=== PATIENT | male | born 1975 | race Caucasian/White ===

== ENCOUNTER 2022-06-19 19:03 | Inpatient (IN) | payer OTHER, SELFPAY ==
[2022-06-19 19:36] VITALS: BP 142/91; PULSE 96; RESP 18; TEMP 36.6; O2SAT 96; BMI 24.3
[2022-06-19 19:40] VITALS: BP 142/91; PULSE 96; RESP 18; TEMP 36.6; O2SAT 96
--- NOTE | 2022-06-19 20:27 | PC.NURSE ---
[facility] referral submitted at this time.
--- NOTE | 2022-06-19 20:48 | ED_ITS ---
HPI - Anxiety General Chief Complaint: Anxiety Stated Complaint: Crisis/Manic Time Seen by Provider: 06/19/22 20:21 Source: patient Mode of arrival: ambulatory Limitations: no limitations History of Present Illness HPI narrative: Family presents with 46-year-old male for evaluation for manic behavior. Patient has been manic for several months, has been biting his fingernails, pinching his skin, is noncompliant with medications, and has been experiencing explosive outbursts which scares his mother and his sisters. Patient states that he has been seen by primary care physician and nurse practitioner, has been given multiple medications, but feels very paranoid about taking them. He does not report any physical complaints at this time. MD complaint: anxiety Onset (ago): month(s) Severity: severe Quality: constant Place: home History of similar episodes: Yes Provoking factors: emotional stress Relieving factors: nothing Associated symptoms: denies other symptoms Related Data Allergies Allergy/AdvReac Type Severity Reaction Status Date / Time No Known Allergies Allergy Verified 06/19/22 20:56 Review of Systems Review of Systems: Constitutional: No Fever, No Chills ENT/Mouth: No Ear Pain, No Nasal Congestion, No sore throat Eyes: No Eye Pain, No Swelling, No Redness Cardiovascular: No Chest Pain, No SOB Respiratory: No Cough, No Sputum, No Dyspnea Gastrointestinal: No Nausea, No Vomiting, No Diarrhea, No Hematochezia, No Melena Genitourinary: No Dysuria, No Urinary Frequency, No Hematuria Musculoskeletal: No Myalgias Skin: No Skin Lesions, No rash Neuro: No Weakness, No Numbness, No Paresthesias, No Dizziness, No Headache Psych: positive Anxiety, positive Depression, no SI/HI Heme/Lymph: No Lymphadenopathy Endocrine: No Polyuria, No Polydipsia Yes all other systems are reviewed and are negative PMFSH Past Medical History Attestation statement: The following information was validated with the patient. Source: old records reviewed Social History Social History Alcohol intake: current Alcohol intake frequency: holidays/special occasions on ly Smoked in Last 30 Days: No Use of substances other than those prescribed or required for medical reasons: No Advance Directives: No Advance Directives Information Provided: No Physical Exam Vital Signs: Vital Signs: Last Vital Signs Temp 97.9 F 06/19/22 19:40 Pulse 96 06/19/22 19:40 Resp 18 06/19/22 19:40 BP 142/91 H 06/19/22 19:40 Pulse Ox 96 06/19/22 19:40 O2 Del Method 06/19/22 19:40 BMI result Body Mass Index 24.3 Appearance: Alert. Oriented X3. Moderate emotional distress. Eyes: Pupils equal, round and reactive to light. ENT: Pharynx normal. Neck: Normal inspection. Neck supple. CVS: Normal heart rate and rhythm. Pulses normal. Respiratory: No respiratory distress. Breath sounds normal. Abdomen: Soft and nontender. Skin: Cellulitis to all fingertips secondary to severe nail biting. Multiple bruises to forearms from pinching. Extremities: Gait well-balanced well coordinated. Neuro: No motor deficit. No sensory deficit. Cranial nerves 2-12 intact. Course Course Course Narrative: 46-year-old male presents with his family for evaluation for manic behavior and extreme anxiety. Patient states that he has been given several medications by his primary care physician and nurse practitioner. States that he has some anxiety about taking medications, is paranoid, and has been Google searching all the medications that were prescribed to him. He states that his job is stressful, and that he has been declining over the past few months. His sister states that he has explosive behaviors, is manic, and that his mother, whom he lives with, is afraid of him and concerned about his behaviors. Patient states that he is concerned about his behavior, is looking for help but is not sure what is available. Not suicidal or homicidal, he has cellulitis to his finger tips because of nail biting. All of his fingertips are swollen, he has multiple bruises on his forearms from pinching. He does not report illicit drug use, and has a prescription for Xanax. He did try fluoxetine, which made him feel like he was suicidal, and exacerbated his depression. Stated he was on Zoloft which was better, but stopped taking it because of paranoia. He has been given multiple other medications which she is currently not taking. He was diagnosed with herpes, and is on acyclovir. Patient is alert oriented x4, is speaking calmly and softly, answering questions appropriately. His sister's state that this behavior is unusual for him because he is calm and cooperative, which is not than his baseline over the past few months. Will order labs, crisis consult and psychiatric evaluation. Patient is voluntary at this time. I did give 1 dose of Xanax to help alleviate anxiety. I expect his tox screen to be positive for benzo diazepam. 23:50 tox screen positive for benzos, lab values are unremarkable. COVID influenza pending. Patient is medically cleared. Physician observation at this time. Medications Administered Discontinued Medications Generic Name Dose Route Start Last Admin Trade Name Dolly PRN Reason Stop Dose Admin Alprazolam 0.5 mg 06/19/22 20:56 06/19/22 21:15 Alprazolam 0.5 Mg Tablet PO 06/19/22 20:57 0.5 mg ONCE ONE Administration MDM - Anxiety MDM Narrative Medical decision making narrative: Martha Differential Diagnosis Differential diagnosis: Likely panic disorder and acute anxiety Medical Records Attestation: I reviewed the patient's medical records. Lab Data Attestation: I reviewed the patient's lab results. Result diagrams: 06/19/22 21:46 06/19/22 21:46 Labs: Lab Results 06/19/22 06/19/22 06/19/22 Range/Units 21:46 21:46 21:46 WBC 9.9 (4.8-10.8) X10*3/uL RBC 4.85 (4.60-5.80) X10*6/uL Hgb 15.7 (14.0-18.0) g/dl Hct 43.6 (42.0-52.0) % MCV 89.9 (80.0-98.0) fL MCH 32.4 (27.0-33.0) pg MCHC 36.0 (31.0-36.0) g/dl RDW 11.9 (11.0-16.0) % Plt Count 327 (160-400) X10*3/uL MPV 9.3 L (9.4-12.4) fL Immature Gran % (Auto) 0.4 (0.0-0.4) % Neut % (Auto) 72.7 (45-73) % Lymph % (Auto) 15.9 L (20-40) % [place] % (Auto) 9.7 (2-11) % Eos % (Auto) 1.1 (0-4) % Baso % (Auto) 0.2 (0-2) % Lymph # (Auto) 1.6 (1.2-4.9) X10*3/uL [place] # (Auto) 1.0 (0.1-1.2) X10*3/uL Eos # (Auto) 0.1 (0.0-0.4) X10*3/uL Baso # (Auto) 0.0 (0.0-0.2) X10*3/uL Abs Immat Gran (auto) 0.04 H (0.00-0.03) X10*3/uL Absolute Neuts (auto) 7.2 (2.0-8.3) x10*3/uL Absolute Nucleated RBC 0.000 (0.0-0.012) X10*3/uL Nucleated RBC % (auto) 0.0 (0.0-0.2) /100WBC Sodium 140 (135-145) mmol/L Potassium 3.8 (3.3-5.1) mmol/L Chloride 106 (96-108) mmol/L Carbon Dioxide 23 (22-29) mmol/L Anion Gap 15 (12-20) BUN 13 (9-16) mg/dL Creatinine 0.75 (0.5-1.4) mg/dL Estim Creat Clear Calc 116.5 Estimated GFR > 60 Random Glucose 95 (60-115) mg/dL Calcium 9.6 (8.4-10.2) mg/dL Total Bilirubin 1.0 (0.0-1.0) mg/dL AST 28 (5-37) U/L ALT 19 (0-40) U/L Alkaline Phosphatase 57 (39-117) U/L Total Protein 6.6 (6.5-8.0) g/dL Albumin 4.6 (3.5-5.0) g/dL Urine Opiates Screen (Not Detect) Urine Fentanyl Screen (Not Detect) Ur Barbiturates Screen (Not Detect) Ur Phencyclidine Scrn (Not Detect) Ur Amphetamines Screen (Not Detect) U Benzodiazepines Scrn (Not Detect) Urine Cocaine Screen (Not Detect) U Marijuana (THC) Screen (Not Detect) Ethyl Alcohol < 10 mg/dL 06/19/22 Range/Units 21:54 WBC (4.8-10.8) X10*3/uL RBC (4.60-5.80) X10*6/uL Hgb (14.0-18.0) g/dl Hct (42.0-52.0) % MCV (80.0-98.0) fL MCH (27.0-33.0) pg MCHC (31.0-36.0) g/dl RDW (11.0-16.0) % Plt Count (160-400) X10*3/uL MPV (9.4-12.4) fL Immature Gran % (Auto) (0.0-0.4) % Neut % (Auto) (45-73) % Lymph % (Auto) (20-40) % [place] % (Auto) (2-11) % Eos % (Auto) (0-4) % Baso % (Auto) (0-2) % Lymph # (Auto) (1.2-4.9) X10*3/uL [place] # (Auto) (0.1-1.2) X10*3/uL Eos # (Auto) (0.0-0.4) X10*3/uL Baso # (Auto) (0.0-0.2) X10*3/uL Abs Immat Gran (auto) (0.00-0.03) X10*3/uL Absolute Neuts (auto) (2.0-8.3) x10*3/uL Absolute Nucleated RBC (0.0-0.012) X10*3/uL Nucleated RBC % (auto) (0.0-0.2) /100WBC Sodium (135-145) mmol/L Potassium (3.3-5.1) mmol/L Chloride (96-108) mmol/L Carbon Dioxide (22-29) mmol/L Anion Gap (12-20) BUN (9-16) mg/dL Creatinine (0.5-1.4) mg/dL Estim Creat Clear Calc Estimated GFR Random Glucose (60-115) mg/dL Calcium (8.4-10.2) mg/dL Total Bilirubin (0.0-1.0) mg/dL AST (5-37) U/L ALT (0-40) U/L Alkaline Phosphatase (39-117) U/L Total Protein (6.5-8.0) g/dL Albumin (3.5-5.0) g/dL Urine Opiates Screen Not Detected (Not Detect) Urine Fentanyl Screen Not Detected (Not Detect) Ur Barbiturates Screen Not Detected (Not Detect) Ur Phencyclidine Scrn Not Detected (Not Detect) Ur Amphetamines Screen Not Detected (Not Detect) U Benzodiazepines Scrn POSITIVE H (Not Detect) Urine Cocaine Screen Not Detected (Not Detect) U Marijuana (THC) Screen Not Detected (Not Detect) Ethyl Alcohol mg/dL Discharge Plan Discharge Clinical Impression: Acute anxiety, Bipolar 1 disorder with moderate martha Patient Disposition: Still a Patient
[2022-06-19] MEDS: ALPRAZolam 0.5 MG TABLET PO (21:15)
[2022-06-19 21:55] LABS: Basophils Percent Auto 0.2 % (0-2); Eosinophils Absolute Auto 0.1 X10*3/uL (0.0-0.4); Eosinophils Percent Auto 1.1 % (0-4); Hematocrit 43.6 % (42.0-52.0); Hemoglobin 15.7 g/dl (14.0-18.0); Imm Gran Abs Auto 0.04 X10*3/uL (0.00-0.03); Imm Gran Pct Auto 0.4 % (0.0-0.4); Lymphocytes Absolute Auto 1.6 X10*3/uL (1.2-4.9); Lymphocytes Percent Auto 15.9 % (20-40); MANUAL DIFF FLAG NO; Mean Corpuscular Hemoglobin 32.4 pg (27.0-33.0); Mean Corpuscular Volume 89.9 fL (80.0-98.0); Mean Platelet Volume 9.3 fL (9.4-12.4); Monocytes Percent Auto 9.7 % (2-11); Neutrophils Absolute Auto 7.2 x10*3/uL (2.0-8.3); Neutrophils Percent Auto 72.7 % (45-73); Platelet Count 327 X10*3/uL (160-400); Red Blood Count 4.85 X10*6/uL (4.60-5.80); Red Cell Distribution Width 11.9 % (11.0-16.0); White Blood Count 9.9 X10*3/uL (4.8-10.8)
[2022-06-19 22:07] LABS: Ethanol < 10 mg/dL
[2022-06-19 22:10] LABS: Alanine Aminotransferase 19 U/L (0-40); Albumin Level 4.6 g/dL (3.5-5.0); Alkaline Phosphatase 57 U/L (39-117); Anion Gap 15 (12-20); Aspartate Amino Transferase 28 U/L (5-37); Blood Urea Nitrogen 13 mg/dL (9-16); Calcium 9.6 mg/dL (8.4-10.2); Carbon Dioxide 23 mmol/L (22-29); Chloride 106 mmol/L (96-108); Creatinine Clr Calc Pharmacy 116.5; Estimated Glomerular Filt Rate > 60; Glucose Random 95 mg/dL (60-115); Potassium 3.8 mmol/L (3.3-5.1); Sodium 140 mmol/L (135-145); Total Protein 6.6 g/dL (6.5-8.0)
[2022-06-19 22:13] LABS: Amphetamine Screen Urine Not Detected (Not Detect); Barbiturates, Urine Not Detected (Not Detect); Benzodiazepines Screen Urine POSITIVE (Not Detect); Cannabinoid Screen Urine Not Detected (Not Detect); Cocaine Screen Urine Not Detected (Not Detect); Fentanyl, urine Not Detected (Not Detect); Opiate Screen Urine Not Detected (Not Detect); Phencyclidine Screen Urine Not Detected (Not Detect)
[2022-06-20] MEDS: Diphth,Pertus(ACell),Tet Adult 0.5 ML SYRINGE IM (00:12)
[2022-06-20] MEDS: Amoxicillin/Potassium Clav 875 MG TABLET PO ×3 (00:14→22:08)
[2022-06-20 00:51] VITALS: BP 150/96; PULSE 98; RESP 17; TEMP 36.6; O2SAT 97
[2022-06-20 00:57] LABS: Influenza A PCR NEGATIVE (Negative); Influenza B PCR NEGATIVE (Negative); Resp Syncy Virus RNA Qual PCR NEGATIVE (Negative); SARS COV2 PCR INHOUSE NEGATIVE (Negative)
--- NOTE | 2022-06-20 06:52 | PC.NURSE ---
Patient did not sleep well, behavior non concerning, no distress observed/reported, patient engaged well with [facility], disposition not yet established, patient will be re-evaluated in the morning, patient is on Augmentin for finger infection, med rec completed/pending provider's approval, VSS, will continue to monitor.
[2022-06-20 07:24] VITALS: BP 138/94; PULSE 96; RESP 16; TEMP 36.3; O2SAT 96
[2022-06-20] MEDS: OLANZapine 10 MG TABLET PO ×2 (08:37→22:17)
[2022-06-20 20:26] VITALS: BP 152/102; PULSE 90; RESP 20; TEMP 36.6; O2SAT 98
[2022-06-20] MEDS: Acyclovir 200 MG CAPSULE 400 MG PO (22:08)
[2022-06-20 23:29] VITALS: BP 141/91; PULSE 90; RESP 17; TEMP 36.6; O2SAT 98
--- NOTE | 2022-06-21 | ECG_ITS ---
Test Reason : Anxiety Blood Pressure : / mmHG Vent. Rate : 079 BPM Atrial Rate : 079 BPM P-R Int : 126 ms QRS Dur : 086 ms QT Int : 390 ms P-R-T Axes : 010 038 059 degrees QTc Int : 447 ms Normal sinus rhythm Normal ECG No previous ECGs available Referred By: Valentino Bueno Electronically Signed By:Deric Goss
--- NOTE | 2022-06-21 05:53 | PC.NURSE ---
Patient slept through the night, positive effect from Olanzapine 10 mg administered at 2217, no distress observed/reported, mood depressed however behavior non concerning, reluctantly compliant with medication, disposition per [facility] is section 12 inpatient Bed Search, VSS, will continue to monitor.
--- NOTE | 2022-06-21 08:35 | PC.NURSE ---
contact made to pharmacy for acylovir
[2022-06-21] MEDS: Acyclovir 200 MG CAPSULE 400 MG PO ×2 (09:26→21:18)
[2022-06-21] MEDS: OLANZapine 10 MG TABLET PO (09:26)
[2022-06-21] MEDS: Amoxicillin/Potassium Clav 875 MG TABLET PO (09:26)
[2022-06-21 09:53] VITALS: BP 149/100; PULSE 93; RESP 17; TEMP 36.6; O2SAT 98
[2022-06-21 11:17] VITALS: BP 128/78; PULSE 79; RESP 20; TEMP 36.4; O2SAT 96
--- NOTE | 2022-06-21 18:36 | P.HPPS_ITS ---
HPI Date of Service: 06/21/22 Chief Complaint: ruminations unable to make decisions Sources of Information: patient interviewed, chart reviewed and crisis/core team assessment reviewed HPI Subjective Notes: Spears Warning, Conditional Voluntary and 3 Day Healthcare Proxy: No Guardianship: No Medical Problems Affecting Mental Status: No Narrative: Tomy is a 46 y.o. male who carries a dx of Bipolar II DO. He presented to [facility] on 06/19/22 due to explosive outbursts, hyposomnia, and med non-adherence. Per ED note, pt?s sister states that he lives with his mother and she is afraid of him and concerned about his behaviors, he has only been sleeping 2 hours at night. Pt found to have cellulitis to his finger tips because of nail biting and multiple bruises on his forearms from pinching himself. Precipitating factors include that pt has been stressed at work due to bullying and financial stress. I spoke to pt this evening. Pt says he had his PCP prescribing his psych meds, however recently saw a Psych [employer] outpatient and between the two of them, he has had frequent medication changes, attributes this to his non-adherence, as he says he didn?t know which one to listen to. Says he took seroquel 200 mg and liked this one because it ?knocked me out.? However, says he feels ?very leery about medication? and prefers to not be on medication because he had a SE of tinnitus from Wellbutrin and it has not gone away. Pt describes hx of hypomania, however he has been high functioning and managed to stay out of the hospital. Hx of high activity level, i.e. traveling to [facility], kayaking in [place], ?im very active? and he needs to ?burn the energy,? ?always on the move.? Says he is ?fidgety,? ?irritable,? picks at his skin, anxious, ?constantly thinking.? Has episodes of yelling out, calls it ?vocalizations.? Only sleeps 2-3 hours at night, denies feeling tired. 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 and 3 mo ago at work he discovered an outbreak and says ?that was the last straw for me mentally.? He is unsure of his diagnoses but says it has been ?strongly suggested? that he has bipolar disorder. He has a hx of depressive episodes, however says his sx started 2-3 years ago, pushing people away. Again he has been able to function without hospitalization up until this time, ?I could work, I could manage.? Says he thinks he has OCD, as he perseverates and ruminates on ?bad thoughts? about his past. Past Psychiatric History: -Has OP psych provider, Rika Crandall APRN at [facility] -Hx of suicidal gesture, in the last 3 mo took belt and wrapped it around his neck but stopped -Recently purchased a Soneter stimulator, helped with sleep, but thinks it was placebo. -Past meds: Xanax, Lexapro (?horrible?), fluoxetine (felt suicidal and exa cerbated his depression), Zoloft (wt gain), Depakote (non-adherent, did not want to do lab work, looked up SE and does not want to take), lamictal (non-adherent after he titrated up to 50 mg, had red macular/popular rash on his abdomen), Seroquel 200 mg (benefit for sleep), rexulti (helpful initially but said he ?freaked out? at work and felt ?uncomfortable,? denies restlessness but attributes this feeling to the medication), trintellix (took with lamictal), Wellbutrin (had SE of tinnitus), luvox (brief trial), gabapentin (constipation). Medical Evaluation Reviewed: Yes [facility] Narrative: -HSV2 Family History: -Bipolar DO, alcohol use disorder Social History: -Lives alone, not , no children -Graduated from [employer]. 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 Diagnostics Vital Signs (24Hr): Vital Signs - 24 hr 06/20/22 20:26 06/20/22 23:29 06/21/22 09:53 Temperature 98 F 97.9 F 97.8 F Pulse Rate 90 90 93 Respiratory Rate 20 17 17 Blood Pressure 152/102 H 141/91 H 149/100 H Pulse Oximetry 98 98 98 Oxygen Delivery Method Room Air Room Air Room Air 06/21/22 11:17 Temperature 97.6 F Pulse Rate 79 Respiratory Rate 20 Blood Pressure 128/78 Pulse Oximetry 96 Oxygen Delivery Method Room Air BMI result Body Mass Index 24.3 Labs Results: 06/19/22 21:46 06/19/22 21:46 Labs: Laboratory Results - last 48 hr 06/19/22 06/19/22 06/19/22 21:46 21:46 21:46 WBC 9.9 RBC 4.85 Hgb 15.7 Hct 43.6 MCV 89.9 MCH 32.4 MCHC 36.0 RDW 11.9 Plt Count 327 MPV 9.3 L Immature Gran % (Auto) 0.4 Neut % (Auto) 72.7 Lymph % (Auto) 15.9 L [place] % (Auto) 9.7 Eos % (Auto) 1.1 Baso % (Auto) 0.2 Lymph # (Auto) 1.6 [place] # (Auto) 1.0 Eos # (Auto) 0.1 Baso # (Auto) 0.0 Abs Immat Gran (auto) 0.04 H Absolute Neuts (auto) 7.2 Absolute Nucleated RBC 0.000 Nucleated RBC % (auto) 0.0 Sodium 140 Potassium 3.8 Chloride 106 Carbon Dioxide 23 Anion Gap 15 BUN 13 Creatinine 0.75 Estim Creat Clear Calc 116.5 Estimated GFR > 60 Random Glucose 95 Calcium 9.6 Total Bilirubin 1.0 AST 28 ALT 19 Alkaline Phosphatase 57 Total Protein 6.6 Albumin 4.6 Urine Opiates Screen Urine Fentanyl Screen Ur Barbiturates Screen Ur Phencyclidine Scrn Ur Amphetamines Screen U Benzodiazepines Scrn Urine Cocaine Screen U Marijuana (THC) Screen Ethyl Alcohol < 10 Influenza Type A (PCR) Influenza Type B (PCR) RSV RNA Qual (PCR) SARS-CoV-2 RNA (RT-PCR) 06/19/22 06/20/22 21:54 00:16 WBC RBC Hgb Hct MCV MCH MCHC RDW Plt Count MPV Immature Gran % (Auto) Neut % (Auto) Lymph % (Auto) [place] % (Auto) Eos % (Auto) Baso % (Auto) Lymph # (Auto) [place] # (Auto) Eos # (Auto) Baso # (Auto) Abs Immat Gran (auto) Absolute Neuts (auto) Absolute Nucleated RBC Nucleated RBC % (auto) Sodium Potassium Chloride Carbon Dioxide Anion Gap BUN Creatinine Estim Creat Clear Calc Estimated GFR Random Glucose Calcium Total Bilirubin AST ALT Alkaline Phosphatase Total Protein Albumin Urine Opiates Screen Not Detected Urine Fentanyl Screen Not Detected Ur Barbiturates Screen Not Detected Ur Phencyclidine Scrn Not Detected Ur Amphetamines Screen Not Detected U Benzodiazepines Scrn POSITIVE H Urine Cocaine Screen Not Detected U Marijuana (THC) Screen Not Detected Ethyl Alcohol Influenza Type A (PCR) NEGATIVE Influenza Type B (PCR) NEGATIVE RSV RNA Qual (PCR) NEGATIVE SARS-CoV-2 RNA (RT-PCR) NEGATIVE Meds/Allergies Meds Home Medications Medication Instructions Recorded Confirmed Type acyclovir 400 mg tablet 1 tab PO BID 06/20/22 06/20/22 History alprazolam 0.25 mg tablet 1 tab PO BID PRN anxiety 06/20/22 06/20/22 History fluvoxamine 50 mg tablet 1 tab PO BEDTIME 06/20/22 06/20/22 History lamotrigine 25 mg tablet 100 mg PO BEDTIME 06/20/22 06/20/22 History quetiapine 50 mg tablet 1 tab PO BEDTIME 06/20/22 06/20/22 History Allergies Allergies Allergy/AdvReac Type Severity Reaction Status Date / Time No Known Allergies Allergy Verified 06/19/22 20:56 Assessment & Plan Assessment & Plan (1) Bipolar II disorder: Status: Acute Code(s): F31.81 - Bipolar II disorder Plan Tomy is a 46 y.o. male who carries a dx of Bipolar II DO. He presented to [facility] on 06/19/22 due to explosive outbursts, hyposomnia, and med non-adherence. Per ED note, pt?s sister states that he lives with his mother and she is afraid of him and concerned about his behaviors, he has only been sleeping 2 hours at night. Pt found to have cellulitis to his finger tips because of nail biting and multiple bruises on his forearms from pinching himself. Precipitating factors include that pt has been stressed at work due to bullying and financial stress. No hx of IPLOC. Has OP psych provider. No substance use or illicit substances. Pt endorses hx of hypomanic and depressive episodes. Plan: Re-start seroquel 200 mg HS and start seroquel 50 mg BID PRN for mood stability, pt reports it helps with sleep. Discussed trialing low dose abilify, as he had some benefit on rexulti. Q15 min safety checks, CV, 3 day notice Monitor response to medications. Monitor for safety in the milieu. Discharge on stabilization. Patient seen. Chart reviewed. Discussed with team. Obtain collateral contact info?as needed Patient educated on: diagnosis, medication risk/benefits and therapeutic strategies Reason for continued inpatient stay Substantial Risk for: inability to function, rapid decompensation and med/psych decompensation Statement Statement: I have reviewed the history and physical and performed a pertinent examination on my patient. No changes have occurred unless specified.
[2022-06-21 18:41] VITALS: BMI 24.4
[2022-06-21 18:45] VITALS: BP 158/91; PULSE 96; RESP 18; TEMP 36.4; O2SAT 96
--- NOTE | 2022-06-21 18:46 | PC.NURSE ---
Nursing admission note: 46 year old male referred for treatment by CARE team. DX: Unspecified BiPolar and Related disorder. Signed conditional voluntary for admission, submitted 3 day notice. Patient engaged easily. Full range of affect, good eye contact. Dressed in hospital attire. Thoughts are clear, relevant and organized however frequently repeats self. Hyperverbal, pressured at times. Tangential. Endorses racing thoughts, states he is all over the place , ruminations, perseveration. Reports depression with manic episodes. Reports he will experience intonation, tics, groaning and becomes more vocal. Feels like life sucks at times. States he was prescribed Lamictal by PCP however did not comply with medication. I can't believe I am in a place like this I fucked up really bad by not taking medication as prescribed. Reports history of panic attacks, was getting crazy at work. Denies perceptual disturbances, no overt psychosis or expressed delusions. Denies A/V hallucinations. Reports feeling stressed about finances, familial and ability to return to work. Fears loosing his job, home, insurance and vehicle. Denies appetite disturbances. Reports sleep disturbance, difficulty falling and maintaining sleep. States he will get about 2 hours a night. States Seroquel 200mg has helped with sleep. Medical history includes HSV2, denies outbreak at this time. NKA. NKDA. Placed on unit safety checks, signed LEAH. See nursing assessment/crisis eval for complete details.
[2022-06-21 21:05] VITALS: BP 142/89; BP 151/105; PULSE 94; RESP 16; TEMP 36.5; O2SAT 99
[2022-06-21] MEDS: QUEtiapine Fumarate 200 MG TABLET PO (21:18)
[2022-06-21] MEDS: hydrOXYzine HCL 25 MG TABLET PO (21:18)
[2022-06-22] MEDS: Acyclovir 200 MG CAPSULE 400 MG PO ×2 (08:39→20:49)
[2022-06-22] MEDS: Amoxicillin/Potassium Clav 875 MG TABLET PO ×2 (08:39→20:48)
[2022-06-22 08:53] VITALS: BP 140/100; PULSE 98; RESP 17; TEMP 36.3; O2SAT 96
[2022-06-22 09:01] LABS: Estimated Average Glucose 88 mg/dL; Hemoglobin A1c % 4.7 %
[2022-06-22 09:16] LABS: Alanine Aminotransferase 15 U/L (0-40); Albumin Level 4.5 g/dL (3.5-5.0); Alkaline Phosphatase 53 U/L (39-117); Anion Gap 11 (12-20); Aspartate Amino Transferase 13 U/L (5-37); Bilirubin Total 0.8 mg/dL (0.0-1.0); Blood Urea Nitrogen 18 mg/dL (9-16); Calcium 9.6 mg/dL (8.4-10.2); Carbon Dioxide 26 mmol/L (22-29); Chloride 105 mmol/L (96-108); Cholesterol 215 mg/dL; Estimated Glomerular Filt Rate > 60; Glucose Fasting 108 mg/dL (60-99); HDL Cholesterol 50 mg/dL; LDL Cholesterol Calculated 140 mg/dl; Potassium 4.3 mmol/L (3.3-5.1); Sodium 138 mmol/L (135-145); Thyroid Stimulating Hormone 1.46 uIU/mL (0.32-4.0); Total Protein 6.6 g/dL (6.5-8.0); Triglycerides 127 mg/dL
[2022-06-22 09:24] LABS: Vitamin B12 550 pg/mL (200-900)
[2022-06-22] MEDS: QUEtiapine Fumarate 50 MG TABLET PO (12:10)
--- NOTE | 2022-06-22 17:13 | P.PNPSI_ITS ---
Subjective Subjective Date of Service: 06/22/22 Reason For Visit: ruminations unable to make decisions Interim History: I spoke with pt, he says he woke up very anxious, denies benefit on seroquel 50 mg, just made him sedated. Pt is ruminative, says he feels like he screwed up so bad. He didnt sleep on seroquel 200 mg HS, attributes this to his roommate keeping him awake but also admits that at home he only slept 3 hours on that dose. Continues to feel anxious. Says I wish I stayed on lamictal, however has hx of rash. Says he wakes up after two hours of sleep and im not tired. Mental Status Exam Mental Status Exam Narrative: A&O. Casual attire, okay grooming. Good eye contact, inattentive. No Tics or Tremors. No abnormal involuntary movements. Calm, cooperative, engaged. Pressured speech, spontaneous with regular rate and rhythm, normal volume and prosody. Talkative. No prolonged speech latency or dysarthria. Mood is ?anxious,? affect is congruent. Denies SI/SIB/HI upon inquiry. Denies A/VH or delusional thought content. Thoughts are ruminative, tangential. No known cognitive or memory impairment. Insight/ Judgment limited but adequate. Diagnostics Vital Signs (24Hr): Vital Signs - 24 hr 06/21/22 18:45 06/21/22 21:05 06/21/22 21:05 Temperature 97.6 F 97.7 F Pulse Rate 96 94 Respiratory Rate 18 16 Blood Pressure 158/91 H 151/105 H 142/89 H Pulse Oximetry 96 99 Oxygen Delivery Method Room Air Room Air 06/22/22 08:53 Temperature 97.4 F Pulse Rate 98 Respiratory Rate 17 Blood Pressure 140/100 H Pulse Oximetry 96 Oxygen Delivery Method Room Air BMI result Body Mass Index 24.4 Labs Results: 06/19/22 21:46 06/22/22 08:24 Labs: Laboratory Results - last 48 hr 06/22/22 06/22/22 06/22/22 08:24 08:24 08:24 Sodium 138 Potassium 4.3 Chloride 105 Carbon Dioxide 26 Anion Gap 11 L BUN 18 H Creatinine 0.91 Estim Creat Clear Calc 96.0 Estimated GFR > 60 Fasting Glucose 108 H Estimat Average Glucose 88 Hemoglobin A1c % 4.7 Calcium 9.6 Total Bilirubin 0.8 AST 13 ALT 15 Alkaline Phosphatase 53 Total Protein 6.6 Albumin 4.5 Triglycerides 127 Cholesterol 215 LDL Cholesterol, Calc 140 HDL Cholesterol 50 Vitamin B12 550 TSH 1.46 Medications Medications Current Medications Acetaminophen (Acetaminophen 325 Mg Tablet) 650 mg PO Q6H PRN PRN Reason: Headache/Pain Mild Scale (1-3) Acyclovir (Acyclovir 200 Mg Capsule) 400 mg PO BID [facility] Last Admin: 06/22/22 08:39 Dose: 400 mg Al Hydroxide/Mg Hydroxide (Magnesium Hydrox/Alum Hydrox 30 Ml Oral.Susp) 30 ml PO Q6H PRN PRN Reason: Heartburn/Nausea Amoxicillin/Clavulanate Potassium (Amoxicillin/Potassium Clav 875 Mg Tablet) 875 mg PO Q12H [facility] Last Admin: 06/22/22 08:39 Dose: 875 mg Hydroxyzine HCl (Hydroxyzine Hcl 25 Mg Tablet) 25 mg PO Q6H PRN PRN Reason: Anxiety Last Admin: 06/21/22 21:18 Dose: 25 mg Magnesium Hydroxide (Milk Of Magnesia 30 Ml Oral.Susp) 30 ml PO DAILY PRN PRN Reason: Constipation Olanzapine (Olanzapine 10 Mg Tablet) 10 mg PO BID PRN PRN Reason: Anxiety Last Admin: 06/21/22 09:26 Dose: 10 mg Quetiapine Fumarate (Quetiapine Fumarate 200 Mg Tablet) 200 mg PO BEDTIME [facility] Last Admin: 06/21/22 21:18 Dose: 200 mg Quetiapine Fumarate (Quetiapine Fumarate 50 Mg Tablet) 50 mg PO BID PRN PRN Reason: anxiety, agitation Last Admin: 06/22/22 12:10 Dose: 50 mg Trazodone HCl (Trazodone Hcl 50 Mg Tablet) 50 mg PO BEDTIME PRN PRN Reason: Insomnia Allergies Allergies Allergy/AdvReac Type Severity Reaction Status Date / Time No Known Allergies Allergy Verified 06/19/22 20:56 Assessment & Plan Assessment & Plan (1) Bipolar II disorder: Status: Acute Code(s): F31.81 - Bipolar II disorder Plan Tomy is a 46 y.o. male who carries a dx of Bipolar II DO. He presented to [facility] ED on 06/19/22 due to explosive outbursts, hyposomnia, and med non-adherence. Per ED note, pt?s sister states that he lives with his mother and she is afraid of him and concerned about his behaviors, he has only been sleeping 2 hours at night. Pt found to have cellulitis to his finger tips because of nail biting and multiple bruises on his forearms from pinching himself. Precipitating factors include that pt has been stressed at work due to bullying and financial stress. No hx of IPLOC. Has OP psych provider. No substance use or illicit substances. Pt endorses hx of hypomanic and depressive episodes. Plan: Re-start seroquel 200 mg HS and start seroquel 50 mg BID PRN for mood stability, pt reports it helps with sleep. Discussed trialing low dose abilify, as he had some benefit on rexulti. 06/22 Increase seroquel to 300 mg HS for sleep, decrease daytime seroquel to 25 mg due to c/o sedation. Q15 min safety checks, CV, 3 day notice Monitor response to medications. Monitor for safety in the milieu. Discharge on stabilization. Patient seen. Chart reviewed. Discussed with team. Obtain collateral contact info?as needed I spent minutes with the patient and/or on the patient floor today, gr eater than?50% of which was spent counseling/coordinating care. Patient educated on: medication risk/benefits and therapeutic strategies Reason for contiued inpatient stay Substantial Risk for: med/psych decompensation
[2022-06-22] MEDS: QUEtiapine Fumarate 300 MG TABLET PO (20:49)
[2022-06-22 20:59] VITALS: BP 135/88; PULSE 110; TEMP 36.6; O2SAT 97
--- NOTE | 2022-06-23 01:58 | HO.PSYCHPN ---
Subjective Subjective Date of Service: 06/23/22 Reason For Visit: ruminations unable to make decisions Interim History: Spoke with pt, met with team. Pt complains of a lot of ruminating thoughts. He only slept for a couple hours, 2-3 hours. Did not notice difference on increased seroquel. Now says that seroquel 200 mg worked initially but that after taking it every day for a month it stopped working and he has only been sleeping 2-3 hours for several weeks. No longer thinks seroquel works as a sleep aid for him. Wants to trial a new medication. He is interested in lamictal, however shows T/W rash on abdomen, macular/ papular, non-pruritic, emerged after lamictal start. Discussed abilify trial, as pt thinks rachana was briefly helpful. Continues to present as hyperverbal, perseverative/ ruminative, inattentive, anxious, racing thoughts, and with hyposomnia. Mental Status Exam Mental Status Exam Narrative: A&O. Casual attire, okay grooming. Good eye contact, inattentive. No Tics or Tremors. No abnormal involuntary movements. Calm, cooperative, engaged. Pressured speech, spontaneous with regular rate and rhythm, normal volume and prosody. Talkative. No prolonged speech latency or dysarthria. Mood is ?anxious,? affect is congruent. Denies SI/SIB/HI upon inquiry. Denies A/VH or delusional thought content. Thoughts are ruminative, tangential. No known cognitive or memory impairment. Insight/ Judgment limited but adequate. Diagnostics Vital Signs (24Hr): Vital Signs - 24 hr 06/22/22 08:53 06/22/22 20:59 Temperature 97.4 F 97.9 F Pulse Rate 98 110 H Respiratory Rate 17 Blood Pressure 140/100 H 135/88 Pulse Oximetry 96 97 Oxygen Delivery Method Room Air Room Air BMI result Body Mass Index 24.4 Labs Results: 06/19/22 21:46 06/22/22 08:24 Labs: Laboratory Results - last 48 hr 06/22/22 06/22/22 06/22/22 08:24 08:24 08:24 Sodium 138 Potassium 4.3 Chloride 105 Carbon Dioxide 26 Anion Gap 11 L BUN 18 H Creatinine 0.91 Estim Creat Clear Calc 96.0 Estimated GFR > 60 Fasting Glucose 108 H Estimat Average Glucose 88 Hemoglobin A1c % 4.7 Calcium 9.6 Total Bilirubin 0.8 AST 13 ALT 15 Alkaline Phosphatase 53 Total Protein 6.6 Albumin 4.5 Triglycerides 127 Cholesterol 215 LDL Cholesterol, Calc 140 HDL Cholesterol 50 Vitamin B12 550 TSH 1.46 Medications Medications Current Medications Acetaminophen (Acetaminophen 325 Mg Tablet) 650 mg PO Q6H PRN PRN Reason: Headache/Pain Mild Scale (1-3) Acyclovir (Acyclovir 200 Mg Capsule) 400 mg PO BID [facility] Last Admin: 06/22/22 20:49 Dose: 400 mg Al Hydroxide/Mg Hydroxide (Magnesium Hydrox/Alum Hydrox 30 Ml Oral.Susp) 30 ml PO Q6H PRN PRN Reason: Heartburn/Nausea Amoxicillin/Clavulanate Potassium (Amoxicillin/Potassium Clav 875 Mg Tablet) 875 mg PO Q12H [facility] Last Admin: 06/22/22 20:48 Dose: 875 mg Hydroxyzine HCl (Hydroxyzine Hcl 25 Mg Tablet) 25 mg PO Q6H PRN PRN Reason: Anxiety Last Admin: 06/21/22 21:18 Dose: 25 mg Magnesium Hydroxide (Milk Of Magnesia 30 Ml Oral.Susp) 30 ml PO DAILY PRN PRN Reason: Constipation Olanzapine (Olanzapine 10 Mg Tablet) 10 mg PO BID PRN PRN Reason: Anxiety Last Admin: 06/21/22 09:26 Dose: 10 mg Quetiapine Fumarate (Quetiapine Fumarate 25 Mg Tablet) 25 mg PO BID PRN PRN Reason: anxiety, agitation Quetiapine Fumarate (Quetiapine Fumarate 300 Mg Tablet) 300 mg PO BEDTIME [facility] Last Admin: 06/22/22 20:49 Dose: 300 mg Trazodone HCl (Trazodone Hcl 50 Mg Tablet) 50 mg PO BEDTIME PRN PRN Reason: Insomnia Allergies Allergies Allergy/AdvReac Type Severity Reaction Status Date / Time No Known Allergies Allergy Verified 06/19/22 20:56 Assessment & Plan Assessment & Plan (1) Bipolar II disorder: Status: Acute Code(s): F31.81 - Bipolar II disorder Plan Tomy is a 46 y.o. male who carries a dx of Bipolar II DO. He [place] [facility] [place] due to explosive outbursts, hyposomnia, and med non-adherence. Per ED note, pt?s sister states that he lives with his mother and she is afraid of him and concerned about his behaviors, he has only been sleeping 2 hours at night. Pt found to have cellulitis to his finger tips because of nail biting and multiple bruises on his forearms from pinching himself. Precipitating factors include that pt has been stressed at work due to bullying and financial stress. No hx of IPLOC. Has OP psych provider. No substance use or illicit substances. Pt endorses hx of hypomanic and depressive episodes. Plan: Re-start seroquel 200 mg HS and start seroquel 50 mg BID PRN for mood stability, pt reports it helps with sleep. Discussed trialing low dose abilify, as he had some benefit on rexulti. 06/22 Increase seroquel to 300 mg HS for sleep, decrease daytime seroquel to 25 mg due to c/o sedation. 06/23 Discontinue seroquel 300 mg HS due to lack of efficacy, re-increase seroquel to 50 mg BID PRN, as he would still like to trial a lower dose for sleep in combination with hydroxyzine PRN. Will start abilify 5 mg AM for mood stability. Q15 min safety checks, CV, 3 day notice Monitor response to medications. Monitor for safety in the milieu. Discharge on stabilization. Patient seen. Chart reviewed. Discussed with team. Obtain collateral contact info?as needed I spent minutes with the patient and/or on the patient floor today, greater than?50% of which was spent counseling/coordinating care. Patient educated on: medication risk/benefits and therapeutic strategies Reason for contiued inpatient stay Substantial Risk for: inability to function, rapid decompensation and med/psych decompensation
[2022-06-23] MEDS: Acyclovir 200 MG CAPSULE 400 MG PO ×2 (08:45→21:19)
[2022-06-23] MEDS: QUEtiapine Fumarate 25 MG TABLET PO (08:45)
[2022-06-23] MEDS: Amoxicillin/Potassium Clav 875 MG TABLET PO ×2 (08:46→21:19)
[2022-06-23 08:49] VITALS: BP 133/92; PULSE 101; TEMP 36.2; O2SAT 96
[2022-06-23] MEDS: ARIPiprazole 5 MG TABLET PO (10:16)
[2022-06-23 18:43] VITALS: BP 137/90; PULSE 99; RESP 16; TEMP 36.6; O2SAT 98
[2022-06-24] MEDS: QUEtiapine Fumarate 50 MG TABLET PO (02:08)
[2022-06-24] MEDS: hydrOXYzine HCL 50 MG TABLET PO (02:08)
[2022-06-24] MEDS: Acyclovir 200 MG CAPSULE 400 MG PO ×2 (09:18→20:10)
[2022-06-24] MEDS: ARIPiprazole 5 MG TABLET PO (09:18)
[2022-06-24] MEDS: Amoxicillin/Potassium Clav 875 MG TABLET PO ×2 (09:19→20:11)
[2022-06-24 09:20] VITALS: BP 144/93; PULSE 95; TEMP 36.3; O2SAT 97
--- NOTE | 2022-06-24 12:56 | HO.PSYCHPN ---
Subjective Subjective Date of Service: 06/24/22 Reason For Visit: ruminations unable to make decisions Interim History: Spoke with pt and met with team. Pt says he took seroquel 50 mg HS and hydroxyzine 50 mg HS last night, I just dont sleep a long time on seroquel. Sleep is somewhat to achieve in part due to roommate snoring so loudly. Pt complains of ruminating thoughts. He is inattentive. Feels anxious all the time. He is perseverative and hyperfocused on medication, feels like he blew it by not following through with lamictal trial, says his PCP had recommended he continue it despite rash and instead he sough second opinion by psychiatrist and trialed depakote, which he ultimately didnt take due to fear of side effects. He is circular, ruminative on thoughts that if he had taken lamictal he would have avoided hypomanic episode and thus hospitalization, unable to be re-directed at times. Mental Status Exam Mental Status Exam Narrative: A&O. Casual attire, okay grooming. Good eye contact, inattentive. No Tics or Tremors. No abnormal involuntary movements. Calm, cooperative, engaged. Pressured speech, spontaneous with regular rate and rhythm, normal volume and prosody. Talkative. No prolonged speech latency or dysarthria. Mood is ?anxious,? affect is congruent. Denies SI/SIB/HI upon inquiry. Denies A/VH or delusional thought content. Thoughts are ruminative, tangential. No known cognitive or memory impairment. Insight/ Judgment limited but adequate. Diagnostics Vital Signs (24Hr): Vital Signs - 24 hr 06/23/22 18:43 06/24/22 09:20 Temperature 97.8 F 97.4 F Pulse Rate 99 95 Respiratory Rate 16 Blood Pressure 137/90 H 144/93 H Pulse Oximetry 98 97 Oxygen Delivery Method Room Air Room Air BMI result Body Mass Index 24.4 Labs Results: 06/19/22 21:46 06/22/22 08:24 Medications Medications Current Medications Acetaminophen (Acetaminophen 325 Mg Tablet) 650 mg PO Q6H PRN PRN Reason: Headache/Pain Mild Scale (1-3) Acyclovir (Acyclovir 200 Mg Capsule) 400 mg PO BID [facility] Last Admin: 06/24/22 09:18 Dose: 400 mg Al Hydroxide/Mg Hydroxide (Magnesium Hydrox/Alum Hydrox 30 Ml Oral.Susp) 30 ml PO Q6H PRN PRN Reason: Heartburn/Nausea Amoxicillin/Clavulanate Potassium (Amoxicillin/Potassium Clav 875 Mg Tablet) 875 mg PO Q12H [facility] Last Admin: 06/24/22 09:19 Dose: 875 mg Aripiprazole (Aripiprazole 5 Mg Tablet) 5 mg PO DAILY [facility] Last Admin: 06/24/22 09:18 Dose: 5 mg Hydroxyzine HCl (Hydroxyzine Hcl 50 Mg Tablet) 50 mg PO Q6H PRN PRN Reason: Anxiety Last Admin: 06/24/22 02:08 Dose: 50 mg Magnesium Hydroxide (Milk Of Magnesia 30 Ml Oral.Susp) 30 ml PO DAILY PRN PRN Reason: Constipation Quetiapine Fumarate (Quetiapine Fumarate 50 Mg Tablet) 50 mg PO BID PRN PRN Reason: anxiety, agitation Last Admin: 06/24/22 02:08 Dose: 50 mg Trazodone HCl (Trazodone Hcl 50 Mg Tablet) 50 mg PO BEDTIME PRN PRN Reason: Insomnia Allergies Allergies Allergy/AdvReac Type Severity Reaction Status Date / Time No Known Allergies Allergy Verified 06/19/22 20:56 Assessment & Plan Assessment & Plan (1) Bipolar II disorder: Status: Acute Code(s): F31.81 - Bipolar II disorder Plan Tomy is a 46 y.o. male who carries a dx of Bipolar II DO. He presented to [facility] [place] [facility] on 06/19/22 due to explosive outbursts, hyposomnia, and med non-adherence. Per ED note, pt?s sister states that he lives with his mother and she is afraid of him and concerned about his behaviors, he has only been sleeping 2 hours at night. Pt found to have cellulitis to his finger tips because of nail biting and multiple bruises on his forearms from pinching himself. Precipitating factors include that pt has been stressed at work due to bullying and financial stress. No hx of IPLOC. Has OP psych provider. No substance use or illicit substances. Pt endorses hx of hypomanic and depressive episodes. Plan: Re-start seroquel 200 mg HS and start seroquel 50 mg BID PRN for mood stability, pt reports it helps with sleep. Discussed trialing low dose abilify, as he had some benefit on rexulti. 06/22 Increase seroquel to 300 mg HS for sleep, decrease daytime seroquel to 25 mg due to c/o sedation. 06/23 Discontinue seroquel 300 mg HS due to lack of efficacy, re-increase seroquel to 50 mg BID PRN, as he would still like to trial a lower dose for sleep in combination with hydroxyzine PRN. Will start abilify 5 mg AM for mood stability. 06/24 Increase abilify to 10 mg daily on 06/25 for mood stability. start clonidine 0.1 mg HS for anxiety, poor sleep, hyperarousal. Q15 min safety checks, CV, 3 day notice Monitor response to medications. Monitor for safety in the milieu. Discharge on stabilization. Patient seen. Chart reviewed. Discussed with team. Obtain collateral contact info?as needed I spent minutes with the patient and/or on the patient floor today, greater than?50% of which was spent counseling/coordinating care. Patient educated on: medication risk/benefits and therapeutic strategies Reason for contiued inpatient stay Substantial Risk for: rapid decompensation and med/psych decompensation
[2022-06-24] MEDS: cloNIDine HCL 0.1 MG TABLET PO (20:11)
[2022-06-24 20:18] VITALS: BP 146/89; PULSE 101; RESP 16; TEMP 37; O2SAT 97
[2022-06-25 08:30] VITALS: BP 139/93; PULSE 100; RESP 18; TEMP 36.6; O2SAT 97
[2022-06-25] MEDS: Amoxicillin/Potassium Clav 875 MG TABLET PO ×2 (09:32→21:35)
[2022-06-25] MEDS: Acyclovir 200 MG CAPSULE 400 MG PO ×2 (09:32→21:34)
[2022-06-25] MEDS: ARIPiprazole 5 MG TABLET 7.5 MG PO (09:32)
--- NOTE | 2022-06-25 12:24 | HO.PSYCHPN ---
Subjective Subjective Date of Service: 06/25/22 Reason For Visit: ruminations unable to make decisions Subjective Notes: Conditional Voluntary and 3 Day Interim History: Pt ruminating about not taking medications 2 months ago when he started having symptoms including inability to make decisions, feeling anxious, he reports some depression but this has worsened as his ability to function has significantly decline. Pt denies SI/HI. He appears slightly less paralized when asked to make decision. he does report some need to pace but not sure if has worsened with abilify. He worries about copayment for this hospital stay as he has deductible. Medication Compliance: Yes Side effects from medications: No Attending Groups: Yes Review of Systems Review of Systems Constitutional: No Fever, No Chills ENT/Mouth: No Ear Pain, No Nasal Congestion, No sore throat Eyes: No Eye Pain, No Swelling, No Redness Cardiovascular: No Chest Pain, No SOB Respiratory: No Cough, No Sputum, No Dyspnea Gastrointestinal: No Nausea, No Vomiting, No Diarrhea, No Hematochezia, No Melena Genitourinary: No Dysuria, No Urinary Frequency, No Hematuria Musculoskeletal: No Myalgias Skin: No Skin Lesions, No rash Neuro: No Weakness, No Numbness, No Paresthesias, No Dizziness, No Headache Psych: positive Anxiety, positive Depression, no SI/HI Heme/Lymph: No Lymphadenopathy Endocrine: No Polyuria, No Polydipsia Yes all other systems are reviewed and are negative Mental Status Exam Mental Status Exam Narrative: A&O. Casual attire, okay grooming. Good eye contact, inattentive. No Tics or Tremors. No abnormal involuntary movements. Calm, cooperative, engaged. Pressured speech, spontaneous with regular rate and rhythm, normal volume and prosody. Talkative. No prolonged speech latency or dysarthria. Mood is ?anxious,? affect is congruent. Denies SI/SIB/HI upon inquiry. Denies A/VH or delusional thought content. Thoughts are ruminative, tangential. No known cognitive or memory impairment. Insight/ Judgment limited but adequate. Diagnostics Vital Signs (24Hr): Vital Signs - 24 hr 06/25/22 12:50 06/25/22 21:22 Temperature 98.3 F Pulse Rate 99 88 Respiratory Rate 20 18 Blood Pressure 132/92 H 129/74 Pulse Oximetry 97 96 Oxygen Delivery Method Room Air Room Air BMI result Body Mass Index 24.4 Labs Results: 06/19/22 21:46 06/22/22 08:24 Medications Medications Current Medications Acetaminophen (Acetaminophen 325 Mg Tablet) 650 mg PO Q6H PRN PRN Reason: Headache/Pain Mild Scale (1-3) Acyclovir (Acyclovir 200 Mg Capsule) 400 mg PO BID [facility] Last Admin: 06/26/22 09:12 Dose: 400 mg Al Hydroxide/Mg Hydroxide (Magnesium Hydrox/Alum Hydrox 30 Ml Oral.Susp) 30 ml PO Q6H PRN PRN Reason: Heartburn/Nausea Amoxicillin/Clavulanate Potassium (Amoxicillin/Potassium Clav 875 Mg Tablet) 875 mg PO Q12H [facility] Last Admin: 06/26/22 09:12 Dose: 875 mg Aripiprazole (Aripiprazole 10 Mg Tablet) 10 mg PO DAILY [facility] Last Admin: 06/26/22 09:12 Dose: 10 mg Clonidine HCl (Clonidine Hcl 0.1 Mg Tablet) 0.1 mg PO BEDTIME [facility]; Protocol Last Admin: 06/25/22 21:34 Dose: 0.1 mg Hydroxyzine HCl (Hydroxyzine Hcl 50 Mg Tablet) 50 mg PO Q6H PRN PRN Reason: Anxiety Last Admin: 06/24/22 02:08 Dose: 50 mg Lorazepam (Lorazepam 1 Mg Tablet) 1 mg PO BEDTIME [facility] Last Admin: 06/25/22 21:34 Dose: 1 mg Magnesium Hydroxide (Milk Of Magnesia 30 Ml Oral.Susp) 30 ml PO DAILY PRN PRN Reason: Constipation Propranolol HCl (Propranolol Hcl 10 Mg Tablet) 10 mg PO BID [facility]; Protocol Last Admin: 06/26/22 09:12 Dose: 10 mg Quetiapine Fumarate (Quetiapine Fumarate 50 Mg Tablet) 50 mg PO BID PRN PRN Reason: anxiety, agitation Last Admin: 06/24/22 02:08 Dose: 50 mg Trazodone HCl (Trazodone Hcl 50 Mg Tablet) 50 mg PO BEDTIME PRN PRN Reason: Insomnia Allergies Allergies Allergy/AdvReac Type Severity Reaction Status Date / Time No Known Allergies Allergy Verified 06/19/22 20:56 Assessment & Plan Assessment & Plan (1) Bipolar II disorder: Status: Acute Code(s): F31.81 - Bipolar II disorder Plan Tomy is a 46 y.o. male who carries a dx of Bipolar II DO. He presented to [facility] [place] [facility] on 06/19/22 due to explosive outbursts, hyposomnia, and med non-adherence. Per ED note, pt?s sister states that he lives with his mother and she is afraid of him and concerned about his behaviors, he has only been sleeping 2 hours at night. Pt found to have cellulitis to his finger tips because of nail biting and multiple bruises on his forearms from pinching himself. Precipitating factors include that pt has been stressed at work due to bullying and financial stress. No hx of IPLOC. Has OP psych provider. No substance use or illicit substances. Pt endorses hx of hypomanic and depressive episodes. Plan: Re-start seroquel 200 mg HS and start seroquel 50 mg BID PRN for mood stability, pt reports it helps with sleep. Discussed trialing low dose abilify, as he had some benefit on rexulti. 06/22 Increase seroquel to 300 mg HS for sleep, decrease daytime seroquel to 25 mg due to c/o sedation. 06/23 Discontinue seroquel 300 mg HS due to lack of efficacy, re-increase seroquel to 50 mg BID PRN, as he would still like to trial a lower dose for sleep in combination with hydroxyzine PRN. Will start abilify 5 mg AM for mood stability. 06/24 Increase abilify to 10 mg daily on 06/25 for mood stability. start clonidine 0.1 mg HS for anxiety, poor sleep, hyperarousal. Q15 min safety checks, CV, 3 day notice Monitor response to medications. Monitor for safety in the milieu. Discharge on stabilization. Patient seen. Chart reviewed. Discussed with team. Obtain collateral contact info?as needed 06/25 continue tx- increase abilify to 10mg po daily. add propanolol restlessness but if significant akathisia may need switch to risperidone. add ativan 1mg po qhs for sleep as pt has not been able to sleep more than few hours at night for months. I spent minutes with the patient and/or on the patient floor today, greater than?50% of which was spent counseling/coordinating care. Reason for contiued inpatient stay Substantial Risk for: inability to function
[2022-06-25 12:50] VITALS: BP 132/92; PULSE 99; RESP 20; O2SAT 97
[2022-06-25] MEDS: Propranolol HCL 10 MG TABLET PO ×2 (13:00→21:34)
[2022-06-25 21:22] VITALS: BP 129/74; PULSE 88; RESP 18; TEMP 36.8; O2SAT 96
[2022-06-25] MEDS: cloNIDine HCL 0.1 MG TABLET PO (21:34)
[2022-06-25] MEDS: LORazepam 1 MG TABLET PO (21:34)
[2022-06-26 09:00] VITALS: BP 114/77; PULSE 83; RESP 16; TEMP 36.6; O2SAT 98
[2022-06-26] MEDS: Acyclovir 200 MG CAPSULE 400 MG PO ×2 (09:12→20:12)
[2022-06-26] MEDS: Amoxicillin/Potassium Clav 875 MG TABLET PO ×2 (09:12→20:12)
[2022-06-26] MEDS: ARIPiprazole 10 MG TABLET PO (09:12)
[2022-06-26] MEDS: Propranolol HCL 10 MG TABLET PO ×2 (09:12→20:12)
--- NOTE | 2022-06-26 13:27 | P.PNPSI_ITS ---
Subjective Subjective Date of Service: 06/26/22 Reason For Visit: ruminations unable to make decisions Subjective Notes: Conditional Voluntary Interim History: Pt reports finally able to sleep through the night. He reports reports feeling calmer, less rumination but still goes on and on about why he did not take medication recommended by PCP a month ago. Family came to visit and met with this automobile and property underwriter. They report he appears much calmer, but still not back to baseline. Pt denies SI/HI. Pt retract 3 day, agrees to be referred to PHP at [facility]. monitoring possible akathisia with abilify. Review of Systems Review of Systems Constitutional: No Fever, No Chills ENT/Mouth: No Ear Pain, No Nasal Congestion, No sore throat Eyes: No Eye Pain, No Swelling, No Redness Cardiovascular: No Chest Pain, No SOB Respiratory: No Cough, No Sputum, No Dyspnea Gastrointestinal: No Nausea, No Vomiting, No Diarrhea, No Hematochezia, No Melena Genitourinary: No Dysuria, No Urinary Frequency, No Hematuria Musculoskeletal: No Myalgias Skin: No Skin Lesions, No rash Neuro: No Weakness, No Numbness, No Paresthesias, No Dizziness, No Headache Psych: positive Anxiety, positive Depression, no SI/HI Heme/Lymph: No Lymphadenopathy Endocrine: No Polyuria, No Polydipsia Yes all other systems are reviewed and are negative Mental Status Exam Mental Status Exam Narrative: A&O. Casual attire, okay grooming. Good eye contact, inattentive. No Tics or Tremors. No abnormal involuntary movements. Calm, cooperative, engaged. Pressured speech, spontaneous with regular rate and rhythm, normal volume and prosody. Talkative. No prolonged speech latency or dysarthria. Mood is ?anxious,? affect is congruent. Denies SI/SIB/HI upon inquiry. Denies A/VH or delusional thought content. Thoughts are ruminative, tangential. No known cognitive or memory impairment. Insight/ Judgment limited but adequate. Diagnostics Vital Signs (24Hr): Vital Signs - 24 hr 06/26/22 20:10 06/27/22 08:53 Temperature 97.8 F 97.8 F Pulse Rate 88 92 Respiratory Rate 16 18 Blood Pressure 125/82 124/79 Pulse Oximetry 96 97 Oxygen Delivery Method Room Air Room Air BMI result Body Mass Index 24.4 Labs Results: 06/19/22 21:46 06/22/22 08:24 Medications Medications Current Medications Acetaminophen (Acetaminophen 325 Mg Tablet) 650 mg PO Q6H PRN PRN Reason: Headache/Pain Mild Scale (1-3) Acyclovir (Acyclovir 200 Mg Capsule) 400 mg PO BID [facility] Last Admin: 06/27/22 08:51 Dose: 400 mg Al Hydroxide/Mg Hydroxide (Magnesium Hydrox/Alum Hydrox 30 Ml Oral.Susp) 30 ml PO Q6H PRN PRN Reason: Heartburn/Nausea Amoxicillin/Clavulanate Potassium (Amoxicillin/Potassium Clav 875 Mg Tablet) 875 mg PO Q12H JESSIKA Last Admin: 06/27/22 08:51 Dose: 875 mg Aripiprazole (Aripiprazole 10 Mg Tablet) 10 mg PO DAILY JESSIKA Last Admin: 06/27/22 08:51 Dose: 10 mg Clonidine HCl (Clonidine Hcl 0.1 Mg Tablet) 0.1 mg PO BEDTIME JESSIKA; Protocol Last Admin: 06/26/22 20:12 Dose: 0.1 mg Hydroxyzine HCl (Hydroxyzine Hcl 50 Mg Tablet) 50 mg PO Q6H PRN PRN Reason: Anxiety Last Admin: 06/24/22 02:08 Dose: 50 mg Lorazepam (Lorazepam 1 Mg Tablet) 1 mg PO BEDTIME JESSIKA Last Admin: 06/26/22 20:12 Dose: 1 mg Magnesium Hydroxide (Milk Of Magnesia 30 Ml Oral.Susp) 30 ml PO DAILY PRN PRN Reason: Constipation Propranolol HCl (Propranolol Hcl 10 Mg Tablet) 10 mg PO BID JESSIKA; Protocol Last Admin: 06/27/22 08:51 Dose: 10 mg Quetiapine Fumarate (Quetiapine Fumarate 50 Mg Tablet) 50 mg PO BID PRN PRN Reason: anxiety, agitation Last Admin: 06/24/22 02:08 Dose: 50 mg Trazodone HCl (Trazodone Hcl 50 Mg Tablet) 50 mg PO BEDTIME PRN PRN Reason: Insomnia Allergies Allergies Allergy/AdvReac Type Severity Reaction Status Date / Time No Known Allergies Allergy Verified 06/19/22 20:56 Assessment & Plan Assessment & Plan (1) Bipolar II disorder: Status: Acute Code(s): F31.81 - Bipolar II disorder Plan Tomy is a 46 y.o. male who carries a dx of Bipolar II DO. He presented to [facility] ED on 06/19/22 due to explosive outbursts, hyposomnia, and med non-adherence. Per ED note, pt?s sister states that he lives with his mother and she is afraid of him and concerned about his behaviors, he has only been sleeping 2 hours at night. Pt found to have cellulitis to his finger tips because of nail biting and multiple bruises on his forearms from pinching himself. Precipitating factors include that pt has been stressed at work due to bullying and financial stress. No hx of IPLOC. Has OP psych provider. No substance use or illicit substances. Pt endorses hx of hypomanic and depressive episodes. Plan: Re-start seroquel 200 mg HS and start seroquel 50 mg BID PRN for mood stab ility, pt reports it helps with sleep. Discussed trialing low dose abilify, as he had some benefit on rexulti. 06/22 Increase seroquel to 300 mg HS for sleep, decrease daytime seroquel to 25 mg due to c/o sedation. 06/23 Discontinue seroquel 300 mg HS due to lack of efficacy, re-increase seroquel to 50 mg BID PRN, as he would still like to trial a lower dose for sleep in combination with hydroxyzine PRN. Will start abilify 5 mg AM for mood stability. 06/24 Increase abilify to 10 mg daily on 06/25 for mood stability. start clonidine 0.1 mg HS for anxiety, poor sleep, hyperarousal. Q15 min safety checks, CV, 3 day notice Monitor response to medications. Monitor for safety in the milieu. Discharge on stabilization. Patient seen. Chart reviewed. Discussed with team. Obtain collateral contact info?as needed 06/25 continue tx- increase abilify to 10mg po daily. add propanolol restlessness but if significant akathisia may need switch to risperidone. add ativan 1mg po qhs for sleep as pt has not been able to sleep more than few hours at night for months. 06/26 continue current medications. monitor akathisia with abilify. retract 3 day noticed and agreed to be referred to PHP at [facility]. I spent minutes with the patient and/or on the patient floor today, greater than?50% of which was spent counseling/coordinating care. Reason for contiued inpatient stay Substantial Risk for: inability to function
[2022-06-26 20:10] VITALS: BP 125/82; PULSE 88; RESP 16; TEMP 36.6; O2SAT 96
[2022-06-26] MEDS: LORazepam 1 MG TABLET PO (20:12)
[2022-06-26] MEDS: cloNIDine HCL 0.1 MG TABLET PO (20:12)
[2022-06-27] MEDS: Propranolol HCL 10 MG TABLET PO (08:51)
[2022-06-27] MEDS: Amoxicillin/Potassium Clav 875 MG TABLET PO (08:51)
[2022-06-27] MEDS: ARIPiprazole 10 MG TABLET PO (08:51)
[2022-06-27] MEDS: Acyclovir 200 MG CAPSULE 400 MG PO (08:51)
[2022-06-27 08:53] VITALS: BP 124/79; PULSE 92; RESP 18; TEMP 36.6; O2SAT 97
[2022-06-27] MEDS: LORazepam 1 MG TABLET PO (12:15)
--- NOTE | 2022-06-27 14:13 | PM.PSYDC ---
DS: Providers Provider Date of Service: 06/27/22 Date of admission: 06/21/22 13:44 Primary care physician: Nonstaff Physician DS: Diagnosis Discharge Diagnosis (1) Bipolar II disorder: Status: Acute DS: Medications Discharge Medications Home Medications: Previous Rx's Medication Instructions Recorded aripiprazole 10 mg tablet 10 mg PO DAILY #30 tabs 06/27/22 lorazepam 1 mg tablet 1 mg PO BID #60 tabs 06/27/22 mirtazapine 15 mg tablet (Remeron) 15 mg PO BEDTIME #30 tabs 06/27/22 Mental Status Exam Mental Status Exam Narrative: A&O. Casual attire, okay grooming. Good eye contact, inattentive. No Tics or Tremors. No abnormal involuntary movements. Calm, cooperative, engaged. Pressured speech, spontaneous with regular rate and rhythm, normal volume and prosody. Talkative. No prolonged speech latency or dysarthria. Mood is ?anxious,? affect is congruent. Denies SI/SIB/HI upon inquiry. Denies A/VH or delusional thought content. Thoughts are ruminative, tangential. No known cognitive or memory impairment. Insight/ Judgment limited but adequate. Data Data Completed and Pending Completed studies during hospitalization [Text1]: 06/22/22 06/22/22 06/22/22 08:24 08:24 08:24 Sodium 138 Potassium 4.3 Chloride 105 Carbon Dioxide 26 Anion Gap 11 L BUN 18 H Creatinine 0.91 Estim Creat Clear Calc 96.0 Estimated GFR > 60 Fasting Glucose 108 H Estimat Average Glucose 88 Hemoglobin A1c % 4.7 Calcium 9.6 Total Bilirubin 0.8 AST 13 ALT 15 Alkaline Phosphatase 53 Total Protein 6.6 Albumin 4.5 Triglycerides 127 Cholesterol 215 LDL Cholesterol, Calc 140 HDL Cholesterol 50 Vitamin B12 550 TSH 1.46 DS: Summary Hospital Course Hospital Course: Tomy is a 46 y.o. male who carries a dx of Bipolar II DO. He presented to [facility] ED on 06/19/22 due to explosive outbursts, hyposomnia, and med non-adherence. Per ED note, pt?s sister states that he lives with his mother and she is afraid of him and concerned about his behaviors, he has only been sleeping 2 hours at night. Pt found to have cellulitis to his finger tips because of nail biting and multiple bruises on his forearms from pinching himself. Precipitating factors include that pt has been stressed at work due to bullying and financial stress. I spoke to pt this evening. Pt says he had his PCP prescribing his psych meds, however recently saw a Psych MASTER MECHANIC outpatient and between the two of them, he has had frequent medication changes, attributes this to his non-adherence, as he says he didn?t know which one to listen to. Says he took seroquel 200 mg and liked this one because it ?knocked me out.? However, says he feels ?very leery about medication? and prefers to not be on medication because he had a SE of tinnitus from Wellbutrin and it has not gone away. Pt describes hx of hypomania, however he has been high functioning and managed to stay out of the hospital. Hx of high activity level, i.e. traveling to [facility], kayaking in [place], ?im very active? and he needs to ?burn the energy,? ?always on the move.? Says he is ?fidgety,? ?irritable,? picks at his skin, anxious, ?constantly thinking.? Has episodes of yelling out, calls it ?vocalizations.? Only sleeps 2-3 hours at night, denies feeling tired. 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 and 3 mo ago at work he discovered an outbreak and says ?that was the last straw for me mentally.? He is unsure of his diagnoses but says it has been ?strongly suggested? that he has bipolar disorder. He has a hx of depressive episodes, however says his sx started 2-3 years ago, pushing people away. Again he has been able to function without hospitalization up until this time, ?I could work, I could manage.? Says he thinks he has OCD, as he perseverates and ruminates on ?bad thoughts? about his past. Past Psychiatric History: -Has OP psych provider, Rika Crandall APRN at [facility] -Hx of suicidal gesture, in the last 3 mo took belt and wrapped it around his neck but stopped -Recently purchased a [employer] stimulator, helped with sleep, but thinks it was placebo.? -Past meds: Xanax, Lexapro (?horrible?), fluoxetine (felt suicidal and exacerbated his depression), Zoloft (wt gain), Depakote (non-adherent, did not want to do lab work, looked up SE and does not want to take), lamictal (non-adherent after he titrated up to 50 mg, had red macular/popular rash on his abdomen), Seroquel 200 mg (benefit for sleep), rexulti (helpful initially but said he ?freaked out? at work and felt ?uncomfortable,? denies restlessness but attributes? this feeling to the medication), trintellix (took with lamictal), Wellbutrin (had SE of tinnitus), luvox (brief trial), gabapentin (constipation). Medical Evaluation Reviewed: Yes HOSPITAL COURSE On the unit, pt presented as very ambivalent, anxious, unable to make any decisions. He presented with ongoing and intrusive ruminations about not having taken medications as prescribed 3 months ago. This director underwriter sales met with sister and mother, per family, pt no prior psych hx. He had some episodes of depression, not suicidal nor hx of psychosis or delusions. Pt has been presenting for the past 3 months initially as depressed, subsequently as extremely ambivalent, unable to make any decisions, to the point that he had to stop working and ask for FMLA at the job he has been doing for the past 17 years at [employer]. Pt has not been sleeping, picking skin to the point of of bleeding and after having cellulitis of finger. Pt's PCP was initially prescribing psych meds. PCP recommended lamictal and trintellix. As pt continued to deteriorate, pt was referred to psychology technician who recommended depakote. Pt unable and extremely hesitant about taking any medication due to unrealistic worry about side effects, which family reports not like himself. There were no episodes of aggression, unlike initial reports from crisis evaluation, family confirmed this and denied any physical aggression. On the unit, pt was very hesitant and unable to make any decisions regarding his treatment. Despite agreeing with this director underwriter sales that current symptoms affecting his ability to work, he kept going back to regretting not haven taking trintellix when PCP ordered. He finally agreed to accept treatment. He agreed to start abilify, which did decrease ruminations and to some extend the hesitancy to make decisions. He denied suicidal or homicidal ideation. No visual or auditory hallucinations but amount of worry and ambivalence in almost psychotic realm. He agreed to continue IOP at [facility] for further treatment, stabilization and safety. Family denied safety concerns at time of discharged and agreed that patient appeared in much improved condition. He was also started on ativan 1mg po BID with good effect, which finally allow pt to have a full night sleep. Status at Discharge Cognitive/behavioral status at discharge: Pt less anxious, no SI/HI. Some hesitation about making decisions, which continues to affect his ability to function at level he was functioning 3 months prior. His sleep is better. No signs of aggression towards self or others. No VH/AH. Level of worry reaching some delusional realm. Functional status at discharge: independent ambulation Overall status at discharge: patient is progressing back to baseline Time Spent with Patient Time attestation: Total time spent providing and/or coordinating discharge services: Discharge Plan Discharge Anticipated Discharge Date/Time: 06/27/22 13:44 Patient Disposition: Home, Self-Care Discharge Diagnosis: Bipolar Disorder Referrals: Arslan Aguilar [Other] - 1 Week (July 05 @ 8:30am ) [facility]: Partial Hospitalization Program [Other] - 07/11/22 2:00 pm (IN PERSON INTAKE Intake will be 60-90 minutes long. Please call if you have any questions.) Naima at [facility] [Other] - 1 Week ([facility] is aware of your discharge. Please follow-up with your provider for your next appointment if you decide not to attend [facility]'s partial hospitalization program. ) Discharge Medications: New lorazepam 1 mg Tablet 1 mg PO BID Qty: 60 0RF aripiprazole 10 mg Tablet 10 mg PO DAILY Qty: 30 0RF mirtazapine [Remeron] 15 mg tablet 15 mg PO BEDTIME Qty: 30 0RF Discontinued acyclovir 400 mg tablet 1 tab PO BID alprazolam 0.25 mg tablet 1 tab PO BID PRN (Reason: anxiety) fluvoxamine 50 mg tablet 1 tab PO BEDTIME quetiapine 50 mg tablet 1 tab PO BEDTIME lamotrigine 25 mg tablet 100 mg PO BEDTIME Discharge Orders: Discharge Order (Routine); Ordered 06/27/22 Ordered By: Ebony Guardado Diet: Regular diet Activity on Discharge: As tolerated Stand Alone Forms: Patient Portal Discharge page, Community Support Care Plan Goals: 1. Less rumination, less anxiety 2. improved sleep 3. No SI/HI Health Concerns: Follow up with PCP Plan of Treatment: 1. Take medications as prescribed 2. Go to nearest ED or call 911 in event of emergency. Assessment: Pt continues with ruminations, some inability to make decisions (ambivalence) which is symptom of agitated depression. No psychosis or delusions. Level of anxiety borders on psychotic realm but no complex delusional system noted. No SI/HI. Discharge Date/Time: 06/27/22 15:00
--- NOTE | 2022-06-27 15:30 | PC.NURSE ---
Patient easily engaged. Reports mood continues anxious, with ruminations although less than upon admission. Denies SI/HI plan or intent at this time. No reported perceptual disturbances, no overt psychosis or expressed delusions. Discharge paperwork reviewed reported understanding. Appointments reviewed reported understanding. Medications reviewed, educated on Remeron given upon discharge. Crisis numbers provided to patient. All belongings taken with patient.
== END 2022-06-27 15:00 | disposition home or self-care (01) | DRG 885 ==
LOC: HO.ED 06-21 10:01 → HO.PADLT16 06-21 13:51
PROVIDERS: Nurse Practitioner Family; Admitting Provider Social Worker; Emergency Provider Internal Medicine; Visit Provider Social Worker
DX: F31.81 Bipolar II disorder (principal); Z87.891 Personal history of nicotine dependence; Z91.14 Patient's other noncompliance with medication regimen; Z79.899 Other long term (current) drug therapy
CPT/HCPCS: 0241U; 36415; 80053; 80061; 80307; 82077; 82607; 83036; 84443; 85025; 90715; 93005; 99285

== ENCOUNTER 2023-05-04 13:20 | Emergency (ER) | payer OTHER, SELFPAY ==
[2023-05-04 13:27] VITALS: BP 130/79; PULSE 81; RESP 20; TEMP 36.1; O2SAT 97; BMI 24.3
--- NOTE | 2023-05-04 13:28 | ED_ITS ---
HPI - Psych General Chief Complaint: Anxiety Stated Complaint: anxiety Time Seen by Provider: 05/04/23 14:28 Source: patient and family Mode of arrival: ambulatory Limitations: no limitations History of Present Illness HPI Narrative: 47 yo male with a history of anxiety here with complaints of increasing anxiety since last night. Has been intermittently shouting/quite anxious. Per patient he re-started lexapro about 2 months ago and they have been increasing his dose. He also has lorazepam but is afraid to take this. NO SI/HI. He has not been in communication with his psychiatrist in regard to his increasing anxiety. No depression. No hallucinations. No substance use. No physical complaints. Related Data Previous Rx's Medication Instructions Recorded aripiprazole 10 mg tablet 10 mg PO DAILY #30 tabs 06/27/22 lorazepam 1 mg tablet 1 mg PO BID #60 tabs 06/27/22 mirtazapine 15 mg tablet (Remeron) 15 mg PO BEDTIME #30 tabs 06/27/22 Allergies Allergy/AdvReac Type Severity Reaction Status Date / Time No Known Allergies Allergy Verified 06/19/22 20:56 Review of Systems Review of Systems: Yes all other systems are reviewed and are negative Constitutional: Constitutional: Reports no additional constitutional complaints, Denies body ache(s), Denies chills, Denies fever(s), Denies headache(s) and Denies weakness Eyes: Eyes: Reports no additional eye complaints and Denies change in vision ENT: Reports system reviewed and no additional complaints, except as documented, Denies dizziness, Denies headache(s), Denies nasal congestion, Denies nasal discharge and Denies neck pain Cardiovascular: Cardiovascular: Reports no additional cardiovascular complaints, Denies chest pain, Denies leg edema and Denies dyspnea Respiratory: Respiratory: Reports no additional respiratory complaints, Denies cough and Denies dyspnea Gastrointestinal: Gastrointestinal: Reports no additional gastrointestinal complaints, Denies abdominal pain, Denies diarrhea, Denies nausea and Denies vomiting Genitourinary: Genitourinary: Denies urinary incontinence Musculoskeletal: Musculoskeletal: Reports no additional musculoskeletal complaints, Denies back pain, Denies arthralgias, Denies joint swelling, Denies neck pain, Denies numbness and Denies tingling Integumentary/Breasts: Skin/Breast: Reports system reviewed and no additional complaints, except as docu and Denies rash Neurologic: Reports system reviewed and no additional complaints, except as documented, Denies Abnormal speech present, Denies dizziness, Denies headache(s), Denies numbness, Denies tingling and Denies weakness Psychiatric: Psychiatric: Reports anxiety, Denies depression, Denies homicidal ideation and Denies suicidal ideation [facility] Past Medical History Attestation statement: The following information was validated with the patient. Source: old records reviewed and nursing notes reviewed Social History Social History Household Members: None Housing: Condominium Do you presently have visiting nurse or other home services: No Alcohol intake: current Alcohol intake frequency: holidays/special occasions only Patient Tobacco Use Status: Former Tobacco user e-Cigarette/Vaping Use: Never Used Second Hand Smoke Exposure: No Substance Use Type: Caffiene Advance Directives: No Advance Directives Information Provided: No service: No Sexual orientation: Don't Know Physical Exam Vital Signs: Vital Signs: Last Vital Signs Temp 97.0 F 05/04/23 13:27 Pulse 81 05/04/23 13:27 Resp 20 05/04/23 13:27 BP 130/79 05/04/23 13:27 Pulse Ox 97 05/04/23 13:27 O2 Del Method Room Air 05/04/23 13:27 BMI result Body Mass Index 24.3 Const: General: cooperative, healthy appearing, comfortable and no acute distress Orientation/consciousness: patient oriented x3 Limitations: no limitations HEENT: Head: Yes normal to inspection Ears: hearing grossly normal bilaterally General nose exam: Normal external nose present Face and sinus: Yes normal facial exam Mouth: Normal oral and palatal mucosa present Throat: Yes posterior oropharynx normal Eyes: General: appearance normal, both eyes and all related structures Pupils: Equal, round and reactive pupils present Neck: Neck: Yes normal visual inspection Chest: Chest palpation & inspection: normal inspection of the chest Resp: Effort & Inspection: normal respiratory effort Auscultation: clear to auscultation bilaterally Cardio: Rate: regular rate Rhythm: regular rhythm Peripheral pulses: Peripheral pulses 2+ throughout GI: Inspection: Yes normal to inspection Palpation (GI): Soft to palpation and nontender Auscultation: normal bowel sounds Back/Spine/Pelvis: Thoracic/Lumbar Spine: thoracic and lumbar spine normal to inspection Skin: General skin exam: no rashes or lesions noted Neuro: General: patient oriented x3, moves all extremities and no focal motor deficits Cranial nerves: Yes Equal, round and reactive pupils present Cognition (Neuro): normal cognition Speech: No Abnormal speech present Gait exam (Neuro): Normal gait present Motor exam (neuro): 5/5 motor strength present throughout Sensory Exam: Normal double simultaneous stimulation for sensation Extrem: General: Yes normal to inspection Course Course Course Narrative: This is a rapid medical exam. Deferred additional HPI, ROS, PE to primary provider. 47 yo male with history of bipolar disorder here with complaints of anxiety since last night. Has been intermittently shouting/quite anxious. Per patient he re-started lexapro about 2 months ago and they have been increasing his dose. He also has lorazepam but is afraid to take this. NO SI/HI. VSS Medical Decision Making Medical Decision Making MDM Narrative: 47 yo male with a history of anxiety here with complaints of increasing anxiety since last night. Has been intermittently shouting/quite anxious. Per patient he re-started lexapro about 2 months ago and they have been increasing his dose. He also has lorazepam but is afraid to take this. NO SI/HI. He has not been in communication with his psychiatrist in regard to his increasing anxiety. No depression. No hallucinations. No substance use. No physical complaints. Exam is benign No safety concerns from family I had a long talk with the patient. He has outpatient resources. He has been inpatient before for psych and does not feel this was helpful. There are no safety concerns and I do not feel the patient needs to see crisis. He can follow-up with his outpatient psychiatrist on Saturday. He can take lorazepam p.r.n. this weekend. He will return for any safety concerns. Differential Diagnosis Differential Diagnoses: The differential diagnosis associated with the presentation includes anxiety Admission/Observation Consideration of admission/observation: Escalation of care including admission/observation considered see discussion above External Record Review External record reviewed: Inpatient record Discharge Plan Discharge Clinical Impression: Acute anxiety Patient Disposition: Home, Self-Care Instructions: Anxiety (ED) Additional Instructions: Follow-up with your outpatient providers Consider trying the lorazepam this weekend Return for any safety concerns as discussed Prescriptions: No Action lorazepam 1 mg Tablet 1 mg PO BID Qty: 60 0RF aripiprazole 10 mg Tablet 10 mg PO DAILY Qty: 30 0RF mirtazapine [Remeron] 15 mg tablet 15 mg PO BEDTIME Qty: 30 0RF Referrals: Physician,None [Primary Care Provider] - 1 week
== END 2023-05-04 14:49 | disposition home or self-care (01) ==
PROVIDERS: Emergency Provider Emergency Medicine
DX: F41.9 Anxiety disorder, unspecified (principal)
CPT/HCPCS: 99282

== ENCOUNTER 2024-05-26 19:59 | Inpatient (IN) | payer OTHER, SELFPAY ==
[2024-05-26 20:01] VITALS: BP 128/88; PULSE 100; RESP 20; TEMP 36.7; O2SAT 95; BMI 27.6
--- NOTE | 2024-05-26 20:03 | ED.PSYCH ---
HPI - Psych General Chief Complaint: Psychiatric Symptoms Stated Complaint: Crisis Time Seen by Provider: 05/26/24 21:26 Source: patient Mode of arrival: ambulatory Limitations: no limitations History of Present Illness ED Provider: Dr. Analilia Scott HPI Narrative: Patient comes to the emergency room accompanied by his mother and his sister. Patient states that he is having trouble with alcohol, reports worsening anxiety. Patient states that he had been sober for 17 days, then relapsed. Patient reports being medication compliant. According to the patient's nurse, he informed me that the family reported to him that the patient has not been taking care of himself. Patient denies SI or HI. Patient states that he has been taking alcohol to help control his anxiety Related Data Home Medications ?Medication ?Instructions ?Recorded ?Confirmed acyclovir 400 mg tablet 400 mg PO BID 05/26/24 05/26/24 escitalopram oxalate 20 mg tablet 20 mg PO DAILY 05/26/24 05/26/24 fluvoxamine 150 mg 150 mg PO DAILY 05/26/24 05/26/24 capsule,extended release 24 hr lorazepam 0.5 mg tablet 0.5 mg PO BID 05/26/24 05/26/24 quetiapine 300 mg tablet 300 mg PO BEDTIME 05/26/24 05/26/24 Allergies Allergy/AdvReac Type Severity Reaction Status Date / Time Sulfa (Sulfonamide Allergy Rash Verified 05/26/24 20:02 Antibiotics) Review of Systems Review of Systems: Constitutional : No Weight loss, No Fever, No Chills, No Night Sweats, No Fatigue, No Malaise ENT/Mouth : No Hearing loss, No Ear Pain, No Nasal Congestion, No Sinus Pain, No Hoarseness, No sore throat, No Rhinorrhea, No Swallowing Difficulty Eyes: No Eye Pain, No Swelling, No Redness, No Foreign Body, No Discharge, No Vision Changes Cardiovascular : No Chest Pain, No SOB, No Dyspnea on Exertion, No Orthopnea, No Edema, No Palpitations Respiratory : No Cough, No Sputum, No Wheezing, No Smoke Exposure, No Dyspnea Gastrointestinal : No Nausea, No Vomiting, No Diarrhea, No Constipation, No abdominal Pain, No Hematochezia, No Melena Genitourinary : no irregular bleeding, No Dysuria, No Urinary Frequency, No Hematuria, No Urinary Incontinence, No Urgency, No Flank Pain, No Urinary Flow Changes, No Hesitancy Musculoskeletal : No joint pain, No Myalgias, No Joint Swelling Skin : No Skin Lesions, No rash Neuro : No Weakness, No Numbness, No Paresthesias, No Loss of Consciousness, No Dizziness, No Headache Psych : Complaining of anxiety, depression, denies SI or HI, admits to relapsing hand is drinking alcohol again. Heme/Lymph: No Bruising, No Bleeding,No Lymphadenopathy Endocrine : No Polyuria, No Polydipsia, No Temperature Intolerance [facility] Social History Social History Household Members: None Housing: [facility] Do you presently have visiting nurse or other home services: No Alcohol intake: current Alcohol intake frequency: holidays/special occasions only Patient Tobacco Use Status: Former Tobacco user e-Cigarette/Vaping Use: Never Used Second Hand Smoke Exposure: No Substance Use Type: Caffiene Advance Directives: No Advance Directives Information Provided: No service: No Sexual orientation: Don't Know Physical Exam Vital Signs: Vital Signs: Last Vital Signs Temp 98.0 F 05/26/24 20:01 Pulse 100 05/26/24 20:01 Resp 20 05/26/24 20:01 BP 128/88 05/26/24 20:01 Pulse Ox 95 05/26/24 20:01 O2 Del Method Room Air 05/26/24 20:01 BMI result Body Mass Index 27.6 Const: Other: Appearance: Alert. Oriented X3. No acute distress. Eyes: Pupils equal, round and reactive to light. ENT: Pharynx normal. Neck: Normal inspection. Neck supple. No lymph nodes noted. No crepitus CVS: Normal heart rate and rhythm. Pulses normal. Normal S1 and S2 Respiratory: No respiratory distress. Breath sounds normal. No Wheezing. No rales Abdomen: Soft and nontender. No rigidity. No distention. Skin: Skin warm and dry. Normal skin color. Normal skin turgor. Extremities: No lower extremity edema. No Lacerations. No Rash Neuro: Oriented X 3. No motor deficit. No sensory deficit. Moving all extremities. No slurred speech. CN 2 through 12 grossly intact Psych: calm, cooperative, avoiding eye contact Course Course Course Narrative: This is a rapid medical exam performed by C. Moi, PACKAGE HANDLER: Additional HPI, ROS, PE not included below will be deferred to primary provider. Patient is a 48-year-old male with history of Bipolar II disorder presenting to the ED with complaint of depression, anxiety, alcohol use, family reports frequent screaming. Denies history of withdrawal seizures. States he is unable to answer whether he has SI or not. Reports that he has anxiety about physical symptoms but does not report what these symptoms are. Family is requesting that patient be admitted inpatient, they feel unsafe due to his behaviors. Patient denies AH/VH. Plan: med clearance, CARE team eval Medications Administered Discontinued Medications Generic Name Dose Route Start Last Admin Trade Name Dolly PRN Reason Stop Dose Admin Lorazepam 2 mg 05/26/24 21:07 05/26/24 21:12 Lorazepam 1 Mg Tablet PO 05/26/24 21:08 2 mg ONCE ONE Administration Medical Decision Making Medical Decision Making [facility] Narrative: My interpretation of labs: No significant abnormality and patient's hematology, chemistry or urinalysis. Urine toxicology negative for drugs or abuse. Alcohol level 151 -patient requesting his night medications to be able to sleep -patient calm and cooperative -at this time, patient is not SI, no HI, wants help, section 12 not indicated at this time. -physician observation started at 21:50 00:15: Care team evaluated the patient, patient is now endorsing SI, patient now on a Section 12, inpatient bed search Differential Diagnosis Differential Diagnoses: The differential diagnosis associated with the presentation includes (Anxiety, depression, alcohol dependence/abuse) Admission/Observation Consideration of admission/observation: Escalation of care including admission/observation considered (Patient waiting to be seen by the care team to determine patient's disposition) Lab Data [facility] Lab Attestation statement: I reviewed the patient's lab results. 05/26/24 20:21 05/26/24 20:21 Labs: Lab Results 05/26/24 05/26/24 Range/Units 20:21 20:57 WBC 7.4 (4.8-10.8) X10*3/uL RBC 5.26 (4.60-5.80) X10*6/uL Hgb 16.8 (14.0-18.0) g/dl Hct 47.1 (42.0-52.0) % MCV 89.5 (80.0-98.0) fL MCH 31.9 (27.0-33.0) pg MCHC 35.7 (31.0-36.0) g/dl RDW 12.4 (11.0-16.0) % Plt Count 335 (160-400) X10*3/uL MPV 9.2 L (9.4-12.4) fL Immature Gran % (Auto) 0.7 H (0.0-0.4) % Neut % (Auto) 61.7 (45-73) % Lymph % (Auto) 26.6 (20-40) % [place] % (Auto) 8.0 (2-11) % Eos % (Auto) 2.3 (0-4) % Baso % (Auto) 0.7 (0-2) % Lymph # (Auto) 2.0 (1.2-4.9) X10*3/uL [place] # (Auto) 0.6 (0.1-1.2) X10*3/uL Eos # (Auto) 0.2 (0.0-0.4) X10*3/uL Baso # (Auto) 0.1 (0.0-0.2) X10*3/uL Abs Immat Gran (auto) 0.05 H (0.00-0.03) X10*3/uL Absolute Neuts (auto) 4.6 (2.0-8.3) x10*3/uL Absolute Nucleated RBC 0.000 (0.0-0.012) X10*3/uL Nucleated RBC % (auto) 0.0 (0.0-0.2) /100WBC Sodium 143 (135-145) mmol/L Potassium 3.7 (3.3-5.1) mmol/L Chloride 108 (96-108) mmol/L Carbon Dioxide 24 (22-29) mmol/L Anion Gap 15 (12-20) BUN 7 L (9-16) mg/dL Creatinine 0.83 (0.5-1.4) mg/dL Estim Creat Clear Calc 111.4 Estimated GFR > 60 Random Glucose 119 H (60-115) mg/dL Calcium 9.3 (8.4-10.2) mg/dL Total Bilirubin 0.3 (0.0-1.0) mg/dL AST 27 (5-37) U/L ALT 37 (0-40) U/L Alkaline Phosphatase 66 (39-117) U/L Total Protein 7.1 (6.5-8.0) g/dL Albumin 4.5 (3.5-5.0) g/dL Urine Color Yellow Urine Appearance Clear Urine pH 6.0 (5.0-9.0) Ur Specific [place] 1.015 (1.005-1.025) Urine Protein Negative (Neg-Trace) mg/dL Urine Glucose (UA) Negative (Negative) mg/dL Urine Ketones Negative (Negative) mg/dL Urine Blood Negative (Negative) Urine Nitrite Negative (Negative) Ur Leukocyte Esterase Negative (Negative) Urine Opiates Screen Not Detected (Not Detect) Ur Buprenorphine Scrn Not Detected (Not Detect) ng/mL Ur Oxycodone Screen Not Detected (Not Detect) ng/mL Urine Methadone Screen Not Detected (Not Detect) ng/mL Urine Fentanyl Screen Not Detected (Not Detect) Ur Barbiturates Screen Not Detected (Not Detect) Ur Phencyclidine Scrn Not Detected (Not Detect) Ur Amphetamines Screen Not Detected (Not Detect) U Benzodiazepines Scrn Not Detected (Not Detect) Urine Cocaine Screen Not Detected (Not Detect) U Marijuana (THC) Screen Not Detected (Not Detect) Ethyl Alcohol 151 mg/dL Critical Care Time Critical Care Time Critical Care Time: Yes Total Critical Care Time: 35 Attestation: I have personally provided critical care time. Time includes review of lab data, radiology results, discussion with consultants, and monitoring for potential decompensation. Intervention performed as documented. Discharge Plan Discharge Clinical Impression: Alcohol dependence, Acute anxiety Patient Disposition: Still a Patient Prescriptions: No Action lorazepam 0.5 mg tablet 0.5 mg PO BID escitalopram oxalate 20 mg tablet 20 mg PO DAILY quetiapine 300 mg tablet 300 mg PO BEDTIME acyclovir 400 mg tablet 400 mg PO BID fluvoxamine 150 mg capsule,extended release 24hr 150 mg PO DAILY Print Language: Thai
[2024-05-26 20:25] LABS: Basophils Absolute Auto 0.1 X10*3/uL (0.0-0.2); Basophils Percent Auto 0.7 % (0-2); Eosinophils Absolute Auto 0.2 X10*3/uL (0.0-0.4); Eosinophils Percent Auto 2.3 % (0-4); Hematocrit 47.1 % (42.0-52.0); Hemoglobin 16.8 g/dl (14.0-18.0); Imm Gran Abs Auto 0.05 X10*3/uL (0.00-0.03); Imm Gran Pct Auto 0.7 % (0.0-0.4); Lymphocytes Percent Auto 26.6 % (20-40); MANUAL DIFF FLAG NO; Mean Corpuscular HGB Conc 35.7 g/dl (31.0-36.0); Mean Corpuscular Hemoglobin 31.9 pg (27.0-33.0); Mean Corpuscular Volume 89.5 fL (80.0-98.0); Mean Platelet Volume 9.2 fL (9.4-12.4); Monocytes Absolute Auto 0.6 X10*3/uL (0.1-1.2); Neutrophils Absolute Auto 4.6 x10*3/uL (2.0-8.3); Neutrophils Percent Auto 61.7 % (45-73); Platelet Count 335 X10*3/uL (160-400); Red Blood Count 5.26 X10*6/uL (4.60-5.80); Red Cell Distribution Width 12.4 % (11.0-16.0); White Blood Count 7.4 X10*3/uL (4.8-10.8)
[2024-05-26 20:42] LABS: Alanine Aminotransferase 37 U/L (0-40); Albumin Level 4.5 g/dL (3.5-5.0); Alkaline Phosphatase 66 U/L (39-117); Anion Gap 15 (12-20); Aspartate Amino Transferase 27 U/L (5-37); Bilirubin Total 0.3 mg/dL (0.0-1.0); Blood Urea Nitrogen 7 mg/dL (9-16); Calcium 9.3 mg/dL (8.4-10.2); Carbon Dioxide 24 mmol/L (22-29); Chloride 108 mmol/L (96-108); Creatinine Clr Calc Pharmacy 111.4; Estimated Glomerular Filt Rate > 60; Ethanol 151 mg/dL; Glucose Random 119 mg/dL (60-115); Potassium 3.7 mmol/L (3.3-5.1); Sodium 143 mmol/L (135-145); Total Protein 7.1 g/dL (6.5-8.0)
[2024-05-26 21:10] LABS: Appearance Urine Clear; Color Urine Yellow; Glucose Urine UA Negative (Negative); Leukocyte Esterase Urine Negative (Negative); Nitrite Urine Negative (Negative); Specific Gravity - Urine 1.015 (1.005-1.025); Urine Blood Negative (Negative); Urine Ketones Negative (Negative); Urine Protein Negative (Neg-Trace)
[2024-05-26] MEDS: LORazepam 1 MG TABLET 2 MG PO (21:12)
[2024-05-26 21:21] LABS: Amphetamine Screen Urine Not Detected (Not Detect); Barbiturates, Urine Not Detected (Not Detect); Benzodiazepines Screen Urine Not Detected (Not Detect); Buprenorphine Scr Not Detected (Not Detect); Cannabinoid Screen Urine Not Detected (Not Detect); Cocaine Screen Urine Not Detected (Not Detect); Fentanyl, urine Not Detected (Not Detect); Methadone Screen, Urine Not Detected (Not Detect); Opiate Screen Urine Not Detected (Not Detect); Oxycodone Screen Urine Not Detected (Not Detect); Phencyclidine Screen Urine Not Detected (Not Detect)
[2024-05-27] MEDS: OLANZapine 10 MG TABLET PO (00:28)
[2024-05-27] MEDS: LORazepam 1 MG TABLET 2 MG PO ×2 (00:28→13:45)
[2024-05-27 00:53] VITALS: BP 119/82; PULSE 96; RESP 17; TEMP 36.6; O2SAT 94
[2024-05-27 01:21] LABS: COVID-19 Test Negative (Negative); IDNOW Serial# 08D9AD1C
--- NOTE | 2024-05-27 06:54 | PC.NURSE ---
Patient slept the through the night, no distress observed/reported, disposition is section 12 inpatient bed search, no behavior and safety concerns, will continue to monitor
--- NOTE | 2024-05-27 07:45 | ECG_ITS ---
Test Reason : CHECK QTC PROLONGATION Blood Pressure : / mmHG Vent. Rate : 095 BPM Atrial Rate : 095 BPM P-R Int : 126 ms QRS Dur : 082 ms QT Int : 342 ms P-R-T Axes : -22 -08 -08 degrees QTc Int : 429 ms Normal sinus rhythm Cannot rule out Anterior infarct , age undetermined Abnormal ECG When compared with ECG of 21-JUN-2022 11:08, Minimal criteria for Anterior infarct are now Present ST no longer elevated in Inferior leads T wave inversion now evident in Inferior leads Referred By: Manolo Cui Electronically Signed By:CARRIE LIAO MD
--- NOTE | 2024-05-27 08:20 | PC.NURSE ---
Pt refused EKG, I'll do it later
[2024-05-27 13:40] VITALS: BP 146/91; PULSE 100; RESP 16; TEMP 36.8; O2SAT 100
--- NOTE | 2024-05-27 14:32 | PHA.MEDREC ---
Pharmacy Consult ? Medication Reconciliation Pharmacy reviewed med rec. claims match list.
[2024-05-27 14:52] VITALS: BP 170/111; PULSE 95; RESP 15; TEMP 36.8; O2SAT 98
--- NOTE | 2024-05-27 14:59 | PC.NURSE ---
This global technical writer reported to Jodee Dai, admitting DIRECTOR OF VITAL STATISTICS, that pt's BP upon admission is 170/111. Pt reports PEACOCK earlier, for which he received Tylenol. PEACOCK has resolved and pt denies any other symptoms.
[2024-05-27 16:23] VITALS: BMI 27.4
--- NOTE | 2024-05-27 16:25 | PC.NURSE ---
Pt arrived on the unit at 1445 via wheelchair from [facility]. He is here on a CV. Pt states that his family forced him to come to the ED d/t a relapse in ETOH abuse and non-compliance with medications. Pt reports that about 6 months ago, he moved from his own housing in [facility], to live with his mother in this local area, d/t an inability to take care of himself. 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 I wouldn't though because that would be really traumatizing for anyone who saw me . Pt. stated that he was drinking in dangerous parts of [place] right before admission. I slept on the street and I was scared . BAL was 151 upon arrival to ED. Pt is calm, cooperative, and pleasant during admission process. He lays down frequently while speaking, d/t Ativan 2mg dose given recently in POD. Pt on CIWA Q4, and scored 7 at 1330 and 5 upon admission to this M3. Pt accepted substance abuse consult. Skin check reveled several closed and open scabs on scalp. No s&s of infection observed or reported. Several very small closed scabs noted on trunk, no s&s of infection noted or reported in this area as well. They are not itchy, I just pick at myself . During admission process, pt made grunting noises several times throughout. Pt placed on 15 minute safety checks. Pt refused flu vaccine d/t not remembering if he has already had one this season.
[2024-05-27] MEDS: hydrOXYzine HCL 25 MG TABLET PO (16:39)
[2024-05-27 19:14] VITALS: BP 144/91; PULSE 100; RESP 15; TEMP 36.3; O2SAT 95
[2024-05-27] MEDS: Acyclovir 200 MG CAPSULE 400 MG PO (21:10)
[2024-05-27] MEDS: QUEtiapine Fumarate 300 MG TABLET PO (21:10)
[2024-05-27] MEDS: LORazepam 0.5 MG TABLET PO (21:10)
[2024-05-28 07:00] VITALS: BMI 27.5
[2024-05-28 08:00] VITALS: BP 158/105; PULSE 109; RESP 18; TEMP 36.8; O2SAT 96
[2024-05-28] MEDS: Acyclovir 200 MG CAPSULE 400 MG PO ×2 (08:31→20:59)
[2024-05-28] MEDS: LORazepam 0.5 MG TABLET PO ×2 (08:31→21:00)
[2024-05-28] MEDS: Thiamine HCL 100 MG TABLET PO (08:31)
[2024-05-28 08:55] VITALS: BP 146/82; PULSE 118; RESP 16; TEMP 36.7; O2SAT 96
[2024-05-28 10:30] LABS: Alanine Aminotransferase 29 U/L (0-40); Albumin Level 4.1 g/dL (3.5-5.0); Alkaline Phosphatase 62 U/L (39-117); Anion Gap 13 (12-20); Aspartate Amino Transferase 21 U/L (5-37); Bilirubin Total 0.4 mg/dL (0.0-1.0); Blood Urea Nitrogen 12 mg/dL (9-16); Calcium 9.2 mg/dL (8.4-10.2); Carbon Dioxide 23 mmol/L (22-29); Chloride 108 mmol/L (96-108); Cholesterol 226 mg/dL (<200); Creatinine Clr Calc Pharmacy 90.9; Estimated Glomerular Filt Rate > 60; Glucose Fasting 190 mg/dL (60-99); HDL Cholesterol 62 mg/dL (>40); LDL Cholesterol Calculated 105 mg/dL (<100); Potassium 3.8 mmol/L (3.3-5.1); Sodium 140 mmol/L (135-145); Total Protein 6.6 g/dL (6.5-8.0); Triglycerides 298 mg/dL (<150)
--- NOTE | 2024-05-28 10:43 | P.HPPS_ITS ---
HPI Date of Service: 05/28/24 Chief Complaint: Crisis Sources of Information: patient interviewed, chart reviewed and crisis/core team assessment reviewed HPI Subjective Notes: Spears Warning and Conditional Voluntary Narrative: Patient is a 48 year old male with hx of Bipolar d/o, PTSD, OCD and alcohol use d/o who horace presented to [facility] d/t suicidal ideation secondary to increased anxiety and alcohol intoxication. Per crisis report, patient presented to [facility] ER with his mother and sister secondary to increased anxiety, alcohol intoxication in not taking care of himself. Patient relapsed on alcohol after 7 days of sobriety. He reports he has been having tics of yelling and screaming frequently throughout the day and night for several months d/t Tourette's. It has caused his neighbors to call the police on him. Patient reports he screams and yells because he has lost it all and he fears his end is near. Patient reports suicidal ideation with plan to jump off of garage building. Patient denies HI/VH/AH. He reports poor sleep. Patient stated I used to have a good life but now I can not stop thinking that this will all end I have this feeling of impending doom because of my disease. Patient sees a psychiatrist via telehealth. Patient was previously inpatient on from 06/22/22-06/27/22. During admission assessment, patient presents alert and oriented x3. Calm and cooperative. 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 Pt stated, I was not diagnosed bipolar until my late 40s. I got HSV-2 a few years ago from someone I knew I was going to get it from . Patient reports he did not start drinking heavily until 5 months ago. pt stated, I am constantly wailing because I have obsessive compulsive thinking . Reports suicidal ideation no plan. Patient stated, I have thought about killing myself. I can't have sex. I have no feeling down there. I hate my job. I had everything and I screwed it up and got HSV . Patient reports he is medication compliant. He reports picking at his skin often due to increased anxiety. denies SA/SIB. 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 Neftaly Laguerre hx of inpt hospitalization at [facility] in 2021. -Past meds: Xanax, Lexapro (?horrible?), fluoxetine (felt suicidal and exacerbated his depression), Zoloft (wt gain), Depakote (non-adherent, did not want to do lab work, looked up SE and does not want to take), lamictal (non- adherent after he titrated up to 50 mg, had red macular/popular rash on his abdomen), Seroquel 200 mg (benefit for sleep), rexulti (helpful initially but said he ?freaked out? at work and felt ?uncomfortable,? denies restlessness but attributes this feeling to the medication), trintellix (took with lamictal), Wellbutrin (had SE of tinnitus), luvox (brief trial), gabapentin (constipation). 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 denies any other substance use. Trauma History: yes Diagnostics Vital Signs (24Hr): Vital Signs - 24 hr 05/27/24 13:40 05/27/24 14:52 05/27/24 19:14 Temperature 98.3 F 98.2 F 97.4 F Pulse Rate 100 95 100 Respiratory Rate 16 15 15 Blood Pressure 146/91 H 170/111 H 144/91 H Pulse Oximetry 100 98 95 Oxygen Delivery Method Room Air Room Air Room Air 05/28/24 08:00 05/28/24 08:55 Temperature 98.2 F 98.1 F Pulse Rate 109 H 118 H Respiratory Rate 18 16 Blood Pressure 158/105 H 146/82 H Pulse Oximetry 96 96 Oxygen Delivery Method Room Air Room Air BMI result Body Mass Index 27.4 Labs 05/26/24 20:21 05/28/24 09:46 Labs: Laboratory Results - last 48 hr 05/26/24 05/26/24 05/27/24 20:21 20:57 00:46 WBC 7.4 RBC 5.26 Hgb 16.8 Hct 47.1 MCV 89.5 MCH 31.9 MCHC 35.7 RDW 12.4 Plt Count 335 MPV 9.2 L Immature Gran % (Auto) 0.7 H Neut % (Auto) 61.7 Lymph % (Auto) 26.6 [place] % (Auto) 8.0 Eos % (Auto) 2.3 Baso % (Auto) 0.7 Lymph # (Auto) 2.0 [place] # (Auto) 0.6 Eos # (Auto) 0.2 Baso # (Auto) 0.1 Abs Immat Gran (auto) 0.05 H Absolute Neuts (auto) 4.6 Absolute Nucleated RBC 0.000 Nucleated RBC % (auto) 0.0 Sodium 143 Potassium 3.7 Chloride 108 Carbon Dioxide 24 Anion Gap 15 BUN 7 L Creatinine 0.83 Estim Creat Clear Calc 111.4 Estimated GFR > 60 Random Glucose 119 H Fasting Glucose Calcium 9.3 Total Bilirubin 0.3 AST 27 ALT 37 Alkaline Phosphatase 66 Total Protein 7.1 Albumin 4.5 Triglycerides Cholesterol LDL Cholesterol, Calc HDL Cholesterol Urine Color Yellow Urine Appearance Clear Urine pH 6.0 Ur Specific [place] 1.015 Urine Protein Negative Urine Glucose (UA) Negative Urine Ketones Negative Urine Blood Negative Urine Nitrite Negative Ur Leukocyte Esterase Negative Urine Opiates Screen Not Detected Ur Buprenorphine Scrn Not Detected Ur Oxycodone Screen Not Detected Urine Methadone Screen Not Detected Urine Fentanyl Screen Not Detected Ur Barbiturates Screen Not Detected Ur Phencyclidine Scrn Not Detected Ur Amphetamines Screen Not Detected U Benzodiazepines Scrn Not Detected Urine Cocaine Screen Not Detected U Marijuana (THC) Screen Not Detected Ethyl Alcohol 151 COVID-19 (SUMMER) Negative COVID-19 Clin Com See Note 05/28/24 09:46 WBC RBC Hgb Hct MCV MCH MCHC RDW Plt Count MPV Immature Gran % (Auto) Neut % (Auto) Lymph % (Auto) [place] % (Auto) Eos % (Auto) Baso % (Auto) Lymph # (Auto) [place] # (Auto) Eos # (Auto) Baso # (Auto) Abs Immat Gran (auto) Absolute Neuts (auto) Absolute Nucleated RBC Nucleated RBC % (auto) Sodium 140 Potassium 3.8 Chloride 108 Carbon Dioxide 23 Anion Gap 13 BUN 12 Creatinine 0.94 Estim Creat Clear Calc 90.9 Estimated GFR > 60 Random Glucose Fasting Glucose 190 H Calcium 9.2 Total Bilirubin 0.4 AST 21 ALT 29 Alkaline Phosphatase 62 Total Protein 6.6 Albumin 4.1 Triglycerides 298 H Cholesterol 226 H LDL Cholesterol, Calc 105 H HDL Cholesterol 62 Urine Color Urine Appearance Urine pH Ur Specific [place] Urine Protein Urine Glucose (UA) Urine Ketones Urine Blood Urine Nitrite Ur Leukocyte Esterase Urine Opiates Screen Ur Buprenorphine Scrn Ur Oxycodone Screen Urine Methadone Screen Urine Fentanyl Screen Ur Barbiturates Screen Ur Phencyclidine Scrn Ur Amphetamines Screen U Benzodiazepines Scrn Urine Cocaine Screen U Marijuana (THC) Screen Ethyl Alcohol COVID-19 (SUMMER) COVID-19 Clin Com Meds/Allergies Meds Home Medications ?Medication ?Instructions ?Recorded ?Confirmed ?Type acyclovir 400 mg tablet 400 mg PO BID 05/26/24 05/26/24 History escitalopram oxalate 20 mg tablet 20 mg PO DAILY 05/26/24 05/26/24 History fluvoxamine 150 mg 150 mg PO DAILY 05/26/24 05/26/24 History capsule,extended release 24 hr lorazepam 0.5 mg tablet 0.5 mg PO BID 05/26/24 05/26/24 History quetiapine 300 mg tablet 300 mg PO BEDTIME 05/26/24 05/26/24 History Allergies Allergies Allergy/AdvReac Type Severity Reaction Status Date / Time Sulfa (Sulfonamide Allergy Rash Verified 05/26/24 20:02 Antibiotics) Mental Status Exam Mental Status Exam Narrative: Pt is alert and oriented; behavior is cooperative, anxious; dressed in hospital attire; mood is described as depressed and anxious ; eye contact appropriate; Speech is normal rate, volume and not pressured; thought process is organized and goal directed; Thought content is on tx; denies HI/VH/AH. Pt reports suicidal ideation with no plan. Assessment & Plan Assessment & Plan (1) Bipolar II disorder: Status: Acute Code(s): F31.81 - Bipolar II disorder (2) PTSD (post-traumatic stress disorder): Status: Acute Code(s): F43.10 - Post-traumatic stress disorder, unspecified (3) OCD (obsessive compulsive disorder): Status: Acute Code(s): F42.9 - Obsessive-compulsive disorder, unspecified (4) Alcohol use disorder: Status: Acute Code(s): F10.90 - Alcohol use, unspecified, uncomplicated Plan Patient is a 48 year old male with hx of Bipolar d/o, PTSD, OCD and alcohol use d/o who horace presented to [facility] d/t suicidal ideation secondary to increased anxiety and alcohol intoxication. Plan: CV 15 minute safety checks Continue home medications Obtain collateral Encourage groups Referral to outpatient therapy Discharge planning Patient educated on: diagnosis, medication risk/benefits and therapeutic strategies Informed Consent: understands Reason for continued inpatient stay Substantial Risk for: harm to self and med/psych decompensation Statement Statement: I have reviewed the history and physical and performed a pertinent examination on my patient. No changes have occurred unless specified. If the History and Physical was not performed prior to admission, the Hospitalist's service will be consulted for completing the admission physical. Time Spent With Patient Time: Total time managing care of this patient today _60___ minutes.
[2024-05-28] MEDS: LORazepam 1 MG TABLET PO (17:19)
[2024-05-28 20:00] VITALS: BP 145/94; PULSE 104; RESP 18; TEMP 36.9; O2SAT 94
[2024-05-28] MEDS: QUEtiapine Fumarate 300 MG TABLET PO (20:59)
[2024-05-28] MEDS: fluvoxaMINE Maleate 50 MG TABLET 200 MG PO (20:59)
[2024-05-29 08:24] VITALS: BP 123/77; PULSE 108; RESP 16; TEMP 36.9; O2SAT 94
[2024-05-29] MEDS: Acyclovir 200 MG CAPSULE 400 MG PO ×2 (08:31→22:27)
[2024-05-29] MEDS: LORazepam 0.5 MG TABLET PO ×2 (08:31→17:17)
[2024-05-29] MEDS: Thiamine HCL 100 MG TABLET PO (08:32)
--- NOTE | 2024-05-29 11:17 | MHC.RECOVRN ---
AUDIT-C Brief Intervention Pt had positive screen for unhealthy alcohol use on admission, subsequently met with t/w to discuss alcohol use and recovery supports/options. This signwriter met with patient to discuss current alcohol use and concerns related to increased risk of alcohol related problems.? Pt reports 5-7 drinks per day since Saturday, 05/22, until admission. Prior to that, pt reports recovery x 17 days. Pt reports alcohol use has been problematic x 4-5 months after pt began drinking in the mornings. Reports family hx AUD (father, had been in recovery x 14 years prior to passing away). Discussed how alcohol use has impacted health, including negative impact on mental health. Withdrawal History: denies hx seizures Treatment History: denies hx treatment Supports:?mother and 2 younger sisters, [facility] Discussed risk reduction strategies including drinking below the recommended limit. Provided pt with written resources including information on inpatient and outpatient treatment, JULIET, harm reduction, and recovery coaching. Pt plans to review resources, reach out to t/w if needed, as well as continuing attending [facility] via Zoom. Pt provided with t/w contact information if questions or concerns arise. Denies other questions or concerns at this time.?
[2024-05-29] MEDS: Bacitracin Oint 14 GM TUBE 1 APPL TOPICAL ×2 (15:06→22:29)
--- NOTE | 2024-05-29 15:25 | HO.PSYCHPN ---
Subjective Subjective Date of Service: 05/29/24 Reason For Visit: agitation si Subjective Notes: Conditional Voluntary Healthcare Proxy: No Interim History: pt somewhat less labile can be expansive noyted to have grunting obsessional somatic preoccupation denies clear manic sx but has been dx in past and noted hx adverse effects from some ssri in past pos fh father anxiety and alcohol uncle had covid few wks ago used to be very active climbing kayaking leading trips felt rejected friend and breakup with female Mental Status Exam Mental Status Exam Narrative: Pt is alert and oriented; behavior is cooperative, somewhat expansive in manner mildly pressured dressed in hospital attire Thought content is on tx somatic preoccupations ; denies HI/VH/AH. Pt reports suicidal ideation with no plan. Diagnostics Vital Signs (24Hr): Vital Signs - 24 hr 05/28/24 20:00 05/29/24 08:24 Temperature 98.4 F 98.5 F Pulse Rate 104 H 108 H Respiratory Rate 18 16 Blood Pressure 145/94 H 123/77 Pulse Oximetry 94 94 Oxygen Delivery Method Room Air Room Air BMI result Body Mass Index 27.5 Labs 05/26/24 20:21 05/28/24 09:46 Labs: Laboratory Results - last 48 hr 05/28/24 09:46 Sodium 140 Potassium 3.8 Chloride 108 Carbon Dioxide 23 Anion Gap 13 BUN 12 Creatinine 0.94 Estim Creat Clear Calc 90.9 Estimated GFR > 60 Fasting Glucose 190 H Calcium 9.2 Total Bilirubin 0.4 AST 21 ALT 29 Alkaline Phosphatase 62 Total Protein 6.6 Albumin 4.1 Triglycerides 298 H Cholesterol 226 H LDL Cholesterol, Calc 105 H HDL Cholesterol 62 Medications Medications Current Medications Acetaminophen (Acetaminophen 325 Mg Tablet) 650 mg PO Q6H PRN PRN Reason: Headache/Pain Mild Scale (1-3) Acyclovir (Acyclovir 200 Mg Capsule) 400 mg PO BID [facility] Last Admin: 05/29/24 08:31 Dose: 400 mg Al Hydroxide/Mg Hydroxide (Magnesium Hydrox/Alum Hydrox 30 Ml Oral.Susp) 30 ml PO Q6H PRN PRN Reason: Heartburn/Nausea Bacitracin (Bacitracin Oint 14 Gm Tube) 1 appl TOPICAL BID [facility]; Protocol Last Admin: 05/29/24 15:06 Dose: 1 appl Fluvoxamine Maleate (Fluvoxamine Maleate 50 Mg Tablet) 200 mg PO BEDTIME [facility] Last Admin: 05/28/24 20:59 Dose: 200 mg Hydroxyzine HCl (Hydroxyzine Hcl 25 Mg Tablet) 25 mg PO Q6H PRN PRN Reason: Anxiety Last Admin: 05/27/24 16:39 Dose: 25 mg Lorazepam (Lorazepam 0.5 Mg Tablet) 0.5 mg PO BID [facility] Last Admin: 05/29/24 08:31 Dose: 0.5 mg Lorazepam (Lorazepam 1 Mg Tablet) 1 mg PO Q2H PRN PRN Reason: CIWA 8-11 Last Admin: 05/28/24 17:19 Dose: 1 mg Lorazepam (Lorazepam 1 Mg Tablet) 2 mg PO Q2H PRN PRN Reason: CIWA 12-15 Lorazepam (Lorazepam 1 Mg Tablet) 3 mg PO Q2H PRN PRN Reason: CIWA > 15, and call Magnesium Hydroxide (Milk Of Magnesia 30 Ml Oral.Susp) 30 ml PO DAILY PRN PRN Reason: Constipation Nicotine Polacrilex (Nicotine Polacrilex 2 Mg Gum) 4 mg BUCCAL Q2H PRN PRN Reason: Nicotine Cravings Quetiapine Fumarate (Quetiapine Fumarate 300 Mg Tablet) 300 mg PO BEDTIME [facility] Last Admin: 05/28/24 20:59 Dose: 300 mg Thiamine HCl (Thiamine Hcl 100 Mg Tablet) 100 mg PO DAILY [facility] Last Admin: 05/29/24 08:32 Dose: 100 mg Trazodone HCl (Trazodone Hcl 50 Mg Tablet) 50 mg PO BEDTIME MRX1 PRN PRN Reason: Insomnia Allergies Allergies Allergy/AdvReac Type Severity Reaction Status Date / Time Sulfa (Sulfonamide Allergy Rash Verified 05/26/24 20:02 Antibiotics) Assessment & Plan Assessment & Plan (1) Bipolar II disorder: Status: Acute Code(s): F31.81 - Bipolar II disorder (2) PTSD (post-traumatic stress disorder): Status: Acute Code(s): F43.10 - Post-traumatic stress disorder, unspecified (3) OCD (obsessive compulsive disorder): Status: Acute Code(s): F42.9 - Obsessive-compulsive disorder, unspecified (4) Alcohol use disorder: Status: Acute Code(s): F10.90 - Alcohol use, unspecified, uncomplicated Plan Patient is a 48 year old male with hx of Bipolar d/o, PTSD, OCD and alcohol use d/o who horace presented to [facility] [place] d/t suicidal ideation secondary to increased anxiety and alcohol intoxication. Plan: CV 15 minute safety checks Continue home medications Obtain collateral Encourage groups Referral to outpatient therapy Discharge planning 05/29/24 Lower luvox 150 mg hs would taper may be inc anxiety agitation trileptal 150 bid cont seroquel consider php Reason for continued inpatient stay Substantial Risk for: harm to self, inability to function and rapid decompensation Time Spent With Patient Time: Total time managing care of this patient today ____ minutes.
[2024-05-29] MEDS: hydrOXYzine HCL 25 MG TABLET PO (16:57)
[2024-05-29 19:55] VITALS: BP 141/84; PULSE 105; TEMP 36.8; O2SAT 95
[2024-05-29] MEDS: fluvoxaMINE Maleate 50 MG TABLET 150 MG PO (22:27)
[2024-05-29] MEDS: QUEtiapine Fumarate 300 MG TABLET PO (22:27)
[2024-05-30 07:35] VITALS: BP 135/85; PULSE 108; RESP 14; TEMP 36.8; O2SAT 94
[2024-05-30] MEDS: Bacitracin Oint 14 GM TUBE 1 APPL TOPICAL (08:49)
[2024-05-30] MEDS: Thiamine HCL 100 MG TABLET PO (08:50)
[2024-05-30] MEDS: OXcarbazepine 150 MG TABLET PO ×2 (08:50→23:07)
[2024-05-30] MEDS: Acyclovir 200 MG CAPSULE 400 MG PO ×2 (08:50→23:06)
[2024-05-30] MEDS: LORazepam 0.5 MG TABLET PO ×2 (08:52→17:39)
--- NOTE | 2024-05-30 11:33 | P.PNPSI_ITS ---
Subjective Subjective Date of Service: 05/30/24 Reason For Visit: agitation si Interim History: Patient anxious. No withdrawal. He is tolerating the start of Trileptal 150 mg BID. Still anxious. Rubs face with hands. What have I done? Look where I am at! Denies active SI. Will consider titrating Trileptal. Review of Systems Review of Systems Constitutional : No Weight loss, No Fever, No Chills, No Night Sweats, No Fatigue, No Malaise ENT/Mouth : No Hearing loss, No Ear Pain, No Nasal Congestion, No Sinus Pain, No Hoarseness, No sore throat, No Rhinorrhea, No Swallowing Difficulty Eyes: No Eye Pain, No Swelling, No Redness, No Foreign Body, No Discharge, No Vision Changes Cardiovascular : No Chest Pain, No SOB, No Dyspnea on Exertion, No Orthopnea, No Edema, No Palpitations Respiratory : No Cough, No Sputum, No Wheezing, No Smoke Exposure, No Dyspnea Gastrointestinal : No Nausea, No Vomiting, No Diarrhea, No Constipation, No abdominal Pain, No Hematochezia, No Melena Genitourinary : no irregular bleeding, No Dysuria, No Urinary Frequency, No Hematuria, No Urinary Incontinence, No Urgency, No Flank Pain, No Urinary Flow Changes, No Hesitancy Musculoskeletal : No joint pain, No Myalgias, No Joint Swelling Skin : No Skin Lesions, No rash Neuro : No Weakness, No Numbness, No Paresthesias, No Loss of Consciousness, No Dizziness, No Headache Psych : Complaining of anxiety, depression, denies SI or HI, admits to relapsing hand is drinking alcohol again. Heme/Lymph: No Bruising, No Bleeding,No Lymphadenopathy Endocrine : No Polyuria, No Polydipsia, No Temperature Intolerance Constitutional: Reports as per HPI Eyes: Reports as per HPI Reports as per HPI Cardiovascular: Reports as per HPI Respiratory: Reports as per HPI Gastrointestinal: Reports as per HPI Genitourinary: Reports as per HPI Musculoskeletal: Reports as per HPI Skin/Breast: Reports as per HPI Reports as per HPI Psychiatric: Reports as per HPI Endocrine: Reports as per HPI Hematologic/Lymphatic: Reports as per HPI Allergic/Immunologic: Reports as per HPI Mental Status Exam Mental Status Exam Narrative: Pt is alert and oriented; behavior is cooperative, somewhat expansive in manner mildly pressured dressed in hospital attire Thought content is on tx somatic preoccupations ; denies HI/VH/AH. Pt reports suicidal ideation with no plan. Diagnostics Vital Signs (24Hr): Vital Signs - 24 hr 05/29/24 19:55 05/30/24 07:35 Temperature 98.2 F 98.2 F Pulse Rate 105 H 108 H Respiratory Rate 14 Blood Pressure 141/84 H 135/85 Pulse Oximetry 95 94 Oxygen Delivery Method Room Air Room Air BMI result Body Mass Index 27.5 Labs 05/26/24 20:21 05/28/24 09:46 Medications Medications Current Medications Acetaminophen (Acetaminophen 325 Mg Tablet) 650 mg PO Q6H PRN PRN Reason: Headache/Pain Mild Scale (1-3) Acyclovir (Acyclovir 200 Mg Capsule) 400 mg PO BID [facility] Last Admin: 05/30/24 08:50 Dose: 400 mg Al Hydroxide/Mg Hydroxide (Magnesium Hydrox/Alum Hydrox 30 Ml Oral.Susp) 30 ml PO Q6H PRN PRN Reason: Heartburn/Nausea Bacitracin (Bacitracin Oint 14 Gm Tube) 1 appl TOPICAL BID [facility]; Protocol Last Admin: 05/30/24 08:49 Dose: 1 appl Fluvoxamine Maleate (Fluvoxamine Maleate 50 Mg Tablet) 150 mg PO BEDTIME [facility] Last Admin: 05/29/24 22:27 Dose: 150 mg Hydroxyzine HCl (Hydroxyzine Hcl 25 Mg Tablet) 25 mg PO Q6H PRN PRN Reason: Anxiety Last Admin: 05/29/24 16:57 Dose: 25 mg Lorazepam (Lorazepam 1 Mg Tablet) 1 mg PO Q2H PRN PRN Reason: CIWA 8-11 Last Admin: 05/28/24 17:19 Dose: 1 mg Lorazepam (Lorazepam 1 Mg Tablet) 2 mg PO Q2H PRN PRN Reason: CIWA 12-15 Lorazepam (Lorazepam 1 Mg Tablet) 3 mg PO Q2H PRN PRN Reason: CIWA > 15, and call Lorazepam (Lorazepam 0.5 Mg Tablet) 0.5 mg PO BID@0900,1700 [facility] Last Admin: 05/30/24 08:52 Dose: 0.5 mg Magnesium Hydroxide (Milk Of Magnesia 30 Ml Oral.Susp) 30 ml PO DAILY PRN PRN Reason: Constipation Nicotine Polacrilex (Nicotine Polacrilex 2 Mg Gum) 4 mg BUCCAL Q2H PRN PRN Reason: Nicotine Cravings Oxcarbazepine (Oxcarbazepine 150 Mg Tablet) 150 mg PO BID [facility] Last Admin: 05/30/24 08:50 Dose: 150 mg Quetiapine Fumarate (Quetiapine Fumarate 300 Mg Tablet) 300 mg PO BEDTIME [facility] Last Admin: 05/29/24 22:27 Dose: 300 mg Thiamine HCl (Thiamine Hcl 100 Mg Tablet) 100 mg PO DAILY [facility] Last Admin: 05/30/24 08:50 Dose: 100 mg Trazodone HCl (Trazodone Hcl 50 Mg Tablet) 50 mg PO BEDTIME MRX1 PRN PRN Reason: Insomnia Allergies Allergies Allergy/AdvReac Type Severity Reaction Status Date / Time Sulfa (Sulfonamide Allergy Rash Verified 05/26/24 20:02 Antibiotics) Assessment & Plan Assessment & Plan (1) Bipolar II disorder: Status: Acute Code(s): F31.81 - Bipolar II disorder (2) PTSD (post-traumatic stress disorder): Status: Acute Code(s): F43.10 - Post-traumatic stress disorder, unspecified (3) OCD (obsessive compulsive disorder): Status: Acute Code(s): F42.9 - Obsessive-compulsive disorder, unspecified (4) Alcohol use disorder: Status: Acute Code(s): F10.90 - Alcohol use, unspecified, uncomplicated Plan Patient is a 48 year old male with hx of Bipolar d/o, PTSD, OCD and alcohol use d/o who horace presented to [facility] [place] d/t suicidal ideation secondary to increased anxiety and alcohol intoxication. Plan: CV 15 minute safety checks Continue home medications Obtain collateral Encourage groups Referral to outpatient therapy Discharge planning 05/29/24 Lower luvox 150 mg hs would taper may be inc anxiety agitation trileptal 150 bid cont seroquel consider php 05/30: Consider increase in Trileptal. Reason for continued inpatient stay Substantial Risk for: harm to self, inability to function and rapid decompensation Time Spent With Patient Time: Total time managing care of this patient today ____ minutes.
[2024-05-30] MEDS: hydrOXYzine HCL 25 MG TABLET PO (11:58)
[2024-05-30 19:35] VITALS: BP 132/77; PULSE 100; RESP 18; TEMP 36.8; O2SAT 95
[2024-05-30] MEDS: QUEtiapine Fumarate 300 MG TABLET PO (23:07)
[2024-05-30] MEDS: fluvoxaMINE Maleate 50 MG TABLET 150 MG PO (23:08)
[2024-05-31 08:27] VITALS: BP 149/85; PULSE 108; RESP 16; TEMP 37.1; O2SAT 94
[2024-05-31] MEDS: Thiamine HCL 100 MG TABLET PO (08:29)
[2024-05-31] MEDS: LORazepam 0.5 MG TABLET PO ×2 (08:29→16:59)
[2024-05-31] MEDS: OXcarbazepine 150 MG TABLET PO ×2 (08:29→22:15)
[2024-05-31] MEDS: Bacitracin Oint 14 GM TUBE 1 APPL TOPICAL (08:30)
[2024-05-31] MEDS: Acyclovir 200 MG CAPSULE 400 MG PO ×2 (08:30→22:14)
[2024-05-31] MEDS: hydrOXYzine HCL 25 MG TABLET PO (10:09)
--- NOTE | 2024-05-31 11:24 | HO.PSYCHPN ---
Subjective Subjective Date of Service: 05/31/24 Reason For Visit: agitation si Interim History: pt less labile. No side effects with curernt dose Trileptal. Cooperative with care.Social with some peers. Playing chess with select peer. He was tearful discussing with RN he has herpes and the effect this has on his relationships and that he will not have a girlfriend Review of Systems Review of Systems Constitutional : No Weight loss, No Fever, No Chills, No Night Sweats, No Fatigue, No Malaise ENT/Mouth : No Hearing loss, No Ear Pain, No Nasal Congestion, No Sinus Pain, No Hoarseness, No sore throat, No Rhinorrhea, No Swallowing Difficulty Eyes: No Eye Pain, No Swelling, No Redness, No Foreign Body, No Discharge, No Vision Changes Cardiovascular : No Chest Pain, No SOB, No Dyspnea on Exertion, No Orthopnea, No Edema, No Palpitations Respiratory : No Cough, No Sputum, No Wheezing, No Smoke Exposure, No Dyspnea Gastrointestinal : No Nausea, No Vomiting, No Diarrhea, No Constipation, No abdominal Pain, No Hematochezia, No Melena Genitourinary : no irregular bleeding, No Dysuria, No Urinary Frequency, No Hematuria, No Urinary Incontinence, No Urgency, No Flank Pain, No Urinary Flow Changes, No Hesitancy Musculoskeletal : No joint pain, No Myalgias, No Joint Swelling Skin : No Skin Lesions, No rash Neuro : No Weakness, No Numbness, No Paresthesias, No Loss of Consciousness, No Dizziness, No Headache Psych : Complaining of anxiety, depression, denies SI or HI, admits to relapsing hand is drinking alcohol again. Heme/Lymph: No Bruising, No Bleeding,No Lymphadenopathy Endocrine : No Polyuria, No Polydipsia, No Temperature Intolerance Constitutional: Reports as per HPI Eyes: Reports as per HPI Reports as per HPI Cardiovascular: Reports as per HPI Respiratory: Reports as per HPI Gastrointestinal: Reports as per HPI Genitourinary: Reports as per HPI Musculoskeletal: Reports as per HPI Skin/Breast: Reports as per HPI Reports as per HPI Psychiatric: Reports as per HPI Endocrine: Reports as per HPI Hematologic/Lymphatic: Reports as per HPI Allergic/Immunologic: Reports as per HPI Mental Status Exam Mental Status Exam Narrative: Pt is alert and oriented; behavior is cooperative, somewhat expansive in manner mildly pressured dressed in hospital attire Thought content is on tx somatic preoccupations ; denies HI/VH/AH. Pt reports suicidal ideation with no plan. Diagnostics Vital Signs (24Hr): Vital Signs - 24 hr 05/30/24 19:35 05/31/24 08:27 Temperature 98.3 F 98.7 F Pulse Rate 100 108 H Respiratory Rate 18 16 Blood Pressure 132/77 149/85 H Pulse Oximetry 95 94 Oxygen Delivery Method Room Air Room Air BMI result Body Mass Index 27.5 Labs 05/26/24 20:21 05/28/24 09:46 Medications Medications Current Medications Acetaminophen (Acetaminophen 325 Mg Tablet) 650 mg PO Q6H PRN PRN Reason: Headache/Pain Mild Scale (1-3) Acyclovir (Acyclovir 200 Mg Capsule) 400 mg PO BID [facility] Last Admin: 05/31/24 08:30 Dose: 400 mg Al Hydroxide/Mg Hydroxide (Magnesium Hydrox/Alum Hydrox 30 Ml Oral.Susp) 30 ml PO Q6H PRN PRN Reason: Heartburn/Nausea Bacitracin (Bacitracin Oint 14 Gm Tube) 1 appl TOPICAL BID [facility]; Protocol Last Admin: 05/31/24 08:30 Dose: 1 appl Fluvoxamine Maleate (Fluvoxamine Maleate 50 Mg Tablet) 150 mg PO BEDTIME [facility] Last Admin: 05/30/24 23:08 Dose: 150 mg Hydroxyzine HCl (Hydroxyzine Hcl 25 Mg Tablet) 25 mg PO Q6H PRN PRN Reason: Anxiety Last Admin: 05/31/24 10:09 Dose: 25 mg Lorazepam (Lorazepam 0.5 Mg Tablet) 0.5 mg PO BID@0900,1700 [facility] Last Admin: 05/31/24 08:29 Dose: 0.5 mg Magnesium Hydroxide (Milk Of Magnesia 30 Ml Oral.Susp) 30 ml PO DAILY PRN PRN Reason: Constipation Nicotine Polacrilex (Nicotine Polacrilex 2 Mg Gum) 4 mg BUCCAL Q2H PRN PRN Reason: Nicotine Cravings Oxcarbazepine (Oxcarbazepine 150 Mg Tablet) 150 mg PO BID [facility] Last Admin: 05/31/24 08:29 Dose: 150 mg Quetiapine Fumarate (Quetiapine Fumarate 300 Mg Tablet) 300 mg PO BEDTIME [facility] Last Admin: 05/30/24 23:07 Dose: 300 mg Thiamine HCl (Thiamine Hcl 100 Mg Tablet) 100 mg PO DAILY [facility] Last Admin: 05/31/24 08:29 Dose: 100 mg Trazodone HCl (Trazodone Hcl 50 Mg Tablet) 50 mg PO BEDTIME MRX1 PRN PRN Reason: Insomnia Allergies Allergies Allergy/AdvReac Type Severity Reaction Status Date / Time Sulfa (Sulfonamide Allergy Rash Verified 05/26/24 20:02 Antibiotics) Assessment & Plan Assessment & Plan (1) Bipolar II disorder: Status: Acute Code(s): F31.81 - Bipolar II disorder (2) PTSD (post-traumatic stress disorder): Status: Acute Code(s): F43.10 - Post-traumatic stress disorder, unspecified (3) OCD (obsessive compulsive disorder): Status: Acute Code(s): F42.9 - Obsessive-compulsive disorder, unspecified (4) Alcohol use disorder: Status: Acute Code(s): F10.90 - Alcohol use, unspecified, uncomplicated Plan Patient is a 48 year old male with hx of Bipolar d/o, PTSD, OCD and alcohol use d/o who [place] [facility] [place]t suicidal ideation secondary to increased anxiety and alcohol intoxication. Plan: CV 15 minute safety checks Continue home medications Obtain collateral Encourage groups Referral to outpatient therapy Discharge planning 05/29/24 Lower luvox 150 mg hs would taper may be inc anxiety agitation trileptal 150 bid cont seroquel consider php 05/31: Continue current management and treatment plan. Reason for continued inpatient stay Substantial Risk for: harm to self, inability to function and rapid decompensation Time Spent With Patient Time: Total time managing care of this patient today ____ minutes.
[2024-05-31 20:00] VITALS: BP 150/90; PULSE 100; RESP 16; TEMP 36.5; O2SAT 97
[2024-05-31] MEDS: QUEtiapine Fumarate 300 MG TABLET PO (22:12)
[2024-05-31] MEDS: fluvoxaMINE Maleate 50 MG TABLET 150 MG PO (22:12)
[2024-06-01] MEDS: hydrOXYzine HCL 25 MG TABLET PO (06:33)
[2024-06-01 08:56] VITALS: BP 140/93; PULSE 109; RESP 16; TEMP 36.4; O2SAT 96
[2024-06-01] MEDS: LORazepam 0.5 MG TABLET PO ×2 (09:02→16:31)
[2024-06-01] MEDS: Acyclovir 200 MG CAPSULE 400 MG PO ×2 (09:02→21:05)
[2024-06-01] MEDS: OXcarbazepine 150 MG TABLET PO ×2 (09:03→21:05)
[2024-06-01] MEDS: Thiamine HCL 100 MG TABLET PO (09:03)
--- NOTE | 2024-06-01 10:14 | HO.PSYCHPN ---
Subjective Subjective Date of Service: 06/01/24 Reason For Visit: agitation si Subjective Notes: Conditional Voluntary Interim History: Active on unit, social with peers. observing laughing loudly in mileu. 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 Pt stated, the HSV2 is making me constantly anxious. I got anxious last night and starting making noises . He remains focused on this topic. denies SI/HI/VH/AH. Pt reports he is considering seeing a specialist regarding the herpes . Medication Compliance: Yes Side effects from medications: No Attending Groups: Yes Review of Systems Constitutional: Reports as per HPI Eyes: Reports as per HPI Reports as per HPI Cardiovascular: Reports as per HPI Respiratory: Reports as per HPI Gastrointestinal: Reports as per HPI Genitourinary: Reports as per HPI Musculoskeletal: Reports as per HPI Skin/Breast: Reports as per HPI Reports as per HPI Psychiatric: Reports as per HPI Endocrine: Reports as per HPI Hematologic/Lymphatic: Reports as per HPI Allergic/Immunologic: Reports as per HPI Mental Status Exam Mental Status Exam Narrative: Pt is alert and oriented; behavior is cooperative; dressed in casual attire; mood is described as depressed and anxious ; eye contact appropriate; Speech is normal rate, volume; focused on HSV diagnosis; denies SI/HI/VH/AH. Diagnostics Vital Signs (24Hr): Vital Signs - 24 hr 05/31/24 20:00 06/01/24 08:56 Temperature 97.7 F 97.6 F Pulse Rate 100 109 H Respiratory Rate 16 16 Blood Pressure 150/90 H 140/93 H Pulse Oximetry 97 96 Oxygen Delivery Method Room Air Room Air BMI result Body Mass Index 27.5 Labs 05/26/24 20:21 05/28/24 09:46 Medications Medications Current Medications Acetaminophen (Acetaminophen 325 Mg Tablet) 650 mg PO Q6H PRN PRN Reason: Headache/Pain Mild Scale (1-3) Acyclovir (Acyclovir 200 Mg Capsule) 400 mg PO BID [facility] Last Admin: 06/01/24 09:02 Dose: 400 mg Al Hydroxide/Mg Hydroxide (Magnesium Hydrox/Alum Hydrox 30 Ml Oral.Susp) 30 ml PO Q6H PRN PRN Reason: Heartburn/Nausea Bacitracin (Bacitracin Oint 14 Gm Tube) 1 appl TOPICAL BID [facility]; Protocol Last Admin: 06/01/24 09:19 Dose: Not Given Fluvoxamine Maleate (Fluvoxamine Maleate 50 Mg Tablet) 150 mg PO BEDTIME [facility] Last Admin: 05/31/24 22:12 Dose: 150 mg Hydroxyzine HCl (Hydroxyzine Hcl 25 Mg Tablet) 25 mg PO Q6H PRN PRN Reason: Anxiety Last Admin: 06/01/24 06:33 Dose: 25 mg Lorazepam (Lorazepam 0.5 Mg Tablet) 0.5 mg PO BID@0900,1700 [facility] Last Admin: 06/01/24 09:02 Dose: 0.5 mg Magnesium Hydroxide (Milk Of Magnesia 30 Ml Oral.Susp) 30 ml PO DAILY PRN PRN Reason: Constipation Nicotine Polacrilex (Nicotine Polacrilex 2 Mg Gum) 4 mg BUCCAL Q2H PRN PRN Reason: Nicotine Cravings Oxcarbazepine (Oxcarbazepine 150 Mg Tablet) 150 mg PO BID [facility] Last Admin: 06/01/24 09:03 Dose: 150 mg Quetiapine Fumarate (Quetiapine Fumarate 300 Mg Tablet) 300 mg PO BEDTIME [facility] Last Admin: 05/31/24 22:12 Dose: 300 mg Thiamine HCl (Thiamine Hcl 100 Mg Tablet) 100 mg PO DAILY [facility] Last Admin: 06/01/24 09:03 Dose: 100 mg Trazodone HCl (Trazodone Hcl 50 Mg Tablet) 50 mg PO BEDTIME MRX1 PRN PRN Reason: Insomnia Allergies Allergies Allergy/AdvReac Type Severity Reaction Status Date / Time Sulfa (Sulfonamide Allergy Rash Verified 05/26/24 20:02 Antibiotics) Assessment & Plan Assessment & Plan (1) Bipolar II disorder: Status: Acute Code(s): F31.81 - Bipolar II disorder (2) PTSD (post-traumatic stress disorder): Status: Acute Code(s): F43.10 - Post-traumatic stress disorder, unspecified (3) OCD (obsessive compulsive disorder): Status: Acute Code(s): F42.9 - Obsessive-compulsive disorder, unspecified (4) Alcohol use disorder: Status: Acute Code(s): F10.90 - Alcohol use, unspecified, uncomplicated Plan Patient is a 48 year old male with hx of Bipolar d/o, PTSD, OCD and alcohol use d/o who horace presented to [facility] [place] d/t suicidal ideation secondary to increased anxiety and alcohol intoxication. Plan: CV 15 minute safety checks Continue home medications Obtain collateral Encourage groups Referral to outpatient therapy Discharge planning 05/29/24 Lower luvox 150 mg hs would taper may be inc anxiety agitation trileptal 150 bid cont seroquel consider php 05/31: Continue current management and treatment plan. 05/31: Active on unit, social with peers. observing laughing loudly in mileu. 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 Pt stated, the HSV2 is making me constantly anxious. I got anxious last night and starting making noises . He remains focused on this topic. denies SI/HI/VH/AH. Pt reports he is considering seeing a specialist regarding the herpes . Continue current tx plan. Patient educated on: diagnosis and medication risk/benefits Reason for continued inpatient stay Substantial Risk for: med/psych decompensation Time Spent With Patient Time: Total time managing care of this patient today _20___ minutes.
[2024-06-01 20:00] VITALS: BP 151/90; PULSE 96; RESP 16; TEMP 36.6; O2SAT 95
[2024-06-01] MEDS: fluvoxaMINE Maleate 50 MG TABLET 150 MG PO (21:03)
[2024-06-01] MEDS: QUEtiapine Fumarate 300 MG TABLET PO (21:04)
[2024-06-02 07:38] VITALS: BP 146/93; PULSE 99; RESP 16; TEMP 36.8; O2SAT 96
[2024-06-02] MEDS: Acyclovir 200 MG CAPSULE 400 MG PO ×2 (08:22→21:43)
[2024-06-02] MEDS: LORazepam 0.5 MG TABLET PO ×2 (08:22→16:49)
[2024-06-02] MEDS: Thiamine HCL 100 MG TABLET PO (08:22)
[2024-06-02] MEDS: OXcarbazepine 150 MG TABLET PO ×2 (08:23→21:44)
[2024-06-02] MEDS: Bacitracin Oint 14 GM TUBE 1 APPL TOPICAL (08:23)
--- NOTE | 2024-06-02 11:23 | P.PNPSI_ITS ---
Subjective Subjective Date of Service: 06/02/24 Reason For Visit: agitation si Subjective Notes: Conditional Voluntary Interim History: Active on unit, social with peers. observing laughing loudly in mileu. 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 Pt reports sleeping well. Patient stated, I feel like I'm getting a little better ; pt denies any side effects from medications. Increased Trileptal to 300mg PO BID. denies SI/HI/VH/AH. Medication Compliance: Yes Side effects from medications: No Attending Groups: Yes Review of Systems Constitutional: Reports as per HPI Eyes: Reports as per HPI Reports as per HPI Cardiovascular: Reports as per HPI Respiratory: Reports as per HPI Gastrointestinal: Reports as per HPI Genitourinary: Reports as per HPI Musculoskeletal: Reports as per HPI Skin/Breast: Reports as per HPI Reports as per HPI Psychiatric: Reports as per HPI Endocrine: Reports as per HPI Hematologic/Lymphatic: Reports as per HPI Allergic/Immunologic: Reports as per HPI Mental Status Exam Mental Status Exam Narrative: Pt is alert and oriented; behavior is cooperative; dressed in casual attire; mood is described as getting a little better ; eye contact appropriate; Speech is normal rate, volume; focused on HSV diagnosis; denies SI/HI/VH/AH. Diagnostics Vital Signs (24Hr): Vital Signs - 24 hr 06/01/24 20:00 06/02/24 07:38 Temperature 97.8 F 98.3 F Pulse Rate 96 99 Respiratory Rate 16 16 Blood Pressure 151/90 H 146/93 H Pulse Oximetry 95 96 Oxygen Delivery Method Room Air Room Air BMI result Body Mass Index 27.5 Labs 05/26/24 20:21 05/28/24 09:46 Medications Medications Current Medications Acetaminophen (Acetaminophen 325 Mg Tablet) 650 mg PO Q6H PRN PRN Reason: Headache/Pain Mild Scale (1-3) Acyclovir (Acyclovir 200 Mg Capsule) 400 mg PO BID [facility] Last Admin: 06/02/24 08:22 Dose: 400 mg Al Hydroxide/Mg Hydroxide (Magnesium Hydrox/Alum Hydrox 30 Ml Oral.Susp) 30 ml PO Q6H PRN PRN Reason: Heartburn/Nausea Bacitracin (Bacitracin Oint 14 Gm Tube) 1 appl TOPICAL BID JESSIKA; Protocol Last Admin: 06/02/24 08:23 Dose: 1 appl Fluvoxamine Maleate (Fluvoxamine Maleate 50 Mg Tablet) 150 mg PO BEDTIME [facility] Last Admin: 06/01/24 21:03 Dose: 150 mg Hydroxyzine HCl (Hydroxyzine Hcl 25 Mg Tablet) 25 mg PO Q6H PRN PRN Reason: Anxiety Last Admin: 06/01/24 06:33 Dose: 25 mg Lorazepam (Lorazepam 0.5 Mg Tablet) 0.5 mg PO BID@0900,1700 [facility] Last Admin: 06/02/24 08:22 Dose: 0.5 mg Magnesium Hydroxide (Milk Of Magnesia 30 Ml Oral.Susp) 30 ml PO DAILY PRN PRN Reason: Constipation Nicotine Polacrilex (Nicotine Polacrilex 2 Mg Gum) 4 mg BUCCAL Q2H PRN PRN Reason: Nicotine Cravings Oxcarbazepine (Oxcarbazepine 150 Mg Tablet) 150 mg PO BID [facility] Last Admin: 06/02/24 08:23 Dose: 150 mg Quetiapine Fumarate (Quetiapine Fumarate 300 Mg Tablet) 300 mg PO BEDTIME [facility] Last Admin: 06/01/24 21:04 Dose: 300 mg Thiamine HCl (Thiamine Hcl 100 Mg Tablet) 100 mg PO DAILY [facility] Last Admin: 06/02/24 08:22 Dose: 100 mg Trazodone HCl (Trazodone Hcl 50 Mg Tablet) 50 mg PO BEDTIME MRX1 PRN PRN Reason: Insomnia Allergies Allergies Allergy/AdvReac Type Severity Reaction Status Date / Time Sulfa (Sulfonamide Allergy Rash Verified 05/26/24 20:02 Antibiotics) Assessment & Plan Assessment & Plan (1) Bipolar II disorder: Status: Acute Code(s): F31.81 - Bipolar II disorder (2) PTSD (post-traumatic stress disorder): Status: Acute Code(s): F43.10 - Post-traumatic stress disorder, unspecified (3) OCD (obsessive compulsive disorder): Status: Acute Code(s): F42.9 - Obsessive-compulsive disorder, unspecified (4) Alcohol use disorder: Status: Acute Code(s): F10.90 - Alcohol use, unspecified, uncomplicated Plan Patient is a 48 year old male with hx of Bipolar d/o, PTSD, OCD and alcohol use d/o who horace presented to [facility] d/t suicidal ideation secondary to increased anxiety and alcohol intoxication. Plan: CV 15 minute safety checks Continue home medications Obtain collateral Encourage groups Referral to outpatient therapy Discharge planning 05/29/24 Lower luvox 150 mg hs would taper may be inc anxiety agitation trileptal 150 bid cont seroquel consider php 05/31: Continue current management and treatment plan. 06/01: Active on unit, social with peers. observing laughing loudly in mileu. 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 Pt stated, the HSV2 is making me constantly anxious. I got anxious last night and starting making noises . He remains focused on this topic. denies SI/HI/VH/AH. Pt reports he is considering seeing a specialist regarding the herpes . Continue current tx plan. 06/02: Active on unit, social with peers. observing laughing loudly in mileu. 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 Pt reports sleeping well. Patient stated, I feel like I'm getting a little better ; pt denies any side effects from medications. Increased Trileptal to 300mg PO BID. denies SI/HI/VH/AH. Patient educated on: diagnosis, medication risk/benefits and therapeutic strategies Reason for continued inpatient stay Substantial Risk for: med/psych decompensation Time Spent With Patient Time: Total time managing care of this patient today _20___ minutes.
[2024-06-02 21:00] VITALS: BP 170/106; PULSE 103; RESP 16; TEMP 36.9; O2SAT 100
[2024-06-02 21:25] VITALS: BP 157/103; PULSE 97; O2SAT 99
[2024-06-02] MEDS: fluvoxaMINE Maleate 50 MG TABLET 150 MG PO (21:42)
[2024-06-02 21:43] VITALS: BP 170/106
[2024-06-02] MEDS: QUEtiapine Fumarate 300 MG TABLET PO (21:43)
[2024-06-02] MEDS: cloNIDine HCL 0.1 MG TABLET PO (21:43)
[2024-06-03 07:25] VITALS: BP 133/91; PULSE 82; RESP 18; TEMP 36.9; O2SAT 97
[2024-06-03 08:50] VITALS: BP 117/71; PULSE 92
[2024-06-03] MEDS: cloNIDine HCL 0.1 MG TABLET PO ×2 (08:51→22:16)
[2024-06-03] MEDS: Acyclovir 200 MG CAPSULE 400 MG PO ×2 (08:52→22:16)
[2024-06-03] MEDS: LORazepam 0.5 MG TABLET PO ×2 (08:52→17:10)
[2024-06-03] MEDS: OXcarbazepine 300 MG TABLET PO ×2 (08:53→22:16)
--- NOTE | 2024-06-03 09:05 | HO.PSYCHPN ---
Subjective Subjective Date of Service: 06/03/24 Reason For Visit: agitation si Subjective Notes: Conditional Voluntary Interim History: Pt reports sleeping through the night. He is seen as smiling, socializing on the unit. 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 He reports he messed it all. He reports to his alcohol use, working somewhere he does not like. All stressors we discussed at this point are up to him to work on outpatient as prolonged inpt admission will not warrantee that he won't relapsed nor will give him steps to find another job, if that's want he wants. No SI/HI. He is taking medications as prescribed. We did discuss adding naltrexon to decrease alcohol use, also explain this medication is use off label as well for OCD, which he declined. Diagnostics Vital Signs (24Hr): Vital Signs - 24 hr 06/02/24 21:00 06/02/24 21:25 06/02/24 21:43 Temperature 98.5 F Pulse Rate 103 H 97 Respiratory Rate 16 Blood Pressure 170/106 H 157/103 H 170/106 H Pulse Oximetry 100 99 Oxygen Delivery Method Room Air Room Air 06/03/24 07:25 06/03/24 08:50 Temperature 98.5 F Pulse Rate 82 92 Respiratory Rate 18 Blood Pressure 133/91 H 117/71 Pulse Oximetry 97 Oxygen Delivery Method Room Air BMI result Body Mass Index 27.5 Labs 05/26/24 20:21 05/28/24 09:46 Medications Medications Current Medications Acetaminophen (Acetaminophen 325 Mg Tablet) 650 mg PO Q6H PRN PRN Reason: Headache/Pain Mild Scale (1-3) Acyclovir (Acyclovir 200 Mg Capsule) 400 mg PO BID [facility] Last Admin: 06/03/24 08:52 Dose: 400 mg Al Hydroxide/Mg Hydroxide (Magnesium Hydrox/Alum Hydrox 30 Ml Oral.Susp) 30 ml PO Q6H PRN PRN Reason: Heartburn/Nausea Clonidine HCl (Clonidine Hcl 0.1 Mg Tablet) 0.1 mg PO BID [facility]; Protocol Last Admin: 06/03/24 08:51 Dose: 0.1 mg Fluvoxamine Maleate (Fluvoxamine Maleate 50 Mg Tablet) 150 mg PO BEDTIME [facility] Last Admin: 06/02/24 21:42 Dose: 150 mg Hydroxyzine HCl (Hydroxyzine Hcl 25 Mg Tablet) 25 mg PO Q6H PRN PRN Reason: Anxiety Last Admin: 06/01/24 06:33 Dose: 25 mg Lorazepam (Lorazepam 0.5 Mg Tablet) 0.5 mg PO BID@0900,1700 [facility] Last Admin: 06/03/24 08:52 Dose: 0.5 mg Magnesium Hydroxide (Milk Of Magnesia 30 Ml Oral.Susp) 30 ml PO DAILY PRN PRN Reason: Constipation Nicotine Polacrilex (Nicotine Polacrilex 2 Mg Gum) 4 mg BUCCAL Q2H PRN PRN Reason: Nicotine Cravings Oxcarbazepine (Oxcarbazepine 300 Mg Tablet) 300 mg PO BID [facility] Last Admin: 06/03/24 08:53 Dose: 300 mg Quetiapine Fumarate (Quetiapine Fumarate 300 Mg Tablet) 300 mg PO BEDTIME [facility] Last Admin: 06/02/24 21:43 Dose: 300 mg Trazodone HCl (Trazodone Hcl 50 Mg Tablet) 50 mg PO BEDTIME MRX1 PRN PRN Reason: Insomnia Allergies Allergies Allergy/AdvReac Type Severity Reaction Status Date / Time Sulfa (Sulfonamide Allergy Rash Verified 05/26/24 20:02 Antibiotics) Assessment & Plan Assessment & Plan (1) Bipolar II disorder: Status: Acute Code(s): F31.81 - Bipolar II disorder (2) PTSD (post-traumatic stress disorder): Status: Acute Code(s): F43.10 - Post-traumatic stress disorder, unspecified (3) OCD (obsessive compulsive disorder): Status: Acute Code(s): F42.9 - Obsessive-compulsive disorder, unspecified (4) Alcohol use disorder: Status: Acute Code(s): F10.90 - Alcohol use, unspecified, uncomplicated Plan Patient is a 48 year old male with hx of Bipolar d/o, PTSD, OCD and alcohol use d/o who horace presented [place] [facility] d/t suicidal ideation secondary to increased anxiety and alcohol intoxication. Plan: CV 15 minute safety checks Continue home medications Obtain collateral Encourage groups Referral to outpatient therapy Discharge planning 05/29/24 Lower luvox 150 mg hs would taper may be inc anxiety agitation trileptal 150 bid cont seroquel consider php 05/31: Continue current management and treatment plan. 06/01: Active on unit, social with peers. observing laughing loudly in mileu. 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 Pt stated, the HSV2 is making me constantly anxious. I got anxious last night and starting making noises . He remains focused on this topic. denies SI/HI/VH/AH. Pt reports he is considering seeing a specialist regarding the herpes . Continue current tx plan. 06/02: Active on unit, social with peers. observing laughing loudly in mileu. 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 Pt reports sleeping well. Patient stated, I feel like I'm getting a little better ; pt denies any side effects from medications. Increased Trileptal to 300mg PO BID. denies SI/HI/VH/AH. 06/03- covering provider for today. I offered naltrexon for alcohol use disorder and off label OCD, but pt declined. Affect much brighter than reported and no clear benefit for longer inpt admission at this time. Reason for continued inpatient stay Substantial Risk for: stable for discharge Time Spent With Patient Time: Total time managing care of this patient today ____ minutes.
[2024-06-03] MEDS: hydrOXYzine HCL 25 MG TABLET PO (12:44)
[2024-06-03 19:40] VITALS: BP 129/79; PULSE 84; RESP 18; TEMP 36.6; O2SAT 95
[2024-06-03 22:16] VITALS: BP 133/80
[2024-06-03] MEDS: QUEtiapine Fumarate 300 MG TABLET PO (22:16)
[2024-06-03] MEDS: fluvoxaMINE Maleate 50 MG TABLET 150 MG PO (22:16)
[2024-06-04 08:00] VITALS: BP 114/71; PULSE 79; RESP 18; TEMP 36.6; O2SAT 97
[2024-06-04] MEDS: cloNIDine HCL 0.1 MG TABLET PO (08:45)
[2024-06-04] MEDS: Acyclovir 200 MG CAPSULE 400 MG PO (08:45)
[2024-06-04] MEDS: LORazepam 0.5 MG TABLET PO (08:46)
[2024-06-04] MEDS: OXcarbazepine 300 MG TABLET PO (08:46)
--- NOTE | 2024-06-04 10:03 | P.DS_ITS ---
DS: Providers Provider Date of Service: 06/04/24 Date of admission: 05/27/24 13:19 Date of discharge: 06/04/24 Primary care physician: Yessenia Rose APRN Admitting clinician: Jodee Dai Attending physician on admission: Johnie El Consults: 05/27/24 15:25 Addiction Medicine Routine Consulting Provider: Addiction Covering Reason for consultation: pt requested. BAL of 151 at ED Attending physician on discharge: Johnie El Discharging clinician: Jodee Dai DS: Diagnosis Discharge Diagnosis (1) Bipolar II disorder: Status: Acute (2) PTSD (post-traumatic stress disorder): Status: Acute (3) OCD (obsessive compulsive disorder): Status: Acute (4) Alcohol use disorder: Status: Acute DS: Medications Discharge Medications Home Medications: Home Medications ?Medication ?Instructions ?Recorded ?Confirmed acyclovir 400 mg tablet 400 mg PO BID 05/26/24 05/26/24 escitalopram oxalate 20 mg tablet 20 mg PO DAILY 05/26/24 05/26/24 fluvoxamine 150 mg 150 mg PO DAILY 05/26/24 05/26/24 capsule,extended release 24 hr lorazepam 0.5 mg tablet 0.5 mg PO BID 05/26/24 05/26/24 quetiapine 300 mg tablet 300 mg PO BEDTIME 05/26/24 05/26/24 Previous Rx's ?Medication ?Instructions ?Recorded clonidine HCl 0.1 mg tablet 0.1 mg PO BID 30 days #60 tabs 06/04/24 oxcarbazepine 300 mg tablet 300 mg PO BID 30 days #60 tabs 06/04/24 Mental Status Exam Mental Status Exam Narrative: Pt is alert and oriented; behavior is cooperative and calm; dressed in casual attire; mood is described as good ; eye contact appropriate; Speech is normal rate, volume and not pressured; thought process is organized and goal directed; Thought content is on tx; otherwise pertinent to relevant topics and without any delusional content, paranoid ideations or grandiosity; denies SI/HI/VH/AH. Data Data Completed and Pending Completed studies during hospitalization [Text1]: 05/28/24 09:46 Sodium 140 Potassium 3.8 Chloride 108 Carbon Dioxide 23 Anion Gap 13 BUN 12 Creatinine 0.94 Estim Creat Clear Calc 90.9 Estimated GFR > 60 Fasting Glucose 190 H Calcium 9.2 Total Bilirubin 0.4 AST 21 ALT 29 Alkaline Phosphatase 62 Total Protein 6.6 Albumin 4.1 Triglycerides 298 H Cholesterol 226 H LDL Cholesterol, Calc 105 H HDL Cholesterol 62 DS: Summary Hospital Course Hospital Course: Patient is a 48 year old male with hx of Bipolar d/o, PTSD, OCD and alcohol use d/o who horace presented to [facility] d/t suicidal ideation secondary to increased anxiety and alcohol intoxication. Per crisis report, patient presented to [facility] with his mother and sister secondary to increased anxiety, alcohol intoxication in not taking care of himself. Patient relapsed on alcohol after 7 days of sobriety. He reports he has been having tics of yelling and screaming frequently throughout the day and night for several months d/t Tourette's. It has caused his neighbors to call the police on him. Patient reports he screams and yells because he has lost it all and he fears his end is near. Patient reports suicidal ideation with plan to jump off of garage building. Patient denies HI/VH/AH. He reports poor sleep. Patient stated I used to have a good life but now I can not stop thinking that this will all end I have this feeling of impending doom because of my disease. Patient sees a psychiatrist via telehealth. Patient was previously inpatient on [facility] from 06/22/22-06/27/22. During admission assessment, patient presents alert and oriented x3. Calm and cooperative. 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 Pt stated, I was not diagnosed bipolar until my late 40s. I got HSV-2 a few years ago from someone I knew I was going to get it from . Patient reports he did not start drinking heavily until 5 months ago. pt stated, I am constantly wailing because I have obsessive compulsive thinking . Reports s uicidal ideation no plan. Patient stated, I have thought about killing myself. I can't have sex. I have no feeling down there. I hate my job. I had everything and I screwed it up and got HSV . Patient reports he is medication compliant. He reports picking at his skin often due to increased anxiety. denies SA/SIB. Plan: CV 15 minute safety checks Continue home medications Obtain collateral Encourage groups Referral to outpatient therapy Discharge planning Lower luvox 150 mg hs would taper may be inc anxiety agitation trileptal 150 bid cont seroquel consider php Active on unit, social with peers. observing laughing loudly in mileu. 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 Pt stated, the HSV2 is making me constantly anxious. I got anxious last night and starting making noises . He remains focused on this topic. denies SI/HI/VH/AH. Pt reports he is considering seeing a specialist regarding the herpes . Continue current tx plan. Active on unit, social with peers. observing laughing loudly in mileu. 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 Pt reports sleeping well. Patient stated, I feel like I'm getting a little better ; pt denies any side effects from medications. Increased Trileptal to 300mg PO BID. denies SI/HI/VH/AH. covering provider for today. I offered naltrexon for alcohol use disorder and off label OCD, but pt declined. Affect much brighter than reported and no clear benefit for longer inpt admission at this time. Patient reports feeling pretty good and ready to go ; he plans on following up with his outpatient providers. denies SI/HI/VH/AH. Time spent discussing smoking cessation with patient: 3 to 10 minutes Status at Discharge Cognitive/behavioral status at discharge: Patient was interviewed prior to discharge and found to be fully oriented and without SI or HI. Patient has insight and demonstrates good judgment in terms of wanting to pursue treatment. Patient has a safety plan that includes presenting to the closest ER or calling 911 if feeling unsafe Functional status at discharge: independent ambulation Overall status at discharge: patient is back to baseline Time Spent with Patient Time attestation: Total time managing care of this patient today _20___ minutes. Time spent: Less than 30 minutes Discharge Plan Discharge Anticipated Discharge Date/Time: 06/04/24 09:59 Patient Disposition: Home, Self-Care Discharge Diagnosis: Bipolar d/o, PTSD, OCD, alcohol use d/o Referrals: [facility] intake [Other] - 06/24/24 8:00 am (Intake appointment ) Neft[facility] Davis [Other] - 1 Week (Follow up with provider. ) Yessenia Rose APRN [Primary Care Provider] - 06/10/24 9:00 am (Your follow up appt has been scheduled on 06-10-24 @ 9am. Please call [phone] if you need to cancel or reschedule your appt. ) Discharge Medications: New oxcarbazepine 300 mg Tablet 300 mg PO BID 30 Days Qty: 60 0RF clonidine HCl 0.1 mg Tablet 0.1 mg PO BID 30 Days Qty: 60 0RF Protocol: Hold for SBP< HOLD for SBP < : 90 Continued lorazepam 0.5 mg tablet 0.5 mg PO BID escitalopram oxalate 20 mg tablet 20 mg PO DAILY quetiapine 300 mg tablet 300 mg PO BEDTIME acyclovir 400 mg tablet 400 mg PO BID fluvoxamine 150 mg capsule,extended release 24hr 150 mg PO DAILY Discharge Orders: Discharge Order (Routine); Ordered 06/04/24 Ordered By: Jodee Dai Diet: Regular diet Activity on Discharge: As tolerated Stand Alone Forms: Patient Portal Discharge page, Community Support Print Language: Irish Care Plan Goals: Maintain mood and safe behaviors Take medications as prescribed Continue to pursue sobriety Practice coping skills Continue with outpatient providers and reach out to them as needed Health Concerns: Mood stability and behaviors Sobriety Plan of Treatment: Follow up with your PCP, psychiatric provider and other outpatient providers regarding above concerns Take medications as prescribed Assessment: Patient was interviewed prior to discharge and found to be fully oriented and without SI or HI. Patient has insight and demonstrates good judgment in terms of wanting to pursue treatment. Patient has a safety plan that includes presenting to the closest ER or calling 911 if feeling unsafe. Discharge Date/Time: 06/04/24 11:00
== END 2024-06-04 11:00 | disposition home or self-care (01) | DRG 885 ==
LOC: HO.ED 21:53 → HO.PADLT16 05-27 13:28
PROVIDERS: Registered Nurse Emergency; Admitting Provider Registered Nurse; Emergency Provider Emergency Medicine; PCP Nurse Practitioner; Visit Provider Psychiatry & Neurology Psychiatry
DX: F31.81 Bipolar II disorder (principal); R45.851 Suicidal ideations; Z20.822 Contact with and (suspected) exposure to COVID-19; Y90.6 Blood alcohol level of 120-199 mg/100 ml; F10.929 Alcohol use, unspecified with intoxication, unspecified; F43.10 Post-traumatic stress disorder, unspecified; F42.9 Obsessive-compulsive disorder, unspecified; Z79.899 Other long term (current) drug therapy
CPT/HCPCS: 36415; 80053; 80061; 80307; 81003; 85025; 87635; 93005; 99285; S9485

== ENCOUNTER → 2024-05-27 07:45 | Outpatient (BNV) | payer OTHER, SELFPAY | PROVIDERS: Admitting Provider Registered Nurse; Emergency Provider Emergency Medicine; PCP Nurse Practitioner; Visit Provider Internal Medicine Cardiovascular Disease | DX: R94.31 Abnormal electrocardiogram [ECG] [EKG] (principal) | CPT/HCPCS: 93010 ==

== ENCOUNTER → 2024-05-27 13:19 | Outpatient (BNV) | payer OTHER, SELFPAY | PROVIDERS: Admitting Provider Registered Nurse; Emergency Provider Emergency Medicine; PCP Nurse Practitioner; Visit Provider Registered Nurse | DX: F31.81 Bipolar II disorder (principal); F43.11 Post-traumatic stress disorder, acute; F42.9 Obsessive-compulsive disorder, unspecified; F10.90 Alcohol use, unspecified, uncomplicated | CPT/HCPCS: 90792; 99231; 99232; 99238 ==

== ENCOUNTER → 2024-05-27 13:19 | Outpatient (BNV) | payer OTHER, SELFPAY | PROVIDERS: Admitting Provider Registered Nurse; Emergency Provider Emergency Medicine; PCP Nurse Practitioner; Visit Provider Psychiatry & Neurology Psychiatry | DX: F31.81 Bipolar II disorder (principal); F43.11 Post-traumatic stress disorder, acute; F42.9 Obsessive-compulsive disorder, unspecified; F10.90 Alcohol use, unspecified, uncomplicated | CPT/HCPCS: 99232 ==

== ENCOUNTER 2024-06-30 08:33 | Outpatient (REF) | payer OTHER, SELFPAY ==
[2024-06-30 09:14] LABS: MANUAL DIFF FLAG NO
[2024-06-30 09:55] LABS: Basophils Absolute Auto 0.1 X10*3/uL (0.0-0.2); Basophils Percent Auto 0.9 % (0-2); Eosinophils Absolute Auto 0.2 X10*3/uL (0.0-0.4); Eosinophils Percent Auto 3.5 % (0-4); Hematocrit 46.7 % (42.0-52.0); Hemoglobin 16.5 g/dl (14.0-18.0); Imm Gran Abs Auto 0.03 X10*3/uL (0.00-0.03); Imm Gran Pct Auto 0.5 % (0.0-0.4); Lymphocytes Absolute Auto 1.6 X10*3/uL (1.2-4.9); Lymphocytes Percent Auto 27.1 % (20-40); Mean Corpuscular HGB Conc 35.3 g/dl (31.0-36.0); Mean Corpuscular Hemoglobin 31.7 pg (27.0-33.0); Mean Corpuscular Volume 89.8 fL (80.0-98.0); Mean Platelet Volume 9.8 fL (9.4-12.4); Monocytes Absolute Auto 0.5 X10*3/uL (0.1-1.2); Monocytes Percent Auto 8.3 % (2-11); Neutrophils Absolute Auto 3.5 x10*3/uL (2.0-8.3); Neutrophils Percent Auto 59.7 % (45-73); Platelet Count 276 X10*3/uL (160-400); Red Cell Distribution Width 12.3 % (11.0-16.0); White Blood Count 5.8 X10*3/uL (4.8-10.8)
[2024-06-30 10:32] LABS: Erythrocyte Sedimentation Rate 2 MM/HR (0-15)
[2024-06-30 11:43] LABS: Alanine Aminotransferase 35 U/L (0-40); Albumin Level 4.2 g/dL (3.5-5.0); Alkaline Phosphatase 66 U/L (39-117); Anion Gap 16 (12-20); Aspartate Amino Transferase 30 U/L (5-37); Bilirubin Total 0.4 mg/dL (0.0-1.0); Blood Urea Nitrogen 8 mg/dL (9-16); C Reactive Protein 0.42 mg/dL (< or = 0.50); Carbon Dioxide 24 mmol/L (22-29); Chloride 105 mmol/L (96-108); Cholesterol 308 mg/dL (<200); Estimated Glomerular Filt Rate > 60; Ferritin 133 ng/mL (20-250); Free T4 (Free Thyroxine) 0.92 ng/dL (0.71-1.85); Glucose Fasting 101 mg/dL (60-99); HDL Cholesterol 49 mg/dL (>40); Iron 113 mcg/dL (45-160); LDL Cholesterol Calculated 206 mg/dL (<100); Magnesium 2.4 mg/dL (1.6-2.6); Percent Iron Saturation 32 % (15-50); Potassium 4.1 mmol/L (3.3-5.1); Sodium 141 mmol/L (135-145); Thyroid Stimulating Hormone 1.05 uIU/mL (0.32-4.0); Total Iron Binding Capacity 352 mcg/dL (228-428); Total Protein 6.8 g/dL (6.5-8.0); Triglycerides 266 mg/dL (<150); Unsaturated Iron Binding 239 ug/dL
[2024-06-30 11:51] LABS: Vitamin B12 594 pg/mL (200-900)
[2024-06-30 12:08] LABS: Gamma Glutamyl Transpeptidase 169 U/L (11-51)
[2024-06-30 12:16] LABS: Parathyroid Hormone Intact 86.3 pg/mL (8.7-77.1)
--- NOTE | 2024-06-30 22:42 | HO.PHPPROGNO ---
Subjective Subjective Reason For Visit: F39 Diagnostics Labs 06/30/24 09:11 06/30/24 09:11 Labs: Laboratory Results - last 48 hr 06/30/24 09:11 WBC 5.8 RBC 5.20 Hgb 16.5 Hct 46.7 MCV 89.8 MCH 31.7 MCHC 35.3 RDW 12.3 Plt Count 276 MPV 9.8 Immature Gran % (Auto) 0.5 H Neut % (Auto) 59.7 Lymph % (Auto) 27.1 Carson % (Auto) 8.3 Eos % (Auto) 3.5 Baso % (Auto) 0.9 Lymph # (Auto) 1.6 Carson # (Auto) 0.5 Eos # (Auto) 0.2 Baso # (Auto) 0.1 Abs Immat Gran (auto) 0.03 Absolute Neuts (auto) 3.5 Absolute Nucleated RBC 0.000 Nucleated RBC % (auto) 0.0 ESR 2 Sodium 141 Potassium 4.1 Chloride 105 Carbon Dioxide 24 Anion Gap 16 BUN 8 L Creatinine 0.88 Estim Creat Clear Calc Not Reportable Estimated GFR > 60 Fasting Glucose 101 H Calcium 9.0 Phosphorus 3.0 Magnesium 2.4 Iron 113 TIBC 352 % Saturation 32 Unsat Iron Binding 239 Ferritin 133 Total Bilirubin 0.4 GGT 169 H AST 30 ALT 35 Alkaline Phosphatase 66 C-Reactive Protein 0.42 Total Protein 6.8 Albumin 4.2 Triglycerides 266 H Cholesterol 308 H LDL Cholesterol, Calc 206 H HDL Cholesterol 49 Vitamin B12 594 25-OH Vitamin D Total 12.0 L Folate 10.0 TSH 1.05 Free T4 0.92 PTH Intact 86.3 H Assessment & Plan Certification I certify that partial hospital treatment is medically necessary due to the symptoms and problems resulting from the patient's mental illness and the failure to treat the patient at the partial hospital level of care would likely result in the patient requiring inpatient psychiatric care which could not be prevented at a less intensive level of care. Total time managing care of this patient today ____ minutes. Discharge Plan Discharge Patient Disposition: Home, Self-Care Discharge Medications: New guanfacine 1 mg tablet extended release 24 hr 1 mg PO DAILY Qty: 30 0RF topiramate 50 mg tablet 50 mg PO BID Qty: 30 0RF naltrexone 50 mg tablet 50 mg PO .QHS Qty: 20 0RF Continued acyclovir 400 mg tablet 400 mg PO BID oxcarbazepine 300 mg Tablet 300 mg PO BID 30 Days Qty: 60 0RF Changed quetiapine 300 mg tablet 150 mg PO BEDTIME Qty: 10 0RF Discontinued lorazepam 0.5 mg tablet 0.5 mg PO BID clonidine HCl 0.1 mg Tablet 0.1 mg PO BID 30 Days Qty: 60 0RF Protocol: Hold for SBP< HOLD for SBP < : 90 No Action fluvoxamine 150 mg capsule,extended release 24hr 150 mg PO DAILY Print Language: Albanian
[2024-07-01 18:23] LABS: Prolactin 3.9 ng/mL (2.0-18.0)
[2024-07-01 18:38] LABS: Homocysteine 9.6 umol/L (<11.4)
--- OUTSIDE RECORDS SUMMARY | 2024-07-01 19:00 | XMS_ITS | Continuity of Care Document ---
Author Organization [facility], [id number] Address [address] [place] [address] Assessment No assessment recorded. Plan of Treatment Reminders Order Date Submit Date Provider Last Modified By Organization Details Last Modified Time Details Appointments INJECTION 5 2023 05:45P Joanne Rose DNP, FLEET SERVICE CLERK Not available Not available Not available OFFICE VISIT 15 2024 09:00A Joanne Rose DNP, FLEET SERVICE CLERK Not available Not available Not available Lab None recorded. Referral None recorded. Procedures None recorded. Surgeries None recorded. Imaging None recorded. Medication Orders tuberculi n PPD 5 tub. unit/0.1 mL intraderm al injection solution [id number] [address] [place], [address], 06/30/2024 12:23:35 Patient TargetsNo targets recorded. Patient InstructionsNo instructions recorded. Reason for Referral None Reported. 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 6794315643 Active 2014 Aleksandra rose [facility] 4 09:27:01 Mixed hyperlipidem ia 805957811 Active 2012 Aleksandra rose, [facility] 4 09:27:01 Depressive disorder 22362321 Active 2019 Aleksandra rose [facility] 4 09:27:01 Anxiety 49954965 Active 2019 [facility] 09:27:01 Disturbance in sleep behavior 31332761 [facility] 2021 [facility] 09:27:01 Psychotic disorder 37560078 [facility] 2021 [facility] 09:27:01 Generalized anxiety disorder 97016805 Active 2023 Yessenia Rose DNP, FLEET SERVICE CLERK [address] [place], [address] , [facility] 4 12:16:43 Moderate recurrent major depression 22601632 Active 2023 Yessenia Rose DNP, FLEET SERVICE CLERK [address], [place], [address] , [facility] 4 12:16:48 Problem Notes None recorded. Medical Equipment None Reported. Allergies Allergen ID Allergen Name Allergen Category Reaction Reaction Severity Criticality Documentation Date Start Date Code Code System Note Provider Name and Address Organization Details Recorded Time 1342 Substance with sulfonami de structure and antibacte rial mechanism of action (substanc e) medicatio n rash Not available Not available 06/10/20242019 26544 8003 SN[facility]ED [facility] 09:26:17 Medications Name Sig Start Date Stop Date Status Note LastModified by Organization Details LastModified Time quetiapine 25 mg tablet TAKE 1 TABLET 2 TIMES A DAY TAKE NEEDED ANXIETY 06/10 completed Not Available Not Available Not Available tuberculin PPD 5 tub. unit/0.1 mL intradermal injection solution Inject 0.1 mL by intraderm al route. 2023 active Not Available Not Available Not Avai lable clonidine HCl 0.1 mg tablet TAKE 1 TABLET BY MOUTH TWICE A DAY X30 DAYS active Not Available Not Available No t Available quetiapine 300 mg tablet TAKE 1 TABLET BY MOUTH EVERY DAY AT NIGHT 06/10 completed Not Available Not Available Not Available quetiapine 200 mg tablet TAKE 1 TABLET BY MOUTH EVERY DAY AT NIGHT active Not Available Not Available No t Available olanzapine 5 mg tablet TAKE 1 TABLET BY MOUTH EVERY DAY 06/10 completed Not Available Not Available Not Available oxcarbazepi ne 300 mg tablet TAKE 1 TABLET 2 TIMES A DAY FOR 30 DAYS active Not Available Not Available No t Available acyclovir 400 mg tablet TAKE 1 TABLET BY MOUTH TWICE A DAY 2023 active Not Available Not Available Not Avai lable quetiapine 100 mg tablet TAKE 1.5 TABLETS BY MOUTH AT BEDTIME active Not Available Not Available No t Available lorazepam 0.5 mg tablet TAKE 1 TABLET BY MOUTH EVERY DAY active Not Available Not Available No t Available fluvoxamine 100 mg tablet TAKE 1 TABLET BY MOUTH EVERY DAY 06/10 completed Not Available Not Available Not Available cephalexin 500 mg capsule TAKE 1 CAPSULE BY MOUTH THREE TIMES A DAY FOR 7 DAYS 06/10 completed Not Available Not Available Not Available fluvoxamine 50 mg tablet TAKE 1 TABLET NIGHTLY (START AFTER LEXAPRO TAPER) 06/10 completed Not Available Not Available Not Available lorazepam 1 mg tablet TAKE 1 TABLET ORALLY DAILY TAKE NEEDED ANXIETY 06/10 completed Not Available Not Available Not Available clindamycin 1 % lotion APPLY TO SCALP EVERY DAY NEEDED active Not Available Not Available No t Available escitalopra m 10 mg tablet TAKE 1 & 1/2 TABLETS BY MOUTH EVERY DAY active Not Available Not Available No t Available escitalopra m 20 mg tablet Take 20 mg by oral route. 06/10 completed Not Available Not Available Not Available divalproex ER 250 mg tablet,exte nded release 24 hr TAKE 1 TABLET BY MOUTH EVERY DAY AT NIGHT 06/10 completed Not Available Not Available Not Available fluvoxamine ER 100 mg capsule,ext ended release 24 hr TAKE 2 CAPSULES BY MOUTH EVERY DAY 06/10 completed Not Available Not Available Not Available fluvoxamine ER 150 mg capsule,ext ended release 24 hr TAKE 1 CAPSULE BY MOUTH EVERY DAY active Not Available Not Available No t Available triamcinolo ne acetonide 0.1 %-emollient comb.no.45 topical cream 2023 active Not Available Not Available Not Avai lable Vitals None Recorded Social History None recorded. Functional Status None recorded. Mental Status None recorded. Family History Nothing Reported. Medical History Condition Response Anxiety Y Depression Y High Cholesterol Y Immunizations Vaccine Type Date Status Note Provider Nam e and Address Organization Details Recorded Time Influenza, recombinant, quadrivalent, PF 7 completed Aleksandra Espitia null, [facility] 06/10/2024 09:27:07 COVID-19, mRNA, LNP-S, PF, 30 mcg/0.3 mL dose 1 completed Aleksandra Espitia null, [facility] 06/10/2024 09:27:07 COVID-19, mRNA, LNP-S, PF, 30 mcg/0.3 mL dose 1 completed Aleksandra Espitia null, [facility] 06/10/2024 09:27:07 COVID-19, mRNA, LNP-S, PF, 30 mcg/0.3 mL dose, moe-sucrose 2 completed Aleksandra Espitia null, [facility] 06/10/2024 09:27:07 Td(adult) unspecified formulation 7 completed Aleksandra Espitia null, [facility] 06/10/2024 09:27:07 Tdap 9 completed [facility] 06/10/2024 09:27:07 Influenza, split virus, trivalent, preservative 4 completed [facility] 06/10/2024 09:27:07 Influenza, split virus, trivalent, preservative 3 completed Aleksandra Espitia null, [facility] 06/10/2024 09:27:07 typhoid, ViCPs 7 completed Aleksandra Espitia null, [facility] 06/10/2024 09:27:07 Influenza, split virus, quadrivalent, PF 2 completed Aleksandra Espitia null, [facility] 06/10/2024 09:27:07 Hep A, unspecified formulation 7 completed [facility]/10/2024 09:27:07 Past Encounters Encounter ID Performer Location Encounter Start Date Encounter Closed Date Diagnosis/Indication Diagnosis SNOMED-CT Code Diagnosis ICD10 Code [id number] Yessenia Rose DNP, FLEET SERVICE CLERK [id number] [address] [place] [address] 06/10/2024 09:06:00 06/10/2024 10:04:28 Generalized anxiety disorder 26456188 F41.1 Moderate r ecurrent major depression 09252868 F33.1 7452 Yessenia Rose DNP, FLEET SERVICE CLERK [id number] [address] [place] [address] 06/30/2024 07:33:26 06/30/2024 07:44:27 Mantoux test done 499813495 Z76.89 Health Concerns Section Related Observation LastModified by Organization Detai ls LastModified Time None Recorded Concern Status LastModified by Organization Details LastModified Time None Recorded Payers Encounter Date Sequence Insurance Name Policy Number Policy Arias Covered Member ID Arias Member ID Guarantor Name 06/30/2024 1 [facility] [id number] Tomy Hamm [id number] Tomy Hamm Notes Date Note Type Note Provider Name and Address Organization Details Recorded Time 06/30/2024 text/html Reason For Visit Patient is here for {{his* her}} {{ ppd placement#}} injection. Signature {{ swells#}} Yessenia Rose DNP, FLEET SERVICE CLERK [address] [place], [address], [facility] 07/01/2024 09:09:55
--- OUTSIDE RECORDS SUMMARY | 2024-07-01 19:00 | XMS_ITS | Data Portability ---
Author Organization [facility] Channel [employer] [facility], [facility] Address , [address] Assessment No assessment recorded. Plan of Treatment Reminders Order Date Submit Date Provider Last Modified By Organization Details Last Modified Time Details Appointments INJECTION 5 2023 05:45P Joanne Rose DNP, ACTIVITIES SPECIALIST Not available Not available Not available OFFICE VISIT 15 2024 09:00A Joanne Rose DNP, ACTIVITIES SPECIALIST Not available Not available Not available Lab None recorded. Referral None recorded. Procedures None recorded. Surgeries None recorded. Imaging None recorded. Medication Orders tuberculi n PPD 5 tub. unit/0.1 mL intraderm al injection solution 2023 024 [id number], [address] [place], [address], 06/30/2024 12:23:35 Patient TargetsNo targets recorded. Patient Instructions Encounter Date Encounter Id Patient Instructions Last Modified By Organization Details Last Modified Time 06/10/2024 [id number] - Informed pt that it would be best for him to stay out of work until July 23 and at that point, he will be re-evaluated to see if he is able to go back to work - A note written for the pt to keep him out of work until he is reassessed on July 23 - Pt will follow up in 6 weeks at the beginning of July to reassess - No other questions or concerns at this time Not available 06/10/2024 11:02:21 Reason for Referral None Reported. 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 6159682281 Active 2014 Aleksandra rose, [facility] 4 09:27:01 Mixed hyperlipidem ia 550216217 Active 2012 Aleksandra Espitia null, [facility] 4 09:27:01 Depressive disorder 91181314 Active 2019 Aleksandra Espitia null, [facility] 4 09:27:01 Anxiety 74821743 Active 2019 Aleksandra Espitia null, [facility] 4 09:27:01 Disturbance in sleep behavior 62244295 Active 2021 Aleksandra Espitia null, [facility] 4 09:27:01 Psychotic disorder 80047777 Active 2021 Aleksandra Espitia null, [facility] 4 09:27:01 Generalized anxiety disorder 82519336 Active 2023 Yessenia Rose DNP, ACTIVITIES SPECIALIST [address] [place], [address] , [facility] 4 12:16:43 Moderate recurrent major depression 50401490 Active 2023 Yessenia Rose DNP, ACTIVITIES SPECIALIST [address] [place], [address] , [facility] 4 12:16:48 Problem Notes None recorded. Medical Equipment None Reported. Allergies Allergen ID Allergen Name Allergen Category Reaction Reaction Severity Criticality Documentation Date Start Date Code Code System Note Provider Name and Address Organization Details Recorded Time 1342 Substance with sulfonami de structure and antibacte rial mechanism of action (substanc e) medicatio n rash Not available Not available 06/10/20242019 64063 8003 SNOMED Aleksandra rose, [facility] 4 09:26:17 Medications Name Sig Start Date [...] Available Not Available Not Avai lable Vitals Date Recorded Body weight Heart rate Oxygen saturation Oxygen saturation in Arterial blood by Pulse oximetry Body temperature Systolic blood pressure Diastolic blood pressure Provider Name and Address Organization Details Last Updated DateTime 4 72463.8 5 g 126 /min 95 % 95 % 98 [degF] 124 mm[Hg] 84 mm[Hg] Aleksandra Espitia [facility] 4 09:25:33 Social History None recorded. Functional Status None recorded. Mental Status None recorded. Family History Nothing Reported. Medical History Condition Response Anxiety Y Depression Y High Cholesterol Y Immunizations Vaccine Type Date Status Note Provider Nam e and Address Organization Details Recorded Time Influenza, recombinant, quadrivalent, PF [facility] 09[facility]27[facility]07 COVID-19, mRNA, LNP-S, PF, 30 mcg/0.3 mL dose [facility] 09:27:07 COVID-19, mRNA, LNP-S, PF, 30 mcg/0.3 mL dose [facility] 09:27:07 COVID-19, mRNA, LNP-S, PF, 30 mcg/0.3 mL dose, moe-sucrose 2 [facility] 09:27:07 Td(adult) unspecified formulation 7 [facility] 09:27:07 Tdap 9 completed Aleksandra Espitia [facility] 06/10/2024 09:27:07 Influenza, split virus, trivalent, preservative 4 completed Aleksandra Espitia null, [facility] 06/10/2024 09:27:07 Influenza, split virus, trivalent, preservative 3 completed Aleksandra Omkar null, [facility] 06/10/2024 09:27:07 typhoid, ViCPs 7 completed Aleksandra Omkar null, [facility] 06/10/2024 09:27:07 Influenza, split virus, quadrivalent, PF 2 completed Aleksandra Espitia null, [facility] 06/10/2024 09:27:07 Hep A, unspecified formulation 7 completed Aleksandra Wells null, [facility] 06/10/2024 09:27:07 Past Encounters Encounter ID Performer Location Encounter Start Date Encounter Closed Date Diagnosis/Indication Diagnosis SNOMED-CT Code Diagnosis ICD10 Code [id number] Yessenia Rose DNP, ACTIVITIES SPECIALIST [id number] _[id number] [address] [place] [address] 06/10/2024 09:06:00 06/10/2024 10:04:28 Generalized anxiety disorder 50246834 F41.1 Moderate r ecurrent major depression 00730892 F33.1 7452 Yessenia Rose DNP, ACTIVITIES SPECIALIST [id number] [address] [place] [address] 06/30/2024 07:33:26 06/30/2024 07:44:27 Mantoux test done 522242537 Z76.89 Health Concerns Section Related Observation LastModified by Organization Detai ls LastModified Time None Recorded Concern Status LastModified by Organization Details LastModified Time None Recorded Advance Directives Directive None Recorded Payers Encounter Date Sequence Insurance Name Policy Number Policy Arias Covered Member ID Arias Member ID Guarantor Name 06/10/2024 1 [facility] [id number] Tomy Hamm [id number] Tomy Hamm 06/30/2024 1 [facility] [id number] Tomy Hansel [id number] Tomyflaquita Hamm Notes Date Note Type Note Provider Name and Address Organization Details Recorded Time 06/10/2024 text/html Pt is here for f /u from a hospitalization for OCD, alcohol abuse, depression and was admitted on 05/27 and was discharged on 06/05. Pt states that he was not feeling great mentally so he reached out to his sister and she took him to a [place] to speak with a reeling operator he has spoken with in the past and after speaking with him for a little while he went for a walk, went to the liquor store and when his sister came and picked him up she felt he was in a place where he needed to go to the hospital. Pt had 3 large bates cans by the time his sister came to get him and he states that he felt he was almost heaving because he had drank them so fast. Hospital admitted him to help him detox and monitor him because of his mental state. Pt states that the last time he had an alcoholic beverage was yesterday and he had 3 beers and 1 shot. Pt states he doesn't take any other medications or recreational drugs used. Pt was seeing therapy through work and he had about 7 sessions but felt it wasn't working, last time he saw anyone was 3 months ago. No other questions or concerns at this time. Yessenia Rose DNP, ACTIVITIES SPECIALIST [address] [place], [address], [facility] 06/16/2024 12:17:09 06/30/2024 text/html Reason For Visit Patient is here for {{his* her}} {{ ppd placement#}} injection. Signature {{ swells#}} Yessenia Rose DNP, ACTIVITIES SPECIALIST [address] [place], [address], [facility] 07/01/2024 09:09:55
--- OUTSIDE RECORDS SUMMARY | 2024-07-01 19:01 | XMS_ITS | Continuity of Care Document ---
Author Organization [facility], [id number] Address [address] [place] [address] Assessment No assessment recorded. Plan of Treatment Reminders Order Date Submit Date Provider Last Modified By Organization Details Last Modified Time Details Appointments INJECTION 5 2023 05:45P Joanne Rose DNP, SENIOR GEOTECHNICAL ENGINEER Not available Not available Not available OFFICE VISIT 15 2024 09:00A Joanne Rose DNP, SENIOR GEOTECHNICAL ENGINEER Not available Not available Not available Lab None recorded. Referral None recorded. Procedures None recorded. Surgeries None recorded. Imaging None recorded. Medication Orders None recorded. Patient TargetsNo targets recorded. Patient Instructions Encounter [...] other questions or concerns at this time [email or web address] Not available 06/10/2024 11:02:21 Reason for Referral None Reported. 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 0755651154 Active 2014 Aleksandra rsoe [facility] 4 09:27:01 Mixed hyperlipidem ia 169140643 Active 2012 Aleksandra rose [facility] 4 09:27:01 Depressive disorder 41828425 Active 2019 Aleksandra rose, [facility] 4 09:27:01 Anxiety 49069990 Active 2019 Aleksandra rose, [facility] 4 09:27:01 Disturbance in sleep behavior 10172610 [facility] 09:27:01 Psychotic disorder 73047223 Active 2021 Aleksandra rose, [facility] 4 09:27:01 Generalized anxiety disorder 95291877 Active 2023 Yessenia Rose DNP, SENIOR GEOTECHNICAL ENGINEER [address], [place], [address] , [facility] 4 12:16:43 Moderate recurrent major depression 03343411 Active 2023 Yessenia Rose DNP, SENIOR GEOTECHNICAL ENGINEER [address] [place], [address] , [facility] 4 12:16:48 Problem Notes None recorded. Medical Equipment None Reported. Allergies Allergen ID Allergen Name Allergen Category Reaction Reaction Severity Criticality Documentation Date Start Date Code Code System Note Provider Name and Address Organization Details Recorded Time 1342 Substance with sulfonami de structure and antibacte rial mechanism of action (substanc e) medicatio n rash Not available Not available 06/10/20242019 88885 8003 SN[facility]ED [facility] 09:[facility]17 Medications Name Sig Start Date [...] Address Organization Details Last Updated DateTime 4 46013.8 5 g 126 /min 95 % 95 % 98 [degF] 124 mm[Hg] 84 mm[Hg] Aleksandra Espitia [facility] 4 09:25:33 Social History None recorded. Functional Status None recorded. Mental Status None recorded. Family History Nothing Reported. Medical History Condition Response Anxiety Y Depression Y High Cholesterol Y Immunizations Vaccine Type Date Status Note Provider Nam e and Address Organization Details Recorded Time Influenza, recombinant, quadrivalent, PF 7 [facility] 09:27:07 COVID-19, mRNA, LNP-S, PF, 30 mcg/0.3 mL dose 1 [facility]10[facility]2024 09:27:07 COVID-19, mRNA, LNP-S, PF, 30 mcg/0.3 mL dose 1 completed Aleksandra Espitia [facility] 06/10/2024 09:27:07 COVID-19, mRNA, LNP-S, PF, 30 mcg/0.3 mL dose, moe-sucrose 2 completed Aleksandra Espitia [facility] 06/10/2024 09:27:07 Td(adult) unspecified formulation 7 completed Aleksandra Espitia [facility] 06/10/2024 09:27:07 Tdap 9 completed Aleksandra Espitia [facility] 06/10/2024 09:27:07 Influenza, split virus, trivalent, preservative 4 completed Aleksandra Espitia [facility] 06/10/2024 09:27:07 Influenza, split virus, trivalent, preservative 3 completed Aleksandra rose, [facility] 06/10/2024 09:27:07 typhoid, ViCPs 7 completed Aleksandra Espitia null, [facility] 06/10/2024 09:27:07 Influenza, split virus, quadrivalent, PF 2 completed Aleksandra rose, [facility] 06/10/2024 09:27:07 Hep A, unspecified formulation 7 completed Aleksandra rose, [facility] 06/10/2024 09:27:07 Past Encounters Encounter ID Performer Location Encounter Start Date Encounter Closed Date Diagnosis/Indication Diagnosis SNOMED-CT Code Diagnosis ICD10 Code 4043 Yessenia Rose DNP, SENIOR GEOTECHNICAL ENGINEER [id number] [address] [place] [address] 06/10/2024 09:06:00 06/10/2024 10:04:28 Generalized anxiety disorder 23121584 F41.1 Moderate r ecurrent major depression 55292902 F33.1 Health Concerns Section Related Observation LastModified by Organization Detai ls LastModified Time None Recorded Concern Status LastModified by Organization Details LastModified Time None Recorded Payers Encounter Date Sequence Insurance Name Policy Number Policy Arias Covered Member ID Arias Member ID Guarantor Name 06/10/2024 1 [facility] [id number] Tomy Hamm [id number] Tomy Hamm Notes Date Note Type Note Provider Name and Address Organization Details Recorded Time 06/10/2024 text/html Pt is here for f /u from a hospitalization for OCD, alcohol abuse, depression and was admitted on 05/27 and was discharged on 06/05. 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 Yessenia Rose, YIN, SENIOR GEOTECHNICAL ENGINEER [address] [place], [address], [facility] 06/16/2024 12:17:09
--- OUTSIDE RECORDS SUMMARY | 2024-07-01 19:01 | XMS_ITS ---
Author Name [facility] Organization Unknown Results Test Name/Text Value Interpretation Date Range Source Hgb Bld-mCnc 16.1g/dL Normal [id number] 13.5 - 18 [facility] Eosinophil # Bld Auto 0.2K/mcL Normal [id number] 0 - 0 .5 [facility] MCHC RBC Auto-mCnc 34.8g/dL Normal [id number] 32 - 36 [facility] PMV Bld Auto 8.3FL Normal [id number] 7.4 - 11.4 [facility] Basophils/leuk NFr Bld Auto 1% Normal [id number] 0 - 2 [facility] Monocytes/leuk NFr Bld Auto 8.5% Normal [id number] 2 - 12 [facility] RDW RBC Auto-Rto 13.6% Normal [id number] 12.1 - 17. 7 [facility] Monocytes # Bld Auto 0.7K/mcL Normal [id number] 0 - 0. 8 [facility] Basophils # Bld Auto 0.1K/mcL Normal [id number] 0 - 0. 2 [facility] Neutrophils # Bld Auto 4.7K/mcL Normal [id number] 1.8 - 7.8 [facility] Hct VFr Bld Auto 46.3% Normal [id number] 40 - 54 [facility] Lymphocytes/leuk NFr Bld Auto 27.8% Normal [id number] 20 - 48 [facility] Lymphocytes # Bld Auto 2.2K/mcL Normal [id number] 1 - 3.2 [facility] RBC # Bld Auto 4.99M/mcL Normal [id number] 4.7 - 6 [facility] Neutrophils/leuk NFr Bld Auto 59.6% Normal [id number] 44 - 74 [facility] Eosinophil/leuk NFr Bld Auto 3.1% Normal [id number] 0 - 6 [facility] WBC # Bld Auto 7.9K/mcL Normal [id number] 4 - 10.5 CT [facility] MCV RBC Auto 92.6FL Normal [id number] 78 - 100 [facility] MCH RBC Qn Auto 32.3pcg Normal [id number] 25 - 33 C T_[facility] Platelet # Bld Auto 283K/mcL Normal [id number] 150 - 4 50 [facility] LDLc SerPl Calc-mCnc 181mg/dL Above high normal [id number] 1 50 - 130 [facility] TRIGL SERPL-MCNC 155mg/dL Above high normal [id number] - 150 [facility] CHOLEST SERPL-MCNC 264mg/dL Above high normal [id number] 0 - 200 [facility] HDLC SERPL-MCNC 52mg/dL Normal [id number] 32 - 70 C [facility] DIFFERENTIAL TYPE AUTOMATED Normal [id number] [facility] NEUTROPHILS NFR BLD AUTO 66% Normal [id number] 44 - 74 [facility] BASOPHILS NFR BLD AUTO 0.4% Normal [id number] 0 - 2 [facility] MONOCYTES NFR BLD AUTO 8% Normal [id number] 2 - 12 [facility] HCT VFR BLD AUTO 50.9% Normal [id number] 40 - 54 [facility] MONOCYTES NO. BLD AUTO 0.5K/uL Normal [id number] 0 - 0.8 [facility] RDW RBC AUTO RTO 13.6% Normal [id number] 12.1 - 17. 7 [facility] PLATELET NO. BLD AUTO 269K/uL Normal [id number] 150 - 450 [facility] EOSINOPHIL NO. BLD AUTO 0.1K/uL Normal [id number] 0 - 0.5 [facility] RBC NO. BLD AUTO 5.42M/uL Normal [id number] 4.7 - 6 [facility] MCH RBC QN AUTO 33.5pg Above high normal [id number] 25 - 33 [facility] MCHC RBC AUTO MCNC 35.7g/dL Normal [id number] 32 - 36 [facility] HGB BLD MCNC 18.2g/dL Above high normal [id number] 13.5 - 18 [facility] BASOPHILS IN BLOOD BY AUTOMATED COUNT 0K/uL Normal [id number] 0 - 0.2 [facility] WBC NO. BLD AUTO 6K/uL Normal [id number] 4 - 10.5 [facility] EOSINOPHIL NFR BLD AUTO 2% Normal [id number] 0 - 6 [facility] LYMPHOCYTES NFR BLD AUTO 23.6% Normal 20 - 48 [facility] MCV RBC AUTO 93.8fL Normal [id number] 78 - 100 [facility] NEUTROPHILS NO. BLD AUTO 4K/uL Normal [id number] 1.8 - 7.8 [facility] LYMPHOCYTES NO. BLD AUTO 1.4K/uL Normal 1 - 3.2 [facility] PMV BLD AUTO 8.5fL Normal 7.4 - 11.4 [facility] GLUCOSE SERPL MCNC 66mg/dL Below low normal 7 0 - 199 [facility] LDLc SerPl Calc-mCnc 216mg/dL Above high normal 8 50 - 130 [facility] TRIGL SERPL-MCNC 236mg/dL Above high normal [id number] - 150 [facility] CHOLEST SERPL-MCNC 323mg/dL Above high normal [id number] 0 - 200 [facility] HDLC SERPL-MCNC 60mg/dL Normal [id number] 32 - 70 C [facility] CREAT SERPL MCNC 0.8mg/dL Normal [id number] 0.7 - 1.3 [facility] BILIRUB SERPL MCNC 0.9mg/dL Normal [id number] 0.3 - 1 [facility] AST SERPL CCNC 16U/L Normal [id number] 5 - 40 [facility] Glomerular filtration rate/1.73 sq M. predicted 108 Normal [id number] 60 - [facility] HCO3 SER SCNC 24mmol/L Normal 24 - 32 [facility] POTASSIUM SERPL SCNC 3.7mmol/L Normal [id number] 3.5 - 5.1 [facility] ANION GAP SERPL SCNC 15mmol/L Above high normal 8 5 - 14 [facility] PROT SERPL MCNC 6.9g/dL Normal [id number] 6.4 - 8.5 C [facility] CALCIUM SERPL MCNC 9.6mg/dL Normal 8.4 - 10 .2 [facility] ALP SERPL-CCNC 54U/L Normal 34 - 104 [facility] SODIUM SERPL SCNC 141mmol/L Normal 135 - 145 [facility] ALBUMIN SERPL BCG MCNC 4.5g/dL Normal 3.5 - 5 [facility] CHLORIDE SERPL SCNC 102mmol/L Normal 98 - 10 7 [facility] ALT SERPL CCNC 15U/L Normal 7 - 52 [facility] BUN SERPL MCNC 12mg/dL Normal 9 - 20 [facility] TSH SerPl DL<=0.005 mIU/L-aCnc 1.36uIU/mL Normal 0.45 - 5.33 [facility] LDLc SerPl Calc-mCnc 181mg/dL Above high normal [id number] 9 50 - 130 [facility] TRIGL SERPL-MCNC 117mg/dL Normal [id number] - 150 [facility] CHOLEST SERPL-MCNC 261mg/dL Above high normal [id number] 0 - 200 [facility] HDLC SERPL-MCNC 57mg/dL Normal [id number] 32 - 70 C [facility] History of Medication Use Medication Directions Dispensed Refills Start Date End Date Stat triamcinolone (KENALOG) 0.1 % cream Apply topically 2 (two) times a day. 06/07/2024 07/21/9999 active acyclovir (ZOVIRAX) 400 mg tablet Take 1 tablet (400 mg total) by mouth 2 (two) times a day. 06/07/2024 07/21/9999 active escitalopram (LEXAPRO) 20 mg tablet Take 1 tablet (20 mg total) by mouth 1 (one) time each day. 06/07/2024 07/21/9999 active LORazepam (ATIVAN) 0.5 mg tablet Take 1 tablet (0.5 mg total) by mouth daily as needed. for anxiety 06/07/2024 07/21/9999 active clindamycin (CLEOCIN T) 1 % lotion APPLY TO SCALP EVERY DAY NEEDED 06/07/2024 07/21/9999 active QUEtiapine (SEROquel) 100 mg tablet Take 1.5 tablets (150 mg total) by mouth every night at bedtime. 06/07/2024 07/21/9999 active escitalopram (LEXAPRO) 20 MG tablet Take 1 tablet (20 mg total) by mouth daily. 01/24/2024 active triamcinolone (KENALOG) 0.1 % cream Apply topically 2 (two) times a day. 01/24/2024 active clindamycin phosphate (CLEOCIN T) 1 % lotion APPLY TO SCALP EVERY DAY NEEDED 01/24/2024 active LORazepam (ATIVAN) 0.5 MG tablet Take 1 tablet (0.5 mg total) by mouth daily as needed. for anxiety 11/26/2023 active QUEtiapine (SEROquel) 100 MG tablet Take 1.5 tablets (150 mg total) by mouth every night at bedtime. 11/26/2023 active acyclovir (ZOVIRAX) 400 MG tablet TAKE 1 TABLET BY MOUTH 2 TIMES A DAY. 11/26/2023 active Problems Problem Status Onset Date Problem Type Date of Resolution Source Mixed hyperlipidemia active 2013-03-18 ProblemAct [facility] Serrated adenoma of colon active EncounterDiagnosisAct CT_[facility]N EMG Anxiety active 2019-08-05 ProblemAct [facility] Depression active 2019-08-05 ProblemAct [facility] Psychosis active 2022-06-01 ProblemAct [facility] Sleep disturbance active 2022-01-11 ProblemAct [facility] Herpes genitalis in men active 2014-10-15 ProblemAct [facility] Immunizations Vaccine Date Source Lot Number Status Influenza trivalent, with pr eservative (Fluzone; Afluria) 6mo and older 04/30/2013 [facility] [id number] completed [facility] SARS-CoV-2 COVID-19, mRNA, LNP-S, preservative free 12/21/2020 [facility] [id number] completed Typhoid VICPS (Typhim Vi) 2yo and older 08/07/2006 [facility] W0942-2 completed [facility] SARS-CoV-2 COVID-19, mRNA, LNP-S, preservative free 01/11/2021 [facility] [id number] completed Influenza Quadrivalent, 0.5m l, preservative free (Fluarix; FluLaval; Fluzone) ages 6mo and older (Afluria) 3yo and older 05/19/2022 [facility] [id number] completed Influenza trivalent, with pr eservative (Fluzone; Afluria) 6mo and older 04/27/2014 [facility] [id number] completed [facility]VS (ages 12 & older) BENJAMIN S-CoV-2 COVID-19, mRNA, LNP-S, moe-sucrose, preservative free 08/23/2021 [facility] [id number] completed Td, Unspecified 10/09/2006 CTFarhat[facility]AY[facility]O TD-166 completed Hep A, Unspecified 08/07/2006 [facility] [id number] comple karen Influenza Quadravalent, darlene mbinant, 0.5ml, preservative free (Flublok) 18yo and older 04/12/2017 [facility] [id number] AB completed Tdap Tetanus diptheria acell ular pertussis (Boostrix; Adacel) 7yo and older 12/23/2008 [facility] [id number] completed
[2024-07-04 18:18] LABS: Methylmalonic Acid 158 nmol/L (55-335)
[2024-07-05 16:37] LABS: Testosterone, Total 593 ng/dL (250-1100)
[2024-07-06 06:14] LABS: Vitamin B1 11 nmol/L (8-30)
[2024-07-06 15:12] LABS: Vitamin B6 11.4 ng/mL (2.1-21.7)
== END 2024-06-30 08:34 | disposition home or self-care (01) ==
LOC: HO.LAB 08:33
PROVIDERS: Visit Provider Psychiatry & Neurology Psychiatry
DX: F39 Unspecified mood [affective] disorder (principal)
CPT/HCPCS: 36415; 80053; 80061; 82306; 82607; 82728; 82746; 82977; 83090; 83540; 83735; 83921; 83970; 84100; 84146; 84207; 84403; 84425; 84439; 84443; 85025; 85652; 86140

== ENCOUNTER 2024-07-03 11:32 | Outpatient (REF) | payer OTHER, SELFPAY ==
--- OUTSIDE RECORDS SUMMARY | 2024-07-03 11:41 | XMS_ITS | Continuity of Care Document ---
Author Organization [facility], [id number] Address [address] [place] [address] Assessment No assessment recorded. Plan of Treatment Reminders Order Date Submit Date Provider Last Modified By Organization Details Last Modified Time Details Appointments OFFICE VISIT 15 2024 09:00A Joanne Rose, DNP, WOODEN FENCE ERECTOR Not available Not available Not available Lab None recorded. Referral None recorded. Procedures None recorded. Surgeries None recorded. Imaging None recorded. Medication Orders tuberculi n PPD 5 tub. unit/0.1 mL intraderm al injection solution 2023 024 [id number], [address] [place], [address], 06/30/2024 12:23:35 Patient TargetsNo targets recorded. Patient InstructionsNo instructions recorded. Reason for Referral None Reported. 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 5067320397 Active 2014 Aleksandra rose [facility] 4 09:27:01 Mixed hyperlipidem ia 100556104 Active 2012 Aleksandra rose [facility] 4 09:27:01 Depressive disorder 99773480 Active 2019 Aleksandra rose [facility] 4 09:27:01 Anxiety 14707185 Active 2019 Aleksandra rose [facility] 4 09:27:01 Disturbance in sleep behavior 06611471 [facility] 09:27:01 Psychotic disorder 58410315 [facility] 4 09:27:01 Generalized anxiety disorder 23825403 Active 2023 Yessenia Rose DNP, WOODEN FENCE ERECTOR [address], [place], [address] , [facility] 4 12:16:43 Moderate recurrent major depression 38723242 Active 2023 Yessenia Rose DNP, WOODEN FENCE ERECTOR [address], [place], [address] , [facility] 4 12:16:48 Problem Notes None recorded. Medical Equipment None Reported. Allergies Allergen ID Allergen Name Allergen Category Reaction Reaction Severity Criticality Documentation Date Start Date Code Code System Note Provider Name and Address Organization Details Recorded Time 1342 Substance with sulfonami de structure and antibacte rial mechanism of action (substanc e) medicatio n rash Not available Not available 06/10/20242019 09888 8003 SN[facility]ED [facility] 4 09:26:17 Medications Name Sig Start [...] quadrivalent, PF 7 completed Aleksandra Espitia null, [facility] 06/10/2024 09:27:07 COVID-19, mRNA, LNP-S, PF, 30 mcg/0.3 mL dose 1 completed Aleksandra Espitia null, [facility] 06/10/2024 09:27:07 COVID-19, mRNA, LNP-S, PF, 30 mcg/0.3 mL dose 1 completed Aleksandra Espitia null, [facility] 06/10/2024 09:27:07 COVID-19, mRNA, LNP-S, PF, 30 mcg/0.3 mL dose, moe-sucrose 2 completed Aleksandra Espitia null, [facility] 06/10/2024 09:27:07 Td(adult) unspecified formulation 7 completed Aleksandra Espitia null, [facility] 06/10/2024 09:27:07 Tdap 9 completed Aleksandra Espitia [facility] 06/10/2024 09:27:07 Influenza, split virus, trivalent, preservative 4 completed Aleksandra Espitia null, [facility] 06/10/2024 09:27:07 Influenza, split virus, trivalent, preservative 3 completed Aleksandra Espitia null, [facility] 06/10/2024 09:27:07 typhoid, ViCPs 7 completed Aleksandra Espitia null, [facility] 06/10/2024 09:27:07 Influenza, split virus, quadrivalent, PF 2 completed Aleksandra Espitia null, [facility] 06/10/2024 09:27:07 Hep A, unspecified formulation 7 [facility]/10/2024 09:27:07 Past Encounters Encounter ID Performer Location Encounter Start Date Encounter Closed Date Diagnosis/Indication Diagnosis SNOMED-CT Code Diagnosis ICD10 Code 4043 Yessenia Rose DNP, WOODEN FENCE ERECTOR [id number] [address] [place] [address] 06/10/2024 09:06:00 06/10/2024 10:04:28 Generalized anxiety disorder 38786379 F41.1 Moderate r ecurrent major depression 68930285 F33.1 7452 Yessenia Rose DNP, WOODEN FENCE ERECTOR [id number] [address] [place] [address] 06/30/2024 07:33:26 06/30/2024 07:44:27 Mantoux test done 394482431 Z76.89 Health Concerns Section Related Observation LastModified by Organization Detai ls LastModified Time None Recorded Concern Status LastModified by Organization Details LastModified Time None Recorded Payers Encounter Date Sequence Insurance Name Policy Number Policy Arias Covered Member ID Arias Member ID Guarantor Name 06/30/2024 1 [facility] [id number] Tomy Hamm [id number] Tomy Hamm Notes Date Note Type Note Provider Name and Address Organization Details Recorded Time 06/30/2024 text/html Reason For Visit Patient is here for {{his* her}} {{ ppd placement#}} injection. Signature {{ swells#}} Yessenia Rose DNP, WOODEN FENCE ERECTOR [address] [place], [address], [facility] 07/01/2024 09:09:55
[2024-07-03 12:12] LABS: Ammonia 29 umol/L (13-55)
[2024-07-03 12:21] LABS: Appearance Urine Cloudy; Color Urine Yellow; Glucose Urine UA Negative (Negative); Leukocyte Esterase Urine Negative (Negative); Nitrite Urine Negative (Negative); PH 7.5 (5.0-9.0); Specific Gravity - Urine 1.015 (1.005-1.025); Urine Blood Negative (Negative); Urine Ketones Negative (Negative); Urine Protein Negative (Neg-Trace)
[2024-07-03 12:31] LABS: Estimated Average Glucose 105 mg/dL; Hemoglobin A1C 143.3961 umol/L; Hemoglobin A1c % 5.3 % (<6.0); Total Hemoglobin (HGBA1C) 4106.1323 umol/L
[2024-07-03 12:59] LABS: Hepatitis A Antibody IgG REACTIVE (Nonreactive); ~Hepatitis A Antibody IgG 9.72 S/CO (0.00-0.99)
[2024-07-03 13:01] LABS: PSA,Total (Free>4and<10) 1.96 ng/mL (0.00-4.00)
[2024-07-03 13:02] LABS: HBS Num1 3.92 mIU/mL (0-7.99); HBc Num1 0.07 S/CO (0.00-0.79); HIV AB/AG Nonreactive (Nonreactive); HIV Num 1 0.13 S/CO (0.00-0.99); Hepatitis B Core Antibody Nonreactive (Nonreactive); Hepatitis B Surface Antigen Negative (Negative); Syphilis Screen Nonreactive (Nonreactive); ~HepC Num1 0.08 S/CO (0.00-0.79); ~Hepatitis B Surface Antibody NONREACTIVE (Nonreactive); ~Hepatitis C Antibody Nonreactive (Nonreactive)
[2024-07-05 14:15] LABS: CT PCR NOT DETECTED (Not Detect.); NG PCR NOT DETECTED (Not Detect.)
[2024-07-07 16:04] LABS: Zinc 68 mcg/dL (60-130)
[2024-07-08 09:29] LABS: Carnitine Esters 9 umol/L (4-15); Carnitine, Free 32 umol/L (23-59); Carnitine, Total 41 umol/L (30-70); Esterified/Free 0.28 umol/L (0.12-0.39)
[2024-07-09 12:19] LABS: Testosterone, Total 892 ng/dL (250-1100)
== END 2024-07-03 11:33 | disposition home or self-care (01) ==
LOC: HO.LAB 11:32
PROVIDERS: PCP Nurse Practitioner; Visit Provider Psychiatry & Neurology Psychiatry
DX: F39 Unspecified mood [affective] disorder (principal); F10.90 Alcohol use, unspecified, uncomplicated; N48.89 Other specified disorders of penis; N52.9 Male erectile dysfunction, unspecified; Z12.5 Encounter for screening for malignant neoplasm of prostate; Z13.1 Encounter for screening for diabetes mellitus
CPT/HCPCS: 36415; 81003; 82140; 82379; 83036; 84153; 84403; 84630; 86704; 86706; 86708; 86780; 86803; 87340; 87389; 87491; 87591

== ENCOUNTER 2024-07-08 11:15 | Outpatient (RCR) | payer OTHER, SELFPAY ==
[2024-06-25 10:27] VITALS: BP 122/72; PULSE 88; RESP 18; TEMP 36.8
[2024-06-25 10:28] VITALS: BMI 29.8
--- NOTE | 2024-06-25 12:13 | PC.ADMIT ---
Tomy is a 48 year old male who was referred to [facility] for a step down from [facility], [facility]. Per assessment he had presented to the ED with his mother and sister, secondary to increasing anxiety, depression, alcohol intoxication and Not taking care of himself. 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 He reports he has been staying with his mom in [place]. Upon approach Tomy is calm, speech is clear and concise, when asked how he felt stated Not great. He reports endorsing 6/10 anxiety, 9/10 depression, he denied auditory and visual hallucinations. When asked if he had any thoughts of wanting to hurt or kill self stated No. When asked if he had any thoughts of wanting to hurt or kill others stated No. He reports that the Ativan is helping him with his anxiety stated I'm taking all my meds don't feel much different though. He reports work continues to be a stressor stated I hate my job. He reports sleep has not been Great, I wake up at 3am. 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 He reports having a good support system, My mother, my sister and my friend are there if I need them. Safety plan reviewed and given, Tomy verbalized understanding.
--- NOTE | 2024-06-25 15:48 | PHP/IOPCOSI ---
Pt's case has been opened and reviewed in treatment team.
--- NOTE | 2024-06-26 21:39 | HO.PS.ADMBH ---
HPI Date of Service: 06/26/24 Chief Complaint: AUD,OCD,PTSD Sources of Information: patient interviewed, chart reviewed and crisis/core team assessment reviewed HPI Narrative: Patient is a 48 yo male carrying Bipolar II Disorder and OCD diagnoses who is being stepped down from [facility]/ after being admitted for worsening anxiety, depression, poor self care and behavioral disturbance complicated by struggles with alcohol. This was his 2nd IPLOC and reports having his first hospitalization 06/2022 which occurred in the wake of [place] HSV2. He explains that the physical complications of this health condition, as well as the relationship ramifications of having HSV2, have been a primary source of stress for him and have been a destabilizing factor in his overall mental well-being over the past 2 years. He reports struggles with emotional regulation, impulsivity, erratic behavior and impulsivity and relays having difficulty distinguishing between high anxiety states and feeling overwhelmed by stress and symptoms of depression and hypomania. He has supports in his family including a sister who is very concerned about him. He reports issues with screaming out and disruptive outbursts in the form of vocal tics which are mentioned back as far as 2021 hospitalization, which have caused him significant problems in the community with multiple visits from the police over the years due to complaints from neighbors. 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 Neftaly Laguerre hx of inpt hospitalization at [facility] in 2021. -Past meds: Xanax, Lexapro (?horrible?), fluoxetine (felt suicidal and exacerbated his depression), Zoloft (wt gain), Depakote (non-adherent, did not want to do lab work, looked up SE and does not want to take), lamictal (non-adherent after he titrated up to 50 mg, had red macular/popular rash on his abdomen), Seroquel 200 mg (benefit for sleep), rexulti (helpful initially but said he ?freaked out? at work and felt ?uncomfortable,? denies restlessness but attributes this feeling to the medication), trintellix (took with lamictal), Wellbutrin (had SE of tinnitus), luvox (brief trial), gabapentin (constipation). 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 Trauma History: yes Diagnostics Vital Signs (24Hr): BMI result Body Mass Index 29.8 Meds/Allergies Meds Home Medications ?Medication ?Instructions ?Recorded ?Confirmed ?Type acyclovir 400 mg tablet 400 mg PO BID 05/26/24 06/25/24 History fluvoxamine 150 mg 150 mg PO DAILY 05/26/24 06/25/24 History capsule,extended release 24 hr lorazepam 0.5 mg tablet 0.5 mg PO BID 05/26/24 06/25/24 History quetiapine 300 mg tablet 300 mg PO BEDTIME 05/26/24 06/25/24 History Allergies Allergies Allergy/AdvReac Type Severity Reaction Status Date / Time Sulfa (Sulfonamide Allergy Rash Verified 05/26/24 20:02 Antibiotics) Mental Status Exam Mental Status Exam Narrative: Alert, oriented, in no acute distress. Calm, cooperative, engaged. Restless, fidgeting, hyperactive, garrulous. Eye contact maintained. Mood depressed, affect labile, at times tearful, otherwise bright and anxious. Speech excessive, without pressured speech. Thought process scattered, tangential but logical and coherent. Thought content related to stressors, executive dysfunction, feeling overwhelmed, anxiety, some transient helplessness and hopelessness, denies SI, intention or plan. Denies any aggressive ideation. No paranoia or delusional content elicited. No evidence of psychosis. Insight and judgment fair but adequate. Assessment & Plan Assessment & Plan (1) Alcohol use disorder: Status: Acute Code(s): F10.90 - Alcohol use, unspecified, uncomplicated Assessment and Plan: r/o alcohol-induced disorder (of mood, conduct) (2) Mood disorder: Status: Acute Code(s): F39 - Unspecified mood [affective] disorder Assessment and Plan: Bipolar II Disorder per history predominant mood dysregulation with major depressive episodes in context of alcohol use r/o Cyclothymia +/- SIMD h (3) Other impulse disorders: Status: Acute Code(s): F63.89 - Other impulse disorders Assessment and Plan: Unspecified disorder of impulse, presumably related to anxiety, mood or OCD r/o ADHD r/o Tourette Syndrome or other tic disorder (4) Other obsessive-compulsive disorder: Status: Acute Code(s): F42.8 - Other obsessive-compulsive disorder (5) PTSD (post-traumatic stress disorder): Status: Acute Code(s): F43.10 - Post-traumatic stress disorder, unspecified Plan Admit to PHP VS reviewed: tracee, BP 122/72;?88 bpm continue regular medications?for now Will obtain routine lab work including LFTs prior to making recommendations/formulating treatment plan EKG, routine for baseline QTc for medication considerations as indicated UDS as indicated MassPat reviewed Continue to monitor as per protocol Patient educated on: diagnosis, medication risk/benefits and substance abuse Informed Consent: understands Reason for continued partial hosp. stay Substantial Risk for: inability to function, rapid decompensation and med/psych decompensation Certification I certify that partial hospital treatment is medically necessary due to the symptoms and problems resulting from the patient's mental illness and the failure to treat the patient at the partial hospital level of care would likely result in the patient requiring inpatient psychiatric care which could not be prevented at a less intensive level of care. Time Spent With Patient Time: Total time managing care of this patient today _60___ minutes.
--- NOTE | 2024-06-30 22:47 | P.PNPSP_ITS ---
Subjective Subjective Date of Service: 06/30/24 Reason For Visit: AUD,OCD,PTSD Interim History: Patient continues with severe alcohol use, he has black-outs at times and says he wants to cut down but then also feels he needs to be around people or he fears he will get more derpessed. He denies any thoughts of harming himself but is very compulsive with skin-picking and did drink heavily last night. He is restless and a little shaky today but was mostly focused on severe depression and feeling hopeless and unloved. He does not feel the medications are doing much for him and can not account for how he is taking them. He admits he takes them even after he is drinking and often continues drinking. But also says he forgets to take them too. He brightens talking about groups and interactions with others and seems to gain much from social interactions. He says he has no real friends or at least friends who dont drink themselves and mostly bounces between bars and maintains a social life or is isolating at home which causes him a lot of distress and profound hopelessness. He admits drinking is a distraction. He is concerned about how medications are affecting him and wonders if they are causing him to shout out and get agitated and ticking . He has limited insight about his drinking although admits it is problematic but is not able to offer any soluations or ways we can try to cut off back. He says he would try not to drink tonight but has plans to meet up with someone. Medication Compliance: Yes Side effects from medications: No Attending Groups: Yes Review of Systems Acute medical concerns: No Mental Status Exam Mental Status Exam Narrative: Alert, oriented, in no acute distress. Calm, cooperative, engaged. Restless, fidgeting, hyperactive, garrulous. Eye contact maintained. Mood depressed, affect labile, at times tearful, otherwise bright and anxious, . Speech excessive, without pressured speech. Thought process scattered, tangential but logical and coherent. Thought content related to stressors, executive dysfunction, feeling overwhelmed, anxiety, some transient helplessness and hopelessness, denies SI, intention or plan. Denies any aggressive ideation. No paranoia or delusional content elicited. No evidence of psychosis. Insight and judgment fair but adequate. Diagnostics Vital Signs (24Hr): BMI result Body Mass Index 29.8 Assessment & Plan Assessment & Plan (1) Alcohol use disorder: Status: Acute Code(s): F10.90 - Alcohol use, unspecified, uncomplicated Assessment and Plan: r/o alcohol-induced disorder (of mood, conduct) (2) Mood disorder: Status: Acute Code(s): F39 - Unspecified mood [affective] disorder Assessment and Plan: Bipolar II Disorder per history predominant mood dysregulation with major depressive episodes in context of alcohol use r/o Cyclothymia +/- SIMD h (3) Other impulse disorders: Status: Acute Code(s): F63.89 - Other impulse disorders Assessment and Plan: Unspecified disorder of impulse, presumably related to anxiety, mood or OCD r/o ADHD r/o Tourette Syndrome or other tic disorder (4) Other obsessive-compulsive disorder: Status: Acute Code(s): F42.8 - Other obsessive-compulsive disorder (5) PTSD (post-traumatic stress disorder): Status: Acute Code(s): F43.10 - Post-traumatic stress disorder, unspecified Plan lower oxcarbazepine from 450 mg qhs (how pt's been taking it) to 300 mg qhs lower Seroquel to 150 mg qhs (may take 150 mg prn sleep, agitation) will see if tics improve (may consider switching with ABilify) discontinue clonidine 0.1 mg BID start Intuniv 1 mg BID (anxiety, adhd sx) start naltrexone 50 mg qhs (etoh cravings) start topiramate 50 mg qhs (mitigate weight, anxiety, stabilization, cravings) cont fluvoxamine 25 mg BID lorazepam 0.5 mg BID acyclovir 400 mg BID consider Vyvanse or modafinil if Routine lab work ordered as indicated EKG, routine for baseline QTc for medication considerations as indicated UDS as indicated MassPat reviewed Continue to monitor as per protocol Patient educated on: diagnosis, medication risk/benefits, substance abuse and medical condition Informed Consent: understands Reason for contiued partial hosp. stay Substantial Risk for: inability to function, rapid decompensation and med/psych decompensation Certification I certify that partial hospital treatment is medically necessary due to the symptoms and problems resulting from the patient's mental illness and the failure to treat the patient at the partial hospital level of care would likely result in the patient requiring inpatient psychiatric care which could not be prevented at a less intensive level of care. Total time managing care of this patient today ____ minutes. Discharge Plan Discharge Attending provider: Soha Rea Medications: New ergocalciferol (vitamin D2) [Vitamin D2] 1,250 mcg (50,000 unit) capsule 1,250 mcg PO QWEEK Qty: 14 0RF Rx Instructions: =please note this is a WEEKLY medication= thiamine HCl (vitamin B1) 100 mg tablet 100 mg PO DAILY Qty: 30 0RF Continued lorazepam 0.5 mg tablet 0.5 mg PO BID quetiapine 300 mg tablet 150 mg PO BEDTIME acyclovir 400 mg tablet 400 mg PO BID naltrexone 50 mg tablet 50 mg PO BEDTIME Qty: 15 0RF No Action oxcarbazepine 300 mg tablet 300 mg PO BEDTIME topiramate 50 mg tablet 50 mg PO BEDTIME Rx Instructions: start 1 tablet daily at bedtime for a week, then increase to 1 tablet twice daily fluvoxamine 25 mg Tablet 25 mg PO BID guanfacine 1 mg tablet extended release 24 hr 1 mg PO BID Stand Alone Forms: Patient Portal Discharge page Print Language: Romansh
--- NOTE | 2024-07-01 15:27 | HO.PHP ---
A referral for OP services was placed/faxed to [facility] today.
--- NOTE | 2024-07-03 12:15 | PC.NURSE ---
Patient talked to staff about having ongoing groin pain and herpes outbreaks for the past 2 years. I f/u with patient and asked him if he would like to make an appointment with his PCP to f/u. He stated his PCP is aware and he does not want to make a f/u appointment with his PCP. He did express interest in a urology appointment. I suggested he call his PCP in my office to get a referral to a urologist. He stated that he has told his Outpatient Clerk about his issues and has an appointment for a colonoscopy scheduled tomorrow 07/04/24. He reports his Outpatient Clerk made a referral for him to see a Urologist.
--- NOTE | 2024-07-03 13:26 | HO.PHP ---
[facility] staff member met with Tomy due to him stating he needed to meet with a staff member and was unwilling to go to the psychotherapy group. [facility] staff member explored with Tomy what was occurring in which he was reporting concerns around having no feeling in his groin area. [facility] staff member suggested that Tomy contacts his PCP in regards to that. Tomy then began talking about how he ruined his life and he no longer is going to be able to do anything because of his diagnosis. [facility] staff member encouraged Tomy to think positively and to further address his medical needs if that is affecting his mental health. Tomy stated that tomorrow he has a gerontologist appointment and they placed a referral for him in regards to his issues. Tomy presented as labile and would go from laughing to crying. Dr. Rea then entered the room and met with Tomy further to discuss the medical concerns that he had noted.
--- NOTE | 2024-07-03 19:54 | P.PNPSP_ITS ---
Subjective Subjective Date of Service: 07/03/24 Reason For Visit: AUD,OCD,PTSD Interim History: Patient seen for follow-up. Was found with head down in group room C in company of staff clinician and was agreeable to meet. Complaints of genital pain, described as coldness and numbness and appears uncomfortable and bent over at moments, but was soon distracted by conversation over varying topics. Patient continues with expansive, scattered thought process, lability, high impulsivity. Reports high levels of anxiety and depression. Denies any SI. He reports having several drinks (beers, vodka, etc) at various locations last night, went to [employer]...then went to the [facility] they got really cheap beer says he then ended up visiting a friend and had some kapil and espresso I just want to meet with people, be around people says he thinks he is needing social contact to help distract him from his mental issues. Denies any other substance use aside from alcohol. He says he was trying to keep count of how much he is drinking, as we discussed, but is having trouble with the task. Long standing issues with attentional and emotional regulation, executive dysfunction. Occasional tics (grunts/outbursts) noted throughout discussion, often set off when discussing distressing topics or his struggles with anxiety. Has started on naltrexone and topiramate at night although is unclear whether he has ryan cutting back on Seroquel, and is not certain if he took it for sleep last night. We spend more time discussing his alcohol use, and again state I'm recommending griselda webster go to residential treatment for AUD, especially as the amount he is having is felt to likely be interfering with medication and treatment compliance, and I'm concerned about his safety with prescribing given his level of intoxication. I am also concerned about driving under the influence which he apparently is habituated to doing. Patient agrees to avoid alcohol use for the next 3 days, and see if he is capable of abstaining for even a brief period. Medication Compliance: Intermittent Side effects from medications: No Attending Groups: Yes Review of Systems Acute medical concerns: No Mental Status Exam Mental Status Exam Narrative: Alert, oriented, in no acute distress. Calm, cooperative, engaged. Restless, fidgeting, hyperactive, garrulous. Eye contact maintained. Mood depressed, affect labile, at times tearful, otherwise bright and anxious, . Speech excessive, without pressured speech. Thought process scattered, tangential but logical and coherent. Thought content related to stressors, executive dysfunction, feeling overwhelmed, anxiety, some transient helplessness and hopelessness, denies SI, intention or plan. Denies any aggressive ideation. No paranoia or delusional content elicited. No evidence of psychosis. Insight and judgment fair but adequate. Diagnostics Vital Signs (24Hr): BMI result Body Mass Index 29.8 Assessment & Plan Assessment & Plan (1) Alcohol use disorder: Status: Acute Code(s): F10.90 - Alcohol use, unspecified, uncomplicated Assessment and Plan: r/o alcohol-induced disorder (of mood, conduct) (2) Mood disorder: Status: Acute Code(s): F39 - Unspecified mood [affective] disorder Assessment and Plan: Bipolar II Disorder per history predominant mood dysregulation with major depressive episodes in context of alcohol use r/o Cyclothymia +/- SIMD h (3) Other impulse disorders: Status: Acute Code(s): F63.89 - Other impulse disorders Assessment and Plan: Unspecified disorder of impulse, presumably related to anxiety, mood or OCD r/o ADHD r/o Tourette Syndrome or other tic disorder (4) Other obsessive-compulsive disorder: Status: Acute Code(s): F42.8 - Other obsessive-compulsive disorder (5) PTSD (post-traumatic stress disorder): Status: Acute Code(s): F43.10 - Post-traumatic stress disorder, unspecified Plan encouraged to consider going to residential SA treatment (?[facility]) lower oxcarbazepine from 450 mg qhs (how pt's been taking it) to 300 mg qhs lower Seroquel to 150 mg qhs (may take 150 mg prn sleep, agitation) will see if tics improve (may consider switching with ABilify) discontinue clonidine 0.1 mg BID start Intuniv 1 mg BID (anxiety, adhd sx) continue naltrexone 50 mg qhs (etoh cravings) continue topiramate 50 mg qhs (mitigate weight, anxiety, stabilization, cravings) cont fluvoxamine 25 mg BID cont lorazepam 0.5 mg BID continue regular medications: acyclovir 400 mg BID consider Vyvanse or modafinil if Will check Hep panel, hiv, other labwork later today EKG, routine for baseline QTc for medication considerations as indicated UDS as indicated Continue to monitor Patient educated on: diagnosis, medication risk/benefits, substance abuse and medical condition Informed Consent: understands Reason for contiued partial hosp. stay Substantial Risk for: inability to function, rapid decompensation and med/psych decompensation Certification I certify that partial hospital treatment is medically necessary due to the symptoms and problems resulting from the patient's mental illness and the failure to treat the patient at the partial hospital level of care would likely result in the patient requiring inpatient psychiatric care which could not be prevented at a less intensive level of care. Total time managing care of this patient today __45__ minutes. Discharge Plan Discharge Attending provider: Soha Rea Medications: New ergocalciferol (vitamin D2) [Vitamin D2] 1,250 mcg (50,000 unit) capsule 1,250 mcg PO QWEEK Qty: 14 0RF Rx Instructions: =please note this is a WEEKLY medication= thiamine HCl (vitamin B1) 100 mg tablet 100 mg PO DAILY Qty: 30 0RF Continued lorazepam 0.5 mg tablet 0.5 mg PO BID quetiapine 300 mg tablet 300 mg PO BEDTIME acyclovir 400 mg tablet 400 mg PO BID fluvoxamine 150 mg capsule,extended release 24hr 150 mg PO DAILY oxcarbazepine 300 mg Tablet 300 mg PO BID 30 Days Qty: 60 0RF clonidine HCl 0.1 mg Tablet 0.1 mg PO BID 30 Days Qty: 60 0RF Protocol: Hold for SBP< HOLD for SBP < : 90 naltrexone 50 mg tablet 50 mg PO BEDTIME Qty: 15 0RF topiramate 50 mg tablet 50 mg PO BID Qty: 30 0RF Rx Instructions: start 1 tablet daily at bedtime for a week, then increase to 1 tablet twice daily guanfacine 1 mg tablet extended release 24 hr 1 mg PO DAILY Qty: 30 0RF Stand Alone Forms: Patient Portal Discharge page Print Language: Kazakh
--- NOTE | 2024-07-06 14:41 | HO.PHP ---
This chief underwriter was asked to meet with Tomy due to concerning comments he made in the risk assessment group about SI. He relayed significant life stressors due to his medical condition that effects his relationships with females, he no longer is moving to [facility] where he believes he is destined, he lost significant friendships over the years, and he described turmoil at his employment of 20 years in which he needs to return to. He spent a deal of time talking about his spirituality and how it impacts his thinking, and he feels he made and acted on the wrong decision years ago, so nothing is going to get better. This chief underwriter encouraged him to think of more hopeful ways his life would improve despite this situation. He talked about his family, how his drinking has impacted this, and how he feels hopeless that things will get better, and that he is living a slow . After a considerable amount of time, he stated that he has been staying at his mother's house because she is worried about him and his current state. He said he was most likely going there [facility], but he told this chief underwriter he is going to [facility] at 6:00 with a friend. He verbalized no current safety concerns around SI, plans, or intent, as he does not feel he is there yet.
--- NOTE | 2024-07-07 11:33 | HO.PHP ---
Tomy did not attend PHP today. Pt was at home by medical writer, stated he felt anxious and was not doing good this morning attempted to come in, drove to PHP but went back home. Tomy acknowledged he should have come in for support instead of staying home, agreed to come in tomorrow. Pt stated he felt anxious but was safe, no safety concerns. Pt was alert, clear, appreciative for staff support and apologized for not calling out. Pt informed he has received an aftercare appt as well.
--- NOTE | 2024-07-08 13:11 | PC.NURSE ---
Patient expressed to Farida that he is struggling with drinking alcohol daily, increased depression with SI and could not say whether of not he had a plan. He reports he is in distress and has racing thoughts focused on his private parts with history of STD. Stated he ruined his life. Picking at his skin to the point of having sores on the top of his head that are oozing. Patient was a step down from inpatient LOC. He has a DX of bipolar II and OCD. Patient also reports a wellness check was done on him last night by neighbors. Nurse to Nurse done with Real RUSSELL from the POD. Reviewed above information with the Care sound ranging crewmember Nora. Foreman is aware and is getting a section 12A.
--- NOTE | 2024-07-08 15:33 | HO.PHP ---
After group 3, at roughly 12:15 pm movie writer met with pt after he stated he was experiencing SI and had a plan sometimes . Pt was visibly distressed, grasping his head frequently, rocking and calling out in distress that he has messed up his life, what did I do? then listed several things he has done, regrets, and shame, made hopeless statements. Pt picked incessantly at scabs on his scalp and was biting at sores on his fingers, stated the sores were from picking and biting . Stated he can not stop his negative thoughts, and could not stop the obsessing over his STD symptoms, which in effect was making his tics worse, eg. pt was making loud random grunting noises which were louder and more frequent with distress. Pt stated he has been drinking alcohol daily, and has begun drinking in the morning now as well. Pt agreed to be evaluated by the Care team. Pt met with Dr. El then brought [place] [facility].
== END 2024-07-08 23:59 | disposition home or self-care (01) ==
LOC: HO.PHPA 11:15
PROVIDERS: Visit Provider Psychiatry & Neurology Psychiatry
DX: F39 Unspecified mood [affective] disorder (principal); F63.89 Other impulse disorders; F42.8 Other obsessive-compulsive disorder; F43.10 Post-traumatic stress disorder, unspecified; F10.90 Alcohol use, unspecified, uncomplicated; Z79.899 Other long term (current) drug therapy
CPT/HCPCS: 90791; 90853

== ENCOUNTER 2024-07-08 13:53 | Inpatient (IN) | payer OTHER, SELFPAY ==
--- OUTSIDE RECORDS SUMMARY | 2024-07-08 13:55 | XMS_ITS | Continuity of Care Document ---
Author Organization [facility], [id number] Address [address] [place] [address] Assessment No assessment recorded. Plan of Treatment Reminders Order Date Submit Date Provider Last Modified By Organization Details Last Modified Time Details Appointments OFFICE VISIT 15 2024 09:00A Joanne Rose, DNP, VISITING PROFESSOR Not available Not available Not available Lab None recorded . Referral None recorded . Procedures None recorded . Surgeries None recorded . Imaging None recorded . Medication Orders None recorded . Patient TargetsNo targets recorded. Patient Instructions Encounter [...] other questions or concerns at this time [email or web address] Not available 06/10/2024 11:02:21 Reason for Referral None Reported. 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 9810339028 Active 2014 Aleksandra rose [facility] 4 09:27:01 Mixed hyperlipidem ia 727246160 Active 2012 Aleksandra rose [facility] 4 09:27:01 Depressive disorder 17197163 Active 2019 Aleksandra rose [facility] 4 09:27:01 Anxiety 38162013 Active [facility] 4 09:27:01 Disturbance in sleep behavior 13696400 Active 2021 [facility] 4 09:27:01 Psychotic disorder 07664643 Active 2021 [facility] 4 09:27:01 Generalized anxiety disorder 05356128 Active 2023 Yessenia Rose DNP, VISITING PROFESSOR [address] [place], [address] , [facility] 4 12:16:43 Moderate recurrent major depression 59887307 Active 2023 Yessenia Rose DNP, VISITING PROFESSOR [address], [place], [address] , [facility] 4 12:16:48 [...] n rash Not available Not available 06/10/20242019 41625 8003 SNOMED [facility] 4 09:26:17 Medications Name Sig [...] Address Organization Details Last Updated DateTime 4 04716.8 5 g 126 /min 95 % 95 % 98 [degF] 124 mm[Hg] 84 mm[Hg] Aleksandra Espitia [facility] 4 09:25:33 Social History None recorded. Functional Status None recorded. Mental Status None recorded. Family History Nothing Reported. Medical History Condition Response Anxiety Y Depression Y High Cholesterol Y Immunizations Vaccine Type Date Status Note Provider Nam e and Address Organization Details Recorded Time Influenza, recombinant, quadrivalent, PF 7 [facility] 06/10/2024 09:27:07 COVID-19, mRNA, LNP-S, PF, 30 mcg/0.3 mL dose 1 [facility] 06/10/2024 09:27:07 COVID-19, mRNA, LNP-S, PF, 30 mcg/0.3 mL dose 1 [facility] 06/10/2024 09:27:07 COVID-19, mRNA, LNP-S, PF, 30 mcg/0.3 mL dose, moe-sucrose 2 [facility] 06/10/2024 09:27:07 Td(adult) unspecified formulation 7 [facility] 06/10/2024 09:27:07 Tdap 9 [facility] 06/10/2024 09:27:07 Influenza, split virus, trivalent, preservative 4 completed [facility] 06/10/2024 09:27:07 Influenza, split virus, trivalent, preservative 3 [facility] 06/10/2024 09:27:07 typhoid, ViCPs 7 completed [facility] 06/10/2024 09:27:07 Influenza, split virus, quadrivalent, PF 2 [facility] 06/10/2024 09:27:07 Hep A, unspecified formulation 7 [facility] 06/10/2024 09:27:07 Past Encounters Encounter ID Performer Location Encounter Start Date Encounter Closed Date Diagnosis/Indication Diagnosis SNOMED-CT Code Diagnosis ICD10 Code 4043 Yessenia Rose DNP, VISITING PROFESSOR [id number] [address] [place] [address] 06/10/2024 09:06:00 06/10/2024 10:04:28 Generalized anxiety disorder 86623594 F41.1 Moderate r ecurrent major depression 03022118 F33.1 Health Concerns Section Related Observation LastModified by Organization Detai ls LastModified Time None Recorded Concern Status LastModified by Organization Details LastModified Time None Recorded Payers Encounter Date Sequence Insurance Name Policy Number Policy Arias Covered Member ID Arias Member ID Guarantor Name 06/10/2024 1 [facility] [id number] Tomy Hamm [id number] Tmoy Hamm Notes Date Note Type Note Provider Name and Address Organization Details Recorded Time 06/10/2024 text/html Pt is here for f /u from a hospitalization for OCD, alcohol abuse, depression and was admitted on 05/27 and was discharged on 06/05. Pt states that he was not feeling great mentally so he reached out to his sister and she took him to a [facility] to speak with a plant sprayer he has spoken with in the past [...] concerns at this time. Yessenia Rose, YIN, VISITING PROFESSOR [address] [place], [address], [facility] 06/16/2024 12:17:09
[2024-07-08 14:06] VITALS: BP 128/87; PULSE 82; RESP 20; TEMP 36.5; O2SAT 96; BMI 26.6
--- NOTE | 2024-07-08 14:38 | MHC.CARE ---
Taty Scott with [facility] calls in expect for this patient coming to the ED on section 12 from the [facility]. He has been at [facility] since 06/25/2024. Taty shares that he was IPLOC and stepped down to [facility]. She reports he has been drinking daily. Depression has been worsening and he has reported SI. He has had racing thoughts, been acutely distressed. He is noted to be ruminating over sexual health diagnosis. Also has been picking at his sores, they have been oozing. She reports that he is diagnosed with bipolar 2 and OCD. Noted to have vocal tics, which presents as yelps/ yelling that can get loud. Taty shares that his neighbors have called for wellbeing check, presumed to be due to the noise. Taty Sonia reports that patient has now shown many signs of improvement since beginning partial. Patient brought to the behavioral health pod on section 12.
[2024-07-08] MEDS: LORazepam 1 MG TABLET 2 MG PO (15:01)
[2024-07-08 15:21] LABS: Appearance Urine Clear; Color Urine Yellow; Glucose Urine UA Negative (Negative); Leukocyte Esterase Urine Negative (Negative); Nitrite Urine Negative (Negative); PH 5.5 (5.0-9.0); Specific Gravity - Urine 1.015 (1.005-1.025); Urine Blood Negative (Negative); Urine Ketones Negative (Negative); Urine Protein Negative (Neg-Trace)
--- NOTE | 2024-07-08 15:33 | ED.PSYCH ---
HPI - Psych General Chief Complaint: Psychiatric Symptoms Stated Complaint: anxiety Time Seen by Provider: 07/08/24 13:56 History of Present Illness HPI Narrative: patient is a 48-year-old male had racing thoughts. Had vague suicidal ideation. No specific plan. Patient from home. No fever no chills no chest pain or shortness of breath. Denies recreational drug use was just discharged yesterday. Related Data Home Medications ?Medication ?Instructions ?Recorded ?Confirmed acyclovir 400 mg tablet 400 mg PO BID 05/26/24 07/08/24 lorazepam 0.5 mg tablet 0.5 mg PO BID 05/26/24 07/08/24 quetiapine 300 mg tablet 150 mg PO BEDTIME 05/26/24 07/08/24 fluvoxamine 25 mg tablet 25 mg PO BID 07/08/24 07/08/24 guanfacine 1 mg tablet,extended 1 mg PO BID 07/08/24 07/08/24 release 24 hr oxcarbazepine 300 mg tablet 300 mg PO BEDTIME 07/08/24 07/08/24 topiramate 50 mg tablet 50 mg PO BEDTIME 07/08/24 07/08/24 Previous Rx's ?Medication ?Instructions ?Recorded ergocalciferol (vitamin D2) 1,250 1,250 mcg PO QWEEK vitamin D 07/02/24 mcg (50,000 unit) capsule (Vitamin deficiency #14 caps D2) naltrexone 50 mg tablet 50 mg PO BEDTIME #15 tabs 07/02/24 thiamine HCl (vitamin B1) 100 mg 100 mg PO DAILY #30 tabs 07/02/24 tablet Allergies Allergy/AdvReac Type Severity Reaction Status Date / Time Sulfa (Sulfonamide Allergy Rash Verified 07/08/24 14:08 Antibiotics) Review of Systems Review of Systems: Positive suicidal thoughts no specific plans Yes all other systems are reviewed and are negative [facility] Past Medical History Attestation statement: The following information was validated with the patient. Medical History Alcohol dependence Social History Social History Household Members: Family Housing: Condominium Do you presently have visiting nurse or other home services: No Alcohol intake: current Alcohol intake frequency: holidays/special occasions only Patient Tobacco Use Status: Former Tobacco user Smoked in Last 30 Days: No e-Cigarette/Vaping Use: Never Used Second Hand Smoke Exposure: No Use of substances other than those prescribed or required for medical reasons: No Substance Use Type: Marijuana Substance Use Frequency: Occasionally Last Used Substance: Days (ago) Any prior treatment program specific to substance use: No Advance Directives: No Advance Directives Information Provided: No service: No Sexual orientation: Straight/Heterosexual Physical Exam Vital Signs: Vital Signs: Last Vital Signs Temp 98.3 F 07/08/24 16:42 Pulse 74 07/08/24 16:42 Resp 18 07/08/24 16:42 BP 101/56 L 07/08/24 16:42 Pulse Ox 96 07/08/24 16:42 O2 Del Method Room Air 07/08/24 16:42 BMI result Body Mass Index 26.6 Appearance: Alert. Oriented X3. No acute distress. Eyes: Pupils equal, round and reactive to light. ENT: Pharynx normal. Neck: Normal inspection. Neck supple. No lymph nodes noted. No crepitus CVS: Normal heart rate and rhythm. Pulses normal. Normal S1 and S2 Respiratory: No respiratory distress. Breath sounds normal. No Wheezing. No rales Abdomen: Soft and nontender. No rigidity. No distention. good BS x4 Skin: Skin warm and dry. Normal skin color. Normal skin turgor. Extremities: No lower extremity edema. Neurovascular intact to all extremities. No Lacerations. No Rash Neuro: Oriented X 3. No motor deficit. No sensory deficit. Moving all extermities. No slurred speech. Cranial nerves grossly intact Medications Administered Discontinued Medications Generic Name Dose Route Start Last Admin Trade Name Maximinoq PRN Reason Stop Dose Admin Lorazepam 2 mg 07/08/24 14:55 07/08/24 15:01 Lorazepam 1 Mg Tablet PO 07/08/24 14:56 2 mg ONCE ONE Administration Medical Decision Making Medical Decision Making [facility] Narrative: Well-appearing no acute distress. Patient neurologically intact. currently awaiting crisis evaluation patient evaluated by care team, currently is at bed search. Differential Diagnosis Differential Diagnoses: The differential diagnosis associated with the presentation includes Depression, anxiety Admission/Observation Consideration of admission/observation: Escalation of care including admission/observation considered patient to be admitted Consult Healthcare Provider Management of the patient was discussed with: Heel Caser ( crisis) Lab Data [facility] Lab Attestation statement: I reviewed the patient's lab results. 07/08/24 16:07 07/08/24 16:07 Labs: Lab Results 07/08/24 07/08/24 Range/Units 14:20 16:07 WBC 8.0 (4.8-10.8) X10*3/uL RBC 5.00 (4.60-5.80) X10*6/uL Hgb 16.1 (14.0-18.0) g/dl Hct 44.3 (42.0-52.0) % MCV 88.6 (80.0-98.0) fL MCH 32.2 (27.0-33.0) pg MCHC 36.3 H (31.0-36.0) g/dl RDW 12.7 (11.0-16.0) % Plt Count 278 (160-400) X10*3/uL MPV 9.4 (9.4-12.4) fL Immature Gran % (Auto) 1.0 H (0.0-0.4) % Neut % (Auto) 69.9 (45-73) % Lymph % (Auto) 18.9 L (20-40) % Mariposa % (Auto) 8.3 (2-11) % Eos % (Auto) 1.4 (0-4) % Baso % (Auto) 0.5 (0-2) % Lymph # (Auto) 1.5 (1.2-4.9) X10*3/uL Mariposa # (Auto) 0.7 (0.1-1.2) X10*3/uL Eos # (Auto) 0.1 (0.0-0.4) X10*3/uL Baso # (Auto) 0.0 (0.0-0.2) X10*3/uL Abs Immat Gran (auto) 0.08 H (0.00-0.03) X10*3/uL Absolute Neuts (auto) 5.6 (2.0-8.3) x10*3/uL Absolute Nucleated RBC 0.000 (0.0-0.012) X10*3/uL Nucleated RBC % (auto) 0.0 (0.0-0.2) /100WBC Sodium 136 (135-145) mmol/L Potassium 3.7 (3.3-5.1) mmol/L Chloride 105 (96-108) mmol/L Carbon Dioxide 23 (22-29) mmol/L Anion Gap 12 (12-20) BUN 14 (9-16) mg/dL Creatinine 0.85 (0.5-1.4) mg/dL Estim Creat Clear Calc 100.5 Estimated GFR > 60 Random Glucose 103 (60-115) mg/dL Calcium 8.9 (8.4-10.2) mg/dL Urine Color Yellow Urine Appearance Clear Urine pH 5.5 (5.0-9.0) Ur Specific Sharon 1.015 (1.005-1.025) Urine Protein Negative (Neg-Trace) mg/dL Urine Glucose (UA) Negative (Negative) mg/dL Urine Ketones Negative (Negative) mg/dL Urine Blood Negative (Negative) Urine Nitrite Negative (Negative) Ur Leukocyte Esterase Negative (Negative) Urine Opiates Screen Not Detected (Not Detect) Ur Buprenorphine Scrn Not Detected (Not Detect) ng/mL Ur Oxycodone Screen Not Detected (Not Detect) ng/mL Urine Methadone Screen Not Detected (Not Detect) ng/mL Urine Fentanyl Screen Not Detected (Not Detect) Ur Barbiturates Screen Not Detected (Not Detect) Ur Phencyclidine Scrn Not Detected (Not Detect) Ur Amphetamines Screen Not Detected (Not Detect) U Benzodiazepines Scrn Not Detected (Not Detect) Urine Cocaine Screen Not Detected (Not Detect) U Marijuana (THC) Screen Not Detected (Not Detect) Ethyl Alcohol < 10 mg/dL External Record Review External record reviewed: Inpatient record Chronic Conditions psychiatric disorder, PTSD Social Determinants Patient?s care significantly limited by Social Determinants of Health including: Alcoholism and drug addiction in family and Problems related to primary support group Discharge Plan Discharge Clinical Impression: Suicidal ideation Patient Disposition: Still a Patient Prescriptions: No Action oxcarbazepine 300 mg tablet 300 mg PO BEDTIME topiramate 50 mg tablet 50 mg PO BEDTIME Rx Instructions: start 1 tablet daily at bedtime for a week, then increase to 1 tablet twice daily fluvoxamine 25 mg Tablet 25 mg PO BID guanfacine 1 mg tablet extended release 24 hr 1 mg PO BID lorazepam 0.5 mg tablet 0.5 mg PO BID quetiapine 300 mg tablet 150 mg PO BEDTIME acyclovir 400 mg tablet 400 mg PO BID naltrexone 50 mg tablet 50 mg PO BEDTIME Qty: 15 0RF ergocalciferol (vitamin D2) [Vitamin D2] 1,250 mcg (50,000 unit) capsule 1,250 mcg PO QWEEK Qty: 14 0RF Rx Instructions: =please note this is a WEEKLY medication= thiamine HCl (vitamin B1) 100 mg tablet 100 mg PO DAILY Qty: 30 0RF Interventions: [place]-Suicide Risk Severity Scale Last Done: 07/08/24 17:21 Print Language: Belgian
--- OUTSIDE RECORDS SUMMARY | 2024-07-08 15:58 | XMS_ITS | Data Portability ---
Author Organization [facility], [facility] Address , [address] Assessment No assessment recorded. Plan of Treatment Reminders Order Date Submit Date Provider Last Modified By Organization Details Last Modified Time Details Appointments OFFICE VISIT 15 2024 09:00A Joanne Rose, YIN, BLOOD DONOR RECRUITER Not available Not available Not available Lab None recorded. Referral None recorded. Procedures None recorded. Surgeries None recorded. Imaging None recorded. Medication Orders tuberculi n PPD 5 tub. unit/0.1 mL intraderm al injection solution 2023 024 [id number], [address] [place], [address], 06/30/2024 12:23:35 Patient TargetsNo targets recorded. Patient [...] other questions or concerns at this time [email or web address] Not available 06/10/2024 11:02:21 Reason for Referral None Reported. 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 09:27:01 Mixed hyperlipidem ia 391280157 Active 2012 Aleksandra Espitia null, [facility] 4 09:27:01 Depressive disorder 02859418 Active 2019 Aleksandra Espitia null, [facility] 4 09:27:01 Anxiety 68136256 Active 2019 Aleksandra Espitia null, [facility] 4 09:27:01 Disturbance in sleep behavior 21026603 Active 2021 Aleksandra Espitia null, [facility] 4 09:27:01 Psychotic disorder 12334466 Active 2021 Aleksandra Espitia null, [facility] 4 09:27:01 Generalized anxiety disorder 36639052 Active 2023 Yessenia Rose, YIN, BLOOD DONOR RECRUITER [address], [place], [address] , [facility] 4 12:16:43 Moderate recurrent major depression 22530368 Active 2023 Yessenia Rose DNP, BLOOD DONOR RECRUITER [address], [place], [address] , [facility] 4 12:16:48 Problem Notes None recorded. Medical Equipment None Reported. Allergies Allergen ID Allergen Name Allergen Category Reaction Reaction Severity Criticality Documentation Date Start Date Code Code System Note Provider Name and Address Organization Details Recorded Time 1342 Substance with sulfonami de structure and antibacte rial mechanism of action (substanc e) medicatio n rash Not available Not available 06/10/20242019 29102 8003 SNOMED Aleksandra rose, [facility] 4 09:26:17 Medications Name Sig Start [...] Address Organization Details Last Updated DateTime 4 41775.8 5 g 126 /min 95 % 95 % 98 [degF] 124 mm[Hg] 84 mm[Hg] Aleksandra Espitia [facility] 4 09:25:33 Social History None recorded. Functional Status None recorded. Mental Status None recorded. Family History Nothing Reported. Medical History Condition Response Anxiety Y High Cholesterol Y Depression Y Immunizations Vaccine Type Date Status Note Provider Nam e and Address Organization Details Recorded Time Influenza, recombinant, quadrivalent, PF [facility]07 COVID-19, mRNA, LNP-S, PF, 30 mcg/0.3 mL dose 1 [facility] 09:27:07 COVID-19, mRNA, LNP-S, PF, 30 mcg/0.3 mL dose 1 [facility] 09:27:07 COVID-19, mRNA, LNP-S, PF, 30 mcg/0.3 mL dose, moe-sucrose 2 completed [facility]10[facility]24 09:27:07 Td(adult) unspecified formulation 7 completed [facility]/10/2024 09:27:07 Tdap 9 completed Aleksandra Espiita [facility] 06/10/2024 09:27:07 Influenza, split virus, trivalent, preservative 4 completed Aleksandra rose, [facility] 06/10/2024 09:27:07 Influenza, split virus, trivalent, preservative 3 completed Aleksandra rsoe, [facility] 06/10/2024 09:27:07 typhoid, ViCPs 7 completed Aleksandra rose, [facility] 06/10/2024 09:27:07 Influenza, split virus, quadrivalent, PF 2 completed Aleksandra rose, [facility] 06/10/2024 09:27:07 Hep A, unspecified formulation 7 completed Aleksandra rose, [facility] 06/10/2024 09:27:07 Past Encounters Encounter ID Performer Location Encounter Start Date Encounter Closed Date Diagnosis/Indication Diagnosis SNOMED-CT Code Diagnosis ICD10 Code 4043 Yessenia Rose DNP, APRN [id number] _[facility] [address] [place] [address] 06/10/2024 09:06:00 06/10/2024 10:04:28 Generalized anxiety disorder 75601841 F41.1 Moderate r ecurrent major depression 08718171 F33.1 [id number] Yessenia Rose DNP, APRN [id number] _[facility] [address] [place] [address] 06/30/2024 07:33:26 06/30/2024 07:44:27 Mantoux test done 220211186 Z76.89 [id number] Velma Martinez [id number] _[facility] [address] [place] [address] 07/02/2024 17:44:19 07/02/2024 17:53:31 Health Concerns Section Related Observation LastModified by Organization Detai ls LastModified Time None Recorded Concern Status LastModified by Organization Details LastModified Time None Recorded Advance Directives Directive None Recorded Payers Encounter Date Sequence Insurance Name Policy Number Policy Arias Covered Member ID Arias Member ID Guarantor Name 06/10/2024 1 [facility] [id number] [id number] Tomy Hansel 06/30/2024 1 [facility] [id number] Tomy Hamm [id number] Tomy Hamm Notes Date Note Type Note Provider Name and Address Organization Details Recorded Time 06/10/2024 text/html Pt is here for f /u from a hospitalization for OCD, alcohol abuse, depression and was admitted on 05/27 and was discharged on 06/05. Pt states that he was not feeling great mentally so he reached out to his sister and she took him to a gnosticism to speak with a log haul operator he has spoken with in the [...] concerns at this time. Yessenia Rose DNP, BLOOD DONOR RECRUITER [address] [place], [address], [facility] 06/16/2024 12:17:09 06/30/2024 text/html Reason For Visit Patient is here for {{his* her}} {{ ppd placement#}} injection. Signature {{ swells#}} Yessenia Rose DNP, BLOOD DONOR RECRUITER [address] [place], [address], [facility] 07/01/2024 09:09:55
[2024-07-08 16:13] LABS: MANUAL DIFF FLAG NO
[2024-07-08 16:15] LABS: Basophils Percent Auto 0.5 % (0-2); Eosinophils Absolute Auto 0.1 X10*3/uL (0.0-0.4); Eosinophils Percent Auto 1.4 % (0-4); Hematocrit 44.3 % (42.0-52.0); Hemoglobin 16.1 g/dl (14.0-18.0); Imm Gran Abs Auto 0.08 X10*3/uL (0.00-0.03); Lymphocytes Absolute Auto 1.5 X10*3/uL (1.2-4.9); Lymphocytes Percent Auto 18.9 % (20-40); Mean Corpuscular HGB Conc 36.3 g/dl (31.0-36.0); Mean Corpuscular Hemoglobin 32.2 pg (27.0-33.0); Mean Corpuscular Volume 88.6 fL (80.0-98.0); Mean Platelet Volume 9.4 fL (9.4-12.4); Monocytes Absolute Auto 0.7 X10*3/uL (0.1-1.2); Monocytes Percent Auto 8.3 % (2-11); Neutrophils Absolute Auto 5.6 x10*3/uL (2.0-8.3); Neutrophils Percent Auto 69.9 % (45-73); Platelet Count 278 X10*3/uL (160-400); Red Cell Distribution Width 12.7 % (11.0-16.0)
[2024-07-08 16:18] LABS: Amphetamine Screen Urine Not Detected (Not Detect); Barbiturates, Urine Not Detected (Not Detect); Benzodiazepines Screen Urine Not Detected (Not Detect); Buprenorphine Scr Not Detected (Not Detect); Cannabinoid Screen Urine Not Detected (Not Detect); Cocaine Screen Urine Not Detected (Not Detect); Fentanyl, urine Not Detected (Not Detect); Methadone Screen, Urine Not Detected (Not Detect); Opiate Screen Urine Not Detected (Not Detect); Oxycodone Screen Urine Not Detected (Not Detect); Phencyclidine Screen Urine Not Detected (Not Detect)
[2024-07-08 16:32] LABS: Anion Gap 12 (12-20); Blood Urea Nitrogen 14 mg/dL (9-16); Calcium 8.9 mg/dL (8.4-10.2); Carbon Dioxide 23 mmol/L (22-29); Chloride 105 mmol/L (96-108); Creatinine Clr Calc Pharmacy 100.5; Estimated Glomerular Filt Rate > 60; Ethanol < 10 mg/dL; Glucose Random 103 mg/dL (60-115); Potassium 3.7 mmol/L (3.3-5.1); Sodium 136 mmol/L (135-145)
[2024-07-08 16:42] VITALS: BP 101/56; PULSE 74; RESP 18; TEMP 36.8; O2SAT 96
--- NOTE | 2024-07-08 17:46 | PHA.MEDREC ---
Pharmacy Consult ? Medication Reconciliation Pharmacy has completed the medication reconciliation. Spoke to patient at bedside and he was able to confirm most of his medications with me. There was some confusion with medications ordered by a Dr Olivo, that he couldn't remember or what he said conflicted with claims. I found the note from Dr Rea from 07/03 where they made some adjustments to his medications and used that to confirm some of the discrepancies. He is no longer on Clonidine, this was changed to Guanfacine 1mg, he was changed from Fluvoxamine 150mg to 25mg BID, his Oxcarbazepine was lowered from 450mg to 300mg, and his Quetiapine was lowered from 300mg to 150mg. He says he took his morning meds this morning before coming in.
[2024-07-08 19:03] LABS: Salicylate < 5.0 mg/dL (15-30)
--- NOTE | 2024-07-08 19:24 | PC.NURSE ---
patient appears to remain at rest at present, laying in couch in common area, has been informed that his room should be his destination at 2300 when common areas close, patient seemed to understand.
[2024-07-08] MEDS: fluvoxaMINE Maleate 50 MG TABLET 25 MG PO (21:11)
[2024-07-08] MEDS: OXcarbazepine 300 MG TABLET PO (21:11)
[2024-07-08] MEDS: Thiamine HCL 100 MG TABLET PO (21:11)
[2024-07-08] MEDS: Topiramate 25 MG TABLET 50 MG PO (21:11)
[2024-07-08] MEDS: Naltrexone HCl 50 MG TABLET PO (21:12)
[2024-07-08] MEDS: Acyclovir 200 MG CAPSULE 400 MG PO (21:12)
[2024-07-08] MEDS: QUEtiapine Fumarate 50 MG TABLET 150 MG PO (21:12)
[2024-07-08] MEDS: LORazepam 0.5 MG TABLET PO (21:12)
[2024-07-08 21:22] VITALS: BP 106/69; PULSE 76; RESP 17; TEMP 36.7; O2SAT 97
--- NOTE | 2024-07-08 21:34 | PC.NURSE ---
client had questions in regards to luvox dosing, t/w explained that the non formulary dosing would be different and his own medications could be brought to hospital and given
--- NOTE | 2024-07-09 | ECG_ITS ---
Test Reason : check qtc Blood Pressure : / mmHG Vent. Rate : 079 BPM Atrial Rate : 079 BPM P-R Int : 140 ms QRS Dur : 086 ms QT Int : 392 ms P-R-T Axes : 043 029 047 degrees QTc Int : 449 ms Poor data quality, interpretation may be adversely affected Artifact in tracing Normal sinus rhythm Normal ECG When compared with ECG of 27-MAY-2024 12:16, T wave inversion no longer evident in Inferior leads Referred By: Josi Bear Electronically Signed By:ARMANDO TURNER
--- NOTE | 2024-07-09 07:22 | PC.NURSE ---
Care of Pt assumed at change of shift. Pt is observed resting comfortably in bed. NAD noted at this time. Breakfast tray provided to Pt--placed at bedside.
[2024-07-09] MEDS: Acyclovir 200 MG CAPSULE 400 MG PO ×2 (08:28→21:32)
[2024-07-09] MEDS: Thiamine HCL 100 MG TABLET PO (08:28)
[2024-07-09] MEDS: LORazepam 0.5 MG TABLET PO (08:28)
[2024-07-09] MEDS: fluvoxaMINE Maleate 50 MG TABLET 25 MG PO ×2 (08:28→21:32)
[2024-07-09 09:03] VITALS: BP 116/78; PULSE 77; RESP 18; TEMP 36.6; O2SAT 95
--- NOTE | 2024-07-09 09:11 | PC.NURSE ---
Pt wakes and requests coffee. Morning med given with the exception of two--Vit D2 and Intuniv; pharmacy contacted and will deliver. Pt aware and agreeable to take meds upon arrival. Pt requests additional ativan for increased feelings of anxiety and agitation. Dr. Bear places on time order.
[2024-07-09] MEDS: LORazepam 1 MG TABLET PO (09:16)
[2024-07-09] MEDS: guanFACINE HCl ER 1 MG TAB.ER.24H PO ×2 (09:25→21:34)
[2024-07-09] MEDS: Ergocalciferol (Vitamin D2) 1,250 MCG CAPSULE 1250 MCG PO (09:25)
--- NOTE | 2024-07-09 12:25 | PC.NURSE ---
RN to RN report completed with DREW Brown from [facility]. Pt will be transitioning to room 326.
--- NOTE | 2024-07-09 13:33 | HO.PSYADMNOT ---
HPI Date of Service: 07/09/24 Chief Complaint: crisis Sources of Information: patient interviewed, chart reviewed and crisis/core team assessment reviewed HPI Subjective Notes: Spears Warning and Conditional Voluntary Narrative: Patient is a 48 year old male with hx of Bipolar d/o, PTSD, OCD and alcohol use d/o who presented [place] [facility] [place] partial hospitalization program on a section 12 due to suicidal ideation, increased anxiety and depression secondary to fixation of medical concerns. Per crisis report, patient was walked over from the partial hospitalization program on a section 12 due to concerns of vague SI increased anxiety, depression and alcohol use secondary to fixation of medical concerns. Patient was discharged from on 06/04/24. Patient is engaged in treatment at [facility] however has been struggling with increased hopelessness, racing thoughts and alcohol use. Patient was encouraged by Dr. El to go for a crisis evaluation. Patient denies HI/VH/AH. Patient reports he has been staying with his mother in [place] for the last 6 months due to not wanting to be alone. During admission assessment, patient presents alert and oriented x3. Calm and cooperative. Patient reports increased anxiety and depression; patient stated, I was at the partial program and I started yelling and picking. Staff asked me about suicide and I told them yes, so she told me that I should come here. I think I forgot that I was supposed to keep taking my Luvox after Dr. Rea made some med changes and that's what caused the increase in anxiety . Observed picking at scabs on scalp; which patient reports he does when anxious. Making grunting sounds at times during assessment. denies SI/HI/VH/AH. Patient stated, I want to live. I don't want to cause anyone anymore trouble. I felt hopeless but I didn't have a plan on doing anything . Patient reports he has not been able to sleep well at night; reports sleeping 3-4 hours due to racing thoughts. He reports increased drinking in the past few months to deal with his anxiety. Patient reports he has an outpatient appointment with an infection disease specialist. 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 Neftaly Laguerre hx of inpt hospitalization at [facility] in 2021. -Past meds: Xanax, Lexapro (?horrible?), fluoxetine (felt suicidal and exacerbated his depression), Zoloft (wt gain), Depakote (non-adherent, did not want to do lab work, looked up SE and does not want to take), lamictal (non-adherent after he titrated up to 50 mg, had red macular/popular rash on his abdomen), Seroquel 200 mg (benefit for sleep), rexulti (helpful initially but said he ?freaked out? at work and felt ?uncomfortable,? denies restlessness but attributes this feeling to the medication), trintellix (took with lamictal), Wellbutrin (had SE of tinnitus), luvox (brief trial), gabapentin (constipation). 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 Denies any other substance use. Denies history of detox admissions. Trauma History: yes Diagnostics Vital Signs (24Hr): Vital Signs - 24 hr 07/08/24 14:06 07/08/24 16:42 07/08/24 21:22 Temperature 97.7 F 98.3 F 98.0 F Pulse Rate 82 74 76 Respiratory Rate 20 18 17 Blood Pressure 128/87 101/56 L 106/69 Pulse Oximetry 96 96 97 Oxygen Delivery Method Room Air Room Air Room Air 07/09/24 09:03 Temperature 97.8 F Pulse Rate 77 Respiratory Rate 18 Blood Pressure 116/78 Pulse Oximetry 95 Oxygen Delivery Method Room Air BMI result Body Mass Index 26.6 Labs 07/08/24 16:07 07/08/24 16:07 Labs: Laboratory Results - last 48 hr 07/08/24 07/08/24 14:20 16:07 WBC 8.0 RBC 5.00 Hgb 16.1 Hct 44.3 MCV 88.6 MCH 32.2 MCHC 36.3 H RDW 12.7 Plt Count 278 MPV 9.4 Immature Gran % (Auto) 1.0 H Neut % (Auto) 69.9 Lymph % (Auto) 18.9 L [place] % (Auto) 8.3 Eos % (Auto) 1.4 Baso % (Auto) 0.5 Lymph # (Auto) 1.5 [place] # (Auto) 0.7 Eos # (Auto) 0.1 Baso # (Auto) 0.0 Abs Immat Gran (auto) 0.08 H Absolute Neuts (auto) 5.6 Absolute Nucleated RBC 0.000 Nucleated RBC % (auto) 0.0 Sodium 136 Potassium 3.7 Chloride 105 Carbon Dioxide 23 Anion Gap 12 BUN 14 Creatinine 0.85 Estim Creat Clear Calc 100.5 Estimated GFR > 60 Random Glucose 103 Calcium 8.9 Urine Color Yellow Urine Appearance Clear Urine pH 5.5 Ur Specific [place] 1.015 Urine Protein Negative Urine Glucose (UA) Negative Urine Ketones Negative Urine Blood Negative Urine Nitrite Negative Ur Leukocyte Esterase Negative Salicylates < 5.0 L Urine Opiates Screen Not Detected Ur Buprenorphine Scrn Not Detected Ur Oxycodone Screen Not Detected Urine Methadone Screen Not Detected Urine Fentanyl Screen Not Detected Ur Barbiturates Screen Not Detected Ur Phencyclidine Scrn Not Detected Ur Amphetamines Screen Not Detected U Benzodiazepines Scrn Not Detected Urine Cocaine Screen Not Detected U Marijuana (THC) Screen Not Detected Ethyl Alcohol < 10 Meds/Allergies Meds Home Medications ?Medication ?Instructions ?Recorded ?Confirmed ?Type acyclovir 400 mg tablet 400 mg PO BID 05/26/24 07/08/24 History lorazepam 0.5 mg tablet 0.5 mg PO BID 05/26/24 07/08/24 History quetiapine 300 mg tablet 150 mg PO BEDTIME 05/26/24 07/08/24 History fluvoxamine 25 mg tablet 25 mg PO BID 07/08/24 07/08/24 History guanfacine 1 mg tablet,extended 1 mg PO BID 07/08/24 07/08/24 History release 24 hr oxcarbazepine 300 mg tablet 300 mg PO BEDTIME 07/08/24 07/08/24 History topiramate 50 mg tablet 50 mg PO BEDTIME 07/08/24 07/08/24 History Allergies Allergies Allergy/AdvReac Type Severity Reaction Status Date / Time Sulfa (Sulfonamide Allergy Rash Verified 07/08/24 14:08 Antibiotics) Mental Status Exam Mental Status Exam Narrative: Pt is alert and oriented; behavior is cooperative, anxious, picking at scabs on scalp, grunting at times; dressed in casual attire; mood is described as depressed and anxious ; eye contact appropriate; Speech is normal rate, volume and not pressured; thought process is organized and goal directed; Thought content is on tx; denies SI/HI/VH/AH. Assessment & Plan Assessment & Plan (1) Bipolar II disorder: Status: Acute Code(s): F31.81 - Bipolar II disorder (2) PTSD (post-traumatic stress disorder): Status: Acute Code(s): F43.10 - Post-traumatic stress disorder, unspecified (3) OCD (obsessive compulsive disorder): Status: Acute Code(s): F42.9 - Obsessive-compulsive disorder, unspecified (4) Alcohol use disorder: Status: Acute Code(s): F10.90 - Alcohol use, unspecified, uncomplicated Plan Patient is a 48 year old male with hx of Bipolar d/o, PTSD, OCD and alcohol use d/o who presented to [facility] from the partial hospitalization program on a section 12 due to suicidal ideation, increased anxiety and depression secondary to fixation of medical concerns. Plan: CV 15 minute safety check Continue home medication CIWA protocol Increase Seroquel to 200 mg p.o. bedtime DC Ativan Start: Klonopin 0.5 mg p.o. daily Klonopin 1 mg PO bedtime obtain collateral encourage groups discharge planning Patient educated on: diagnosis and medication risk/benefits Reason for continued inpatient stay Substantial Risk for: med/psych decompensation Statement Statement: I have reviewed the history and physical and performed a pertinent examination on my patient. No changes have occurred unless specified. If the History and Physical was not performed prior to admission, the Hospitalist's service will be consulted for completing the admission physical. Time Spent With Patient Time: Total time managing care of this patient today _60___ minutes.
[2024-07-09 13:44] VITALS: BP 123/84; PULSE 92; RESP 16; TEMP 36.3; O2SAT 95
--- NOTE | 2024-07-09 16:56 | PC.ADMIT ---
Tomy is a 48 y/o german speaking male who was admitted toM3 at 1246 from the [facility] on a CV? for treatment of Bipolar d/o with SI. Pt walked from his [facility] with increased SI, anxiety, and depression. Pt was on M3 in May, but hasn?t found stability since discharging. Pt denies AH/VH/SH/HI since getting to the hospital. Pt is A&O x3, mood is depressed, hopeless and helpless. Tomy also reports increased struggles with his alcohol use. Pt is labile and tense with admission. Pt laid down in the sensory room and covered himself with a blanket refusing to leave the room to do admission. Pt also refused labs that were ordered. Pt signed all releases, but became annoyed and stopped participating in admission. Pt says, ? my life is useless, my scrotum is falling off, I hate my job, why bother.? Pt reports a good appetite. Pt denies ideation, plan or intent to harm self or others. He reports poor sleep, only sleeping in naps due to uncontrolled yelling/tics. Pt has a hx of several suicide attempts. Tox screen was negative. Pt reports? drinking 4-5 nips /day and 4-5 beers/day. Pt denies drinking the past several days and denies withdrawal. Skin check was completed. Pt has noted sores on finger tips from biting them, sores on head/scalp from scratching r/t anxiety. Pt was unable to identify goals at time of admission. Pt placed on 15 minute checks.
[2024-07-09 17:34] VITALS: BMI 28.6
[2024-07-09] MEDS: Flu Vacc TS2024-25(6mos up)/PF 0.5 ML SYRINGE IM (18:04)
[2024-07-09 21:24] VITALS: BP 115/80; PULSE 69; RESP 18; TEMP 36.6; O2SAT 98
[2024-07-09] MEDS: clonazePAM 1 MG TABLET PO (21:32)
[2024-07-09] MEDS: Naltrexone HCl 50 MG TABLET PO (21:34)
[2024-07-09] MEDS: OXcarbazepine 300 MG TABLET PO (21:34)
[2024-07-09] MEDS: QUEtiapine Fumarate 200 MG TABLET PO (21:35)
[2024-07-09] MEDS: Topiramate 25 MG TABLET 50 MG PO (21:35)
[2024-07-10 07:42] VITALS: BP 140/83; PULSE 82; RESP 16; TEMP 37.2; O2SAT 97
[2024-07-10 08:00] VITALS: BP 140/83; PULSE 82; RESP 16; TEMP 37.2; O2SAT 97
--- NOTE | 2024-07-10 09:10 | P.PNPSI_ITS ---
Subjective Subjective Date of Service: 07/10/24 Reason For Visit: crisis Subjective Notes: Conditional Voluntary Interim History: Keeping to self. laying in bed. Patient continues to report feeling anxious; pt stated, I keep thinking about all my screw ups in life . Pt reports he believes klonopin has decreased his need to pick at his scalp and grunting. denies SI/HI/VH/AH. Medication Compliance: Yes Side effects from medications: No Attending Groups: No Review of Systems Constitutional: Reports as per HPI Eyes: Reports as per HPI Reports as per HPI Cardiovascular: Reports as per HPI Respiratory: Reports as per HPI Gastrointestinal: Reports as per HPI Genitourinary: Reports as per HPI Musculoskeletal: Reports as per HPI Skin/Breast: Reports as per HPI Reports as per HPI Psychiatric: Reports as per HPI Endocrine: Reports as per HPI Hematologic/Lymphatic: Reports as per HPI Allergic/Immunologic: Reports as per HPI Mental Status Exam Mental Status Exam Narrative: Pt is alert and oriented; behavior is cooperative, anxious, picking at scabs on scalp, grunting at times; dressed in casual attire; mood is described as depressed and anxious ; eye contact appropriate; Speech is normal rate, volume and not pressured; thought process is organized and goal directed; Thought content is on tx; denies SI/HI/VH/AH. Diagnostics Vital Signs (24Hr): Vital Signs - 24 hr 07/09/24 13:44 07/09/24 21:24 07/10/24 07:42 Temperature 97.3 F 97.9 F 98.9 F Pulse Rate 92 69 82 Respiratory Rate 16 18 16 Blood Pressure 123/84 115/80 140/83 H Pulse Oximetry 95 98 97 Oxygen Delivery Method Room Air Room Air Room Air 07/10/24 08:00 Temperature 98.9 F Pulse Rate 82 Respiratory Rate 16 Blood Pressure 140/83 H Pulse Oximetry 97 Oxygen Delivery Method Room Air BMI result Body Mass Index 28.6 Labs 07/08/24 16:07 07/08/24 16:07 Labs: Laboratory Results - last 48 hr 07/08/24 07/08/24 14:20 16:07 WBC 8.0 RBC 5.00 Hgb 16.1 Hct 44.3 MCV 88.6 MCH 32.2 MCHC 36.3 H RDW 12.7 Plt Count 278 MPV 9.4 Immature Gran % (Auto) 1.0 H Neut % (Auto) 69.9 Lymph % (Auto) 18.9 L [place] % (Auto) 8.3 Eos % (Auto) 1.4 Baso % (Auto) 0.5 Lymph # (Auto) 1.5 [place] # (Auto) 0.7 Eos # (Auto) 0.1 Baso # (Auto) 0.0 Abs Immat Gran (auto) 0.08 H Absolute Neuts (auto) 5.6 Absolute Nucleated RBC 0.000 Nucleated RBC % (auto) 0.0 Sodium 136 Potassium 3.7 Chloride 105 Carbon Dioxide 23 Anion Gap 12 BUN 14 Creatinine 0.85 Estim Creat Clear Calc 100.5 Estimated GFR > 60 Random Glucose 103 Calcium 8.9 Urine Color Yellow Urine Appearance Clear Urine pH 5.5 Ur Specific [place] 1.015 Urine Protein Negative Urine Glucose (UA) Negative Urine Ketones Negative Urine Blood Negative Urine Nitrite Negative Ur Leukocyte Esterase Negative Salicylates < 5.0 L Urine Opiates Screen Not Detected Ur Buprenorphine Scrn Not Detected Ur Oxycodone Screen Not Detected Urine Methadone Screen Not Detected Urine Fentanyl Screen Not Detected Ur Barbiturates Screen Not Detected Ur Phencyclidine Scrn Not Detected Ur Amphetamines Screen Not Detected U Benzodiazepines Scrn Not Detected Urine Cocaine Screen Not Detected U Marijuana (THC) Screen Not Detected Ethyl Alcohol < 10 Medications Medications Current Medications Acetaminophen (Acetaminophen 325 Mg Tablet) 650 mg PO Q6H PRN PRN Reason: Headache/Pain Mild Scale (1-3) Acyclovir (Acyclovir 200 Mg Capsule) 400 mg PO BID [facility] Last Admin: 07/09/24 21:32 Dose: 400 mg Al Hydroxide/Mg Hydroxide (Magnesium Hydrox/Alum Hydrox 30 Ml Oral.Susp) 30 ml PO Q6H PRN PRN Reason: Heartburn/Nausea Clonazepam (Clonazepam 0.5 Mg Tablet) 0.5 mg PO DAILY [facility] Clonazepam (Clonazepam 1 Mg Tablet) 1 mg PO BEDTIME [facility] Last Admin: 07/09/24 21:32 Dose: 1 mg Ergocalciferol (Ergocalciferol (Vitamin D2) 1,250 Mcg Capsule) 1,250 mcg PO Th [facility] Last Admin: 07/09/24 09:25 Dose: 1,250 mcg Fluvoxamine Maleate (Fluvoxamine Maleate 50 Mg Tablet) 25 mg PO BID [facility] Last Admin: 07/09/24 21:32 Dose: 25 mg Guanfacine HCl (Guanfacine Hcl Er 1 Mg Tab.Er.24h) 1 mg PO BID [facility] Last Admin: 07/09/24 21:34 Dose: 1 mg Hydroxyzine HCl (Hydroxyzine Hcl 25 Mg Tablet) 25 mg PO Q6H PRN PRN Reason: Anxiety Lorazepam (Lorazepam 1 Mg Tablet) 1 mg PO Q2H PRN PRN Reason: CIWA 8-11 Lorazepam (Lorazepam 1 Mg Tablet) 2 mg PO Q2H PRN PRN Reason: CIWA 12-15 Lorazepam (Lorazepam 1 Mg Tablet) 3 mg PO Q2H PRN PRN Reason: CIWA > 15, and call Magnesium Hydroxide (Milk Of Magnesia 30 Ml Oral.Susp) 30 ml PO DAILY PRN PRN Reason: Constipation Naltrexone HCl (Naltrexone Hcl 50 Mg Tablet) 50 mg PO BEDTIME [facility] Last Admin: 07/09/24 21:34 Dose: 50 mg Nicotine Polacrilex (Nicotine Polacrilex 2 Mg Gum) 4 mg BUCCAL Q2H PRN PRN Reason: Nicotine Cravings Oxcarbazepine (Oxcarbazepine 300 Mg Tablet) 300 mg PO BEDTIME [facility] Last Admin: 07/09/24 21:34 Dose: 300 mg Quetiapine Fumarate (Quetiapine Fumarate 200 Mg Tablet) 200 mg PO BEDTIME [facility] Last Admin: 07/09/24 21:35 Dose: 200 mg Thiamine HCl (Thiamine Hcl 100 Mg Tablet) 100 mg PO DAILY [facility] Last Admin: 07/09/24 08:28 Dose: 100 mg Topiramate (Topiramate 25 Mg Tablet) 50 mg PO BEDTIME [facility] Last Admin: 07/09/24 21:35 Dose: 50 mg Trazodone HCl (Trazodone Hcl 50 Mg Tablet) 50 mg PO BEDTIME MRX1 PRN PRN Reason: Insomnia Allergies Allergies Allergy/AdvReac Type Severity Reaction Status Date / Time Sulfa (Sulfonamide Allergy Rash Verified 07/08/24 14:08 Antibiotics) Assessment & Plan Assessment & Plan (1) Bipolar II disorder: Status: Acute Code(s): F31.81 - Bipolar II disorder (2) PTSD (post-traumatic stress disorder): Status: Acute Code(s): F43.10 - Post-traumatic stress disorder, unspecified (3) OCD (obsessive compulsive disorder): Status: Acute Code(s): F42.9 - Obsessive-compulsive disorder, unspecified (4) Alcohol use disorder: Status: Acute Code(s): F10.90 - Alcohol use, unspecified, uncomplicated Plan Patient is a 48 year old male with hx of Bipolar d/o, PTSD, OCD and alcohol use d/o who presented [place] [facility] [place] hospitalization program on a section 12 due to suicidal ideation, increased anxiety and depression secondary to fixation of medical concerns. Plan: CV 15 minute safety check Continue home medication CIWA protocol Increase Seroquel to 200 mg p.o. bedtime DC Ativan Start: Klonopin 0.5 mg p.o. daily Klonopin 1 mg PO bedtime obtain collateral encourage groups discharge planning 07/10: Keeping to self. laying in bed. Patient continues to report feeling anxious; pt stated, I keep thinking about all my screw ups in life . Pt reports he believes klonopin has decreased his need to pick at his scalp and grunting. denies SI/HI/VH/AH. Continue current tx plan. Patient educated on: diagnosis, medication risk/benefits and therapeutic strategies Reason for continued inpatient stay Substantial Risk for: med/psych decompensation Time Spent With Patient Time: Total time managing care of this patient today _20___ minutes.
[2024-07-10] MEDS: Acyclovir 200 MG CAPSULE 400 MG PO ×2 (09:12→21:41)
[2024-07-10] MEDS: guanFACINE HCl ER 1 MG TAB.ER.24H PO ×2 (09:12→21:40)
[2024-07-10] MEDS: Thiamine HCL 100 MG TABLET PO (09:13)
[2024-07-10] MEDS: fluvoxaMINE Maleate 50 MG TABLET 25 MG PO ×2 (09:13→21:40)
[2024-07-10] MEDS: clonazePAM 0.5 MG TABLET PO (09:13)
[2024-07-10] MEDS: LORazepam 1 MG TABLET PO ×4 (09:36→21:44)
--- NOTE | 2024-07-10 12:15 | MHC.RECOVRN ---
AUDIT-C Brief Intervention Pt had positive screen for unhealthy alcohol use on admission, subsequently met with t/w to discuss alcohol use and recovery supports/options. This headline writer met with patient to discuss current alcohol use and concerns related to increased risk of alcohol related problems.? Pt reports 7-12 Smirnoff nips as well as 5 12 ounce beers daily x 5-6 months. Discussed how alcohol use has impacted health, including negative impact on relationships and ability to care for self. Withdrawal History: denies hx withdrawal seizures Treatment History: denies history of treatment Supports:?family Discussed risk reduction strategies including drinking below the recommended limit. Provided pt with written resources including information on inpatient and outpatient treatment, JULIET, harm reduction, and recovery coaching. Pt plans to connect to the [facility] for JULIET and meet with legal recovery specialist. Pt provided with t/w contact information if questions or concerns arise. Denies other questions or concerns at this time.?
--- NOTE | 2024-07-10 12:31 | MHC.RECOVRN ---
AUDIT-C Brief Intervention Pt had positive screen for unhealthy alcohol use on admission, subsequently met with t/w to discuss alcohol use and recovery supports/options. This handbook writer met with patient to discuss current alcohol use and concerns related to increased risk of alcohol related problems.? Pt reports 7-12 Smirnoff nips as well as 5 12 ounce beers daily x 5-6 months. Discussed how alcohol use has impacted health, including negative impact on relationships and ability to care for self. Withdrawal History: denies hx withdrawal seizures Treatment History: denies history of treatment, however, currently prescribed naltrexone Supports:?family Discussed risk reduction strategies including drinking below the recommended limit. Provided pt with written resources including information on inpatient and outpatient treatment, JULIET, harm reduction, and recovery coaching. Pt plans to meet with sales coach while in the hospital to further discuss recovery. Pt provided with t/w contact information if questions or concerns arise. Denies other questions or concerns at this time.?
--- NOTE | 2024-07-10 12:47 | MHC.RECOVSUP ---
Camp Head Counselor Note Patient seen in 326 Consult requested for?Recovery Supports & Harm Reduction Discussion? Current substance use reported by patient: ETOH Plan:? Camp [facility] Counselor referral placed to Jacobo Zeng.
[2024-07-10 16:06] VITALS: BP 115/74; PULSE 85; RESP 16; TEMP 36.4; O2SAT 96
[2024-07-10 20:00] VITALS: BP 105/65; PULSE 70; RESP 16; TEMP 36.4; O2SAT 95
[2024-07-10] MEDS: clonazePAM 1 MG TABLET PO (21:40)
[2024-07-10] MEDS: QUEtiapine Fumarate 200 MG TABLET PO (21:40)
[2024-07-10] MEDS: Naltrexone HCl 50 MG TABLET PO (21:41)
[2024-07-10] MEDS: OXcarbazepine 300 MG TABLET PO (21:41)
[2024-07-10] MEDS: Topiramate 25 MG TABLET 50 MG PO (21:41)
--- NOTE | 2024-07-11 08:23 | P.PNPSI_ITS ---
Subjective Subjective Date of Service: 07/11/24 Reason For Visit: crisis Subjective Notes: Conditional Voluntary Interim History: Pt reports he is doing better. He denies SI/HI. He asks if he can have ambien like his roommate. However, he is sleeping per staff through the night. He is on ciwa for alcohol withdrawal. will defer to primary tx team. Review of Systems Review of Systems Positive suicidal thoughts no specific plans Yes all other systems are reviewed and are negative Constitutional: Reports as per HPI Eyes: Reports as per HPI Reports as per HPI Cardiovascular: Reports as per HPI Respiratory: Reports as per HPI Gastrointestinal: Reports as per HPI Genitourinary: Reports as per HPI Musculoskeletal: Reports as per HPI Skin/Breast: Reports as per HPI Reports as per HPI Psychiatric: Reports as per HPI Endocrine: Reports as per HPI Hematologic/Lymphatic: Reports as per HPI Allergic/Immunologic: Reports as per HPI Mental Status Exam Mental Status Exam Narrative: Pt is alert and oriented; behavior is cooperative, anxious, picking at scabs on scalp, grunting at times; dressed in casual attire; mood is described as depressed and anxious ; eye contact appropriate; Speech is normal rate, volume and not pressured; thought process is organized and goal directed; Thought content is on tx; denies SI/HI/VH/AH. Diagnostics Vital Signs (24Hr): Vital Signs - 24 hr 07/10/24 16:06 07/10/24 20:00 Temperature 97.5 F 97.6 F Pulse Rate 85 70 Respiratory Rate 16 16 Blood Pressure 115/74 105/65 Pulse Oximetry 96 95 Oxygen Delivery Method Room Air Room Air BMI result Body Mass Index 28.6 Labs 07/08/24 16:07 07/08/24 16:07 Medications Medications Current Medications Acetaminophen (Acetaminophen 325 Mg Tablet) 650 mg PO Q6H PRN PRN Reason: Headache/Pain Mild Scale (1-3) Acyclovir (Acyclovir 200 Mg Capsule) 400 mg PO BID [facility] Last Admin: 07/10/24 21:41 Dose: 400 mg Al Hydroxide/Mg Hydroxide (Magnesium Hydrox/Alum Hydrox 30 Ml Oral.Susp) 30 ml PO Q6H PRN PRN Reason: Heartburn/Nausea Clonazepam (Clonazepam 0.5 Mg Tablet) 0.5 mg PO DAILY [facility] Last Admin: 07/10/24 09:13 Dose: 0.5 mg Clonazepam (Clonazepam 1 Mg Tablet) 1 mg PO BEDTIME [facility] Last Admin: 07/10/24 21:40 Dose: 1 mg Ergocalciferol (Ergocalciferol (Vitamin D2) 1,250 Mcg Capsule) 1,250 mcg PO Th [facility] Last Admin: 07/09/24 09:25 Dose: 1,250 mcg Fluvoxamine Maleate (Fluvoxamine Maleate 50 Mg Tablet) 25 mg PO BID [facility] Last Admin: 07/10/24 21:40 Dose: 25 mg Guanfacine HCl (Guanfacine Hcl Er 1 Mg Tab.Er.24h) 1 mg PO BID [facility] Last Admin: 07/10/24 21:40 Dose: 1 mg Hydroxyzine HCl (Hydroxyzine Hcl 25 Mg Tablet) 25 mg PO Q6H PRN PRN Reason: Anxiety Lorazepam (Lorazepam 1 Mg Tablet) 1 mg PO Q2H PRN PRN Reason: CIWA 8-11 Last Admin: 07/10/24 21:44 Dose: 1 mg Lorazepam (Lorazepam 1 Mg Tablet) 2 mg PO Q2H PRN PRN Reason: CIWA 12-15 Lorazepam (Lorazepam 1 Mg Tablet) 3 mg PO Q2H PRN PRN Reason: CIWA > 15, and call MD Magnesium Hydroxide (Milk Of Magnesia 30 Ml Oral.Susp) 30 ml PO DAILY PRN PRN Reason: Constipation Naltrexone HCl (Naltrexone Hcl 50 Mg Tablet) 50 mg PO BEDTIME [facility] Last Admin: 07/10/24 21:41 Dose: 50 mg Nicotine Polacrilex (Nicotine Polacrilex 2 Mg Gum) 4 mg BUCCAL Q2H PRN PRN Reason: Nicotine Cravings Oxcarbazepine (Oxcarbazepine 300 Mg Tablet) 300 mg PO BEDTIME [facility] Last Admin: 07/10/24 21:41 Dose: 300 mg Quetiapine Fumarate (Quetiapine Fumarate 200 Mg Tablet) 200 mg PO BEDTIME [facility] Last Admin: 07/10/24 21:40 Dose: 200 mg Thiamine HCl (Thiamine Hcl 100 Mg Tablet) 100 mg PO DAILY [facility] Last Admin: 07/10/24 09:13 Dose: 100 mg Topiramate (Topiramate 25 Mg Tablet) 50 mg PO BEDTIME [facility] Last Admin: 07/10/24 21:41 Dose: 50 mg Trazodone HCl (Trazodone Hcl 50 Mg Tablet) 50 mg PO BEDTIME MRX1 PRN PRN Reason: Insomnia Allergies Allergies Allergy/AdvReac Type Severity Reaction Status Date / Time Sulfa (Sulfonamide Allergy Rash Verified 07/08/24 14:08 Antibiotics) Assessment & Plan Assessment & Plan (1) Bipolar II disorder: Status: Acute Code(s): F31.81 - Bipolar II disorder (2) PTSD (post-traumatic stress disorder): Status: Acute Code(s): F43.10 - Post-traumatic stress disorder, unspecified (3) OCD (obsessive compulsive disorder): Status: Acute Code(s): F42.9 - Obsessive-compulsive disorder, unspecified (4) Alcohol use disorder: Status: Acute Code(s): F10.90 - Alcohol use, unspecified, uncomplicated Plan Patient is a 48 year old male with hx of Bipolar d/o, PTSD, OCD and alcohol use d/o who presented [place] [facility] [place] program on a section 12 due to suicidal ideation, increased anxiety and depression secondary to fixation of medical concerns. Plan: CV 15 minute safety check Continue home medication CIWA protocol Increase Seroquel to 200 mg p.o. bedtime DC Ativan Start: Klonopin 0.5 mg p.o. daily Klonopin 1 mg PO bedtime obtain collateral encourage groups discharge planning 07/10: Keeping to self. laying in bed. Patient continues to report feeling anxious; pt stated, I keep thinking about all my screw ups in life . Pt reports he believes klonopin has decreased his need to pick at his scalp and grunting. denies SI/HI/VH/AH. Continue current tx plan. 07/11 continue tx. will not rx ambien as per staff he is sleeping through the night, on ciwa for alcohol withdrawal. Reason for continued inpatient stay Substantial Risk for: inability to function Time Spent With Patient Time: Total time managing care of this patient today ____ minutes.
[2024-07-11 08:52] VITALS: BP 110/70; PULSE 76; RESP 18; TEMP 36.3; O2SAT 96
[2024-07-11] MEDS: Acyclovir 200 MG CAPSULE 400 MG PO ×2 (08:53→21:03)
[2024-07-11] MEDS: guanFACINE HCl ER 1 MG TAB.ER.24H PO ×2 (08:54→21:03)
[2024-07-11] MEDS: Thiamine HCL 100 MG TABLET PO (08:54)
[2024-07-11] MEDS: fluvoxaMINE Maleate 50 MG TABLET 25 MG PO ×2 (08:54→21:03)
[2024-07-11] MEDS: clonazePAM 0.5 MG TABLET PO (08:55)
[2024-07-11] MEDS: LORazepam 1 MG TABLET PO ×2 (08:59→16:15)
[2024-07-11 16:11] VITALS: BP 115/74; PULSE 72
[2024-07-11 19:47] VITALS: BP 96/52; PULSE 82; RESP 18; TEMP 36.4; O2SAT 96
[2024-07-11] MEDS: Topiramate 25 MG TABLET 50 MG PO (21:03)
[2024-07-11] MEDS: QUEtiapine Fumarate 200 MG TABLET PO (21:03)
[2024-07-11] MEDS: Naltrexone HCl 50 MG TABLET PO (21:03)
[2024-07-11] MEDS: OXcarbazepine 300 MG TABLET PO (21:03)
[2024-07-11] MEDS: clonazePAM 1 MG TABLET PO (21:03)
[2024-07-12] MEDS: LORazepam 1 MG TABLET PO (00:22)
--- NOTE | 2024-07-12 04:05 | PC.NURSE ---
Pt sleeping soundly, allowed to sleep. Breathing easy and unlabored.
[2024-07-12 08:00] VITALS: BP 107/71; PULSE 69; RESP 16; TEMP 36.6; O2SAT 98
[2024-07-12] MEDS: Acyclovir 200 MG CAPSULE 400 MG PO ×2 (09:40→20:29)
[2024-07-12] MEDS: guanFACINE HCl ER 1 MG TAB.ER.24H PO ×2 (09:40→20:29)
[2024-07-12] MEDS: clonazePAM 0.5 MG TABLET PO (09:40)
[2024-07-12] MEDS: Thiamine HCL 100 MG TABLET PO (09:41)
[2024-07-12] MEDS: fluvoxaMINE Maleate 50 MG TABLET 25 MG PO ×2 (09:41→20:30)
--- NOTE | 2024-07-12 10:48 | HO.PSYCHPN ---
Subjective Subjective Date of Service: 07/12/24 Reason For Visit: crisis Interim History: Pt reports he is doing better. He denies SI/HI. He asks if he can have ambien like his roommate. However, he is sleeping per staff through the night. He is on ciwa for alcohol withdrawal. will defer to primary tx team. Review of Systems Review of Systems Positive suicidal thoughts no specific plans Yes all other systems are reviewed and are negative Constitutional: Reports as per HPI Eyes: Reports as per HPI Reports as per HPI Cardiovascular: Reports as per HPI Respiratory: Reports as per HPI Gastrointestinal: Reports as per HPI Genitourinary: Reports as per HPI Musculoskeletal: Reports as per HPI Skin/Breast: Reports as per HPI Reports as per HPI Psychiatric: Reports as per HPI Endocrine: Reports as per HPI Hematologic/Lymphatic: Reports as per HPI Allergic/Immunologic: Reports as per HPI Mental Status Exam Mental Status Exam Narrative: Pt is alert and oriented x 3; behavior is cooperative, anxious, picking at scabs on scalp, grunting at times; dressed in casual attire; mood is described as depressed and anxious ; eye contact appropriate; Speech is normal rate, volume and not pressured; thought process is organized and goal directed; Thought content is on tx; denies SI/HI/VH/AH. Diagnostics Vital Signs (24Hr): Vital Signs - 24 hr 07/11/24 16:11 07/11/24 19:47 07/12/24 08:00 Temperature 97.5 F 97.8 F Pulse Rate 72 82 69 Respiratory Rate 18 16 Blood Pressure 115/74 96/52 L 107/71 Pulse Oximetry 96 98 Oxygen Delivery Method Room Air Room Air BMI result Body Mass Index 28.6 Labs 07/08/24 16:07 07/08/24 16:07 Medications Medications Current Medications Acetaminophen (Acetaminophen 325 Mg Tablet) 650 mg PO Q6H PRN PRN Reason: Headache/Pain Mild Scale (1-3) Acyclovir (Acyclovir 200 Mg Capsule) 400 mg PO BID [facility] Last Admin: 07/12/24 09:40 Dose: 400 mg Al Hydroxide/Mg Hydroxide (Magnesium Hydrox/Alum Hydrox 30 Ml Oral.Susp) 30 ml PO Q6H PRN PRN Reason: Heartburn/Nausea Clonazepam (Clonazepam 0.5 Mg Tablet) 0.5 mg PO DAILY [facility] Last Admin: 12/22/24 09:40 Dose: 0.5 mg Clonazepam (Clonazepam 1 Mg Tablet) 1 mg PO BEDTIME [facility] Last Admin: 07/11/24 21:03 Dose: 1 mg Ergocalciferol (Ergocalciferol (Vitamin D2) 1,250 Mcg Capsule) 1,250 mcg PO Th [facility] Last Admin: 07/09/24 09:25 Dose: 1,250 mcg Fluvoxamine Maleate (Fluvoxamine Maleate 50 Mg Tablet) 25 mg PO BID [facility] Last Admin: 07/12/24 09:41 Dose: 25 mg Guanfacine HCl (Guanfacine Hcl Er 1 Mg Tab.Er.24h) 1 mg PO BID [facility] Last Admin: 07/12/24 09:40 Dose: 1 mg Hydroxyzine HCl (Hydroxyzine Hcl 25 Mg Tablet) 25 mg PO Q6H PRN PRN Reason: Anxiety Lorazepam (Lorazepam 1 Mg Tablet) 1 mg PO Q2H PRN PRN Reason: CIWA 8-11 Last Admin: 07/12/24 00:22 Dose: 1 mg Lorazepam (Lorazepam 1 Mg Tablet) 2 mg PO Q2H PRN PRN Reason: CIWA 12-15 Lorazepam (Lorazepam 1 Mg Tablet) 3 mg PO Q2H PRN PRN Reason: CIWA > 15, and call MD Magnesium Hydroxide (Milk Of Magnesia 30 Ml Oral.Susp) 30 ml PO DAILY PRN PRN Reason: Constipation Naltrexone HCl (Naltrexone Hcl 50 Mg Tablet) 50 mg PO BEDTIME [facility] Last Admin: 07/11/24 21:03 Dose: 50 mg Nicotine Polacrilex (Nicotine Polacrilex 2 Mg Gum) 4 mg BUCCAL Q2H PRN PRN Reason: Nicotine Cravings Oxcarbazepine (Oxcarbazepine 300 Mg Tablet) 300 mg PO BEDTIME [facility] Last Admin: 07/11/24 21:03 Dose: 300 mg Quetiapine Fumarate (Quetiapine Fumarate 200 Mg Tablet) 200 mg PO BEDTIME [facility] Last Admin: 07/11/24 21:03 Dose: 200 mg Thiamine HCl (Thiamine Hcl 100 Mg Tablet) 100 mg PO DAILY [facility] Last Admin: 07/12/24 09:41 Dose: 100 mg Topiramate (Topiramate 25 Mg Tablet) 50 mg PO BEDTIME [facility] Last Admin: 07/11/24 21:03 Dose: 50 mg Trazodone HCl (Trazodone Hcl 50 Mg Tablet) 50 mg PO BEDTIME MRX1 PRN PRN Reason: Insomnia Allergies Allergies Allergy/AdvReac Type Severity Reaction Status Date / Time Sulfa (Sulfonamide Allergy Rash Verified 07/08/24 14:08 Antibiotics) Assessment & Plan Assessment & Plan (1) Bipolar II disorder: Status: Acute Code(s): F31.81 - Bipolar II disorder (2) PTSD (post-traumatic stress disorder): Status: Acute Code(s): F43.10 - Post-traumatic stress disorder, unspecified (3) OCD (obsessive compulsive disorder): Status: Acute Code(s): F42.9 - Obsessive-compulsive disorder, unspecified (4) Alcohol use disorder: Status: Acute Code(s): F10.90 - Alcohol use, unspecified, uncomplicated Plan Patient is a 48 year old male with hx of Bipolar d/o, PTSD, OCD and alcohol use d/o who presented to [facility] [place] from the partial hospitalization program on a section 12 due to suicidal ideation, increased anxiety and depression secondary to fixation of medical concerns. Plan: CV 15 minute safety check Continue home medication CIWA protocol Increase Seroquel to 200 mg p.o. bedtime DC Ativan Start: Klonopin 0.5 mg p.o. daily Klonopin 1 mg PO bedtime obtain collateral encourage groups discharge planning 07/10: Keeping to self. laying in bed. Patient continues to report feeling anxious; pt stated, I keep thinking about all my screw ups in life . Pt reports he believes klonopin has decreased his need to pick at his scalp and grunting. denies SI/HI/VH/AH. Continue current tx plan. 07/11 continue tx. will not rx ambien as per staff he is sleeping through the night, on ciwa for alcohol withdrawal. 07/12 continue tx. Reason for continued inpatient stay Substantial Risk for: inability to function Time Spent With Patient Time: Total time managing care of this patient today ____ minutes.
[2024-07-12] MEDS: hydrOXYzine HCL 25 MG TABLET PO (10:55)
[2024-07-12 12:31] VITALS: BP 119/78
[2024-07-12 20:00] VITALS: BP 120/74; PULSE 77; RESP 16; TEMP 36.7; O2SAT 97
[2024-07-12] MEDS: Topiramate 25 MG TABLET 50 MG PO (20:28)
[2024-07-12] MEDS: OXcarbazepine 300 MG TABLET PO (20:28)
[2024-07-12] MEDS: QUEtiapine Fumarate 200 MG TABLET PO (20:29)
[2024-07-12] MEDS: Naltrexone HCl 50 MG TABLET PO (20:29)
[2024-07-12] MEDS: clonazePAM 1 MG TABLET PO (20:29)
[2024-07-13] MEDS: Acetaminophen 325 MG TABLET 650 MG PO
[2024-07-13 07:47] VITALS: BP 114/66; PULSE 79; RESP 14; TEMP 36.4; O2SAT 97
[2024-07-13] MEDS: fluvoxaMINE Maleate 50 MG TABLET 25 MG PO (09:13)
[2024-07-13] MEDS: guanFACINE HCl ER 1 MG TAB.ER.24H PO ×2 (09:13→20:40)
[2024-07-13] MEDS: Thiamine HCL 100 MG TABLET PO (09:13)
[2024-07-13] MEDS: Acyclovir 200 MG CAPSULE 400 MG PO ×2 (09:13→20:39)
[2024-07-13] MEDS: clonazePAM 0.5 MG TABLET PO (09:13)
[2024-07-13] MEDS: LORazepam 1 MG TABLET PO (09:19)
--- NOTE | 2024-07-13 10:12 | P.PNPSI_ITS ---
Subjective Subjective Date of Service: 07/13/24 Reason For Visit: SI agitation Subjective Notes: Conditional Voluntary Healthcare Proxy: No Guardianship: No Medical Problems Affecting Mental Status: No Interim History: The patient has severe anxiety mood instability irritability and dysphoria. Has not been taking care of his ADLs he has been attendin catastrophic thinking . Went to [facility] with encouragementg groups. He is still quite obsessional that his life is over could have jumped from a car park Medication Compliance: Yes Mental Status Exam Mental Status Exam Narrative: The patient is disheveled with poor hygiene his speech is clear thinking is perseverative content focused on helplessness hopelessness and that his life is over. Psychomotor retardation noted severe anxiety affect constricted thoughts he would be better off but denies current active plan. Very limited insight into his catastrophizing no hallucinations or delusional material impulse control adequate in this setting not if not in a locked setting Diagnostics Vital Signs (24Hr): Vital Signs - 24 hr 07/12/24 12:31 07/12/24 20:00 07/13/24 07:47 Temperature 98.1 F 97.6 F Pulse Rate 77 79 Respiratory Rate 16 14 Blood Pressure 119/78 120/74 114/66 Pulse Oximetry 97 97 Oxygen Delivery Method Room Air Room Air BMI result Body Mass Index 28.6 Labs 07/08/24 16:07 07/08/24 16:07 Medications Medications Current Medications Acetaminophen (Acetaminophen 325 Mg Tablet) 650 mg PO Q6H PRN PRN Reason: Headache/Pain Mild Scale (1-3) Last Admin: 07/13/24 00:00 Dose: 650 mg Acyclovir (Acyclovir 200 Mg Capsule) 400 mg PO BID [facility] Last Admin: 07/13/24 09:13 Dose: 400 mg Al Hydroxide/Mg Hydroxide (Magnesium Hydrox/Alum Hydrox 30 Ml Oral.Susp) 30 ml PO Q6H PRN PRN Reason: Heartburn/Nausea Clonazepam (Clonazepam 0.5 Mg Tablet) 0.5 mg PO DAILY [facility] Last Admin: 07/13/24 09:13 Dose: 0.5 mg Clonazepam (Clonazepam 1 Mg Tablet) 1 mg PO BEDTIME [facility] Last Admin: 07/12/24 20:29 Dose: 1 mg Ergocalciferol (Ergocalciferol (Vitamin D2) 1,250 Mcg Capsule) 1,250 mcg PO Th [facility] Last Admin: 07/09/24 09:25 Dose: 1,250 mcg Fluvoxamine Maleate (Fluvoxamine Maleate 50 Mg Tablet) 25 mg PO BID [facility] Last Admin: 07/13/24 09:13 Dose: 25 mg Guanfacine HCl (Guanfacine Hcl Er 1 Mg Tab.Er.24h) 1 mg PO BID [facility] Last Admin: 07/13/24 09:13 Dose: 1 mg Hydroxyzine HCl (Hydroxyzine Hcl 25 Mg Tablet) 25 mg PO Q6H PRN PRN Reason: Anxiety Last Admin: 07/13/24 00:00 Dose: 25 mg Lorazepam (Lorazepam 1 Mg Tablet) 1 mg PO Q2H PRN PRN Reason: CIWA 8-11 Last Admin: 07/13/24 09:19 Dose: 1 mg Lorazepam (Lorazepam 1 Mg Tablet) 2 mg PO Q2H PRN PRN Reason: CIWA 12-15 Lorazepam (Lorazepam 1 Mg Tablet) 3 mg PO Q2H PRN PRN Reason: CIWA > 15, and call Magnesium Hydroxide (Milk Of Magnesia 30 Ml Oral.Susp) 30 ml PO DAILY PRN PRN Reason: Constipation Naltrexone HCl (Naltrexone Hcl 50 Mg Tablet) 50 mg PO BEDTIME [facility] Last Admin: 07/12/24 20:29 Dose: 50 mg Nicotine Polacrilex (Nicotine Polacrilex 2 Mg Gum) 4 mg BUCCAL Q2H PRN PRN Reason: Nicotine Cravings Oxcarbazepine (Oxcarbazepine 300 Mg Tablet) 300 mg PO BEDTIME [facility] Last Admin: 07/12/24 20:28 Dose: 300 mg Quetiapine Fumarate (Quetiapine Fumarate 200 Mg Tablet) 200 mg PO BEDTIME [facility] Last Admin: 07/12/24 20:29 Dose: 200 mg Thiamine HCl (Thiamine Hcl 100 Mg Tablet) 100 mg PO DAILY [facility] Last Admin: 07/13/24 09:13 Dose: 100 mg Topiramate (Topiramate 25 Mg Tablet) 50 mg PO BEDTIME [facility] Last Admin: 07/12/24 20:28 Dose: 50 mg Trazodone HCl (Trazodone Hcl 50 Mg Tablet) 50 mg PO BEDTIME MRX1 PRN PRN Reason: Insomnia Allergies Allergies Allergy/AdvReac Type Severity Reaction Status Date / Time Sulfa (Sulfonamide Allergy Rash Verified 07/08/24 14:08 Antibiotics) Assessment & Plan Assessment & Plan (1) Bipolar II disorder: Status: Acute Code(s): F31.81 - Bipolar II disorder (2) PTSD (post-traumatic stress disorder): Status: Acute Code(s): F43.10 - Post-traumatic stress disorder, unspecified (3) OCD (obsessive compulsive disorder): Status: Acute Code(s): F42.9 - Obsessive-compulsive disorder, unspecified (4) Alcohol use disorder: Status: Acute Code(s): F10.90 - Alcohol use, unspecified, uncomplicated Plan Patient is a 48 year old male with hx of Bipolar d/o, PTSD, OCD and alcohol use d/o who [place] [facility] [place] program on a section 12 due to suicidal ideation, increased anxiety and depression secondary to fixation of medical concerns. Plan:CV 15 minute safety check Continue home medication CIWA protocol Increase Seroquel to 200 mg p.o. bedtime DC Ativan Start: Klonopin 0.5 mg p.o. daily Klonopin 1 mg PO bedtime obtain collateral encourage groups discharge planning 07/10: Keeping to self. laying in bed. Patient continues to report feeling anxious; pt stated, I keep thinking about all my screw ups in life . Pt reports he believes klonopin has decreased his need to pick at his scalp and grunting. denies SI/HI/VH/AH. Continue current tx plan. 07/11 continue tx. will not rx ambien as per staff he is sleeping through the night, on ciwa for alcohol withdrawal. 07/12 continue tx. 07/13/2024 Patient is anxious severely depressed not taking care of his ADLs catastrophic thinking hopeless helpless safe in the setting increase Luvox to 50 b.i.d. patient had reportedly accidentally stopped this dosing prior about 5 days prior to admission and may have been in withdrawal anxiety increase oxcarbazepine to 300 b.i.d. for help with anxiety and mood instability. If not effective would consider Anafranil. Patient focused on function his penis in a sexual manner urination ability to get an erection is focused that his life is over and focuses this all on the fact that he had herpes. Discussed that some of this may relate to medication he is currently taking. Urology consult Patient educated on: diagnosis and medication risk/benefits Reason for continued inpatient stay Substantial Risk for: harm to self and rapid decompensation Time Spent With Patient Time: Total time managing care of this patient today ____ minutes.
[2024-07-13] MEDS: hydrOXYzine HCL 25 MG TABLET PO ×2 (17:26)
[2024-07-13 19:40] VITALS: BP 108/67; PULSE 66; RESP 18; TEMP 37.1; O2SAT 96
[2024-07-13] MEDS: OXcarbazepine 300 MG TABLET PO (20:40)
[2024-07-13] MEDS: Naltrexone HCl 50 MG TABLET PO (20:40)
[2024-07-13] MEDS: QUEtiapine Fumarate 200 MG TABLET PO (20:40)
[2024-07-13] MEDS: fluvoxaMINE Maleate 50 MG TABLET PO (20:40)
[2024-07-13] MEDS: clonazePAM 1 MG TABLET PO (20:40)
[2024-07-13] MEDS: Topiramate 25 MG TABLET 50 MG PO (20:41)
[2024-07-14 07:56] VITALS: RESP 18
[2024-07-14] MEDS: OXcarbazepine 300 MG TABLET PO ×2 (08:49→20:28)
[2024-07-14] MEDS: Acyclovir 200 MG CAPSULE 400 MG PO ×2 (08:49→20:29)
[2024-07-14] MEDS: fluvoxaMINE Maleate 50 MG TABLET PO ×2 (08:49→20:29)
[2024-07-14] MEDS: clonazePAM 0.5 MG TABLET PO (08:49)
[2024-07-14] MEDS: guanFACINE HCl ER 1 MG TAB.ER.24H PO ×2 (08:49→20:29)
[2024-07-14] MEDS: Thiamine HCL 100 MG TABLET PO (08:49)
[2024-07-14] MEDS: hydrOXYzine HCL 25 MG TABLET PO ×2 (09:00→17:12)
--- NOTE | 2024-07-14 09:04 | HO.PSYCHPN ---
Subjective Subjective Date of Service: 07/14/24 Reason For Visit: SI agitation Subjective Notes: Conditional Voluntary Interim History: Social with select peers. Pt continues to report increase anxiety and depression; pt stated, I haven't showered in 5 days because I'm depressed about my herpes. I just keeping thinking about it. I don't know what to do . Tearful. encouraged to shower and attend groups. per nursing, slept 7 hours. Medication Compliance: Yes Side effects from medications: No Attending Groups: Intermittent Review of Systems Constitutional: Reports as per HPI Eyes: Reports as per HPI Reports as per HPI Cardiovascular: Reports as per HPI Respiratory: Reports as per HPI Gastrointestinal: Reports as per HPI Genitourinary: Reports as per HPI Musculoskeletal: Reports as per HPI Skin/Breast: Reports as per HPI Reports as per HPI Psychiatric: Reports as per HPI Endocrine: Reports as per HPI Hematologic/Lymphatic: Reports as per HPI Allergic/Immunologic: Reports as per HPI Mental Status Exam Mental Status Exam Narrative: Pt is alert and oriented; behavior is cooperative, anxious, tearful, grunting at times; dressed in casual attire; mood is described as depressed and anxious ; eye contact appropriate; Speech is normal rate, volume and not pressured; thought process is organized; Thought content is on tx Diagnostics Vital Signs (24Hr): Vital Signs - 24 hr 07/13/24 19:40 07/14/24 07:56 Temperature 98.7 F Pulse Rate 66 Respiratory Rate 18 18 Blood Pressure 108/67 Pulse Oximetry 96 Oxygen Delivery Method Room Air BMI result Body Mass Index 28.6 Labs 07/08/24 16:07 07/08/24 16:07 Medications Medications Current Medications Acetaminophen (Acetaminophen 325 Mg Tablet) 650 mg PO Q6H PRN PRN Reason: Headache/Pain Mild Scale (1-3) Last Admin: 07/13/24 00:00 Dose: 650 mg Acyclovir (Acyclovir 200 Mg Capsule) 400 mg PO BID [facility] Last Admin: 07/14/24 08:49 Dose: 400 mg Al Hydroxide/Mg Hydroxide (Magnesium Hydrox/Alum Hydrox 30 Ml Oral.Susp) 30 ml PO Q6H PRN PRN Reason: Heartburn/Nausea Clonazepam (Clonazepam 0.5 Mg Tablet) 0.5 mg PO DAILY [facility] Last Admin: 07/14/24 08:49 Dose: 0.5 mg Clonazepam (Clonazepam 1 Mg Tablet) 1 mg PO BEDTIME [facility] Last Admin: 07/13/24 20:40 Dose: 1 mg Ergocalciferol (Ergocalciferol (Vitamin D2) 1,250 Mcg Capsule) 1,250 mcg PO Th [facility] Last Admin: 07/09/24 09:25 Dose: 1,250 mcg Fluvoxamine Maleate (Fluvoxamine Maleate 50 Mg Tablet) 50 mg PO BID [facility] Last Admin: 07/14/24 08:49 Dose: 50 mg Guanfacine HCl (Guanfacine Hcl Er 1 Mg Tab.Er.24h) 1 mg PO BID [facility] Last Admin: 07/14/24 08:49 Dose: 1 mg Hydroxyzine HCl (Hydroxyzine Hcl 25 Mg Tablet) 25 mg PO Q6H PRN PRN Reason: Anxiety Last Admin: 07/14/24 09:00 Dose: 25 mg Magnesium Hydroxide (Milk Of Magnesia 30 Ml Oral.Susp) 30 ml PO DAILY PRN PRN Reason: Constipation Naltrexone HCl (Naltrexone Hcl 50 Mg Tablet) 50 mg PO BEDTIME [facility] Last Admin: 07/13/24 20:40 Dose: 50 mg Nicotine Polacrilex (Nicotine Polacrilex 2 Mg Gum) 4 mg BUCCAL Q2H PRN PRN Reason: Nicotine Cravings Oxcarbazepine (Oxcarbazepine 300 Mg Tablet) 300 mg PO BID [facility] Last Admin: 07/14/24 08:49 Dose: 300 mg Quetiapine Fumarate (Quetiapine Fumarate 200 Mg Tablet) 200 mg PO BEDTIME [facility] Last Admin: 07/13/24 20:40 Dose: 200 mg Thiamine HCl (Thiamine Hcl 100 Mg Tablet) 100 mg PO DAILY [facility] Last Admin: 07/14/24 08:49 Dose: 100 mg Topiramate (Topiramate 25 Mg Tablet) 50 mg PO BEDTIME [facility] Last Admin: 07/13/24 20:41 Dose: 50 mg Trazodone HCl (Trazodone Hcl 50 Mg Tablet) 50 mg PO BEDTIME MRX1 PRN PRN Reason: Insomnia Allergies Allergies Allergy/AdvReac Type Severity Reaction Status Date / Time Sulfa (Sulfonamide Allergy Rash Verified 07/08/24 14:08 Antibiotics) Assessment & Plan Assessment & Plan (1) Bipolar II disorder: Status: Acute Code(s): F31.81 - Bipolar II disorder (2) PTSD (post-traumatic stress disorder): Status: Acute Code(s): F43.10 - Post-traumatic stress disorder, unspecified (3) OCD (obsessive compulsive disorder): Status: Acute Code(s): F42.9 - Obsessive-compulsive disorder, unspecified (4) Alcohol use disorder: Status: Acute Code(s): F10.90 - Alcohol use, unspecified, uncomplicated Plan Patient is a 48 year old male with hx of Bipolar d/o, PTSD, OCD and alcohol use d/o who presented to [facility] from the partial hospitalization program on a section 12 due to suicidal ideation, increased anxiety and depression secondary to fixation of medical concerns. Plan:CV 15 minute safety check Continue home medication CIWA protocol Increase Seroquel to 200 mg p.o. bedtime DC Ativan Start: Klonopin 0.5 mg p.o. daily Klonopin 1 mg PO bedtime obtain collateral encourage groups discharge planning 07/10: Keeping to self. laying in bed. Patient continues to report feeling anxious; pt stated, I keep thinking about all my screw ups in life . Pt reports he believes klonopin has decreased his need to pick at his scalp and grunting. denies SI/HI/VH/AH. Continue current tx plan. 07/11 continue tx. will not rx ambien as per staff he is sleeping through the night, on ciwa for alcohol withdrawal. 07/12 continue tx. 07/13: Patient is anxious severely depressed not taking care of his ADLs catastrophic thinking hopeless helpless safe in the setting increase Luvox to 50 b.i.d. patient had reportedly accidentally stopped this dosing prior about 5 days prior to admission and may have been in withdrawal anxiety increase oxcarbazepine to 300 b.i.d. for help with anxiety and mood instability. If not effective would consider Anafranil. Patient focused on function his penis in a sexual manner urination ability to get an erection is focused that his life is over and focuses this all on the fact that he had herpes. Discussed that some of this may relate to medication he is currently taking. Urology consult 07/14: Social with select peers. Pt continues to report increase anxiety and depression; pt stated, I haven't showered in 5 days because I'm depressed about my herpes. I just keeping thinking about it. I don't know what to do . Tearful. encouraged to shower and attend groups. per nursing, slept 7 hours. Continue current tx plan. Patient educated on: diagnosis, medication risk/benefits and therapeutic strategies Reason for continued inpatient stay Substantial Risk for: med/psych decompensation Time Spent With Patient Time: Total time managing care of this patient today _20___ minutes.
[2024-07-14 20:00] VITALS: BP 102/63; PULSE 66; RESP 16; TEMP 36.7; O2SAT 94
[2024-07-14] MEDS: Topiramate 25 MG TABLET 50 MG PO (20:28)
[2024-07-14] MEDS: QUEtiapine Fumarate 200 MG TABLET PO (20:28)
[2024-07-14] MEDS: clonazePAM 1 MG TABLET PO (20:29)
[2024-07-14] MEDS: Naltrexone HCl 50 MG TABLET PO (20:29)
[2024-07-15 07:55] VITALS: BP 117/69; PULSE 67; RESP 14; TEMP 36.4; O2SAT 96
[2024-07-15] MEDS: clonazePAM 0.5 MG TABLET PO (08:51)
[2024-07-15] MEDS: Thiamine HCL 100 MG TABLET PO (08:52)
[2024-07-15] MEDS: guanFACINE HCl ER 1 MG TAB.ER.24H PO ×2 (08:52→22:28)
[2024-07-15] MEDS: Acyclovir 200 MG CAPSULE 400 MG PO ×2 (08:52→22:26)
[2024-07-15] MEDS: fluvoxaMINE Maleate 50 MG TABLET PO ×2 (08:52→22:28)
[2024-07-15] MEDS: OXcarbazepine 300 MG TABLET PO ×2 (08:52→22:26)
[2024-07-15] MEDS: Acetaminophen 325 MG TABLET 650 MG PO (08:54)
--- NOTE | 2024-07-15 11:21 | P.PNPSI_ITS ---
Subjective Subjective Date of Service: 07/15/24 Reason For Visit: SI agitation Subjective Notes: Conditional Voluntary Interim History: Patient was seen and discussed in rounds today. Records and plans were reviewed. He is doing better and is brighter. He is done with his withdrawal protocol. He did finally take a shower. He states that his negative self dialogue is better. A urology consult has been placed but not seen. No changes were made today Review of Systems Review of Systems Yes all other systems are reviewed and are negative Mental Status Exam Mental Status Exam Narrative: In today's visit he is alert, oriented and pleasant. Normal speech. Good eye contact. Affect is appropriate and varied. No signs of psychosis. Thought processes are coherent and goal directed. No SI. He moves all his limbs. No abnormalities of gait. Judgment is intact Diagnostics Vital Signs (24Hr): Vital Signs - 24 hr 07/14/24 20:00 07/15/24 07:55 Temperature 98.1 F 97.6 F Pulse Rate 66 67 Respiratory Rate 16 14 Blood Pressure 102/63 117/69 Pulse Oximetry 94 96 Oxygen Delivery Method Room Air Room Air BMI result Body Mass Index 28.6 Labs 07/08/24 16:07 07/08/24 16:07 Medications Medications Current Medications Acetaminophen (Acetaminophen 325 Mg Tablet) 650 mg PO Q6H PRN PRN Reason: Headache/Pain Mild Scale (1-3) Last Admin: 07/15/24 08:54 Dose: 650 mg Acyclovir (Acyclovir 200 Mg Capsule) 400 mg PO BID [facility] Last Admin: 07/15/24 08:52 Dose: 400 mg Al Hydroxide/Mg Hydroxide (Magnesium Hydrox/Alum Hydrox 30 Ml Oral.Susp) 30 ml PO Q6H PRN PRN Reason: Heartburn/Nausea Clonazepam (Clonazepam 0.5 Mg Tablet) 0.5 mg PO DAILY [facility] Last Admin: 07/15/24 08:51 Dose: 0.5 mg Clonazepam (Clonazepam 1 Mg Tablet) 1 mg PO BEDTIME [facility] Last Admin: 07/14/24 20:29 Dose: 1 mg Ergocalciferol (Ergocalciferol (Vitamin D2) 1,250 Mcg Capsule) 1,250 mcg PO Th [facility] Last Admin: 07/09/24 09:25 Dose: 1,250 mcg Fluvoxamine Maleate (Fluvoxamine Maleate 50 Mg Tablet) 50 mg PO BID [facility] Last Admin: 07/15/24 08:52 Dose: 50 mg Guanfacine HCl (Guanfacine Hcl Er 1 Mg Tab.Er.24h) 1 mg PO BID [facility] Last Admin: 07/15/24 08:52 Dose: 1 mg Hydroxyzine HCl (Hydroxyzine Hcl 25 Mg Tablet) 25 mg PO Q6H PRN PRN Reason: Anxiety Last Admin: 07/14/24 17:12 Dose: 25 mg Magnesium Hydroxide (Milk Of Magnesia 30 Ml Oral.Susp) 30 ml PO DAILY PRN PRN Reason: Constipation Naltrexone HCl (Naltrexone Hcl 50 Mg Tablet) 50 mg PO BEDTIME [facility] Last Admin: 07/14/24 20:29 Dose: 50 mg Nicotine Polacrilex (Nicotine Polacrilex 2 Mg Gum) 4 mg BUCCAL Q2H PRN PRN Reason: Nicotine Cravings Oxcarbazepine (Oxcarbazepine 300 Mg Tablet) 300 mg PO BID [facility] Last Admin: 07/15/24 08:52 Dose: 300 mg Quetiapine Fumarate (Quetiapine Fumarate 200 Mg Tablet) 200 mg PO BEDTIME [facility] Last Admin: 07/14/24 20:28 Dose: 200 mg Thiamine HCl (Thiamine Hcl 100 Mg Tablet) 100 mg PO DAILY [facility] Last Admin: 07/15/24 08:52 Dose: 100 mg Topiramate (Topiramate 25 Mg Tablet) 50 mg PO BEDTIME [facility] Last Admin: 07/14/24 20:28 Dose: 50 mg Trazodone HCl (Trazodone Hcl 50 Mg Tablet) 50 mg PO BEDTIME MRX1 PRN PRN Reason: Insomnia Allergies Allergies Allergy/AdvReac Type Severity Reaction Status Date / Time Sulfa (Sulfonamide Allergy Rash Verified 07/08/24 14:08 Antibiotics) Assessment & Plan Assessment & Plan (1) Bipolar II disorder: Status: Acute Code(s): F31.81 - Bipolar II disorder (2) PTSD (post-traumatic stress disorder): Status: Acute Code(s): F43.10 - Post-traumatic stress disorder, unspecified (3) OCD (obsessive compulsive disorder): Status: Acute Code(s): F42.9 - Obsessive-compulsive disorder, unspecified (4) Alcohol use disorder: Status: Acute Code(s): F10.90 - Alcohol use, unspecified, uncomplicated Plan Patient is a 48 year old male with hx of Bipolar d/o, PTSD, OCD and alcohol use d/o who presented to [facility] from the partial hospitalization program on a section 12 due to suicidal ideation, increased anxiety and depression secondary to fixation of medical concerns. Plan:CV 15 minute safety check Continue home medication CIWA protocol Increase Seroquel to 200 mg p.o. bedtime DC Ativan Start: Klonopin 0.5 mg p.o. daily Klonopin 1 mg PO bedtime obtain collateral encourage groups discharge planning 07/10: Keeping to self. laying in bed. Patient continues to report feeling anxious; pt stated, I keep thinking about all my screw ups in life . Pt reports he believes klonopin has decreased his need to pick at his scalp and grunting. denies SI/HI/VH/AH. Continue current tx plan. 07/11 continue tx. will not rx ambien as per staff he is sleeping through the night, on ciwa for alcohol withdrawal. 07/12 continue tx. 07/13: Patient is anxious severely depressed not taking care of his ADLs catastrophic thinking hopeless helpless safe in the setting increase Luvox to 50 b.i.d. patient had reportedly accidentally stopped this dosing prior about 5 days prior to admission and may have been in withdrawal anxiety increase oxcarbazepine to 300 b.i.d. for help with anxiety and mood instability. If not effective would consider Anafranil. Patient focused on function his penis in a sexual manner urination ability to get an erection is focused that his life is over and focuses this all on the fact that he had herpes. Discussed that some of this may relate to medication he is currently taking. Urology consult 07/14: Social with select peers. Pt continues to report increase anxiety and depression; pt stated, I haven't showered in 5 days because I'm depressed about my herpes. I just keeping thinking about it. I don't know what to do . Tearful. encouraged to shower and attend groups. per nursing, slept 7 hours. Continue current tx plan. Reason for continued inpatient stay Substantial Risk for: med/psych decompensation Time Spent With Patient Time: Total time managing care of this patient today ____ minutes.
[2024-07-15 20:00] VITALS: BP 119/69; PULSE 64; RESP 16; TEMP 36.9; O2SAT 98
[2024-07-15] MEDS: Naltrexone HCl 50 MG TABLET PO (22:26)
[2024-07-15] MEDS: QUEtiapine Fumarate 200 MG TABLET PO (22:27)
[2024-07-15] MEDS: Topiramate 25 MG TABLET 50 MG PO (22:27)
[2024-07-15] MEDS: clonazePAM 1 MG TABLET PO (22:28)
[2024-07-15] MEDS: traZODone HCL 50 MG TABLET PO (22:28)
[2024-07-16 07:51] VITALS: BP 121/72; PULSE 72; RESP 16; TEMP 36.6; O2SAT 96
[2024-07-16] MEDS: guanFACINE HCl ER 1 MG TAB.ER.24H PO ×2 (09:06→21:09)
[2024-07-16] MEDS: clonazePAM 0.5 MG TABLET PO (09:07)
[2024-07-16] MEDS: OXcarbazepine 300 MG TABLET PO ×2 (09:07→21:09)
[2024-07-16] MEDS: Acyclovir 200 MG CAPSULE 400 MG PO ×2 (09:07→21:08)
[2024-07-16] MEDS: fluvoxaMINE Maleate 50 MG TABLET PO ×2 (09:07→21:09)
[2024-07-16] MEDS: Thiamine HCL 100 MG TABLET PO (09:07)
[2024-07-16] MEDS: Acetaminophen 325 MG TABLET 650 MG PO (09:11)
[2024-07-16] MEDS: Ergocalciferol (Vitamin D2) 1,250 MCG CAPSULE 1250 MCG PO (09:17)
--- NOTE | 2024-07-16 09:35 | HO.PSYCHPN ---
Subjective Subjective Date of Service: 07/16/24 Reason For Visit: SI agitation Subjective Notes: Conditional Voluntary Healthcare Proxy: No Guardianship: No Interim History: Pt cont depressed anxious hopeless helpless. Pt disoranized difficulty with motivation and self care ? . At times catastrophic thinking impulsivity Medication Compliance: Yes Mental Status Exam Mental Status Exam Narrative: The patient is disheveled with poor hygiene his speech is clear thinking is perseverative content focused on helplessness hopelessness and that his life is over. Psychomotor retardation noted severe anxiety affect constricted thoughts he would be better off but denies current active plan. Very limited insight into his catastrophizing no hallucinations or delusional material impulse control adequate in this setting not if not in a locked setting Diagnostics Vital Signs (24Hr): Vital Signs - 24 hr 07/15/24 20:00 07/16/24 07:51 Temperature 98.4 F 97.9 F Pulse Rate 64 72 Respiratory Rate 16 16 Blood Pressure 119/69 121/72 Pulse Oximetry 98 96 Oxygen Delivery Method Room Air Room Air BMI result Body Mass Index 28.6 Labs 07/08/24 16:07 07/08/24 16:07 Medications Medications Current Medications Acetaminophen (Acetaminophen 325 Mg Tablet) 650 mg PO Q6H PRN PRN Reason: Headache/Pain Mild Scale (1-3) Last Admin: 07/16/24 09:11 Dose: 650 mg Acyclovir (Acyclovir 200 Mg Capsule) 400 mg PO BID [facility] Last Admin: 07/16/24 09:07 Dose: 400 mg Al Hydroxide/Mg Hydroxide (Magnesium Hydrox/Alum Hydrox 30 Ml Oral.Susp) 30 ml PO Q6H PRN PRN Reason: Heartburn/Nausea Clonazepam (Clonazepam 0.5 Mg Tablet) 0.5 mg PO DAILY [facility] Last Admin: 07/16/24 09:07 Dose: 0.5 mg Clonazepam (Clonazepam 1 Mg Tablet) 1 mg PO BEDTIME [facility] Last Admin: 07/15/24 22:28 Dose: 1 mg Ergocalciferol (Ergocalciferol (Vitamin D2) 1,250 Mcg Capsule) 1,250 mcg PO Th [facility] Last Admin: 07/16/24 09:17 Dose: 1,250 mcg Fluvoxamine Maleate (Fluvoxamine Maleate 50 Mg Tablet) 50 mg PO BID [facility] Last Admin: 07/16/24 09:07 Dose: 50 mg Guanfacine HCl (Guanfacine Hcl Er 1 Mg Tab.Er.24h) 1 mg PO BID [facility] Last Admin: 07/16/24 09:06 Dose: 1 mg Hydroxyzine HCl (Hydroxyzine Hcl 25 Mg Tablet) 25 mg PO Q6H PRN PRN Reason: Anxiety Last Admin: 07/14/24 17:12 Dose: 25 mg Magnesium Hydroxide (Milk Of Magnesia 30 Ml Oral.Susp) 30 ml PO DAILY PRN PRN Reason: Constipation Naltrexone HCl (Naltrexone Hcl 50 Mg Tablet) 50 mg PO BEDTIME [facility] Last Admin: 07/15/24 22:26 Dose: 50 mg Nicotine Polacrilex (Nicotine Polacrilex 2 Mg Gum) 4 mg BUCCAL Q2H PRN PRN Reason: Nicotine Cravings Oxcarbazepine (Oxcarbazepine 300 Mg Tablet) 300 mg PO BID [facility] Last Admin: 07/16/24 09:07 Dose: 300 mg Quetiapine Fumarate (Quetiapine Fumarate 200 Mg Tablet) 200 mg PO BEDTIME [facility] Last Admin: 07/15/24 22:27 Dose: 200 mg Thiamine HCl (Thiamine Hcl 100 Mg Tablet) 100 mg PO DAILY [facility] Last Admin: 07/16/24 09:07 Dose: 100 mg Topiramate (Topiramate 25 Mg Tablet) 50 mg PO BEDTIME [facility] Last Admin: 07/15/24 22:27 Dose: 50 mg Trazodone HCl (Trazodone Hcl 50 Mg Tablet) 50 mg PO BEDTIME MRX1 PRN PRN Reason: Insomnia Last Admin: 07/15/24 22:28 Dose: 50 mg Allergies Allergies Allergy/AdvReac Type Severity Reaction Status Date / Time Sulfa (Sulfonamide Allergy Rash Verified 07/08/24 14:08 Antibiotics) Assessment & Plan Assessment & Plan (1) Bipolar II disorder: Status: Acute Code(s): F31.81 - Bipolar II disorder (2) PTSD (post-traumatic stress disorder): Status: Acute Code(s): F43.10 - Post-traumatic stress disorder, unspecified (3) OCD (obsessive compulsive disorder): Status: Acute Code(s): F42.9 - Obsessive-compulsive disorder, unspecified (4) Alcohol use disorder: Status: Acute Code(s): F10.90 - Alcohol use, unspecified, uncomplicated Plan Patient is a 48 year old male with hx of Bipolar d/o, PTSD, OCD and alcohol use d/o who presented to [facility] from the partial hospitalization program on a section 12 due to suicidal ideation, increased anxiety and depression secondary to fixation of medical concerns. Plan:CV 15 minute safety check Continue home medication CIWA protocol Increase Seroquel to 200 mg p.o. bedtime DC Ativan Start: Klonopin 0.5 mg p.o. daily Klonopin 1 mg PO bedtime obtain collateral encourage groups discharge planning 07/10: Keeping to self. laying in bed. Patient continues to report feeling anxious; pt stated, I keep thinking about all my screw ups in life . Pt reports he believes klonopin has decreased his need to pick at his scalp and grunting. denies SI/HI/VH/AH. Continue current tx plan. 07/11 continue tx. will not rx ambien as per staff he is sleeping through the night, on ciwa for alcohol withdrawal. 07/12 continue tx. 07/13: Patient is anxious severely depressed not taking care of his ADLs catastrophic thinking hopeless helpless safe in the setting increase Luvox to 50 b.i.d. patient had reportedly accidentally stopped this dosing prior about 5 days prior to admission and may have been in withdrawal anxiety increase oxcarbazepine to 300 b.i.d. for help with anxiety and mood instability. If not effective would consider Anafranil. Patient focused on function his penis in a sexual manner urination ability to get an erection is focused that his life is over and focuses this all on the fact that he had herpes. Discussed that some of this may relate to medication he is currently taking. Urology consult 07/14: Social with select peers. Pt continues to report increase anxiety and depression; pt stated, I haven't showered in 5 days because I'm depressed about my herpes. I just keeping thinking about it. I don't know what to do . Tearful. encouraged to shower and attend groups. per nursing, slept 7 hours. Continue current tx plan. 07/16/24 [address] ect considere lithium urology consult [facility] Reason for continued inpatient stay Substantial Risk for: harm to self, inability to function and rapid decompensation Time Spent With Patient Time: Total time managing care of this patient today ____ minutes.
--- NOTE | 2024-07-16 09:36 | HO.PSYCHPN ---
Subjective Subjective Reason For Visit: SI agitation Diagnostics Vital Signs (24Hr): Vital Signs - 24 hr 07/15/24 20:00 07/16/24 07:51 Temperature 98.4 F 97.9 F Pulse Rate 64 72 Respiratory Rate 16 16 Blood Pressure 119/69 121/72 Pulse Oximetry 98 96 Oxygen Delivery Method Room Air Room Air BMI result Body Mass Index 28.6 Labs 07/08/24 16:07 07/08/24 16:07 Medications Medications Current Medications Acetaminophen (Acetaminophen 325 Mg Tablet) 650 mg PO Q6H PRN PRN Reason: Headache/Pain Mild Scale (1-3) Last Admin: 07/16/24 09:11 Dose: 650 mg Acyclovir (Acyclovir 200 Mg Capsule) 400 mg PO BID [facility] Last Admin: 07/16/24 09:07 Dose: 400 mg Al Hydroxide/Mg Hydroxide (Magnesium Hydrox/Alum Hydrox 30 Ml Oral.Susp) 30 ml PO Q6H PRN PRN Reason: Heartburn/Nausea Clonazepam (Clonazepam 0.5 Mg Tablet) 0.5 mg PO DAILY [facility] Last Admin: 07/16/24 09:07 Dose: 0.5 mg Clonazepam (Clonazepam 1 Mg Tablet) 1 mg PO BEDTIME [facility] Last Admin: 07/15/24 22:28 Dose: 1 mg Ergocalciferol (Ergocalciferol (Vitamin D2) 1,250 Mcg Capsule) 1,250 mcg PO Th [facility] Last Admin: 07/16/24 09:17 Dose: 1,250 mcg Fluvoxamine Maleate (Fluvoxamine Maleate 50 Mg Tablet) 50 mg PO BID [facility] Last Admin: 07/16/24 09:07 Dose: 50 mg Guanfacine HCl (Guanfacine Hcl Er 1 Mg Tab.Er.24h) 1 mg PO BID [facility] Last Admin: 07/16/24 09:06 Dose: 1 mg Hydroxyzine HCl (Hydroxyzine Hcl 25 Mg Tablet) 25 mg PO Q6H PRN PRN Reason: Anxiety Last Admin: 07/14/24 17:12 Dose: 25 mg Magnesium Hydroxide (Milk Of Magnesia 30 Ml Oral.Susp) 30 ml PO DAILY PRN PRN Reason: Constipation Naltrexone HCl (Naltrexone Hcl 50 Mg Tablet) 50 mg PO BEDTIME [facility] Last Admin: 07/15/24 22:26 Dose: 50 mg Nicotine Polacrilex (Nicotine Polacrilex 2 Mg Gum) 4 mg BUCCAL Q2H PRN PRN Reason: Nicotine Cravings Oxcarbazepine (Oxcarbazepine 300 Mg Tablet) 300 mg PO BID [facility] Last Admin: 07/16/24 09:07 Dose: 300 mg Quetiapine Fumarate (Quetiapine Fumarate 200 Mg Tablet) 200 mg PO BEDTIME [facility] Last Admin: 07/15/24 22:27 Dose: 200 mg Thiamine HCl (Thiamine Hcl 100 Mg Tablet) 100 mg PO DAILY [facility] Last Admin: 07/16/24 09:07 Dose: 100 mg Topiramate (Topiramate 25 Mg Tablet) 50 mg PO BEDTIME [facility] Last Admin: 07/15/24 22:27 Dose: 50 mg Trazodone HCl (Trazodone Hcl 50 Mg Tablet) 50 mg PO BEDTIME MRX1 PRN PRN Reason: Insomnia Last Admin: 07/15/24 22:28 Dose: 50 mg Allergies Allergies Allergy/AdvReac Type Severity Reaction Status Date / Time Sulfa (Sulfonamide Allergy Rash Verified 07/08/24 14:08 Antibiotics) Assessment & Plan Assessment & Plan (1) Bipolar II disorder: Status: Acute Code(s): F31.81 - Bipolar II disorder (2) PTSD (post-traumatic stress disorder): Status: Acute Code(s): F43.10 - Post-traumatic stress disorder, unspecified (3) OCD (obsessive compulsive disorder): Status: Acute Code(s): F42.9 - Obsessive-compulsive disorder, unspecified (4) Alcohol use disorder: Status: Acute Code(s): F10.90 - Alcohol use, unspecified, uncomplicated Plan Patient is a 48 year old male with hx of Bipolar d/o, PTSD, OCD and alcohol use d/o who presented to [facility] from the partial hospitalization program on a section 12 due to suicidal ideation, increased anxiety and depression secondary to fixation of medical concerns. Plan:CV 15 minute safety check Continue home medication CIWA protocol Increase Seroquel to 200 mg p.o. bedtime DC Ativan Start: Klonopin 0.5 mg p.o. daily Klonopin 1 mg PO bedtime obtain collateral encourage groups discharge planning 07/10: Keeping to self. laying in bed. Patient continues to report feeling anxious; pt stated, I keep thinking about all my screw ups in life . Pt reports he believes klonopin has decreased his need to pick at his scalp and grunting. denies SI/HI/VH/AH. Continue current tx plan. 07/11 continue tx. will not rx ambien as per staff he is sleeping through the night, on ciwa for alcohol withdrawal. 07/12 continue tx. 07/13: Patient is anxious severely depressed not taking care of his ADLs catastrophic thinking hopeless helpless safe in the setting increase Luvox to 50 b.i.d. patient had reportedly accidentally stopped this dosing prior about 5 days prior to admission and may have been in withdrawal anxiety increase oxcarbazepine to 300 b.i.d. for help with anxiety and mood instability. If not effective would consider Anafranil. Patient focused on function his penis in a sexual manner urination ability to get an erection is focused that his life is over and focuses this all on the fact that he had herpes. Discussed that some of this may relate to medication he is currently taking. Urology consult 07/14: Social with select peers. Pt continues to report increase anxiety and depression; pt stated, I haven't showered in 5 days because I'm depressed about my herpes. I just keeping thinking about it. I don't know what to do . Tearful. encouraged to shower and attend groups. per nursing, slept 7 hours. Continue current tx plan. Time Spent With Patient Time: Total time managing care of this patient today ____ minutes.
[2024-07-16 16:43] VITALS: BMI 31.3
[2024-07-16 19:54] VITALS: BP 120/76; PULSE 63; RESP 16; TEMP 36.2; O2SAT 96
[2024-07-16] MEDS: Topiramate 25 MG TABLET 50 MG PO (21:08)
[2024-07-16] MEDS: QUEtiapine Fumarate 200 MG TABLET PO (21:08)
[2024-07-16] MEDS: traZODone HCL 50 MG TABLET PO (21:09)
[2024-07-16] MEDS: Naltrexone HCl 50 MG TABLET PO (21:09)
[2024-07-16] MEDS: clonazePAM 1 MG TABLET PO (21:09)
[2024-07-17 08:00] VITALS: BP 117/67; PULSE 92; RESP 16; TEMP 36.6; O2SAT 96
[2024-07-17] MEDS: Thiamine HCL 100 MG TABLET PO (08:45)
[2024-07-17] MEDS: clonazePAM 0.5 MG TABLET PO (08:45)
[2024-07-17] MEDS: Acyclovir 200 MG CAPSULE 400 MG PO ×2 (08:45→20:40)
[2024-07-17] MEDS: fluvoxaMINE Maleate 50 MG TABLET PO ×2 (08:45→20:41)
[2024-07-17] MEDS: guanFACINE HCl ER 1 MG TAB.ER.24H PO ×2 (08:46→20:40)
[2024-07-17] MEDS: OXcarbazepine 300 MG TABLET PO ×2 (08:46→20:41)
--- NOTE | 2024-07-17 13:45 | HO.PSYCHPN ---
Subjective Subjective Date of Service: 07/17/24 Reason For Visit: SI agitation Subjective Notes: Conditional Voluntary Interim History: Pt continues to report anxiety and depression regarding herpes diagnosis. Per pt, he was seen by urologist yesterday but states that didn't make me feel any better even though he told me everything seemed normal ; awaiting urology consult note. He reports considering ECT after speaking with provider yesterday. denies SI/HI/VH/AH. Medication Compliance: Yes Side effects from medications: No Attending Groups: Intermittent Review of Systems Constitutional: Reports as per HPI Eyes: Reports as per HPI Reports as per HPI Cardiovascular: Reports as per HPI Respiratory: Reports as per HPI Gastrointestinal: Reports as per HPI Genitourinary: Reports as per HPI Musculoskeletal: Reports as per HPI Skin/Breast: Reports as per HPI Reports as per HPI Psychiatric: Reports as per HPI Endocrine: Reports as per HPI Hematologic/Lymphatic: Reports as per HPI Allergic/Immunologic: Reports as per HPI Mental Status Exam Mental Status Exam Narrative: Pt is alert and oriented; behavior is cooperative, calm; dressed in casual attire; mood is described as anxious and depressed ; eye contact appropriate; Speech is normal rate, volume and not pressured; thought process is organized; Thought content is on tx; denies SI/HI/VH/AH Diagnostics Vital Signs (24Hr): Vital Signs - 24 hr 07/16/24 19:54 07/17/24 08:00 Temperature 97.2 F 97.8 F Pulse Rate 63 92 Respiratory Rate 16 16 Blood Pressure 120/76 117/67 Pulse Oximetry 96 96 Oxygen Delivery Method Room Air Room Air BMI result Body Mass Index 31.3 Labs 07/08/24 16:07 07/08/24 16:07 Medications Medications Current Medications Acetaminophen (Acetaminophen 325 Mg Tablet) 650 mg PO Q6H PRN PRN Reason: Headache/Pain Mild Scale (1-3) Last Admin: 07/16/24 09:11 Dose: 650 mg Acyclovir (Acyclovir 200 Mg Capsule) 400 mg PO BID [facility] Last Admin: 07/17/24 08:45 Dose: 400 mg Al Hydroxide/Mg Hydroxide (Magnesium Hydrox/Alum Hydrox 30 Ml Oral.Susp) 30 ml PO Q6H PRN PRN Reason: Heartburn/Nausea Benzocaine (Benzocaine 20 % Oral Gel 9 Gm Tube) 1 appl MUCOUS MEM QID PRN; Protocol PRN Reason: Mouth Sore Pain Clonazepam (Clonazepam 0.5 Mg Tablet) 0.5 mg PO DAILY [facility] BEDS [facility] Last Admin: 07/17/24 08:45 Dose: 0.5 mg Clonazepam (Clonazepam 1 Mg Tablet) 1 mg PO BEDTIME [facility] 234 BEDS AT [facility] Last Admin: 07/16/24 21:09 Dose: 1 mg Ergocalciferol (Ergocalciferol (Vitamin D2) 1,250 Mcg Capsule) 1,250 mcg PO Th [facility] 234 BEDS AT [facility] Last Admin: 07/16/24 09:17 Dose: 1,250 mcg Fluvoxamine Maleate (Fluvoxamine Maleate 50 Mg Tablet) 50 mg PO BID [facility] 234 BEDS AT [facility] Last Admin: 07/17/24 08:45 Dose: 50 mg Guanfacine HCl (Guanfacine Hcl Er 1 Mg Tab.Er.24h) 1 mg PO BID [facility] 234 B[facility]S AT [facility] Last Admin: 07/17/24 08:46 Dose: 1 mg Hydroxyzine HCl (Hydroxyzine Hcl 25 Mg Tablet) 25 mg PO Q6H PRN PRN Reason: Anxiety Last Admin: 07/14/24 17:12 Dose: 25 mg Magnesium Hydroxide (Milk Of Magnesia 30 Ml Oral.Susp) 30 ml PO DAILY PRN PRN Reason: Constipation Naltrexone HCl (Naltrexone Hcl 50 Mg Tablet) 50 mg PO BEDTIME [facility] 234 BEDS [facility] Last Admin: 07/16/24 21:09 Dose: 50 mg Nicotine Polacrilex (Nicotine Polacrilex 2 Mg Gum) 4 mg BUCCAL Q2H PRN PRN Reason: Nicotine Cravings Oxcarbazepine (Oxcarbazepine 300 Mg Tablet) 300 mg PO BID [facility] Last Admin: 07/17/24 08:46 Dose: 300 mg Quetiapine Fumarate (Quetiapine Fumarate 200 Mg Tablet) 200 mg PO BEDTIME [facility] 234 BEDS AT [facility] Last Admin: 07/16/24 21:08 Dose: 200 mg Thiamine HCl (Thiamine Hcl 100 Mg Tablet) 100 mg PO DAILY [facility] 234 BEDS AT [facility] Last Admin: 07/17/24 08:45 Dose: 100 mg Topiramate (Topiramate 25 Mg Tablet) 50 mg PO BEDTIME [facility] 234 BEDS [facility] Last Admin: 07/16/24 21:08 Dose: 50 mg Trazodone HCl (Trazodone Hcl 50 Mg Tablet) 50 mg PO BEDTIME MRX1 PRN PRN Reason: Insomnia Last Admin: 07/16/24 21:09 Dose: 50 mg Allergies Allergies Allergy/AdvReac Type Severity Reaction Status Date / Time Sulfa (Sulfonamide Allergy Rash Verified 07/08/24 14:08 Antibiotics) Assessment & Plan Assessment & Plan (1) Bipolar II disorder: Status: Acute Code(s): F31.81 - Bipolar II disorder (2) PTSD (post-traumatic stress disorder): Status: Acute Code(s): F43.10 - Post-traumatic stress disorder, unspecified (3) OCD (obsessive compulsive disorder): Status: Acute Code(s): F42.9 - Obsessive-compulsive disorder, unspecified (4) Alcohol use disorder: Status: Acute Code(s): F10.90 - Alcohol use, unspecified, uncomplicated Plan Patient is a 48 year old male with hx of Bipolar d/o, PTSD, OCD and alcohol use d/o who presented to [facility] from the partial hospitalization program on a section 12 due to suicidal ideation, increased anxiety and depression secondary to fixation of medical concerns. Plan:CV 15 minute safety check Continue home medication CIWA protocol Increase Seroquel to 200 mg p.o. bedtime DC Ativan Start: Klonopin 0.5 mg p.o. daily Klonopin 1 mg PO bedtime obtain collateral encourage groups discharge planning 07/10: Keeping to self. laying in bed. Patient continues to report feeling anxious; pt stated, I keep thinking about all my screw ups in life . Pt reports he believes klonopin has decreased his need to pick at his scalp and grunting. denies SI/HI/VH/AH. Continue current tx plan. 07/11 continue tx. will not rx ambien as per staff he is sleeping through the night, on ciwa for alcohol withdrawal. 07/12 continue tx. 07/13: Patient is anxious severely depressed not taking care of his ADLs catastrophic thinking hopeless helpless safe in the setting increase Luvox to 50 b.i.d. patient had reportedly accidentally stopped this dosing prior about 5 days prior to admission and may have been in withdrawal anxiety increase oxcarbazepine to 300 b.i.d. for help with anxiety and mood instability. If not effective would consider Anafranil. Patient focused on function his penis in a sexual manner urination ability to get an erection is focused that his life is over and focuses this all on the fact that he had herpes. Discussed that some of this may relate to medication he is currently taking. Urology consult 07/14: Social with select peers. Pt continues to report increase anxiety and depression; pt stated, I haven't showered in 5 days because I'm depressed about my herpes. I just keeping thinking about it. I don't know what to do . Tearful. encouraged to shower and attend groups. per nursing, slept 7 hours. Continue current tx plan. 07/17: Pt continues to report anxiety and depression regarding herpes diagnosis. Per pt, he was seen by urologist yesterday but states that didn't make me feel any better even though he told me everything seemed normal ; awaiting urology consult note. He reports considering ECT after speaking with provider yesterday. denies SI/HI/VH/AH. Continue current tx plan. Patient educated on: diagnosis, medication risk/benefits and therapeutic strategies Reason for continued inpatient stay Substantial Risk for: med/psych decompensation Time Spent With Patient Time: Total time managing care of this patient today _20___ minutes.
[2024-07-17 19:39] VITALS: BP 123/57; PULSE 69; RESP 16; TEMP 36.6; O2SAT 98
[2024-07-17] MEDS: QUEtiapine Fumarate 200 MG TABLET PO (20:40)
[2024-07-17] MEDS: Naltrexone HCl 50 MG TABLET PO (20:40)
[2024-07-17] MEDS: Topiramate 25 MG TABLET 50 MG PO (20:40)
[2024-07-17] MEDS: clonazePAM 1 MG TABLET PO (20:41)
[2024-07-17] MEDS: traZODone HCL 50 MG TABLET PO (20:41)
[2024-07-18 08:00] VITALS: BP 116/74; PULSE 74; RESP 16; TEMP 36.8; O2SAT 95
[2024-07-18] MEDS: Acyclovir 200 MG CAPSULE 400 MG PO ×2 (08:18→20:33)
[2024-07-18] MEDS: guanFACINE HCl ER 1 MG TAB.ER.24H PO ×2 (08:19→20:33)
[2024-07-18] MEDS: OXcarbazepine 300 MG TABLET PO ×2 (08:19→20:34)
[2024-07-18] MEDS: Thiamine HCL 100 MG TABLET PO (08:19)
[2024-07-18] MEDS: fluvoxaMINE Maleate 50 MG TABLET PO ×2 (08:19→20:33)
[2024-07-18] MEDS: clonazePAM 0.5 MG TABLET PO (08:19)
--- NOTE | 2024-07-18 10:44 | P.PNPSI_ITS ---
Subjective Subjective Date of Service: 07/18/24 Reason For Visit: SI agitation Interim History: Pt continues to report anxiety and depression regarding herpes diagnosis. Remains fixated on the effects of HSV and that I ruined my life by [place] HSV. Ruminative. Discussed ECT with patient and risks and benefits of same. Patient says he is willing but worried about the cost. Denies SI/HI/VH/AH. Review of Systems Review of Systems Positive suicidal thoughts no specific plans Yes all other systems are reviewed and are negative Constitutional: Reports as per HPI Eyes: Reports as per HPI Reports as per HPI Cardiovascular: Reports as per HPI Respiratory: Reports as per HPI Gastrointestinal: Reports as per HPI Genitourinary: Reports as per HPI Musculoskeletal: Reports as per HPI Skin/Breast: Reports as per HPI Reports as per HPI Psychiatric: Reports as per HPI Endocrine: Reports as per HPI Hematologic/Lymphatic: Reports as per HPI Allergic/Immunologic: Reports as per HPI Mental Status Exam Mental Status Exam Narrative: Pt is alert and oriented; behavior is cooperative, calm; dressed in casual attire; mood is described as anxious and depressed ; eye contact appropriate; Speech is normal rate, volume and not pressured; thought process is organized; Thought content is on tx; denies SI/HI/VH/AH Diagnostics Vital Signs (24Hr): Vital Signs - 24 hr 07/17/24 19:39 07/18/24 08:00 Temperature 97.9 F 98.2 F Pulse Rate 69 74 Respiratory Rate 16 16 Blood Pressure 123/57 L 116/74 Pulse Oximetry 98 95 Oxygen Delivery Method Room Air Room Air BMI result Body Mass Index 31.3 Labs 07/08/24 16:07 07/08/24 16:07 Medications Medications Current Medications Acetaminophen (Acetaminophen 325 Mg Tablet) 650 mg PO Q6H PRN PRN Reason: Headache/Pain Mild Scale (1-3) Last Admin: 07/16/24 09:11 Dose: 650 mg Acyclovir (Acyclovir 200 Mg Capsule) 400 mg PO BID [facility] Last Admin: 07/18/24 08:18 Dose: 400 mg Al Hydroxide/Mg Hydroxide (Magnesium Hydrox/Alum Hydrox 30 Ml Oral.Susp) 30 ml PO Q6H PRN PRN Reason: Heartburn/Nausea Benzocaine (Benzocaine 20 % Oral Gel 9 Gm Tube) 1 appl MUCOUS MEM QID PRN; Protocol PRN Reason: Mouth Sore Pain Clonazepam (Clonazepam 0.5 Mg Tablet) 0.5 mg PO DAILY [facility] Last Admin: 07/18/24 08:19 Dose: 0.5 mg Clonazepam (Clonazepam 1 Mg Tablet) 1 mg PO BEDTIME [facility] Last Admin: 07/17/24 20:41 Dose: 1 mg Ergocalciferol (Ergocalciferol (Vitamin D2) 1,250 Mcg Capsule) 1,250 mcg PO Th [facility] Last Admin: 07/16/24 09:17 Dose: 1,250 mcg Fluvoxamine Maleate (Fluvoxamine Maleate 50 Mg Tablet) 50 mg PO BID [facility] Last Admin: 07/18/24 08:19 Dose: 50 mg Guanfacine HCl (Guanfacine Hcl Er 1 Mg Tab.Er.24h) 1 mg PO BID [facility] Last Admin: 07/18/24 08:19 Dose: 1 mg Hydroxyzine HCl (Hydroxyzine Hcl 25 Mg Tablet) 25 mg PO Q6H PRN PRN Reason: Anxiety Last Admin: 07/14/24 17:12 Dose: 25 mg Magnesium Hydroxide (Milk Of Magnesia 30 Ml Oral.Susp) 30 ml PO DAILY PRN PRN Reason: Constipation Naltrexone HCl (Naltrexone Hcl 50 Mg Tablet) 50 mg PO BEDTIME [facility] Last Admin: 07/17/24 20:40 Dose: 50 mg Nicotine Polacrilex (Nicotine Polacrilex 2 Mg Gum) 4 mg BUCCAL Q2H PRN PRN Reason: Nicotine Cravings Oxcarbazepine (Oxcarbazepine 300 Mg Tablet) 300 mg PO BID [facility] Last Admin: 07/18/24 08:19 Dose: 300 mg Quetiapine Fumarate (Quetiapine Fumarate 200 Mg Tablet) 200 mg PO BEDTIME [facility] Last Admin: 07/17/24 20:40 Dose: 200 mg Thiamine HCl (Thiamine Hcl 100 Mg Tablet) 100 mg PO DAILY [facility] Last Admin: 07/18/24 08:19 Dose: 100 mg Topiramate (Topiramate 25 Mg Tablet) 50 mg PO BEDTIME [facility] Last Admin: 07/17/24 20:40 Dose: 50 mg Trazodone HCl (Trazodone Hcl 50 Mg Tablet) 50 mg PO BEDTIME MRX1 PRN PRN Reason: Insomnia Last Admin: 07/17/24 20:41 Dose: 50 mg Allergies Allergies Allergy/AdvReac Type Severity Reaction Status Date / Time Sulfa (Sulfonamide Allergy Rash Verified 07/08/24 14:08 Antibiotics) Assessment & Plan Assessment & Plan (1) Bipolar II disorder: Status: Acute Code(s): F31.81 - Bipolar II disorder (2) PTSD (post-traumatic stress disorder): Status: Acute Code(s): F43.10 - Post-traumatic stress disorder, unspecified (3) OCD (obsessive compulsive disorder): Status: Acute Code(s): F42.9 - Obsessive-compulsive disorder, unspecified (4) Alcohol use disorder: Status: Acute Code(s): F10.90 - Alcohol use, unspecified, uncomplicated Plan Patient is a 48 year old male with hx of Bipolar d/o, PTSD, OCD and alcohol use d/o who presented [place] [facility] [place] program on a section 12 due to suicidal ideation, increased anxiety and depression secondary to fixation of medical concerns. Plan:CV 15 minute safety check Continue home medication CIWA protocol Increase Seroquel to 200 mg p.o. bedtime DC Ativan Start: Klonopin 0.5 mg p.o. daily Klonopin 1 mg PO bedtime obtain collateral encourage groups discharge planning 07/10: Keeping to self. laying in bed. Patient continues to report feeling anxious; pt stated, I keep thinking about all my screw ups in life . Pt reports he believes klonopin has decreased his need to pick at his scalp and grunting. denies SI/HI/VH/AH. Continue current tx plan. 07/11 continue tx. will not rx ambien as per staff he is sleeping through the night, on ciwa for alcohol withdrawal. 07/12 continue tx. 07/13: Patient is anxious severely depressed not taking care of his ADLs catastrophic thinking hopeless helpless safe in the setting increase Luvox to 50 b.i.d. patient had reportedly accidentally stopped this dosing prior about 5 days prior to admission and may have been in withdrawal anxiety increase oxcarbazepine to 300 b.i.d. for help with anxiety and mood instability. If not effective would consider Anafranil. Patient focused on function his penis in a sexual manner urination ability to get an erection is focused that his life is over and focuses this all on the fact that he had herpes. Discussed that some of this may relate to medication he is currently taking. Urology consult 07/14: Social with select peers. Pt continues to report increase anxiety and depression; pt stated, I haven't showered in 5 days because I'm depressed about my herpes. I just keeping thinking about it. I don't know what to do . Tearful. encouraged to shower and attend groups. per nursing, slept 7 hours. Continue current tx plan. 07/17: Pt continues to report anxiety and depression regarding herpes diagnosis. Per pt, he was seen by urologist yesterday but states that didn't make me feel any better even though he told me everything seemed normal ; awaiting urology consult note. He reports considering ECT after speaking with provider yesterday. denies SI/HI/VH/AH. Continue current tx plan. 07/18: Recommended ECT. Could also consider increase Luvox and alternative antipsychotic. Continue current management and treatment plan for now. Reason for continued inpatient stay Substantial Risk for: inability to function and rapid decompensation Time Spent With Patient Time: Total time managing care of this patient today ____ minutes.
[2024-07-18 20:00] VITALS: BP 111/77; PULSE 66; RESP 18; TEMP 36.7; O2SAT 98
[2024-07-18] MEDS: clonazePAM 1 MG TABLET PO (20:33)
[2024-07-18] MEDS: QUEtiapine Fumarate 200 MG TABLET PO (20:33)
[2024-07-18] MEDS: traZODone HCL 50 MG TABLET PO (20:33)
[2024-07-18] MEDS: Naltrexone HCl 50 MG TABLET PO (20:33)
[2024-07-18] MEDS: Topiramate 25 MG TABLET 50 MG PO (20:34)
[2024-07-19 07:40] VITALS: BP 120/75; PULSE 66; RESP 14; TEMP 36.4; O2SAT 94
[2024-07-19] MEDS: guanFACINE HCl ER 1 MG TAB.ER.24H PO ×2 (08:24→21:46)
[2024-07-19] MEDS: fluvoxaMINE Maleate 50 MG TABLET PO ×2 (08:24→21:46)
[2024-07-19] MEDS: OXcarbazepine 300 MG TABLET PO ×2 (08:24→21:46)
[2024-07-19] MEDS: clonazePAM 0.5 MG TABLET PO (08:24)
[2024-07-19] MEDS: Acyclovir 200 MG CAPSULE 400 MG PO ×2 (08:24→21:46)
[2024-07-19] MEDS: Thiamine HCL 100 MG TABLET PO (08:25)
--- NOTE | 2024-07-19 10:00 | HO.PSYCHPN ---
Subjective Subjective Date of Service: 07/19/24 Reason For Visit: SI agitation Interim History: Pt reports he continues to be depressed and anxious. Wants to talk to financial services regarding cost of ECT and insurance coverage. Observed on the unit. Social with some peers. Eating and sleeping OK. Denies SI/HI/VH/AH. Review of Systems Review of Systems Positive suicidal thoughts no specific plans Yes all other systems are reviewed and are negative Constitutional: Reports as per HPI Eyes: Reports as per HPI Reports as per HPI Cardiovascular: Reports as per HPI Respiratory: Reports as per HPI Gastrointestinal: Reports as per HPI Genitourinary: Reports as per HPI Musculoskeletal: Reports as per HPI Skin/Breast: Reports as per HPI Reports as per HPI Psychiatric: Reports as per HPI Endocrine: Reports as per HPI Hematologic/Lymphatic: Reports as per HPI Allergic/Immunologic: Reports as per HPI Mental Status Exam Mental Status Exam Narrative: Pt is alert and oriented; behavior is cooperative, calm; dressed in casual attire; mood is described as anxious and depressed ; eye contact appropriate; Speech is normal rate, volume and not pressured; thought process is organized; Thought content is on tx; denies SI/HI/VH/AH Diagnostics Vital Signs (24Hr): Vital Signs - 24 hr 07/18/24 20:00 07/19/24 07:40 Temperature 98.0 F 97.6 F Pulse Rate 66 66 Respiratory Rate 18 14 Blood Pressure 111/77 120/75 Pulse Oximetry 98 94 Oxygen Delivery Method Room Air Room Air BMI result Body Mass Index 31.3 Labs 07/08/24 16:07 07/08/24 16:07 Medications Medications Current Medications Acetaminophen (Acetaminophen 325 Mg Tablet) 650 mg PO Q6H PRN PRN Reason: Headache/Pain Mild Scale (1-3) Last Admin: 07/16/24 09:11 Dose: 650 mg Acyclovir (Acyclovir 200 Mg Capsule) 400 mg PO BID [facility] Last Admin: 07/19/24 08:24 Dose: 400 mg Al Hydroxide/Mg Hydroxide (Magnesium Hydrox/Alum Hydrox 30 Ml Oral.Susp) 30 ml PO Q6H PRN PRN Reason: Heartburn/Nausea Benzocaine (Benzocaine 20 % Oral Gel 9 Gm Tube) 1 appl MUCOUS MEM QID PRN; Protocol PRN Reason: Mouth Sore Pain Clonazepam (Clonazepam 0.5 Mg Tablet) 0.5 mg PO DAILY [facility] Last Admin: 07/19/24 08:24 Dose: 0.5 mg Clonazepam (Clonazepam 1 Mg Tablet) 1 mg PO BEDTIME [facility] Last Admin: 07/18/24 20:33 Dose: 1 mg Ergocalciferol (Ergocalciferol (Vitamin D2) 1,250 Mcg Capsule) 1,250 mcg PO Th [facility] Last Admin: 07/16/24 09:17 Dose: 1,250 mcg Fluvoxamine Maleate (Fluvoxamine Maleate 50 Mg Tablet) 50 mg PO BID [facility] Last Admin: 07/19/24 08:24 Dose: 50 mg Guanfacine HCl (Guanfacine Hcl Er 1 Mg Tab.Er.24h) 1 mg PO BID [facility] Last Admin: 07/19/24 08:24 Dose: 1 mg Hydroxyzine HCl (Hydroxyzine Hcl 50 Mg Tablet) 50 mg PO Q6H PRN PRN Reason: Anxiety Magnesium Hydroxide (Milk Of Magnesia 30 Ml Oral.Susp) 30 ml PO DAILY PRN PRN Reason: Constipation Naltrexone HCl (Naltrexone Hcl 50 Mg Tablet) 50 mg PO BEDTIME [facility] Last Admin: 07/18/24 20:33 Dose: 50 mg Nicotine Polacrilex (Nicotine Polacrilex 2 Mg Gum) 4 mg BUCCAL Q2H PRN PRN Reason: Nicotine Cravings Oxcarbazepine (Oxcarbazepine 300 Mg Tablet) 300 mg PO BID [facility] Last Admin: 07/19/24 08:24 Dose: 300 mg Quetiapine Fumarate (Quetiapine Fumarate 200 Mg Tablet) 200 mg PO BEDTIME [facility] Last Admin: 07/18/24 20:33 Dose: 200 mg Thiamine HCl (Thiamine Hcl 100 Mg Tablet) 100 mg PO DAILY [facility] Last Admin: 07/19/24 08:25 Dose: 100 mg Topiramate (Topiramate 25 Mg Tablet) 50 mg PO BEDTIME [facility] Last Admin: 07/18/24 20:34 Dose: 50 mg Trazodone HCl (Trazodone Hcl 50 Mg Tablet) 50 mg PO BEDTIME MRX1 PRN PRN Reason: Insomnia Last Admin: 07/18/24 20:33 Dose: 50 mg Allergies Allergies Allergy/AdvReac Type Severity Reaction Status Date / Time Sulfa (Sulfonamide Allergy Rash Verified 07/08/24 14:08 Antibiotics) Assessment & Plan Assessment & Plan (1) Bipolar II disorder: Status: Acute Code(s): F31.81 - Bipolar II disorder (2) PTSD (post-traumatic stress disorder): Status: Acute Code(s): F43.10 - Post-traumatic stress disorder, unspecified (3) OCD (obsessive compulsive disorder): Status: Acute Code(s): F42.9 - Obsessive-compulsive disorder, unspecified (4) Alcohol use disorder: Status: Acute Code(s): F10.90 - Alcohol use, unspecified, uncomplicated Plan Patient is a 48 year old male with hx of Bipolar d/o, PTSD, OCD and alcohol use d/o who presented to [facility] from the partial hospitalization program on a section 12 due to suicidal ideation, increased anxiety and depression secondary to fixation of medical concerns. Plan:CV 15 minute safety check Continue home medication CIWA protocol Increase Seroquel to 200 mg p.o. bedtime DC Ativan Start: Klonopin 0.5 mg p.o. daily Klonopin 1 mg PO bedtime obtain collateral encourage groups discharge planning 07/10: Keeping to self. laying in bed. Patient continues to report feeling anxious; pt stated, I keep thinking about all my screw ups in life . Pt reports he believes klonopin has decreased his need to pick at his scalp and grunting. denies SI/HI/VH/AH. Continue current tx plan. 07/11 continue tx. will not rx ambien as per staff he is sleeping through the night, on ciwa for alcohol withdrawal. 07/12 continue tx. 07/13: Patient is anxious severely depressed not taking care of his ADLs catastrophic thinking hopeless helpless safe in the setting increase Luvox to 50 b.i.d. patient had reportedly accidentally stopped this dosing prior about 5 days prior to admission and may have been in withdrawal anxiety increase oxcarbazepine to 300 b.i.d. for help with anxiety and mood instability. If not effective would consider Anafranil. Patient focused on function his penis in a sexual manner urination ability to get an erection is focused that his life is over and focuses this all on the fact that he had herpes. Discussed that some of this may relate to medication he is currently taking. Urology consult 07/14: Social with select peers. Pt continues to report increase anxiety and depression; pt stated, I haven't showered in 5 days because I'm depressed about my herpes. I just keeping thinking about it. I don't know what to do . Tearful. encouraged to shower and attend groups. per nursing, slept 7 hours. Continue current tx plan. 07/17: Pt continues to report anxiety and depression regarding herpes diagnosis. Per pt, he was seen by urologist yesterday but states that didn't make me feel any better even though he told me everything seemed normal ; awaiting urology consult note. He reports considering ECT after speaking with provider yesterday. denies SI/HI/VH/AH. Continue current tx plan. 07/18: Recommended ECT. Could also consider increase Luvox and alternative antipsychotic. Continue current management and treatment plan for now. 07/19: Continue current management and treatment plan. Reason for continued inpatient stay Substantial Risk for: harm to self, inability to function and rapid decompensation Time Spent With Patient Time: Total time managing care of this patient today ____ minutes.
[2024-07-19 19:45] VITALS: BP 147/70; PULSE 72; RESP 18; TEMP 36.7; O2SAT 99
[2024-07-19] MEDS: clonazePAM 1 MG TABLET PO (21:46)
[2024-07-19] MEDS: QUEtiapine Fumarate 200 MG TABLET PO (21:46)
[2024-07-19] MEDS: Naltrexone HCl 50 MG TABLET PO (21:46)
[2024-07-19] MEDS: Topiramate 25 MG TABLET 50 MG PO (21:46)
[2024-07-20 08:00] VITALS: BP 108/67; PULSE 69; RESP 16; TEMP 36.8; O2SAT 95
[2024-07-20] MEDS: OXcarbazepine 300 MG TABLET PO ×2 (08:50→21:58)
[2024-07-20] MEDS: clonazePAM 0.5 MG TABLET PO (08:50)
[2024-07-20] MEDS: Thiamine HCL 100 MG TABLET PO (08:50)
[2024-07-20] MEDS: fluvoxaMINE Maleate 50 MG TABLET PO (08:51)
[2024-07-20] MEDS: guanFACINE HCl ER 1 MG TAB.ER.24H PO ×2 (08:51→21:58)
[2024-07-20] MEDS: Acyclovir 200 MG CAPSULE 400 MG PO ×2 (08:51→21:57)
--- NOTE | 2024-07-20 11:19 | P.CNUR_ITS ---
History of Present Illness Consult details Consult date: 07/16/24 Narrative: Post Herpetic Neuralgia 48-year-old male Concern regarding change in sensation to tip of penis Prior herpes exposure Patient poor historian regarding date of active herpes On exam no visible changes to skin tissue of penile glans or shaft Reassurance provided Baseline PSA and testosterone had been checked whilst in hospital and within normal range Review of Systems 2 Constitutional: Constitutional: Reports as per HPI and Reports no additional constitutional complaints Cardiovascular: Cardiovascular: Reports as per HPI and Reports no additional cardiovascular complaints Respiratory: Respiratory: Reports as per HPI and Reports no additional respiratory complaints Gastrointestinal: Gastrointestinal: Reports as per HPI and Reports no additional gastrointestinal complaints Genitourinary: Genitourinary: Reports as per HPI Musculoskeletal: Musculoskeletal: Reports no additional musculoskeletal complaints and Reports as per HPI Neurologic: Reports system reviewed and no additional complaints, except as documented and Reports as per HPI PMFSH Past Medical History Medical History Alcohol dependence Social History Social History Household Members: Family Household Members Other:: Parents Housing: House Do you presently have visiting nurse or other home services: No Alcohol intake: current Alcohol intake frequency: holidays/special occasions only Patient Tobacco Use Status: Former Tobacco user e-Cigarette/Vaping Use: Never Used Second Hand Smoke Exposure: No Substance Use Type: Marijuana service: No Sexual orientation: Straight/Heterosexual Meds Allergies Allergy/AdvReac Type Severity Reaction Status Date / Time Sulfa (Sulfonamide Allergy Rash Verified 07/08/24 14:08 Antibiotics) Active Medications: Current Medications Acetaminophen (Acetaminophen 325 Mg Tablet) 650 mg PO Q6H PRN PRN Reason: Headache/Pain Mild Scale (1-3) Last Admin: 07/16/24 09:11 Dose: 650 mg Acyclovir (Acyclovir 200 Mg Capsule) 400 mg PO BID [facility] Last Admin: 07/20/24 08:51 Dose: 400 mg Al Hydroxide/Mg Hydroxide (Magnesium Hydrox/Alum Hydrox 30 Ml Oral.Susp) 30 ml PO Q6H PRN PRN Reason: Heartburn/Nausea Benzocaine (Benzocaine 20 % Oral Gel 9 Gm Tube) 1 appl MUCOUS MEM QID PRN; Protocol PRN Reason: Mouth Sore Pain Clonazepam (Clonazepam 0.5 Mg Tablet) 0.5 mg PO DAILY [facility] Last Admin: 07/20/24 08:50 Dose: 0.5 mg Clonazepam (Clonazepam 1 Mg Tablet) 1 mg PO BEDTIME [facility] Last Admin: 07/19/24 21:46 Dose: 1 mg Ergocalciferol (Ergocalciferol (Vitamin D2) 1,250 Mcg Capsule) 1,250 mcg PO Th [facility] Last Admin: 07/16/24 09:17 Dose: 1,250 mcg Fluvoxamine Maleate (Fluvoxamine Maleate 50 Mg Tablet) 50 mg PO BID [facility] Last Admin: 07/20/24 08:51 Dose: 50 mg Guanfacine HCl (Guanfacine Hcl Er 1 Mg Tab.Er.24h) 1 mg PO BID [facility] Last Admin: 07/20/24 08:51 Dose: 1 mg Hydroxyzine HCl (Hydroxyzine Hcl 50 Mg Tablet) 50 mg PO Q6H PRN PRN Reason: Anxiety Magnesium Hydroxide (Milk Of Magnesia 30 Ml Oral.Susp) 30 ml PO DAILY PRN PRN Reason: Constipation Naltrexone HCl (Naltrexone Hcl 50 Mg Tablet) 50 mg PO BEDTIME [facility] Last Admin: 07/19/24 21:46 Dose: 50 mg Nicotine Polacrilex (Nicotine Polacrilex 2 Mg Gum) 4 mg BUCCAL Q2H PRN PRN Reason: Nicotine Cravings Oxcarbazepine (Oxcarbazepine 300 Mg Tablet) 300 mg PO BID [facility] Last Admin: 07/20/24 08:50 Dose: 300 mg Quetiapine Fumarate (Quetiapine Fumarate 200 Mg Tablet) 200 mg PO BEDTIME [facility] Last Admin: 07/19/24 21:46 Dose: 200 mg Thiamine HCl (Thiamine Hcl 100 Mg Tablet) 100 mg PO DAILY [facility] Last Admin: 07/20/24 08:50 Dose: 100 mg Topiramate (Topiramate 25 Mg Tablet) 50 mg PO BEDTIME [facility] Last Admin: 07/19/24 21:46 Dose: 50 mg Trazodone HCl (Trazodone Hcl 50 Mg Tablet) 50 mg PO BEDTIME MRX1 PRN PRN Reason: Insomnia Last Admin: 07/18/24 20:33 Dose: 50 mg Home Medications ?Medication ?Instructions ?Recorded ?Confirmed ?Last Taken ?Type acyclovir 400 mg tablet 400 mg PO BID 05/26/24 07/08/24 07/08/24 History lorazepam 0.5 mg tablet 0.5 mg PO BID 05/26/24 07/08/24 07/08/24 History quetiapine 300 mg tablet 150 mg PO BEDTIME 05/26/24 07/08/24 07/07/24 History fluvoxamine 25 mg tablet 25 mg PO BID 07/08/24 07/08/24 07/08/24 History guanfacine 1 mg tablet,extended 1 mg PO BID 07/08/24 07/08/24 07/08/24 History release 24 hr oxcarbazepine 300 mg tablet 300 mg PO BEDTIME 07/08/24 07/08/24 07/08/24 History topiramate 50 mg tablet 50 mg PO BEDTIME 07/08/24 07/08/24 07/07/24 History Physical Exam 2 Vital Signs: Vital Signs: Last Vital Signs Temp 98.2 F 07/20/24 08:00 Pulse 69 07/20/24 08:00 Resp 16 07/20/24 08:00 BP 108/67 07/20/24 08:00 Pulse Ox 95 07/20/24 08:00 O2 Del Method Room Air 07/20/24 08:00 BMI result Body Mass Index 31.3 Const: General: cooperative, healthy appearing, comfortable and no acute distress Orientation/consciousness: patient oriented x3 HEENT: Face and sinus: Yes normal facial exam Mouth: moist mucous membranes Neck: Neck: Yes normal visual inspection, Yes full ROM and Yes trachea midline Chest: Chest palpation & inspection: normal inspection of the chest Resp: Effort & Inspection: normal respiratory effort, able to speak in complete sentences and no respiratory distress GI: Inspection: Yes normal to inspection Back/Spine/Pelvis: Cervical Spine: normal cervical lordosis Thoracic/Lumbar Spine: thoracic and lumbar spine normal to inspection Skin: General skin exam: no rashes or lesions noted Neuro: General: patient oriented x3, tone normal and moves all extremities Extrem: General: Yes normal to inspection and Yes capillary refill normal Results Labs 07/08/24 16:07 07/08/24 16:07 Labs: Urine 07/08/24 Range/Units 14:20 Urine Color Yellow Urine Appearance Clear Urine pH 5.5 (5.0-9.0) Ur Specific [place] 1.015 (1.005-1.025) Urine Protein Negative (Neg-Trace) mg/dL Urine Glucose (UA) Negative (Negative) mg/dL All other labs normal. Assessment and Plan (1) Penile abnormality: Status: Acute Plan reassurance provided Procedures Date of Service Date of Service: 07/20/24
--- NOTE | 2024-07-20 13:58 | HO.PSYCHPN ---
Subjective Subjective Date of Service: 07/20/24 Reason For Visit: SI agitation Subjective Notes: Conditional Voluntary Interim History: Patient continues to be depressed and ruminating. Focused on continue preoccupation with the fact that he has genital herpes and that it is destroyed his life and future. Depressed ruminating somewhat social on the unit. Difficulty with changing sets in his mind. Allergic reportedly the lithium hopeless helpless limited insight has been on Luvox 50 b.i.d. Mental Status Exam Mental Status Exam Narrative: The patient is disheveled with poor hygiene his speech is clear, with intermittent grunting. thinking is perseverative content focused on helplessness hopelessness and that his life is over. severe anxiety affect constricted thoughts he would be better off but denies current active plan. Very limited insight into his catastrophizing and his altered judgment in relationship to having genital herpes and its effects no hallucinations impulse control adequate in this setting not if not in a locked setting seems to have some difficulty taking in information Diagnostics Vital Signs (24Hr): Vital Signs - 24 hr 07/19/24 19:45 07/20/24 08:00 Temperature 98.1 F 98.2 F Pulse Rate 72 69 Respiratory Rate 18 16 Blood Pressure 147/70 H 108/67 Pulse Oximetry 99 95 Oxygen Delivery Method Room Air Room Air BMI result Body Mass Index 31.3 Labs 07/08/24 16:07 07/08/24 16:07 Medications Medications Current Medications Acetaminophen (Acetaminophen 325 Mg Tablet) 650 mg PO Q6H PRN PRN Reason: Headache/Pain Mild Scale (1-3) Last Admin: 07/16/24 09:11 Dose: 650 mg Acyclovir (Acyclovir 200 Mg Capsule) 400 mg PO BID [facility] Last Admin: 07/20/24 08:51 Dose: 400 mg Al Hydroxide/Mg Hydroxide (Magnesium Hydrox/Alum Hydrox 30 Ml Oral.Susp) 30 ml PO Q6H PRN PRN Reason: Heartburn/Nausea Benzocaine (Benzocaine 20 % Oral Gel 9 Gm Tube) 1 appl MUCOUS MEM QID PRN; Protocol PRN Reason: Mouth Sore Pain Clonazepam (Clonazepam 0.5 Mg Tablet) 0.5 mg PO DAILY [facility] Last Admin: 07/20/24 08:50 Dose: 0.5 mg Clonazepam (Clonazepam 1 Mg Tablet) 1 mg PO BEDTIME [facility] Last Admin: 12/29/24 21:46 Dose: 1 mg Ergocalciferol (Ergocalciferol (Vitamin D2) 1,250 Mcg Capsule) 1,250 mcg PO Th [facility] Last Admin: 07/16/24 09:17 Dose: 1,250 mcg Fluvoxamine Maleate (Fluvoxamine Maleate 50 Mg Tablet) 50 mg PO BID [facility] Last Admin: 07/20/24 08:51 Dose: 50 mg Guanfacine HCl (Guanfacine Hcl Er 1 Mg Tab.Er.24h) 1 mg PO BID [facility] Last Admin: 07/20/24 08:51 Dose: 1 mg Hydroxyzine HCl (Hydroxyzine Hcl 50 Mg Tablet) 50 mg PO Q6H PRN PRN Reason: Anxiety Magnesium Hydroxide (Milk Of Magnesia 30 Ml Oral.Susp) 30 ml PO DAILY PRN PRN Reason: Constipation Naltrexone HCl (Naltrexone Hcl 50 Mg Tablet) 50 mg PO BEDTIME [facility] Last Admin: 07/19/24 21:46 Dose: 50 mg Nicotine Polacrilex (Nicotine Polacrilex 2 Mg Gum) 4 mg BUCCAL Q2H PRN PRN Reason: Nicotine Cravings Oxcarbazepine (Oxcarbazepine 300 Mg Tablet) 300 mg PO BID [facility] Last Admin: 07/20/24 08:50 Dose: 300 mg Quetiapine Fumarate (Quetiapine Fumarate 200 Mg Tablet) 200 mg PO BEDTIME [facility] Last Admin: 07/19/24 21:46 Dose: 200 mg Thiamine HCl (Thiamine Hcl 100 Mg Tablet) 100 mg PO DAILY [facility] Last Admin: 07/20/24 08:50 Dose: 100 mg Topiramate (Topiramate 25 Mg Tablet) 50 mg PO BEDTIME [facility] Last Admin: 07/19/24 21:46 Dose: 50 mg Trazodone HCl (Trazodone Hcl 50 Mg Tablet) 50 mg PO BEDTIME MRX1 PRN PRN Reason: Insomnia Last Admin: 07/18/24 20:33 Dose: 50 mg Allergies Allergies Allergy/AdvReac Type Severity Reaction Status Date / Time Sulfa (Sulfonamide Allergy Rash Verified 07/08/24 14:08 Antibiotics) Assessment & Plan Assessment & Plan (1) Bipolar II disorder: Status: Acute Code(s): F31.81 - Bipolar II disorder (2) PTSD (post-traumatic stress disorder): Status: Acute Code(s): F43.10 - Post-traumatic stress disorder, unspecified (3) OCD (obsessive compulsive disorder): Status: Acute Code(s): F42.9 - Obsessive-compulsive disorder, unspecified (4) Alcohol use disorder: Status: Acute Code(s): F10.90 - Alcohol use, unspecified, uncomplicated Plan Patient is a 48 year old male with hx of Bipolar d/o, PTSD, OCD and alcohol use d/o who presented to [facility] from the partial hospitalization program on a section 12 due to suicidal ideation, increased anxiety and depression secondary to fixation of medical concerns. Plan:CV 15 minute safety check Continue home medication CIWA protocol Increase Seroquel to 200 mg p.o. bedtime DC Ativan Start: Klonopin 0.5 mg p.o. daily Klonopin 1 mg PO bedtime obtain collateral encourage groups discharge planning 07/10: Keeping to self. laying in bed. Patient continues to report feeling anxious; pt stated, I keep thinking about all my screw ups in life . Pt reports he believes klonopin has decreased his need to pick at his scalp and grunting. denies SI/HI/VH/AH. Continue current tx plan. 07/11 continue tx. will not rx ambien as per staff he is sleeping through the night, on ciwa for alcohol withdrawal. 07/12 continue tx. 07/13: Patient is anxious severely depressed not taking care of his ADLs catastrophic thinking hopeless helpless safe in the setting increase Luvox to 50 b.i.d. patient had reportedly accidentally stopped this dosing prior about 5 days prior to admission and may have been in withdrawal anxiety increase oxcarbazepine to 300 b.i.d. for help with anxiety and mood instability. If not effective would consider Anafranil. Patient focused on function his penis in a sexual manner urination ability to get an erection is focused that his life is over and focuses this all on the fact that he had herpes. Discussed that some of this may relate to medication he is currently taking. Urology consult 07/14: Social with select peers. Pt continues to report increase anxiety and depression; pt stated, I haven't showered in 5 days because I'm depressed about my herpes. I just keeping thinking about it. I don't know what to do . Tearful. encouraged to shower and attend groups. per nursing, slept 7 hours. Continue current tx plan. 07/16/24 consider ect considere lithium urology consult [facility] 07/20/2024 Increase Luvox to 75 mg b.i.d. reviewed consideration of ECT year outpatient TMS continue naltrexone for medically assisted treatment of his alcoholism Patient educated on: diagnosis and medication risk/benefits Informed Consent: further education needed Reason for continued inpatient stay Substantial Risk for: harm to self and rapid decompensation Time Spent With Patient Time: Total time managing care of this patient today 30____ minutes.
[2024-07-20 19:25] VITALS: BP 123/84; PULSE 78; RESP 16; TEMP 36.2; O2SAT 98
[2024-07-20] MEDS: QUEtiapine Fumarate 200 MG TABLET PO (21:58)
[2024-07-20] MEDS: clonazePAM 1 MG TABLET PO (21:58)
[2024-07-20] MEDS: Naltrexone HCl 50 MG TABLET PO (21:58)
[2024-07-20] MEDS: fluvoxaMINE Maleate 50 MG TABLET 75 MG PO (21:58)
[2024-07-20] MEDS: Topiramate 25 MG TABLET 50 MG PO (21:58)
[2024-07-21 07:41] VITALS: BP 114/70; PULSE 62; RESP 16; TEMP 36.3; O2SAT 95
[2024-07-21] MEDS: guanFACINE HCl ER 1 MG TAB.ER.24H PO (08:34)
[2024-07-21] MEDS: Thiamine HCL 100 MG TABLET PO (08:34)
[2024-07-21] MEDS: OXcarbazepine 300 MG TABLET PO (08:34)
[2024-07-21] MEDS: Acyclovir 200 MG CAPSULE 400 MG PO (08:34)
[2024-07-21] MEDS: clonazePAM 0.5 MG TABLET PO (08:34)
[2024-07-21] MEDS: fluvoxaMINE Maleate 50 MG TABLET 75 MG PO (08:34)
[2024-07-21 19:35] VITALS: BP 122/74; PULSE 61; RESP 16; TEMP 36.2; O2SAT 96
--- NOTE | 2024-07-21 20:04 | HO.PSYCHPN ---
Subjective Subjective Date of Service: 07/21/24 Reason For Visit: SI agitation Interim History: meds reviewed; complex regimen. pt c/o feeling tired, agreed to change luvox 75 BID to 50/100 (most recent med change appears to have been luvox dosing increase). will discuss further Tx planning and any med changes with attending provider . per staff, increased depression. making negative comments re Tx other people are receiving on the unit. Mental Status Exam Mental Status Exam Narrative: Pt is alert and oriented; behavior is cooperative, calm; dressed in casual attire; mood is described as depressed, reports his anxiety is largely resolved; eye contact appropriate; Speech is normal rate, volume and not pressured; thought process is organized; Thought content is on tx; no SI/HI/VH/AH expressed. Diagnostics Vital Signs (24Hr): Vital Signs - 24 hr 07/21/24 07:41 Temperature 97.4 F Pulse Rate 62 Respiratory Rate 16 Blood Pressure 114/70 Pulse Oximetry 95 Oxygen Delivery Method Room Air BMI result Body Mass Index 31.3 Labs 07/08/24 16:07 07/08/24 16:07 Medications Medications Current Medications Acetaminophen (Acetaminophen 325 Mg Tablet) 650 mg PO Q6H PRN PRN Reason: Headache/Pain Mild Scale (1-3) Last Admin: 07/16/24 09:11 Dose: 650 mg Acyclovir (Acyclovir 200 Mg Capsule) 400 mg PO BID [facility] Last Admin: 07/21/24 08:34 Dose: 400 mg Al Hydroxide/Mg Hydroxide (Magnesium Hydrox/Alum Hydrox 30 Ml Oral.Susp) 30 ml PO Q6H PRN PRN Reason: Heartburn/Nausea Benzocaine (Benzocaine 20 % Oral Gel 9 Gm Tube) 1 appl MUCOUS MEM QID PRN; Protocol PRN Reason: Mouth Sore Pain Clonazepam (Clonazepam 0.5 Mg Tablet) 0.5 mg PO DAILY [facility] Last Admin: 07/21/24 08:34 Dose: 0.5 mg Clonazepam (Clonazepam 1 Mg Tablet) 1 mg PO BEDTIME [facility] Last Admin: 07/20/24 21:58 Dose: 1 mg Ergocalciferol (Ergocalciferol (Vitamin D2) 1,250 Mcg Capsule) 1,250 mcg PO Th [facility] Last Admin: 07/16/24 09:17 Dose: 1,250 mcg Fluvoxamine Maleate (Fluvoxamine Maleate 50 Mg Tablet) 50 mg PO DAILY [facility] Fluvoxamine Maleate (Fluvoxamine Maleate 50 Mg Tablet) 100 mg PO BEDTIME [facility] Fluvoxamine Maleate (Fluvoxamine Maleate 50 Mg Tablet) 75 mg PO ONCE ONE Stop: 07/21/24 21:01 Guanfacine HCl (Guanfacine Hcl Er 1 Mg Tab.Er.24h) 1 mg PO BID [facility] Last Admin: 07/21/24 08:34 Dose: 1 mg Hydroxyzine HCl (Hydroxyzine Hcl 50 Mg Tablet) 50 mg PO Q6H PRN PRN Reason: Anxiety Magnesium Hydroxide (Milk Of Magnesia 30 Ml Oral.Susp) 30 ml PO DAILY PRN PRN Reason: Constipation Naltrexone HCl (Naltrexone Hcl 50 Mg Tablet) 50 mg PO BEDTIME [facility] Last Admin: 07/20/24 21:58 Dose: 50 mg Nicotine Polacrilex (Nicotine Polacrilex 2 Mg Gum) 4 mg BUCCAL Q2H PRN PRN Reason: Nicotine Cravings Oxcarbazepine (Oxcarbazepine 300 Mg Tablet) 300 mg PO BID [facility] Last Admin: 07/21/24 08:34 Dose: 300 mg Quetiapine Fumarate (Quetiapine Fumarate 200 Mg Tablet) 200 mg PO BEDTIME [facility] Last Admin: 07/20/24 21:58 Dose: 200 mg Thiamine HCl (Thiamine Hcl 100 Mg Tablet) 100 mg PO DAILY [facility] Last Admin: 07/21/24 08:34 Dose: 100 mg Topiramate (Topiramate 25 Mg Tablet) 50 mg PO BEDTIME [facility] Last Admin: 07/20/24 21:58 Dose: 50 mg Trazodone HCl (Trazodone Hcl 50 Mg Tablet) 50 mg PO BEDTIME MRX1 PRN PRN Reason: Insomnia Last Admin: 07/18/24 20:33 Dose: 50 mg Allergies Allergies Allergy/AdvReac Type Severity Reaction Status Date / Time Sulfa (Sulfonamide Allergy Rash Verified 07/08/24 14:08 Antibiotics) Assessment & Plan Assessment & Plan (1) Bipolar II disorder: Status: Acute Code(s): F31.81 - Bipolar II disorder (2) PTSD (post-traumatic stress disorder): Status: Acute Code(s): F43.10 - Post-traumatic stress disorder, unspecified (3) OCD (obsessive compulsive disorder): Status: Acute Code(s): F42.9 - Obsessive-compulsive disorder, unspecified (4) Alcohol use disorder: Status: Acute Code(s): F10.90 - Alcohol use, unspecified, uncomplicated Plan Patient is a 48 year old male with hx of Bipolar d/o, PTSD, OCD and alcohol use d/o who presented to [facility] from the partial hospitalization program on a section 12 due to suicidal ideation, increased anxiety and depression secondary to fixation of medical concerns. Plan:CV 15 minute safety check Continue home medication CIWA protocol Increase Seroquel to 200 mg p.o. bedtime DC Ativan Start: Klonopin 0.5 mg p.o. daily Klonopin 1 mg PO bedtime obtain collateral encourage groups discharge planning 07/10: Keeping to self. laying in bed. Patient continues to report feeling anxious; pt stated, I keep thinking about all my screw ups in life . Pt reports he believes klonopin has decreased his need to pick at his scalp and grunting. denies SI/HI/VH/AH. Continue current tx plan. 07/11 continue tx. will not rx ambien as per staff he is sleeping through the night, on ciwa for alcohol withdrawal. 07/12 continue tx. 07/13: Patient is anxious severely depressed not taking care of his ADLs catastrophic thinking hopeless helpless safe in the setting increase Luvox to 50 b.i.d. patient had reportedly accidentally stopped this dosing prior about 5 days prior to admission and may have been in withdrawal anxiety increase oxcarbazepine to 300 b.i.d. for help with anxiety and mood instability. If not effective would consider Anafranil. Patient focused on function his penis in a sexual manner urination ability to get an erection is focused that his life is over and focuses this all on the fact that he had herpes. Discussed that some of this may relate to medication he is currently taking. Urology consult 07/14: Social with select peers. Pt continues to report increase anxiety and depression; pt stated, I haven't showered in 5 days because I'm depressed about my herpes. I just keeping thinking about it. I don't know what to do . Tearful. encouraged to shower and attend groups. per nursing, slept 7 hours. Continue current tx plan. 07/16/24 consider ect considere lithium urology consult luvox inc 07/20/2024 Increase Luvox to 75 mg b.i.d. reviewed consideration of ECT year outpatient TMS continue naltrexone for medically assisted treatment of his alcoholism 07/21: pt c/o daytime sluggishness, which he reports is new. agrees to redistribute luvox from the new dose of 150 mg daily split 75 BID to a split of 50/100. will discuss further med changes and dispo planning with attending on . Reason for continued inpatient stay Substantial Risk for: rapid decompensation Time Spent With Patient Time: Total time managing care of this patient today __25__ minutes.
[2024-07-22] MEDS: fluvoxaMINE Maleate 50 MG TABLET 75 MG PO (00:13)
[2024-07-22] MEDS: Acyclovir 200 MG CAPSULE 400 MG PO ×3 (00:13→20:28)
[2024-07-22] MEDS: OXcarbazepine 300 MG TABLET PO ×3 (00:13→20:28)
[2024-07-22] MEDS: Topiramate 25 MG TABLET 50 MG PO ×2 (00:13→20:27)
[2024-07-22] MEDS: QUEtiapine Fumarate 200 MG TABLET PO ×2 (00:13→20:28)
[2024-07-22] MEDS: Naltrexone HCl 50 MG TABLET PO ×2 (00:13→20:27)
[2024-07-22] MEDS: clonazePAM 1 MG TABLET PO ×2 (00:13→20:28)
[2024-07-22] MEDS: guanFACINE HCl ER 1 MG TAB.ER.24H PO ×3 (00:13→20:28)
[2024-07-22 07:35] VITALS: BP 110/61; PULSE 63; RESP 14; TEMP 36.6; O2SAT 96
[2024-07-22] MEDS: clonazePAM 0.5 MG TABLET PO (08:56)
[2024-07-22] MEDS: fluvoxaMINE Maleate 50 MG TABLET PO (08:56)
[2024-07-22] MEDS: Thiamine HCL 100 MG TABLET PO (08:56)
--- NOTE | 2024-07-22 15:23 | HO.PSYCHPN ---
Subjective Subjective Date of Service: 07/22/24 Reason For Visit: SI agitation Interim History: met with patient; discussed with team; reviewed chart Patient says that he is feeling lost and still depressed though he is feeling better than before. He says SI floats around in the back of [his] mind but no plans or intent and he is hoping treatment will be effective. Sleeping too much he says and so he is pushing himself to be out in the day room. Discussed medications and Luvox was just increased to 100 mg and thus patient and writer editor agreed to leave current treatment plan as is Mental Status Exam Mental Status Exam Narrative: Pt is alert and oriented; behavior is cooperative, calm, sedentary; dressed in casual attire; mood is described as lost, and affect congruent, downcast; eye contact appropriate; Speech is normal rate, volume and not pressured; thought process is organized; Thought content is on struggles, mood, tx; vague intermittent passive SI but no plan/intent; no HI; no AVH Diagnostics Vital Signs (24Hr): Vital Signs - 24 hr 07/21/24 19:35 07/22/24 07:35 Temperature 97.1 F 97.9 F Pulse Rate 61 63 Respiratory Rate 16 14 Blood Pressure 122/74 110/61 Pulse Oximetry 96 96 Oxygen Delivery Method Room Air Room Air BMI result Body Mass Index 31.3 Labs 07/08/24 16:07 07/08/24 16:07 Medications Medications Current Medications Acetaminophen (Acetaminophen 325 Mg Tablet) 650 mg PO Q6H PRN PRN Reason: Headache/Pain Mild Scale (1-3) Last Admin: 07/16/24 09:11 Dose: 650 mg Acyclovir (Acyclovir 200 Mg Capsule) 400 mg PO BID [facility] Last Admin: 07/22/24 08:55 Dose: 400 mg Al Hydroxide/Mg Hydroxide (Magnesium Hydrox/Alum Hydrox 30 Ml Oral.Susp) 30 ml PO Q6H PRN PRN Reason: Heartburn/Nausea Benzocaine (Benzocaine 20 % Oral Gel 9 Gm Tube) 1 appl MUCOUS MEM QID PRN; Protocol PRN Reason: Mouth Sore Pain Clonazepam (Clonazepam 0.5 Mg Tablet) 0.5 mg PO DAILY [facility] Last Admin: 07/22/24 08:56 Dose: 0.5 mg Clonazepam (Clonazepam 1 Mg Tablet) 1 mg PO BEDTIME [facility] Last Admin: 07/22/24 00:13 Dose: 1 mg Ergocalciferol (Ergocalciferol (Vitamin D2) 1,250 Mcg Capsule) 1,250 mcg PO Th [facility] Last Admin: 07/16/24 09:17 Dose: 1,250 mcg Fluvoxamine Maleate (Fluvoxamine Maleate 50 Mg Tablet) 50 mg PO DAILY [facility] Last Admin: 07/22/24 08:56 Dose: 50 mg Fluvoxamine Maleate (Fluvoxamine Maleate 50 Mg Tablet) 100 mg PO BEDTIME [facility] Guanfacine HCl (Guanfacine Hcl Er 1 Mg Tab.Er.24h) 1 mg PO BID [facility] Last Admin: 07/22/24 08:56 Dose: 1 mg Hydroxyzine HCl (Hydroxyzine Hcl 50 Mg Tablet) 50 mg PO Q6H PRN PRN Reason: Anxiety Magnesium Hydroxide (Milk Of Magnesia 30 Ml Oral.Susp) 30 ml PO DAILY PRN PRN Reason: Constipation Naltrexone HCl (Naltrexone Hcl 50 Mg Tablet) 50 mg PO BEDTIME [facility] Last Admin: 07/22/24 00:13 Dose: 50 mg Nicotine Polacrilex (Nicotine Polacrilex 2 Mg Gum) 4 mg BUCCAL Q2H PRN PRN Reason: Nicotine Cravings Oxcarbazepine (Oxcarbazepine 300 Mg Tablet) 300 mg PO BID [facility] Last Admin: 07/22/24 08:56 Dose: 300 mg Quetiapine Fumarate (Quetiapine Fumarate 200 Mg Tablet) 200 mg PO BEDTIME [facility] Last Admin: 07/22/24 00:13 Dose: 200 mg Thiamine HCl (Thiamine Hcl 100 Mg Tablet) 100 mg PO DAILY [facility] Last Admin: 07/22/24 08:56 Dose: 100 mg Topiramate (Topiramate 25 Mg Tablet) 50 mg PO BEDTIME [facility] Last Admin: 07/22/24 00:13 Dose: 50 mg Trazodone HCl (Trazodone Hcl 50 Mg Tablet) 50 mg PO BEDTIME MRX1 PRN PRN Reason: Insomnia Last Admin: 07/18/24 20:33 Dose: 50 mg Allergies Allergies Allergy/AdvReac Type Severity Reaction Status Date / Time Sulfa (Sulfonamide Allergy Rash Verified 07/08/24 14:08 Antibiotics) Assessment & Plan Assessment & Plan (1) Bipolar II disorder: Status: Acute Code(s): F31.81 - Bipolar II disorder (2) PTSD (post-traumatic stress disorder): Status: Acute Code(s): F43.10 - Post-traumatic stress disorder, unspecified (3) OCD (obsessive compulsive disorder): Status: Acute Code(s): F42.9 - Obsessive-compulsive disorder, unspecified (4) Alcohol use disorder: Status: Acute Code(s): F10.90 - Alcohol use, unspecified, uncomplicated Plan Patient is a 48 year old male with hx of Bipolar d/o, PTSD, OCD and alcohol use d/o who presented to [facility] ER from the partial hospitalization program on a section 12 due to suicidal ideation, increased anxiety and depression secondary to fixation of medical concerns. Plan:CV 15 minute safety check Continue home medication CIWA protocol Increase Seroquel to 200 mg p.o. bedtime DC Ativan Start: Klonopin 0.5 mg p.o. daily Klonopin 1 mg PO bedtime obtain collateral encourage groups discharge planning 07/10: Keeping to self. laying in bed. Patient continues to report feeling anxious; pt stated, I keep thinking about all my screw ups in life . Pt reports he believes klonopin has decreased his need to pick at his scalp and grunting. denies SI/HI/VH/AH. Continue current tx plan. 07/11 continue tx. will not rx ambien as per staff he is sleeping through the night, on ciwa for alcohol withdrawal. 07/12 continue tx. 07/13: Patient is anxious severely depressed not taking care of his ADLs catastrophic thinking hopeless helpless safe in the setting increase Luvox to 50 b.i.d. patient had reportedly accidentally stopped this dosing prior about 5 days prior to admission and may have been in withdrawal anxiety increase oxcarbazepine to 300 b.i.d. for help with anxiety and mood instability. If not effective would consider Anafranil. Patient focused on function his penis in a sexual manner urination ability to get an erection is focused that his life is over and focuses this all on the fact that he had herpes. Discussed that some of this may relate to medication he is currently taking. Urology consult 07/14: Social with select peers. Pt continues to report increase anxiety and depression; pt stated, I haven't showered in 5 days because I'm depressed about my herpes. I just keeping thinking about it. I don't know what to do . Tearful. encouraged to shower and attend groups. per nursing, slept 7 hours. Continue current tx plan. 07/16/24 consider ect considere lithium urology consult luvox inc 07/20/2024 Increase Luvox to 75 mg b.i.d. reviewed consideration of ECT year outpatient TMS continue naltrexone for medically assisted treatment of his alcoholism 07/21: pt c/o daytime sluggishness, which he reports is new. agrees to redistribute luvox from the new dose of 150 mg daily split 75 BID to a split of 50/100. will discuss further med changes and dispo planning with attending on . 07/22/14 Patient says that he is feeling lost and still depressed though he is feeling better than before. He says SI floats around in the back of [his] mind but no plans or intent and he is hoping treatment will be effective. Sleeping too much he says and so he is pushing himself to be out in the day room. Discussed behavioral activation, avoiding naps; Discussed medications and Luvox was just increased to 100 mg and thus patient and writer editor agreed to leave current treatment plan as is Patient educated on: diagnosis, medication risk/benefits and therapeutic strategies Informed Consent: understands Reason for continued inpatient stay Substantial Risk for: rapid decompensation Time Spent With Patient Time: Total time managing care of this patient today ____ minutes.
[2024-07-22 20:00] VITALS: BP 106/69; PULSE 71; RESP 16; TEMP 36.6; O2SAT 97
[2024-07-22] MEDS: fluvoxaMINE Maleate 50 MG TABLET 100 MG PO (20:28)
[2024-07-23 07:35] VITALS: BP 114/68; PULSE 65; RESP 12; TEMP 36.7; O2SAT 96
[2024-07-23] MEDS: Acyclovir 200 MG CAPSULE 400 MG PO ×2 (08:24→22:29)
[2024-07-23] MEDS: fluvoxaMINE Maleate 50 MG TABLET PO (08:24)
[2024-07-23] MEDS: OXcarbazepine 300 MG TABLET PO ×2 (08:24→22:31)
[2024-07-23] MEDS: guanFACINE HCl ER 1 MG TAB.ER.24H PO ×2 (08:24→22:31)
[2024-07-23] MEDS: Thiamine HCL 100 MG TABLET PO (08:24)
[2024-07-23] MEDS: Ergocalciferol (Vitamin D2) 1,250 MCG CAPSULE 1250 MCG PO (12:05)
--- NOTE | 2024-07-23 15:15 | HO.PSYCHPN ---
Subjective Subjective Date of Service: 07/23/24 Reason For Visit: SI agitation Subjective Notes: Conditional Voluntary Interim History: Pt by hx denies clear manic sx describes some impulsivity hard to sit still had difficult school was difficult to read things he didnt like c/w add depressed demoralized denies active si improvement noted with inc luvox Mental Status Exam Mental Status Exam Narrative: Pt is alert and oriented; behavior is cooperative, calm; dressed in casual attire; mood is described as depressed, reports his anxiety has improved feels calmer ; eye contact appropriate; Speech is normal rate, volume and not pressured; thought process is organized ruminative ; Thought content is on feeling isolated fixed beliefs ; no SI/HI/VH/AH expressed. Diagnostics Vital Signs (24Hr): Vital Signs - 24 hr 07/22/24 20:00 07/23/24 07:35 Temperature 97.9 F 98.0 F Pulse Rate 71 65 Respiratory Rate 16 12 Blood Pressure 106/69 114/68 Pulse Oximetry 97 96 Oxygen Delivery Method Room Air Room Air BMI result Body Mass Index 31.3 Labs 07/08/24 16:07 07/08/24 16:07 Medications Medications Current Medications Acetaminophen (Acetaminophen 325 Mg Tablet) 650 mg PO Q6H PRN PRN Reason: Headache/Pain Mild Scale (1-3) Last Admin: 07/16/24 09:11 Dose: 650 mg Acyclovir (Acyclovir 200 Mg Capsule) 400 mg PO BID [facility] Last Admin: 07/23/24 08:24 Dose: 400 mg Al Hydroxide/Mg Hydroxide (Magnesium Hydrox/Alum Hydrox 30 Ml Oral.Susp) 30 ml PO Q6H PRN PRN Reason: Heartburn/Nausea Benzocaine (Benzocaine 20 % Oral Gel 9 Gm Tube) 1 appl MUCOUS MEM QID PRN; Protocol PRN Reason: Mouth Sore Pain Clonazepam (Clonazepam 1 Mg Tablet) 1 mg PO BEDTIME [facility] Last Admin: 07/22/24 20:28 Dose: 1 mg Clonazepam (Clonazepam 0.5 Mg Tablet) 0.5 mg PO DAILY PRN PRN Reason: mod anxiety Ergocalciferol (Ergocalciferol (Vitamin D2) 1,250 Mcg Capsule) 1,250 mcg PO Th [facility] Last Admin: 07/23/24 12:05 Dose: 1,250 mcg Fluvoxamine Maleate (Fluvoxamine Maleate 50 Mg Tablet) 50 mg PO DAILY [facility] Last Admin: 07/23/24 08:24 Dose: 50 mg Fluvoxamine Maleate (Fluvoxamine Maleate 50 Mg Tablet) 100 mg PO BEDTIME [facility] Last Admin: 07/22/24 20:28 Dose: 100 mg Guanfacine HCl (Guanfacine Hcl Er 1 Mg Tab.Er.24h) 1 mg PO BID [facility] Last Admin: 07/23/24 08:24 Dose: 1 mg Hydroxyzine HCl (Hydroxyzine Hcl 50 Mg Tablet) 50 mg PO Q6H PRN PRN Reason: Anxiety Magnesium Hydroxide (Milk Of Magnesia 30 Ml Oral.Susp) 30 ml PO DAILY PRN PRN Reason: Constipation Naltrexone HCl (Naltrexone Hcl 50 Mg Tablet) 50 mg PO BEDTIME [facility] Last Admin: 07/22/24 20:27 Dose: 50 mg Nicotine Polacrilex (Nicotine Polacrilex 2 Mg Gum) 4 mg BUCCAL Q2H PRN PRN Reason: Nicotine Cravings Oxcarbazepine (Oxcarbazepine 300 Mg Tablet) 300 mg PO BID [facility] Last Admin: 07/23/24 08:24 Dose: 300 mg Quetiapine Fumarate (Quetiapine Fumarate 200 Mg Tablet) 200 mg PO BEDTIME [facility] Last Admin: 07/22/24 20:28 Dose: 200 mg Thiamine HCl (Thiamine Hcl 100 Mg Tablet) 100 mg PO DAILY [facility] Last Admin: 07/23/24 08:24 Dose: 100 mg Topiramate (Topiramate 25 Mg Tablet) 50 mg PO BEDTIME [facility] Last Admin: 07/22/24 20:27 Dose: 50 mg Trazodone HCl (Trazodone Hcl 50 Mg Tablet) 50 mg PO BEDTIME MRX1 PRN PRN Reason: Insomnia Last Admin: 07/18/24 20:33 Dose: 50 mg Allergies Allergies Allergy/AdvReac Type Severity Reaction Status Date / Time Sulfa (Sulfonamide Allergy Rash Verified 07/08/24 14:08 Antibiotics) Assessment & Plan Assessment & Plan (1) Major depression, recurrent, chronic: Status: Acute Code(s): F33.9 - Major depressive disorder, recurrent, unspecified (2) PTSD (post-traumatic stress disorder): Status: Acute Code(s): F43.10 - Post-traumatic stress disorder, unspecified (3) OCD (obsessive compulsive disorder): Status: Acute Code(s): F42.9 - Obsessive-compulsive disorder, unspecified (4) Alcohol use disorder: Status: Acute Code(s): F10.90 - Alcohol use, unspecified, uncomplicated Plan Patient is a 48 year old male with hx of Bipolar d/o, PTSD, OCD and alcohol use d/o who presented to [facility] from the partial hospitalization program on a section 12 due to suicidal ideation, increased anxiety and depression secondary to fixation of medical concerns. Plan:CV 15 minute safety check Continue home medication CIWA protocol Increase Seroquel to 200 mg p.o. bedtime DC Ativan Start: Klonopin 0.5 mg p.o. daily Klonopin 1 mg PO bedtime obtain collateral encourage groups discharge planning 07/10: Keeping to self. laying in bed. Patient continues to report feeling anxious; pt stated, I keep thinking about all my screw ups in life . Pt reports he believes klonopin has decreased his need to pick at his scalp and grunting. denies SI/HI/VH/AH. Continue current tx plan. 07/11 continue tx. will not rx ambien as per staff he is sleeping through the night, on ciwa for alcohol withdrawal. 07/12 continue tx. 07/13: Patient is anxious severely depressed not taking care of his ADLs catastrophic thinking hopeless helpless safe in the setting increase Luvox to 50 b.i.d. patient had reportedly accidentally stopped this dosing prior about 5 days prior to admission and may have been in withdrawal anxiety increase oxcarbazepine to 300 b.i.d. for help with anxiety and mood instability. If not effective would consider Anafranil. Patient focused on function his penis in a sexual manner urination ability to get an erection is focused that his life is over and focuses this all on the fact that he had herpes. Discussed that some of this may relate to medication he is currently taking. Urology consult 07/14: Social with select peers. Pt continues to report increase anxiety and depression; pt stated, I haven't showered in 5 days because I'm depressed about my herpes. I just keeping thinking about it. I don't know what to do . Tearful. encouraged to shower and attend groups. per nursing, slept 7 hours. Continue current tx plan. 07/16/24 consider ect considere lithium urology consult luvox inc 07/20/2024 Increase Luvox to 75 mg b.i.d. reviewed consideration of ECT year outpatient TMS continue naltrexone for medically assisted treatment of his alcoholism 07/21: pt c/o daytime sluggishness, which he reports is new. agrees to redistribute luvox from the new dose of 150 mg daily split 75 BID to a split of 50/100. will discuss further med changes and dispo planning with attending on . 07/22/14 Patient says that he is feeling lost and still depressed though he is feeling better than before. He says SI floats around in the back of [his] mind but no plans or intent and he is hoping treatment will be effective. Sleeping too much he says and so he is pushing himself to be out in the day room. Discussed behavioral activation, avoiding naps; Discussed medications and Luvox was just increased to 100 mg and thus patient and short story writer agreed to leave current treatment plan as is 07/23/23 Pt with some clear improvement remained demoralized recommended php and consideration of tms. Strongly urged sobriety discussed tx options on MAT Patient educated on: diagnosis, medication risk/benefits, TMS and therapeutic strategies Informed Consent: understands Reason for continued inpatient stay Substantial Risk for: inability to function and rapid decompensation Time Spent With Patient Time: Total time managing care of this patient today ____ minutes.
[2024-07-23 20:00] VITALS: BP 121/71; PULSE 73; RESP 18; TEMP 36.7; O2SAT 96
[2024-07-23] MEDS: fluvoxaMINE Maleate 50 MG TABLET 100 MG PO (22:29)
[2024-07-23] MEDS: Naltrexone HCl 50 MG TABLET PO (22:30)
[2024-07-23] MEDS: QUEtiapine Fumarate 200 MG TABLET PO (22:31)
[2024-07-23] MEDS: clonazePAM 1 MG TABLET PO (22:31)
[2024-07-23] MEDS: Topiramate 25 MG TABLET 50 MG PO (22:31)
[2024-07-24 08:45] VITALS: BP 104/60; PULSE 61; RESP 16; TEMP 36.3; O2SAT 94
[2024-07-24] MEDS: Thiamine HCL 100 MG TABLET PO (08:53)
[2024-07-24] MEDS: Acyclovir 200 MG CAPSULE 400 MG PO (08:53)
[2024-07-24] MEDS: fluvoxaMINE Maleate 50 MG TABLET PO (08:53)
[2024-07-24] MEDS: OXcarbazepine 300 MG TABLET PO (08:53)
[2024-07-24] MEDS: guanFACINE HCl ER 1 MG TAB.ER.24H PO (08:53)
--- NOTE | 2024-07-24 09:16 | HO.PSYCHPN ---
Subjective Subjective Reason For Visit: SI agitation Diagnostics Vital Signs (24Hr): Vital Signs - 24 hr 07/23/24 20:00 07/24/24 08:45 Temperature 98.0 F 97.3 F Pulse Rate 73 61 Respiratory Rate 18 16 Blood Pressure 121/71 104/60 Pulse Oximetry 96 94 Oxygen Delivery Method Room Air Room Air BMI result Body Mass Index 31.3 Labs 07/08/24 16:07 07/08/24 16:07 Medications Medications Current Medications Acetaminophen (Acetaminophen 325 Mg Tablet) 650 mg PO Q6H PRN PRN Reason: Headache/Pain Mild Scale (1-3) Last Admin: 07/16/24 09:11 Dose: 650 mg Acyclovir (Acyclovir 200 Mg Capsule) 400 mg PO BID [facility] Last Admin: 07/24/24 08:53 Dose: 400 mg Al Hydroxide/Mg Hydroxide (Magnesium Hydrox/Alum Hydrox 30 Ml Oral.Susp) 30 ml PO Q6H PRN PRN Reason: Heartburn/Nausea Benzocaine (Benzocaine 20 % Oral Gel 9 Gm Tube) 1 appl MUCOUS MEM QID PRN; Protocol PRN Reason: Mouth Sore Pain Clonazepam (Clonazepam 1 Mg Tablet) 1 mg PO BEDTIME [facility] Last Admin: 07/23/24 22:31 Dose: 1 mg Clonazepam (Clonazepam 0.5 Mg Tablet) 0.5 mg PO DAILY PRN PRN Reason: mod anxiety Ergocalciferol (Ergocalciferol (Vitamin D2) 1,250 Mcg Capsule) 1,250 mcg PO Th [facility] Last Admin: 07/23/24 12:05 Dose: 1,250 mcg Fluvoxamine Maleate (Fluvoxamine Maleate 50 Mg Tablet) 50 mg PO DAILY [facility] Last Admin: 07/24/24 08:53 Dose: 50 mg Fluvoxamine Maleate (Fluvoxamine Maleate 50 Mg Tablet) 100 mg PO BEDTIME [facility] Last Admin: 07/23/24 22:29 Dose: 100 mg Guanfacine HCl (Guanfacine Hcl Er 1 Mg Tab.Er.24h) 1 mg PO BID [facility] Last Admin: 07/24/24 08:53 Dose: 1 mg Hydroxyzine HCl (Hydroxyzine Hcl 50 Mg Tablet) 50 mg PO Q6H PRN PRN Reason: Anxiety Magnesium Hydroxide (Milk Of Magnesia 30 Ml Oral.Susp) 30 ml PO DAILY PRN PRN Reason: Constipation Naltrexone HCl (Naltrexone Hcl 50 Mg Tablet) 50 mg PO BEDTIME [facility] Last Admin: 07/23/24 22:30 Dose: 50 mg Nicotine Polacrilex (Nicotine Polacrilex 2 Mg Gum) 4 mg BUCCAL Q2H PRN PRN Reason: Nicotine Cravings Oxcarbazepine (Oxcarbazepine 300 Mg Tablet) 300 mg PO BID [facility] Last Admin: 07/24/24 08:53 Dose: 300 mg Quetiapine Fumarate (Quetiapine Fumarate 200 Mg Tablet) 200 mg PO BEDTIME [facility] Last Admin: 07/23/24 22:31 Dose: 200 mg Thiamine HCl (Thiamine Hcl 100 Mg Tablet) 100 mg PO DAILY [facility] Last Admin: 07/24/24 08:53 Dose: 100 mg Topiramate (Topiramate 25 Mg Tablet) 50 mg PO BEDTIME [facility] Last Admin: 07/23/24 22:31 Dose: 50 mg Trazodone HCl (Trazodone Hcl 50 Mg Tablet) 50 mg PO BEDTIME MRX1 PRN PRN Reason: Insomnia Last Admin: 07/18/24 20:33 Dose: 50 mg Allergies Allergies Allergy/AdvReac Type Severity Reaction Status Date / Time Sulfa (Sulfonamide Allergy Rash Verified 07/08/24 14:08 Antibiotics) Assessment & Plan Assessment & Plan (1) Major depression, recurrent, chronic: Status: Acute Code(s): F33.9 - Major depressive disorder, recurrent, unspecified (2) PTSD (post-traumatic stress disorder): Status: Acute Code(s): F43.10 - Post-traumatic stress disorder, unspecified (3) OCD (obsessive compulsive disorder): Status: Acute Code(s): F42.9 - Obsessive-compulsive disorder, unspecified (4) Alcohol use disorder: Status: Acute Code(s): F10.90 - Alcohol use, unspecified, uncomplicated Plan Patient is a 48 year old male with hx of Bipolar d/o, PTSD, OCD and alcohol use d/o who presented to [facility] from the partial hospitalization program on a section 12 due to suicidal ideation, increased anxiety and depression secondary to fixation of medical concerns. Plan:CV 15 minute safety check Continue home medication CIWA protocol Increase Seroquel to 200 mg p.o. bedtime DC Ativan Start: Klonopin 0.5 mg p.o. daily Klonopin 1 mg PO bedtime obtain collateral encourage groups discharge planning 07/10: Keeping to self. laying in bed. Patient continues to report feeling anxious; pt stated, I keep thinking about all my screw ups in life . Pt reports he believes klonopin has decreased his need to pick at his scalp and grunting. denies SI/HI/VH/AH. Continue current tx plan. 07/11 continue tx. will not rx ambien as per staff he is sleeping through the night, on ciwa for alcohol withdrawal. 07/12 continue tx. 07/13: Patient is anxious severely depressed not taking care of his ADLs catastrophic thinking hopeless helpless safe in the setting increase Luvox to 50 b.i.d. patient had reportedly accidentally stopped this dosing prior about 5 days prior to admission and may have been in withdrawal anxiety increase oxcarbazepine to 300 b.i.d. for help with anxiety and mood instability. If not effective would consider Anafranil. Patient focused on function his penis in a sexual manner urination ability to get an erection is focused that his life is over and focuses this all on the fact that he had herpes. Discussed that some of this may relate to medication he is currently taking. Urology consult 07/14: Social with select peers. Pt continues to report increase anxiety and depression; pt stated, I haven't showered in 5 days because I'm depressed about my herpes. I just keeping thinking about it. I don't know what to do . Tearful. encouraged to shower and attend groups. per nursing, slept 7 hours. Continue current tx plan. 07/16/24 consider ect considere lithium urology consult [facility] 07/20/2024 Increase Luvox to 75 mg b.i.d. reviewed consideration of ECT year outpatient TMS continue naltrexone for medically assisted treatment of his alcoholism 07/21: pt c/o daytime sluggishness, which he reports is new. agrees to redistribute luvox from the new dose of 150 mg daily split 75 BID to a split of 50/100. will discuss further med changes and dispo planning with attending on . 07/22/14 Patient says that he is feeling lost and still depressed though he is feeling better than before. He says SI floats around in the back of [his] mind but no plans or intent and he is hoping treatment will be effective. Sleeping too much he says and so he is pushing himself to be out in the day room. Discussed behavioral activation, avoiding naps; Discussed medications and Luvox was just increased to 100 mg and thus patient and communications writer agreed to leave current treatment plan as is 07/23/23 Pt with some clear improvement remained demoralized recommended php and consideration of tms. Strongly urged sobriety discussed tx options on MAT Time Spent With Patient Time: Total time managing care of this patient today ____ minutes.
--- NOTE | 2024-07-24 09:41 | P.DS_ITS ---
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 distorted concerns Has provider been notified: No Attending physician on discharge: Johnie El Discharging clinician: Jodee Dai DS: Diagnosis Discharge Diagnosis (1) Major depression, recurrent, chronic: Status: Acute (2) PTSD (post-traumatic stress disorder): Status: Acute (3) OCD (obsessive compulsive disorder): Status: Acute (4) Alcohol use disorder: Status: Acute DS: Medications Discharge Medications Home Medications: Home Medications ?Medication ?Instructions ?Recorded ?Confirmed acyclovir 400 mg tablet 400 mg PO BID 05/26/24 07/08/24 lorazepam 0.5 mg tablet 0.5 mg PO BID 05/26/24 07/08/24 quetiapine 300 mg tablet 150 mg PO BEDTIME 05/26/24 07/08/24 fluvoxamine 25 mg tablet 25 mg PO BID 07/08/24 07/08/24 guanfacine 1 mg tablet,extended 1 mg PO BID 07/08/24 07/08/24 release 24 hr oxcarbazepine 300 mg tablet 300 mg PO BEDTIME 07/08/24 07/08/24 topiramate 50 mg tablet 50 mg PO BEDTIME 07/08/24 07/08/24 Previous Rx's ?Medication ?Instructions ?Recorded ergocalciferol (vitamin D2) 1,250 1,250 mcg PO QWEEK vitamin D 07/02/24 mcg (50,000 unit) capsule (Vitamin deficiency #14 caps D2) naltrexone 50 mg tablet 50 mg PO BEDTIME #15 tabs 07/02/24 thiamine HCl (vitamin B1) 100 mg 100 mg PO DAILY #30 tabs 07/02/24 tablet zinc citrate 11 mg chewable tablet 11 mg PO DAILY #30 tabs 07/09/24 Mental Status Exam Mental Status Exam Narrative: Pt is alert and oriented; behavior is cooperative and calm; dressed in casual attire; mood is described as fine ; eye contact appropriate; Speech is normal rate, volume and not pressured; thought process is organized and goal directed; Thought content is on tx; denies SI/HI/VH/AH. DS: Summary Hospital Course Hospital Course: Patient is a 48 year old male with hx of Bipolar d/o, PTSD, OCD and alcohol use d/o who presented to [facility] ER from the partial hospitalization program on a section 12 due to suicidal ideation, increased anxiety and depression secondary to fixation of medical concerns. Per crisis report, patient was walked over from the partial hospitalization program on a section 12 due to concerns of vague SI increased anxiety, depression and alcohol use secondary to fixation of medical concerns. Patient was discharged from on 06/04/24. Patient is engaged in treatment at [facility] however has been struggling with increased hopelessness, racing thoughts and alcohol use. Patient was encouraged by Dr. El to go for a crisis evaluation. Patient denies HI/VH/AH. Patient reports he has been staying with his mother in [place] for the last 6 months due to not wanting to be alone. During admission assessment, patient presents alert and oriented x3. Calm and cooperative. Patient reports increased anxiety and depression; patient stated, I was at the partial program and I started yelling and picking. Staff asked me about suicide and I told them yes, so she told me that I should come here. I think I forgot that I was supposed to keep taking my Luvox after Dr. Rea made some med changes and that's what caused the increase in anxiety . Observed picking at scabs on scalp; which patient reports he does when anxious. Making grunting sounds at times during assessment. denies SI/HI/VH/AH. Patient stated, I want to live. I don't want to cause anyone anymore trouble. I felt hopeless but I didn't have a plan on doing anything . Patient reports he has not been able to sleep well at night; reports sleeping 3-4 hours due to racing thoughts. He reports increased drinking in the past few months to deal with his anxiety. Patient reports he has an outpatient appointment with an infection disease specialist. Plan: CV 15 minute safety check Continue home medication CIWA protocol Increase Seroquel to 200 mg p.o. bedtime DC Ativan Start: Klonopin 0.5 mg p.o. daily Klonopin 1 mg PO bedtime obtain collateral encourage groups discharge planning Keeping to self. laying in bed. Patient continues to report feeling anxious; pt stated, I keep thinking about all my screw ups in life . Pt reports he believes klonopin has decreased his need to pick at his scalp and grunting. denies SI/HI/VH/AH. Continue current tx plan. continue tx. will not rx ambien as per staff he is sleeping through the night, on ciwa for alcohol withdrawal. Patient is anxious severely depressed not taking care of his ADLs catastrophic thinking hopeless helpless safe in the setting increase Luvox to 50 b.i.d. patient had reportedly accidentally stopped this dosing prior about 5 days prior to admission and may have been in withdrawal anxiety increase oxcarbazepine to 300 b.i.d. for help with anxiety and mood instability. If not effective would consider Anafranil. Patient focused on function his penis in a sexual manner urination ability to get an erection is focused that his life is over and focuses this all on the fact that he had herpes. Discussed that some of this may relate to medication he is currently taking. Urology consult Social with select peers. Pt continues to report increase anxiety and depression; pt stated, I haven't showered in 5 days because I'm depressed about my herpes. I just keeping thinking about it. I don't know what to do . Tearful. encouraged to shower and attend groups. per nursing, slept 7 hours. Continue current tx plan. consider ect considere lithium urology consult [employer] Increase Luvox to 75 mg b.i.d. reviewed consideration of ECT year outpatient TMS continue naltrexone for medically assisted treatment of his alcoholism pt c/o daytime sluggishness, which he reports is new. agrees to redistribute luvox from the new dose of 150 mg daily split 75 BID to a split of 50/100. will discuss further med changes and dispo planning with attending on . Patient says that he is feeling lost and still depressed though he is feeling better than before. He says SI floats around in the back of [his] mind but no plans or intent and he is hoping treatment will be effective. Sleeping too much he says and so he is pushing himself to be out in the day room. 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 Strongly urged sobriety discussed tx options on MAT Patient plans on discharging home and following up with his outpatient providers and PHP. He will consider TMS. denies SI/HI/VH/AH. Time spent discussing smoking cessation with patient: 3 to 10 minutes Status at Discharge Cognitive/behavioral status at discharge: Patient has insight and demonstrates good judgment in terms of wanting to pursue treatment. Patient is not in imminent risk of harm to self or others and has a safety plan that includes presenting to the closest ER or calling 911 if feeling unsafe. Functional status at discharge: independent ambulation Overall status at discharge: patient is back to baseline Time Spent with Patient Time attestation: Total time managing care of this patient today _20___ minutes. Time spent: Less than 30 minutes Discharge Plan Discharge Anticipated Discharge Date/Time: 07/24/24 11:00 Patient Disposition: Home, Self-Care Discharge Diagnosis: Bipolar d/o, PTSD, OCD, alcohol use d/o Referrals: [facility] PHP [Other] - 07/31/24 8:00 am (PHP intake) Andrea Aguirre MD [Physician] - 09/01/24 2:00 pm Yessenia Rose APRN [Nurse Practitioner] - 07/28/24 9:00 am (Your follow up appt has been scheduled for Saturday07-28-24 @ 9am.) Discharge Medications: New fluvoxamine 50 mg Tablet 50 mg PO DAILY 30 Days Qty: 30 0RF clonazepam 1 mg Tablet 1 mg PO BEDTIME 7 Days Qty: 7 3RF fluvoxamine 100 mg tablet 100 mg PO BEDTIME 30 Days Qty: 30 0RF oxcarbazepine 300 mg Tablet 300 mg PO BID 30 Days Qty: 60 0RF quetiapine 200 mg Tablet 200 mg PO BEDTIME 30 Days Qty: 30 0RF Continued topiramate 50 mg tablet 50 mg PO BEDTIME Rx Instructions: start 1 tablet daily at bedtime for a week, then increase to 1 tablet twice daily guanfacine 1 mg tablet extended release 24 hr 1 mg PO BID acyclovir 400 mg tablet 400 mg PO BID naltrexone 50 mg tablet 50 mg PO BEDTIME Qty: 15 0RF ergocalciferol (vitamin D2) [Vitamin D2] 1,250 mcg (50,000 unit) capsule 1,250 mcg PO QWEEK Qty: 14 0RF Rx Instructions: =please note this is a WEEKLY medication= thiamine HCl (vitamin B1) 100 mg tablet 100 mg PO DAILY Qty: 30 0RF Discontinued oxcarbazepine 300 mg tablet 300 mg PO BEDTIME fluvoxamine 25 mg Tablet 25 mg PO BID lorazepam 0.5 mg tablet 0.5 mg PO BID quetiapine 300 mg tablet 150 mg PO BEDTIME zinc citrate 11 mg tablet,chewable 11 mg PO DAILY Qty: 30 1RF Discharge Orders: Discharge Order (Routine); Ordered 07/24/24 Ordered By: Jodee Dai Diet: Regular diet Activity on Discharge: As tolerated Stand Alone Forms: Patient Portal Discharge page, Community Support Print Language: [place] Care Plan Goals: Maintain mood and safe behaviors Take medications as prescribed Continue to pursue sobriety Practice coping skills Continue with outpatient providers and reach out to them as needed Health Concerns: Mood stability and behaviors Sobriety Plan of Treatment: Follow up with your PCP, psychiatric provider and other outpatient providers regarding above concerns Take medications as prescribed Assessment: Patient has insight and demonstrates good judgment in terms of wanting to pursue treatment. Patient is not in imminent risk of harm to self or others and has a safety plan that includes presenting to the closest ER or calling 911 if feeling unsafe. Discharge Date/Time: 07/24/24 11:59
== END 2024-07-24 11:59 | disposition home or self-care (01) | DRG 885 ==
LOC: HO.ED 07-09 07:02 → HO.PADLT16 07-09 11:46
PROVIDERS: Admitting Provider Registered Nurse; Emergency Provider Emergency Medicine Emergency Medical Services; Responsible Provider Registered Nurse; Visit Provider Psychiatry & Neurology Psychiatry
DX: F31.81 Bipolar II disorder (principal); R45.851 Suicidal ideations; F43.10 Post-traumatic stress disorder, unspecified; R20.8 Other disturbances of skin sensation; F42.9 Obsessive-compulsive disorder, unspecified; F10.90 Alcohol use, unspecified, uncomplicated; Z87.891 Personal history of nicotine dependence; Z23 Encounter for immunization; Z79.899 Other long term (current) drug therapy
CPT/HCPCS: 36415; 80048; 80179; 80307; 81003; 85025; 90656; 93005; 99285

== ENCOUNTER → 2024-07-09 08:53 | Outpatient (BNV) | payer OTHER, SELFPAY | PROVIDERS: Admitting Provider Registered Nurse; Emergency Provider Emergency Medicine Emergency Medical Services; Responsible Provider Registered Nurse; Visit Provider Internal Medicine | DX: Z51.81 Encounter for therapeutic drug level monitoring (principal) | CPT/HCPCS: 93010 ==

== ENCOUNTER → 2024-07-09 11:40 | Outpatient (BNV) | payer OTHER, SELFPAY | PROVIDERS: Admitting Provider Registered Nurse; Emergency Provider Emergency Medicine Emergency Medical Services; Responsible Provider Registered Nurse; Visit Provider Registered Nurse | DX: F31.81 Bipolar II disorder (principal); F43.11 Post-traumatic stress disorder, acute; F42.9 Obsessive-compulsive disorder, unspecified; F10.90 Alcohol use, unspecified, uncomplicated | CPT/HCPCS: 90792; 99231; 99232 ==

== ENCOUNTER → 2024-07-09 11:40 | Outpatient (BNV) | payer OTHER, SELFPAY | PROVIDERS: Admitting Provider Registered Nurse; Emergency Provider Emergency Medicine Emergency Medical Services; Responsible Provider Registered Nurse; Visit Provider Urology | DX: N48.9 Disorder of penis, unspecified (principal) | CPT/HCPCS: 99221 ==

== ENCOUNTER → 2024-07-09 11:40 | Outpatient (BNV) | payer OTHER, SELFPAY | PROVIDERS: Admitting Provider Registered Nurse; Emergency Provider Emergency Medicine Emergency Medical Services; Responsible Provider Registered Nurse; Visit Provider Psychiatry & Neurology Psychiatry | DX: F31.81 Bipolar II disorder (principal); F43.11 Post-traumatic stress disorder, acute; F42.9 Obsessive-compulsive disorder, unspecified; F10.90 Alcohol use, unspecified, uncomplicated | CPT/HCPCS: 99232 ==

== ENCOUNTER 2025-02-24 12:57 | Inpatient (IN) | payer OTHER, SELFPAY ==
--- NOTE | 2025-02-24 | ECG_ITS ---
Test Reason : R/O PROLONGED QTC Blood Pressure : */* mmHG Vent. Rate : 123 BPM Atrial Rate : 123 BPM P-R Int : 114 ms QRS Dur : 84 ms QT Int : 312 ms P-R-T Axes : 58 35 69 degrees QTcB Int : 446 ms Sinus tachycardia Otherwise normal ECG When compared with ECG of 09-Jul-2024 08:53, Vent. rate has increased by 44 bpm Referred By: Cande Garcia Electronically Signed By: ARMANDO TURNER
--- NOTE | ~2025-02-24 | US_ITS ---
EXAMINATION: US ABDOMEN LIMITED CLINICAL INFORMATION: Increased LFTs. COMPARISON: None available. TECHNIQUE: Real-time imaging of the right upper quadrant abdominal viscera. FINDINGS: PANCREAS: Visualized portions are unremarkable. LIVER: Liver is enlarged. Right hepatic lobe measures 19.7 cm. The liver contour is normal. There is diffuse increased liver parenchymal echogenicity, consistent with hepatic steatosis. No focal hepatic lesion. There is no intrahepatic biliary duct dilatation seen. GALLBLADDER: The gallbladder is physiologically distended without evidence of stones, sludge, polyps, wall thickening or pericholecystic fluid. Negative sonographic Cortez's sign. COMMON BILE DUCT: Normal in caliber measuring 0.5 cm in diameter. FREE FLUID: None. US/US abdomen limited IMPRESSION: 1. Hepatomegaly and diffuse fatty infiltration. No suspicious focal lesion. 2. No biliary dilatation. 3. Normal gallbladder. Electronically signed by: Vahe Deleon MD 02/24/2025 04:17 PM EDT
--- NOTE | 2025-02-24 13:00 | ED_ITS ---
HPI - Psych General Chief Complaint: ETOH/Substance Use Stated Complaint: Crisis Time Seen by Provider: 02/24/25 13:02 Source: patient Mode of arrival: ambulatory Limitations: no limitations History of Present Illness ED Provider: CANDE GARCIA PA-C HPI Narrative: 49 year old male with pmhx significant for bipolar 2 disorder, PTSD, anxiety, MDD, OCD, alcohol dependence presents to the ED today for evaluation of increasing depression. Began drinking alcohol around 0700 this morning and admits to consuming 5 nips today. Reports typically consuming 12-15 nips daily. Denies nausea or vomiting. Denies any physical concerns at present. Denies history of withdrawal seizures. Reports SI. Denies HI. He is not seeking detox. Related Data Home Medications ?Medication ?Instructions ?Recorded ?Confirmed acyclovir 400 mg tablet 400 mg PO BID 05/26/2402/24 guanfacine 1 mg tablet,extended 1 mg PO BID 07/08/24 0 02/24/25 release 24 hr Previous Rx's ?Medication ?Instructions ?Recorded thiamine HCl (vitamin B1) 100 mg 100 mg PO DAILY #30 t abs 07/02/24 tablet fluvoxamine 100 mg tablet 100 mg PO BEDTIME 30 days #3 0 tabs 07/24/24 fluvoxamine 50 mg tablet 50 mg PO DAILY 30 days #30 t abs 07/24/24 oxcarbazepine 300 mg tablet 300 mg PO BID 30 days #60 tabs 07/24/24 quetiapine 200 mg tablet 200 mg PO BEDTIME 30 days #3 0 tabs 07/24/24 Allergies Allergy/AdvReac Type Severity Reaction Status Date / Time Sulfa (Sulfonamide Allergy Rash Verified 02/24/25 13:06 Antibiotics) Review of Systems 2 Review of Systems: Yes all other systems are reviewed and are negative PMFSH Past Medical History Attestation statement: The following information was validated with the patient. Source: old records reviewed and nursing notes reviewed Medical History Suicidal ideation Alcohol dependence Social History Social History Household Members: None Household Members Other:: Parents Housing: Condominium Do you presently have visiting nurse or other home services: No Alcohol intake: current Alcohol intake frequency: 3 or more drinks per day Alcohol type: hard liquor Patient Tobacco Use Status: Former Tobacco user Smoked in Last 30 Days: No e-Cigarette/Vaping Use: Never Used Patient Interested in Nicotine Replacement: No Patient Given Instructions on How to Stop Smoking: No Second Hand Smoke Exposure: No Use of substances other than those prescribed or required for medical reasons: No Substance Use Type: Marijuana Currently Displaying Signs/Symptoms of Drug Intoxication Withdrawal: No Have you been hit, kicked, punched, or otherwise hurt by someone within the past year? If so, by whom?: No Do you feel safe in your current relationship?: No Current Relationship Is there a partner from a previous relationship who is making you feel unsafe now?: No Are you made to feel afraid or neglected: No Spiritual Healthcare Practices: n/a Voodoo Healthcare Practices: n/a Cultural Healthcare Practices: n/a Advance Directives: No Advance Directives Information Provided: Yes Do you have thoughts of harming others: None Do you have a plan to hurt others: No Plan Recently lost weight without trying: No How much weight loss: Not applicable Eating poorly because of decreased appetite: No Nutrition screen score: 0 Nutrition Risks: No Nutritional Risk Poor oral hygiene: No service: No Sexual orientation: Straight/Heterosexual Physical Exam 2 Vital Signs: Vital Signs: Last Vital Signs Temp 97.8 F 02/25/25 20:00 Pulse 103 H 02/25/25 20:00 Resp 16 02/25/25 20:00 BP 124/77 02/25/25 20:00 Pulse Ox 95 02/25/25 20:00 O2 Del Method Room Air 02/25/25 20:00 BMI result Body Mass Index 31.3 vital sign stable General: intoxicated Skin: Warm, dry, intact. No rashes or lesions. Head: Normocephalic, atraumatic. EENT: Hearing is intact b/l. Conjunctiva clear. Sclera is anicteric. PERRLA. EOM intact. Moist mucous membranes.? Cardiac: Chest wall symmetric. RRR Lungs: Normal respiratory effort without accessory muscle use Abdomen: Soft, non-tender, non-distended. No rebound tenderness or guarding. Positive BS x4. Back: No midline spinous or paraspinal tenderness. No step off deformity. Ext: Upper and lower extremities atraumatic, without tenderness, deformity, swelling or erythema Neuro: AOx3. Normal speech. no tremors, no asterixis, no tongue fasiculations. CN 2-12 grossly intact. Ambulating with slow but steady gait. Course Course Course Narrative: 1529 -- CBC without leukocytosis or left shift. No anemia. H&H stable. Chemistry without acute electrolyte abnormality requiring intervention. Transaminitis, likely secondary to ETOH abuse. His abdominal exam is benign, denies any abdominal pain. Will obtain right upper quadrant ultrasound to look at the liver. No SERGIO. Random glucose 138. BNP undetectable. Urine without infection. Urine toxicology negative. Ethanol 265 at 1:45 p.m. > pending care evaluation > CIWA ordered - will eval of withdrawal > US pending 1636 -- RUQ us without acute findings. patient reporting anxiety - no signs of withdrawal at this time. CIWA 1. po ativan ordered. he is medically cleared for care team at this time, placed in physician observation. Reevaluation(s) Reevaluation #1: 9:24 PM 02/24/2025 (Tom MALIK): Patient is signed out to this provider at shift change, in summary the patient is a 49-year-old male with history of alcoholism presenting to the ED for alcohol intoxication but also expressing thoughts of self-harm without a formulated plan. The patient was treated with prn withdrawal management, and CIWA has begun to improve. The patient was noted to be tachycardic and hypertensive, clonidine was ordered. At this time the crisis team has evaluated the patient and advises they we will place the patient on section 12 for inpatient bed search. This provider will continue to monitor CIWA scores and adjust care plan accordingly. Reevaluation #2: Time: 08:23 Date: 02/25/25 Provider: Lyle Villanueva MD Patient in physician observation for psychiatric evaluation.? No acute events reported overnight. No current complaints. VS stable.? Care team assessment recommendations pending. Time: 08:24 Reevaluation #3: Time: 13:40 Date: 02/25/25 Provider: Kami Olmstead DO Physician observation ended at 1340. Patient to be admitted as inpatient to psychiatry. Medications Administered Generic Name Dose Route Start Last Admin Trade Name Freq PRN Reason Stop Dose Admin Fluvoxamine Maleate 100 mg 02/24/25 21:00 02/25/25 20:29 Fluvoxamine Maleate 50 Mg Tablet PO 100 mg BEDTIME JESSIKA Administration Fluvoxamine Maleate 50 mg 02/24/25 19:30 02/25/25 09:25 Fluvoxamine Maleate 50 Mg Tablet PO 50 mg DAILY JESSIKA Administration Hydroxyzine HCl 25 mg 02/25/25 12:35 02/25/25 13:07 Hydroxyzine Hcl 25 Mg Tablet PO 25 mg Q6H PRN Administration mild anxiety Lorazepam 2 mg 02/25/25 19:31 02/25/25 20:29 Lorazepam 1 Mg Tablet PO 2 mg Q2H PRN Administration CIWA 12-15 Lorazepam 3 mg 02/25/25 19:31 02/25/25 22:25 Lorazepam 1 Mg Tablet PO 3 mg Q2H PRN Administration CIWA > 15, and call Oxcarbazepine 300 mg 02/24/25 21:00 02/25/25 20:29 Oxcarbazepine 300 Mg Tablet PO 300 mg BID JESSIKA Administration Quetiapine Fumarate 200 mg 02/24/25 21:00 02/25/25 20:29 Quetiapine Fumarate 200 Mg Tablet PO 200 mg BEDTIME JESSIKA Administration Thiamine HCl 100 mg 02/24/25 19:30 02/25/25 09:25 Thiamine Hcl 100 Mg Tablet PO 100 mg DAILY JESSIKA Administration Discontinued Medications Generic Name Dose Route Start Last Admin Trade Name [facility] PRN Reason Stop Dose Admin Clonidine HCl 0.1 mg 02/24/25 20:41 02/24/25 20:47 Clonidine Hcl 0.1 Mg Tablet PO 02/24/25 20:42 0.1 mg ONCE ONE Administration Protocol Clonidine HCl 0.1 mg 02/25/25 14:20 02/25/25 14:34 Clonidine Hcl 0.1 Mg Tablet PO 02/25/25 14:21 0.1 mg ONCE ONE Administration Protocol Diazepam 5 mg 02/24/25 19:34 02/24/25 19:43 Diazepam 10 Mg/2 Ml Cartridge IM 02/24/25 19:35 5 mg STAT STA Administration Lorazepam 1 mg 02/24/25 16:26 02/24/25 16:30 Lorazepam 1 Mg Tablet PO 02/24/25 16:27 1 mg ONCE ONE Administration Lorazepam 1 mg 02/24/25 16:34 02/24/25 18:29 Lorazepam 1 Mg Tablet PO 1 mg RQ6H PRN Administration Alcohol Withdrawal Lorazepam 2 mg 02/24/25 19:35 02/25/25 13:24 Lorazepam 1 Mg Tablet PO 2 mg RQ4H PRN Administration Alcohol Withdrawal Medical Decision Making Medical Decision Making [facility] Narrative: 49 year old male with pmhx significant for bipolar 2 disorder, PTSD, anxiety, MDD, OCD, alcohol dependence presents to the ED today for evaluation of increasing depression. Differential diagnosis includes anemia, electrolyte abnormality, mood disorder, anxiety, depression, SI, etoh abuse Presentation not consistent with acute organic causes to include delirium, dementia or drug induced disorders (acute ingestions or withdrawal; no evidence of toxidrome).? Given the H&P, I suspect this patient is suicidal and will require observation. Will consult care team to evaluate the patient. Will also obtain labs for medical clearance. Plan: labs, ASA/APAP levels, ETOH level, UDS, care team consultation, reassessment Differential Diagnosis Differential Diagnoses: The differential diagnosis associated with the presentation includes as above. Admission/Observation not indicated. Lab Data [facility] Lab Attestation statement: I reviewed the patient's lab results. as above 02/24/25 13:45 02/24/25 13:45 Labs: Lab Results 02/24/25 02/24/25 Range/Units 13:45 15:00 WBC 7.6 (4.8-10.8) X10*3/uL RBC 4.67 (4.60-5.80) X10*6/uL Hgb 15.3 (14.0-18.0) g/dl Hct 42.7 (42.0-52.0) % MCV 91.4 (80.0-98.0) fL MCH 32.8 (27.0-33.0) pg MCHC 35.8 (31.0-36.0) g/dl RDW 13.0 (11.0-16.0) % Plt Count 261 (160-400) X10*3/uL MPV 9.5 (9.4-12.4) fL Immature Gran % (Auto) 0.8 H (0.0-0.4) % Neut % (Auto) 57.8 (45-73) % Lymph % (Auto) 32.4 (20-40) % [place] % (Auto) 5.9 (2-11) % Eos % (Auto) 2.4 (0-4) % Baso % (Auto) 0.7 (0-2) % Lymph # (Auto) 2.5 (1.2-4.9) X10*3/uL [place] # (Auto) 0.5 (0.1-1.2) X10*3/uL Eos # (Auto) 0.2 (0.0-0.4) X10*3/uL Baso # (Auto) 0.1 (0.0-0.2) X10*3/uL Abs Immat Gran (auto) 0.06 H (0.00-0.03) X10*3/uL Absolute Neuts (auto) 4.4 (2.0-8.3) x10*3/uL Absolute Nucleated RBC 0.000 (0.0-0.012) X10*3/uL Nucleated RBC % (auto) 0.0 (0.0-0.2) /100WBC Sodium 143 (135-145) mmol/L Potassium 3.4 (3.3-5.1) mmol/L Chloride 107 (96-108) mmol/L Carbon Dioxide 20 L (22-29) mmol/L Anion Gap 19 (12-20) BUN 11 (9-16) mg/dL Creatinine 0.82 (0.5-1.4) mg/dL Estim Creat Clear Calc 118.2 Estimated GFR > 60 Random Glucose 138 H (60-115) mg/dL Calcium 8.1 L D (8.4-10.2) mg/dL Magnesium 2.1 (1.6-2.6) mg/dL Total Bilirubin 0.6 (0.0-1.0) mg/dL Direct Bilirubin 0.3 (0.0-0.5) mg/dL AST 249 H (5-37) U/L ALT 107 H (0-40) U/L Alkaline Phosphatase 166 H (39-117) U/L B-Natriuretic Peptide < 10 (<100) pg/mL Total Protein 6.6 (6.5-8.0) g/dL Albumin 4.1 (3.5-5.0) g/dL Urine Color Yellow Urine Appearance Clear Urine pH 5.5 (5.0-9.0) Ur Specific [place] 1.025 (1.005-1.025) Urine Protein 30 (1+) H (Neg-Trace) mg/dL Urine Glucose (UA) Negative (Negative) mg/dL Urine Ketones 40 (Negative) mg/dL Urine Blood Trace H (Negative) Urine Nitrite Negative (Negative) Ur Leukocyte Esterase Negative (Negative) Urine RBC 0-2 (0-2) /HPF Urine WBC 0-5 (0-5) /HPF Ur Squamous Epith Cells 0-2 (0-2) /HPF Urine Bacteria None Seen (None Seen) Hyaline Casts 3-5 (0-2) /LPF Salicylates < 5.0 L (15-30) mg/dL Urine Opiates Screen Not Detected (Not Detect) Ur Buprenorphine Scrn Not Detected (Not Detect) ng/mL Ur Oxycodone Screen Not Detected (Not Detect) ng/mL Urine Methadone Screen Not Detected (Not Detect) ng/mL Urine Fentanyl Screen Not Detected (Not Detect) Acetaminophen < 3 (<30) mcg/mL Ur Barbiturates Screen Not Detected (Not Detect) Ur Phencyclidine Scrn Not Detected (Not Detect) Ur Amphetamines Screen Not Detected (Not Detect) U Benzodiazepines Scrn Not Detected (Not Detect) Urine Cocaine Screen Not Detected (Not Detect) U Marijuana (THC) Screen Not Detected (Not Detect) Ethyl Alcohol 265 mg/dL Independent Interpretation I performed an independent interpretation of an: Ultrasound Interpretation: US RUQ showing fatty liver Radiology Impression Discussion of test interpretation with radiology: I have reviewed the radiologist's reading. Radiologist Impression: Procedure(s): US abdomen limited Accession Number(s): [id number] cc: Cande Garcia; Yessenia Rose APRN~ EXAMINATION: US ABDOMEN LIMITED CLINICAL INFORMATION: Increased LFTs. COMPARISON: None available. TECHNIQUE: Real-time imaging of the right upper quadrant abdominal viscera. FINDINGS: PANCREAS: Visualized portions are unremarkable. LIVER: Liver is enlarged. Right hepatic lobe measures 19.7 cm. The liver contour is normal. There is diffuse increased liver parenchymal echogenicity, consistent with hepatic steatosis. No focal hepatic lesion. There is no intrahepatic biliary duct dilatation seen. GALLBLADDER: The gallbladder is physiologically distended without evidence of stones, sludge, polyps, wall thickening or pericholecystic fluid. Negative sonographic Cortez's sign. COMMON BILE DUCT: Normal in caliber measuring 0.5 cm in diameter. FREE FLUID: None. US/US abdomen limited IMPRESSION: 1. Hepatomegaly and diffuse fatty infiltration. No suspicious focal lesion. 2. No biliary dilatation. 3. Normal gallbladder. Electronically signed by: Vahe Deleon MD 02/24/2025 04:17 PM EDT Independent Historian Clinical information obtained from an independent historian. History obtained from or confirmed by: Parent (mother) External Record Review External record reviewed: Inpatient record Chronic Conditions Patient?s care impacted by: Other (etoh abuse, MDD) Social Determinants Patient?s care significantly limited by Social Determinants of Health including: Alcoholism and drug addiction in family and Other Social Determinant of Health Critical Care Time Critical Care Time Critical Care Time: No Discharge Plan Discharge Clinical Impression: Suicidal ideation, Depression, Alcohol withdrawal Patient Disposition: Admitted As Inpatient Interventions: Admission Worksheet (ED) Last Done: 02/25/25 13:40 Discharge Date/Time: 02/25/25 13:47
[2025-02-24 13:05] VITALS: BP 141/88; PULSE 98; RESP 20; TEMP 37.1; O2SAT 96; BMI 31.3
[2025-02-24 13:49] LABS: MANUAL DIFF FLAG NO
[2025-02-24 14:04] LABS: Hematocrit 42.7 % (42.0-52.0); Hemoglobin 15.3 g/dl (14.0-18.0); Imm Gran Abs Auto 0.06 X10*3/uL (0.00-0.03); Imm Gran Pct Auto 0.8 % (0.0-0.4); Lymphocytes Absolute Auto 2.5 X10*3/uL (1.2-4.9); Mean Corpuscular HGB Conc 35.8 g/dl (31.0-36.0); Mean Corpuscular Hemoglobin 32.8 pg (27.0-33.0); Mean Corpuscular Volume 91.4 fL (80.0-98.0); NRBC Abs Auto 0.000 X10*3/uL (0.0-0.012); NRBC Pct Auto 0.0 /100WBC (0.0-0.2); Platelet Count 261 X10*3/uL (160-400); Red Blood Count 4.67 X10*6/uL (4.60-5.80); White Blood Count 7.6 X10*3/uL (4.8-10.8)
[2025-02-24 14:06] LABS: Alanine Aminotransferase 107 U/L (0-40); Albumin Level 4.1 g/dL (3.5-5.0); Alkaline Phosphatase 166 U/L (39-117); Anion Gap 19 (12-20); Aspartate Amino Transferase 249 U/L (5-37); Blood Urea Nitrogen 11 mg/dL (9-16); Calcium 8.1 mg/dL (8.4-10.2); Carbon Dioxide 20 mmol/L (22-29); Chloride 107 mmol/L (96-108); Creatinine Clr Calc Pharmacy 118.2; Estimated Glomerular Filt Rate > 60; Magnesium 2.1 mg/dL (1.6-2.6); Potassium 3.4 mmol/L (3.3-5.1); Sodium 143 mmol/L (135-145); Total Protein 6.6 g/dL (6.5-8.0)
--- OUTSIDE RECORDS SUMMARY | 2025-02-24 14:06 | XMS_ITS | Clinical Summary ---
Author Organization [facility] Address [address] [place] [id number] Care Team Providers Care Clinical Informatics Physician Name Role Phone Pcp, No Primary Care Provider Unavailabl e Social History Tobacco Use Types Packs/Day Years Used Date Smoking Tobacco: Never Assessed Sex and Gender Information Value Date Recorded Sex Assigned at Not on file Legal Sex Male 12:01 PM EST Gender Identity Not on file Sexual Orientation Not on file Plan of Treatment Health Maintenance Due Date Last Done Comments Hepatitis C Virus Screening 1973 HIV Screening 1986 DTaP/Tdap/Td Vaccines (1 - Tdap) 1992 Hepatitis B Vaccines (1 of 3 - 19+ 3-dose series) 1992 Colonoscopy 2018 Pneumococcal Vaccines 50+ (1 of 1 - PCV) 2023 Zoster (Shingles) Vaccine (1 of 2) 2023 COVID-19 Vaccine (4 - 2023- season) 2024 08/23/2021, 01/11/2021, 12/21/2020 Influenza Vaccine 02/19/2025 05/19/2022, , 04/30/2013 Insurance [facility] Care Teams Clinical Informatics Physician Relationship Specialty Start Date End Date Pcp, No [address] [place] [address] PCP - General 06/27/22
--- OUTSIDE RECORDS SUMMARY | 2025-02-24 14:06 | XMS_ITS ---
Author Name [facility] Organization Unknown Results Test Name/Text Value Interpretation Date Range Source Eosinophil/leuk NFr Bld Auto 3.1 % Normal 06/30/2024 0 - 6 [facility] RDW RBC Auto-Rto 13.6 % Normal 06/30/2024 12.1 - 17.7 [facility] Hgb Bld-mCnc 16.1 g/dL Normal 06/30/2024 13.5 - 18 [facility] Neutrophils/leuk NFr Bld Auto 59.6 % Normal 06/30/2024 44 - 74 [facility] Hct VFr Bld Auto 46.3 % Normal 06/30/2024 40 - 54 [facility] Monocytes/leuk NFr Bld Auto 8.5 % Normal 06/30/2024 2 - 12 [facility] WBC # Bld Auto 7.9 K/mcL Normal 06/30/2024 4 - 10.5 [facility] RBC # Bld Auto 4.99 M/mcL Normal 06/30/2024 4.7 - 6 [facility] MCH RBC Qn Auto 32.3 pcg Normal 06/30/2024 25 - 33 [facility] Platelet # Bld Auto 283.0 K/mcL Normal 06/30/2024 150 - 4 50 [facility] MCV RBC Auto 92.6 FL Normal 06/30/2024 78 - 100 [facility] Basophils # Bld Auto 0.1 K/mcL Normal 06/30/2024 0 - 0.2 [facility] Lymphocytes/leuk NFr Bld Auto 27.8 % Normal 06/30/2024 20 - 48 [facility] Neutrophils # Bld Auto 4.7 K/mcL Normal 06/30/2024 1.8 - 7.8 [facility] Monocytes # Bld Auto 0.7 K/mcL Normal 06/30/2024 0 - 0.8 [facility] Eosinophil # Bld Auto 0.2 K/mcL Normal 06/30/2024 0 - 0.5 [facility] Lymphocytes # Bld Auto 2.2 K/mcL Normal 06/30/2024 1 - 3.2 [facility] Basophils/leuk NFr Bld Auto 1.0 % Normal 06/30/2024 0 - 2 [facility] MCHC RBC Auto-mCnc 34.8 g/dL Normal 06/30/2024 32 - 36 [facility] PMV Bld Auto 8.3 FL Normal 06/30/2024 7.4 - 11.4 [facility] LDLc SerPl Calc-mCnc 181.0 mg/dL Above high normal 50 - 130 [facility] CHOLEST SERPL-MCNC 264.0 mg/dL Above high normal 04/13/2024 0 - 200 [facility] TRIGL SERPL-MCNC 155.0 mg/dL Above high normal 04/13/2024 - 150 [facility] HDLC SERPL-MCNC 52.0 mg/dL Normal 04/13/2024 32 - 70 [facility] MCH RBC QN AUTO 33.5 pg Above high normal 12/23/2023 25 - 33 [facility] MCV RBC AUTO 93.8 fL Normal 12/23/2023 78 - 100 [facility] MG EOSINOPHIL NFR BLD AUTO 2.0 % Normal 12/23/2023 0 - 6 [facility] RBC NO. BLD AUTO 5.42 M/uL Normal 12/23/2023 4.7 - 6 [facility] EOSINOPHIL NO. BLD AUTO 0.1 K/uL Normal 12/23/2023 0 - 0.5 [facility] HGB BLD MCNC 18.2 g/dL Above high normal 12/23/2023 13.5 - 1 8 [facility] DIFFERENTIAL TYPE AUTOMATED Normal 12/23/2023 [facility] BASOPHILS IN BLOOD BY AUTOMATED COUNT 0.0 K/uL Normal 12/23/2023 0 - 0.2 [facility] WBC NO. BLD AUTO 6.0 K/uL Normal 12/23/2023 4 - 10.5 [facility] MONOCYTES NO. BLD AUTO 0.5 K/uL Normal 12/23/2023 0 - 0.8 [facility] MCHC RBC AUTO MCNC 35.7 g/dL Normal 12/23/2023 32 - 36 [facility] PLATELET NO. BLD AUTO 269.0 K/uL Normal 12/23/2023 150 - 450 [facility] NEUTROPHILS NFR BLD AUTO 66.0 % Normal 12/23/2023 44 - 74 [facility] BASOPHILS NFR BLD AUTO 0.4 % Normal 12/23/2023 0 - 2 [facility] LYMPHOCYTES NO. BLD AUTO 1.4 K/uL Normal 12/23/2023 1 - 3.2 [facility] MONOCYTES NFR BLD AUTO 8.0 % Normal 12/23/2023 2 - 12 [facility] LYMPHOCYTES NFR BLD AUTO 23.6 % Normal 12/23/2023 20 - 48 [facility] PMV BLD AUTO 8.5 fL Normal 12/23/2023 7.4 - 11.4 [facility] NEUTROPHILS NO. BLD AUTO 4.0 K/uL Normal 12/23/2023 1.8 - 7.8 [facility] HCT VFR BLD AUTO 50.9 % Normal 12/23/2023 40 - 54 [facility] RDW RBC AUTO RTO 13.6 % Normal 12/23/2023 12.1 - 17.7 [facility] GLUCOSE SERPL MCNC 66.0 mg/dL Below low normal 12/23/2023 70 - 199 [facility] ANION GAP SERPL SCNC 15.0 mmol/L Above high normal 5 - 14 [facility] Glomerular filtration rate/1.73 sq M. predicted 108.0 Normal 12/23/2023 60 - [facility] PROT SERPL MCNC 6.9 g/dL Normal 12/23/2023 6.4 - 8.5 [facility] SODIUM SERPL SCNC 141.0 mmol/L Normal 12/23/2023 135 - 14 5 [facility] AST SERPL CCNC 16.0 U/L Normal 12/23/2023 5 - 40 [facility] ALT SERPL CCNC 15.0 U/L Normal 12/23/2023 7 - 52 [facility] HCO3 SER SCNC 24.0 mmol/L Normal 12/23/2023 24 - 32 [facility] POTASSIUM SERPL SCNC 3.7 mmol/L Normal 12/23/2023 3.5 - 5 .1 [facility] CREAT SERPL MCNC 0.8 mg/dL Normal 12/23/2023 0.7 - 1.3 [facility] ALP SERPL-CCNC 54.0 U/L Normal 12/23/2023 34 - 104 [facility] ALBUMIN SERPL BCG MCNC 4.5 g/dL Normal 12/23/2023 3.5 - 5 [facility] BILIRUB SERPL MCNC 0.9 mg/dL Normal 12/23/2023 0.3 - 1 [facility] BUN SERPL MCNC 12.0 mg/dL Normal 12/23/2023 9 - 20 [facility] CHLORIDE SERPL SCNC 102.0 mmol/L Normal 12/23/2023 98 - 1 07 [facility] CALCIUM SERPL MCNC 9.6 mg/dL Normal 12/23/2023 8.4 - 10.2 [facility] CHOLEST SERPL-MCNC 323.0 mg/dL Above high normal 12/23/2023 0 - 200 [facility] LDLc SerPl Calc-mCnc 216.0 mg/dL Above high normal 4 50 - 130 [facility] HDLC SERPL-MCNC 60.0 mg/dL Normal 12/23/2023 32 - 70 [facility] TRIGL SERPL-MCNC 236.0 mg/dL Above high normal 12/23/2023 - 150 [facility] TSH SerPl DL<=0.005 mIU/L-aCnc 1.36 uIU/mL Normal 12/23/2023 0.45 - 5.33 [facility] TRIGL SERPL-MCNC 117.0 mg/dL Normal 07/04/2023 - 150 [facility] HDLC SERPL-MCNC 57.0 mg/dL Normal 07/04/2023 32 - 70 [facility] LDLc SerPl Calc-mCnc 181.0 mg/dL Above high normal 3 50 - 130 [facility] CHOLEST SERPL-MCNC 261.0 mg/dL Above high normal 07/04/2023 0 - 200 [facility] History of Medication Use Medication Directions Dispensed Refills Start Date End Date Status cyclobenzaprine 10 mg tablet Take 1 tablet 3 times a day by oral route as needed. 5 active cloNIDine (CATAPRES) 0.1 mg tablet TAKE 1 TABLET BY MOUTH TWICE A DAY X30 DAYS 4 active cloNIDine (CATAPRES) 0.1 mg tablet TAKE 1 TABLET BY MOUTH TWICE A DAY X30 DAYS 4 active clindamycin (CLEOCIN T) 1 % lotion APPLY TO SCALP EVERY DAY NEEDED 4 active LORazepam (ATIVAN) 0.5 mg tablet Take 1 tablet (0.5 mg total) by mouth daily as needed. for anxiety 3 active quetiapine 100 mg tablet 3 07/28/19 25 completed QUEtiapine (SEROquel) 100 mg tablet Take 1.5 tablets (150 mg total) by mouth every night at bedtime. 3 active QUEtiapine (SEROquel) 100 mg tablet Take 1.5 tablets (150 mg total) by mouth every night at bedtime. 3 active QUEtiapine (SEROquel) 100 MG tablet Take 1.5 tablets (150 mg total) by mouth every night at bedtime. 3 active doxycycline monohydrate 100 mg tablet TAKE 1 TABLET BY MOUTH TWICE A DAY FOR 14 DAYS WITH FOOD AND WATER 12/11/19 25 completed clonidine HCl 0.1 mg tablet TAKE 1 TABLET BY MOUTH TWICE A DAY X30 DAYS 07/28/19 25 active lorazepam 0.5 mg tablet TAKE 1 TABLET BY MOUTH EVERY DAY 07/28/19 25 completed divalproex ER 250 mg tablet,extended release 24 hr TAKE 1 TABLET BY MOUTH EVERY DAY AT NIGHT 06/10/20 24 completed olanzapine 5 mg tablet TAKE 1 TABLET BY MOUTH EVERY DAY 06/10/20 24 completed quetiapine 25 mg tablet TAKE 1 TABLET 2 TIMES A DAY TAKE NEEDED ANXIETY 06/10/20 24 completed cyclobenzaprine 10 mg tablet active clonazepam 0.5 mg tablet TAKE 1 TABLET ORALLY NIGHTLY TAKE NEEDED ANXIETY active clonazepam 1 mg tablet active ergocalciferol (vitamin D2) 1,250 mcg (50,000 unit) capsule active guanfacine ER 1 mg tablet,extended release 24 hr active naltrexone 50 mg tablet active oxcarbazepine 300 mg tablet TAKE 1 TABLET 2 TIMES A DAY FOR 30 DAYS active thiamine HCl (vitamin B1) 100 mg tablet TAKE 1 TABLET BY MOUTH EVERY DAY active fluvoxaMINE (LUVOX) 100 mg tablet Take 1 tablet (100 mg total) by mouth at bedtime. active fluvoxaMINE (LUVOX) 100 mg tablet Take 1 tablet (100 mg total) by mouth at bedtime. active Allergies Allergen Reaction Severity Comment Documented Date Source Statu s SULFA ANTIBIOTICS RASH 08/05/2019 [facility] ac tive SULFA (SULFONAMIDE ANTIBIOTICS) RASH [facility] Problems Problem Status Onset Date Problem Type Date of Resolution Source Anxiety active 2019-08-05 ProblemAct [facility] Mixed hyperlipidemia active 2013-03-18 ProblemAct [facility] Depression active 2019-08-05 ProblemAct [facility]AN Sleep disturbance active 2022-01-11 ProblemAct [facility] HSV-2 infection active EncounterDiagnosisAct [facility] Herpes genitalis in men active 2014-10-15 ProblemAct [facility] Proctalgia fugax active EncounterDiagnosisAct [facility] Psychosis active 2022-06-01 ProblemAct [facility] Rectal bleeding active EncounterDiagnosisAct [facility] Depressive disorder active 2019-08-05 ProblemAct [facility] Mixed hyperlipidemia active 2013-03-18 ProblemAct [facility] Psychotic disorder active 2022-06-01 ProblemAct [facility] Herpes simplex of male genitalia active 2014-10-15 ProblemAct [facility] Anxiety active 2019-08-05 ProblemAct [facility] Ligament rupture active 2024-12-10 ProblemAct C [facility] Disturbance in sleep behavior active 2022-01-11 ProblemAct [facility] Generalized anxiety disorder active 2024-06-16 ProblemAct [facility] Moderate recurrent major depression active 2024-06-16 ProblemAct [facility] Immunizations Vaccine Date Source Lot Number Status zoster vaccine subunit 10/12/2023 FLORES [id number] co mpleted Influenza, injectable, quadr ivalent, preservative free 05/19/2022 [facility] [id number] completed SARS-COV-2 (COVID-19) vaccin e, mRNA, spike protein, LNP, preservative free, 30 mcg/0.3mL dose, moe-sucrose formulation 08/23/2021 [facility] [id number] ompleted SARS-COV-2 (COVID-19) vaccin e, mRNA, spike protein, LNP, preservative free, 30 mcg/0.3mL dose 01/11/2021 [facility] [id number] completed SARS-COV-2 (COVID-19) vaccin e, mRNA, spike protein, LNP, preservative free, 30 mcg/0.3mL dose 12/21/2020 [facility] [id number] completed Seasonal, quadrIvalent, darlene mbinant, injectable influenza vaccine, preservative free 04/12/2017 [facility] [id number] completed Influenza, injectable, quadr ivalent, preservative free 06/24/2016 [facility] [id number] completed influenza, seasonal, injectable 04/27/2014 [facility] [id number] completed influenza, seasonal, injectable 04/30/2013 [facility] [id number] completed tetanus toxoid, reduced diph theria toxoid, and acellular pertussis vaccine, adsorbed 12/23/2008 [facility] [id number] completed Td(adult) unspecified formulation 10/09/2006 FLORES TD -166 completed hepatitis A vaccine, unspecified formulation 08/07/2006 [facility] [id number] completed typhoid Vi capsular polysaccharide vaccine 08/07/2006 [facility] [id number] completed Encounters Encounter Type Encounter Reason Primary Diagnosis Location Date [facility]ulatory [facility] 12/31/2024 [facility] 12/31/2024 [facility] 11/26/2024 [facility] 09/23/2024 [facility] 09/15/2024 [facility] 08/12/2024 Ambulatory [facility] 07/08 Ambulatory Follow-up Herpesviral infe ction, unspecified [facility] 06/29/2024 [facility] 06/17/2024 Care Team Organization Name Specialty Phone Email Start Date End Da leann [facility] Primary Care 11/20/2024 Shirley [facility] 08/23/20242024 [facility] 07/31/2024 [facility] 07/11/2024 [facility] 06/30/2024 [facility] 05/24/2023 024 [facility] 04/13/2023 024 Shirley [facility] 06/26/2022 11/11/2024 [facility] 05/29/20222023
--- OUTSIDE RECORDS SUMMARY | 2025-02-24 14:06 | XMS_ITS | Clinical Summary ---
Author Organization [facility] [address] [place] [address] Care Team Providers Care Thread Spinner Name Role Phone Yessenia Rose MANAGED CARE PROVIDER Primary Care Provider [phone] Allergies Active Allergy Reactions Criticality Noted Date Comments Sulfa (Sulfonamide Antibiotics) Rash Low 07/22 Medications acyclovir (ZOVIRAX) 400 mg tablet Take 1 tablet (400 mg total) by mouth 2 (two) times a day. 4 Active clindamycin (CLEOCIN T) 1 % lotion APPLY TO SCALP EVERY DAY NEEDED 4 Active LORazepam (ATIVAN) 0.5 mg tablet Take 1 tablet (0.5 mg total) by mouth daily as needed. for anxiety 3 Active QUEtiapine (SEROquel) 100 mg tablet Take 1.5 tablets (150 mg total) by mouth every night at bedtime. 3 Active triamcinolone (KENALOG) 0.1 % cream Apply topically 2 (two) times a day. 4 Active cloNIDine (CATAPRES) 0.1 mg tablet TAKE 1 TABLET BY MOUTH TWICE A DAY X30 DAYS 4 Active fluvoxaMINE (LUVOX) 100 mg tablet Take 1 tablet (100 mg total) by mouth at bedtime. Active Active Problems Problem Noted Date Diagnosed Date Psychosis (CMS/HCC V24, CMS/HCC V28) 06/01/2022 Sleep disturbance 01/11/2022 Anxiety 08/05/2019 Depression 08/05/2019 Herpes genitalis in men 10/15/2014 Mixed hyperlipidemia 03/18/2013 Overview (05/20/2024): LDL 135, 10/25/2011 Resolved Problems Problem Noted Date Diagnosed Date Resolved Date Rectal bleeding 07/30/2016 05/20/2024 Immunizations Name Administration Dates Next Due Hep A, Unspecified 08/07/2006 Influenza Quadravalent, darlene mbinant, 0.5ml, preservative free (Flublok) 18yo and older 04/12/2017 Influenza Quadrivalent, 0.5m l, preservative free (Fluarix; FluLaval; Fluzone) ages 6mo and older (Afluria) 3yo and older 05/19/2022 Influenza trivalent, with pr eservative (Fluzone; Afluria) 6mo and older 04/27/2014,04/30/2013 Pfizer (ages 12 & older) BENJAMIN S-CoV-2 COVID-19, mRNA, LNP-S, moe-sucrose, preservative free 08/23/2021 Pfizer SARS-CoV-2 COVID-19, mRNA, LNP-S, preservative free 01/11/2021,12/21/2020 Td, Unspecified 10/09/2006 Tdap Tetanus diptheria acell ular pertussis (Boostrix; Adacel) 7yo and older 12/23/2008 Typhoid VICPS (Typhim Vi) 2yo and older 08/07/19 07 Medical History Medical History Date Comments Depression DX:Depression Anxiety 08/05/2019 DX:Anxiety Mixed hyperlipidemia 03/18/2013 DX:Mixed hy perlipidemia Family History Medical History Relation Name Comments No Known Problems Brother No Known Problems Daughter Alcohol abuse Father Depression Father Early Father Mental illness Father Panic disorder Father's Brother No Known Problems Father's Sister Mental illness Great Aunt Cancer Maternal Grandfather No Known Problems Maternal Grandmother Diverticulitis Mother Heart disease Mother's Brother No Known Problems Mother's Sister No Known Problems Paternal Grandfather No Known Problems Paternal Grandmother Hyperthyroidism Sister No Known Problems Son Relation Name Status Comments Brother Daughter Father Father's Brother Father's Sister Great Aunt Maternal Grandfather Maternal Grandmother Mother Mother's Brother Mother's Sister Paternal Grandfather Paternal Grandmother Sister Son Social History Tobacco Use Types Packs/Day Years Used Date Smoking Tobacco: Never Smokeless Tobacco: Never Tobacco Cessation:Counseling Given: Not Answered Alcohol Use Standard Drinks/Week Comments Yes 15 (1 standard drink = 0.6 oz pu re alcohol) Sex and Gender Information Value Date Recorded Sex Assigned at Not on file Legal Sex Male 1:49 AM EST Gender Identity Not on file Sexual Orientation Not on file Obstetrics History Last Filed Vital Signs Vital Sign Reading Time Taken Comments Blood Pressure 120/80 06/29/2024 3:40 PM EST Pulse 96 06/29/2024 3:40 PM EST Temperature - - Respiratory Rate - - Oxygen Saturation 98% 06/29/2024 3:40 PM EST Inhaled Oxygen Concentration - - Weight 88 kg (194 lb) 06/29/2024 3:40 PM EST Height 172.7 cm (5' 8 ) 06/29/2024 3:40 PM EST Body Mass Index 29.5 06/29/2024 3:40 PM EST Plan of Treatment Health Maintenance Due Date Last Done Comments Hepatitis B Vaccines (1 of 3 - 19+ 3-dose series) 1992 DTaP,Tdap,and Td Vaccines (3 - Td or Tdap) 12/23/2018 12/23/2008, 10/09/2006 HIV Screening 06/24/2022 Hepatitis C Screening 06/24/2022 Social Influencers of Health Screening 06/24/2022 Pneumococcal Vaccine: 50+ Years (1 of 1 - PCV) 2023 Zoster Vaccines (2 of 2) 12/07/2023 10/12/2023 COVID-19 Vaccine (4 - 2023- season) 2024 08/23/2021, 01/11/2021, 12/21/2020 Depression Screening 07/22/2024 01/07/2024 Influenza Vaccine (#1) 2025 , 04/12/2017, 06/24/2016, Additional history exists Cholesterol Screening (Lipid Panel) 04/13/2029 04/13/2024, 04/13/2024, 04/13/2024, Additional history exists Colorectal Cancer Screening: Colonoscopy 07/04/2034 07/04/2024 Hepatitis A Vaccines Aged Out 08/07/2006 No long er eligible based on patient's age to complete this topic HIB Vaccines Aged Out No longer eligi ble based on patient's age to complete this topic HPV Vaccines Aged Out No longer eligi ble based on patient's age to complete this topic IPV Vaccines Aged Out No longer eligi ble based on patient's age to complete this topic MMR Vaccines Aged Out No longer eligi ble based on patient's age to complete this topic Meningococcal ACWY Vaccine Aged Out N o longer eligible based on patient's age to complete this topic Meningococcal B Vaccine Aged Out No l onger eligible based on patient's age to complete this topic RSV Immunization Patients Under 20 months Aged Out No longer eligible based on patient's age to complete this topic Varicella Vaccines Aged Out No longer eligible based on patient's age to complete this topic Procedures Procedure Name Priority Date/Time Associated Diagnosis Comments COLONOSCOPY Routine 07/04/2024 8:50 AM EST LIPID PANEL Routine 04/13/2024 DEPRESSION SCREENING Routine 01/07/2024 from Last 3 Months or Most Recently Relevant to Health Maintenance Results * COLONOSCOPY (07/04/2024 8:50 AM EST) Anatomical Region Laterality Modality Endoscopy Dru Sanders DO GI~PROCEDURE ORDERABLES Quyen l Result * (ABNORMAL) Lipid panel (04/13/2024) Triglycerides 155(A) <=150 mg/dL Cholesterol 264(A) 0 - 200 mg/dL HDL 52 32 - 70 mg/dL LDL Cholesterol 181(A) 50 - 130 mg/dL Blood Venous blood specimen / Unknown Historical Provider LAB BLOOD ORDERABLES Quyen l Result * Depression Screening (01/07/2024) Pathologist [facility] Depression Screening abstracted Historical Provider HEALTH MAINTENANCE Final Result from Last 3 Months or Most Recently Relevant to Health Maintenance Insurance [facility] Care Teams Thread Spinner Relationship Specialty Start Date End Date Yessenia Rose NP [address] [place] [address] PCP - General Pediatrics 08/05/19
--- OUTSIDE RECORDS SUMMARY | 2025-02-24 14:06 | XMS_ITS | Clinical Summary ---
Author Organization [facility] Address [address] [place] [address] Care Team Providers Care Filters Assembler Name Role Phone Yessenia Rose APRN Primary Care Provider [phone] Allergies Active Allergy Reactions Criticality Noted Date Comments Sulfa Antibiotics Rash Low 08/05/2019 Medications Medication Sig Dispensed Refills Start Date End Date Status QUEtiapine (SEROquel) 100 MG tablet Take 1.5 tablets (150 mg total) by mouth every night at bedtime. 0 12/12/2022 Active LORazepam (ATIVAN) 0.5 MG tablet Take 1 tablet (0.5 mg total) by mouth daily as needed. for anxiety 0 12/20/2022 Active clindamycin phosphate (CLEOCIN T) 1 % lotion APPLY TO SCALP EVERY DAY NEEDED 0 12/02/2023 Active escitalopram (LEXAPRO) 20 MG tablet Take 1 tablet (20 mg total) by mouth daily. 0 12/05/2023 Active triamcinolone (KENALOG) 0.1 % cream Apply topically 2 (two) times a day. 30 g 2 01/07/2024 Active acyclovir (ZOVIRAX) 400 MG tablet TAKE 1 TABLET BY MOUTH 2 TIMES A DAY. 60 tablet 2 05/06/2024 Active Active Problems Problem Noted Date Diagnosed Date Psychosis 06/01/2022 Sleep disturbance 01/11/2022 Anxiety 08/05/2019 Depression 08/05/2019 Herpes genitalis in men 10/15/2014 Mixed hyperlipidemia 03/18/2013 Overview: LDL 135, 10/25/2011 Immunizations Name Administration Dates Next Due Hepatitis A, Unspecified formulation 08/07/2006 Influenza Quad (Fluarix/Fluz one/FluLaval) 0.5mL (SD-IIV4) 05/19/2022 Influenza Quad (Flublok) 0.5mL >18 Yrs (RIV4) Influenza Trivalent (Fluzone /Afluria) 5.0mL Multi-dose Vial 04/27/2014,04/30/2013 Td (Adult), Unspecified formulation 10/09/2006 Tdap 12/23/2008 Typhoid Inactivated 08/07/2006 Family History Medical History Relation Name Comments No Sig Med Hx Brother No Sig Med Hx Daughter Alcohol abuse Father Depression Father Early Father Mental illness Father Mental illness Great Aunt No Sig Med Hx Maternal Aunt Cancer Maternal Grandfather No Sig Med Hx Maternal Grandmother Heart disease Maternal Uncle Diverticulitis Mother No Sig Med Hx Paternal Aunt No Sig Med Hx Paternal Grandfather No Sig Med Hx Paternal Grandmother Panic disorder Paternal Uncle Hyperthyroidism Sister No Sig Med Hx Son Relation Name Status Comments Brother Daughter Father Great Aunt Maternal Aunt Maternal Grandfather Maternal Grandmother Maternal Uncle Mother Paternal Aunt Paternal Grandfather Paternal Grandmother Paternal Uncle Sister Son Social History Tobacco Use Types Packs/Day Years Used Date Smoking Tobacco: Never Smokeless Tobacco: Never Tobacco Cessation:Counseling Given: Not Answered Alcohol Use Standard Drinks/Week Comments Yes 15 (1 standard drink = 0.6 oz pu re alcohol) Sex and Gender Information Value Date Recorded Sex Assigned at Male 04/12/2022 9:31 PM EDT Gender Identity Not on file Sexual Orientation Not on file Job Start Date Occupation Industry Not on file Not on file Not on file Last Filed Vital Signs Vital Sign Reading Time Taken Comments Blood Pressure 132/80 01/07/2024 8:11 AM EDT Pulse 88 01/07/2024 8:11 AM EDT Temperature 36 C (96.8 F) 01/07/2024 8:11 AM EDT Respiratory Rate 16 04/26/2022 3:42 PM EDT Oxygen Saturation 96% 01/07/2024 8:11 AM EDT Inhaled Oxygen Concentration - - Weight 82 kg (180 lb 11.2 oz) 01/07/2024 8:11 AM EDT Height 172.7 cm (5' 8 ) 01/07/2024 8:11 AM EDT Body Mass Index 27.48 01/07/2024 8:11 AM EDT Plan of Treatment Health Maintenance Due Date Last Done Comments Colon Cancer Screening (Colonoscopy) 2018 Shingrix-Zoster Vaccine (1 of 2) 2023 BMI Counseling 01/06/2025 01/07/2024, 12/20, 09/02/2019 Depression Screening 01/06/2025 01/07/2024, 01/07/2024, 01/03/2023, Additional history exists Preventative Health Evaluation 01/06/2025 01/07/2024, 01/03/2023, 09/02/2019 Influenza Vaccine (#1) 2025 2, 04/12/2017, 04/27/2014, Additional history exists DTap / Tdap / Td Discontinued 12/23/2008, 10/09/2006 COVID-19 Vaccine Discontinued 08/23/2021, , 12/21/2020 Hepatitis B Vaccines Discontinued Hepatitis C Screening Discontinued Pneumococcal Vaccine Aged Out No long er eligible based on patient's age to complete this topic RSV Ped < 20 months Aged Out No longe r eligible based on patient's age to complete this topic Additional Health Concerns Infection Onset Date Last Indicated COVID-19 Confirmed Comment: 07/13/21:detected 07/04/21:detected 07/05/2021 07/05/2021 Care Teams Filters Assembler Relationship Specialty Start Date End Date Yessenia Rose APRN PCP - General Pediatrics 08/05/19
[2025-02-24 14:08] LABS: Acetaminophen LAB < 3 mcg/mL (<30); Salicylate < 5.0 mg/dL (15-30)
[2025-02-24 14:11] LABS: B Type Natriuretic Peptide < 10 pg/mL (<100)
[2025-02-24 15:09] LABS: Appearance Urine Clear; Glucose Urine UA Negative (Negative); PH 5.5 (5.0-9.0); Specific Gravity - Urine 1.025 (1.005-1.025); UMIC TRIGGER UACC YES
[2025-02-24 15:25] LABS: Cannabinoid Screen Urine Not Detected (Not Detect)
[2025-02-24 16:22] VITALS: BP 162/101; PULSE 99; RESP 20; TEMP 36.8; O2SAT 94
--- NOTE | 2025-02-24 16:23 | MHC.EDTECH ---
Pt [facility] from [facility], vitals obtained hypertensive (162/101) RN made aware. Pt noted to have a vertical red scratch on forehead going up to frontal. Pt stated he scratches/picks when he is feeling anxious.
--- NOTE | 2025-02-24 19:09 | PC.NURSE ---
Assumed care of patient at 1845, patient appears to be in no apparent distress this evening, calm and cooperative, ambulating with steady gait around BH pod. Continue plan of care for CARE team everett
--- NOTE | 2025-02-24 19:15 | PC.NURSE ---
RE: med rec This RN verbally verified medications with patient from medical record
[2025-02-24 19:19] VITALS: BP 173/104; PULSE 114; RESP 20; TEMP 36.9; O2SAT 96
--- NOTE | 2025-02-24 19:26 | PC.NURSE ---
Pt starting to have increased withdrawal symptoms, current CIWA of 19 which is an increase from his previous score of 1. Vitals as follows: HR 114 and BP 173/104. Pt appears uncomfortable at this time. Pt received 1mg of Ativan at 1829 and 1630. HELENA Castellon made aware via tiger text at 1929
[2025-02-24] MEDS: diazePAM 10 MG/2 ML CARTRIDGE 5 MG IM (19:43)
--- NOTE | 2025-02-24 19:46 | PC.NURSE ---
Pt given IM Valium and PO Ativan, current plan is to re-evaluate withdrawal symptoms in 30-45 minutes to determine effectiveness of medications
[2025-02-24 20:31] VITALS: BP 184/114; PULSE 114; RESP 18; TEMP 37.2; O2SAT 96
--- NOTE | 2025-02-24 20:38 | PC.NURSE ---
Addendum entered by Savi De RN 02/24/25 20:47: clonidine provided for increased BP Original Note: Pt verbalizes feeling better after medication administration for withdrawal management, appears to be more comfortable. Vital signs remain elevated with an increase in BP. CIWA score decreased down to 13. HELENA Castellon aware
[2025-02-24 20:47] VITALS: BP 184/114
[2025-02-24 21:28] VITALS: BP 146/88; PULSE 111; RESP 20; TEMP 37.1; O2SAT 94
[2025-02-25 06:43] VITALS: BP 146/98; PULSE 97; RESP 17; TEMP 36.6; O2SAT 94
--- NOTE | 2025-02-25 12:45 | PHA.MEDREC ---
Addendum entered by Les Agudelo RPh 02/25/25 13:11: Reviewed by [facility] Original Note: Pharmacy Consult ? Medication Reconciliation Pharmacy reviewed med rec done by nursing. Spoke with pt and he verified the medications confirmed by nurse were correct; pt confirmed he still takes Oxarbazapine 300mg BID and has some at home, I called pt pharmacy ([facility]) and they confirmed the pt has not gotten that since 01/18 for 30 days.
--- NOTE | 2025-02-25 13:09 | PC.NURSE ---
Patient feels really anxious has already gotten ativan. PRN atarax given. no headache or nausea.
[2025-02-25 14:12] VITALS: BP 168/99; PULSE 117; RESP 18; TEMP 36.1; O2SAT 97
[2025-02-25 15:31] VITALS: BP 130/80; PULSE 110
--- NOTE | 2025-02-25 16:30 | PC.ADMIT ---
Pt arrived on the unit at 1349 from [facility] ED. Pt self presented, intoxicated at the time with a BAL of 256. At that time pt reported SI and AH. Currently pt does not have AVH or HI but states suicidal thoughts are always in the back of my mind . Pt has had several recent admits to . He has psychiatric provider and PCP, no therapist. He reports not going to work a lot recently d/t mental health issues and is afraid he will lose his job. Pt reports being bullied at work. Pts skin check was unremarkable except for several small scratches on forehead/scalp. Pt is on a CIWA which for which he scored 4 at 1600. Pt received 2mg of ativan just prior to admission. Also received 0.1mg clonidine as a one time order after arriving d/t elevated BP. BP has come down to 130/80. When pt was asked if he has any medical concerns he reported my penis . He stated its ice cold, shriveled, and doesnt get erect (which is not concerning at this moment but will be in the future). Pt reported these sx have occurred since he became infected with Herpes and he has discussed this with PCP. Continues to focus on the color and temperature of genitalia as a main medical concern.
[2025-02-25 20:00] VITALS: BP 124/77; PULSE 103; RESP 16; TEMP 36.6; O2SAT 95
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
[2025-02-26 08:00] VITALS: BP 130/63; PULSE 94; RESP 18; TEMP 36.6; O2SAT 93
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
[2025-02-26 20:00] VITALS: BP 134/86; PULSE 91; RESP 16; TEMP 36.1; O2SAT 95
[2025-02-26] MEDS: guanFACINE HCl ER 1 MG TAB.ER.24H PO (21:17)
[2025-02-27 08:00] VITALS: BP 127/79; PULSE 87; RESP 18; TEMP 35.9; O2SAT 96
[2025-02-27] MEDS: guanFACINE HCl ER 1 MG TAB.ER.24H PO ×2 (08:33→20:22)
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
[2025-02-27 20:00] VITALS: BP 164/90; PULSE 84; RESP 20; TEMP 37.2; O2SAT 95
[2025-02-28 07:54] VITALS: BP 133/75; PULSE 88; RESP 18; TEMP 36.1; O2SAT 95
[2025-02-28] MEDS: guanFACINE HCl ER 1 MG TAB.ER.24H PO ×2 (08:53→21:50)
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
--- NOTE | 2025-02-28 16:32 | MHC.RECOVRN ---
T/W met with pt in group room following consult received for AUD. Pt alert and oriented. Pt needed constant redirection. Pt identifies that his alcohol use has increased significantly due to multiple stressor situations that have happened. He is able to identify that his use is starting to get in the way of his use as well as his relationships and has ended up in some health risk situations for him. Pt was previously on Naltrexone prior to this inpt. stay and has been re-started on it at 25mg/day Pt feels that it was working but he wanted to feel the buzz from alcohol so he stopped taking it. Pt verbalizes that he is not sure if he is ready to stop drinking. This visit focused on harm reduction education as well as peer support groups in the community to help pt. through his journey. Pt reports that his psychiatrist prescribes his naltrexone and declined f/u with appt at [facility]. Did give pt. resources for [facility] in case he changed his mind. T/W requested pt's nurse check with provider tomorrow on increasing Naltrexone to 50mg if appropriate as pt has been on for 3 days now and tolerating well. Pt denies any other concerns/needs at this time. ACS available PRN.
[2025-02-28 19:41] VITALS: BP 146/94; PULSE 87; TEMP 36.1; O2SAT 94
[2025-03-01] MEDS: guanFACINE HCl ER 1 MG TAB.ER.24H PO ×2 (08:14→20:57)
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
[2025-03-01 12:27] VITALS: BP 129/82; PULSE 76
[2025-03-01 14:51] VITALS: BP 136/81; PULSE 85; O2SAT 92
[2025-03-01 20:00] VITALS: BP 131/94; PULSE 91; RESP 16; TEMP 36; O2SAT 95
[2025-03-02 07:54] VITALS: BP 107/57; PULSE 79; RESP 18; TEMP 35.6; O2SAT 95
[2025-03-02] MEDS: guanFACINE HCl ER 1 MG TAB.ER.24H PO ×2 (08:35→20:11)
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
[2025-03-02 13:51] VITALS: BP 140/88; PULSE 80
[2025-03-02 20:00] VITALS: BP 132/77; PULSE 91; RESP 16; TEMP 36.1; O2SAT 95
[2025-03-03 07:55] VITALS: BP 135/82; PULSE 78; RESP 18; TEMP 35.6; O2SAT 97
[2025-03-03] MEDS: guanFACINE HCl ER 1 MG TAB.ER.24H PO ×2 (08:08→21:35)
[2025-03-03 09:42] LABS: Alanine Aminotransferase 108 U/L (0-40); Albumin Level 4.3 g/dL (3.5-5.0); Alkaline Phosphatase 101 U/L (39-117); Aspartate Amino Transferase 107 U/L (5-37); Total Protein 6.7 g/dL (6.5-8.0)
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
[2025-03-03 10:43] LABS: HBS Num1 0.14 mIU/mL (0-7.99); HBc Num1 0.07 S/CO (0.00-0.79); HBsAGNum1 0.37 S/CO (0.00-0.99); Hepatitis A Antibody IgM 0.15 Index (0-0.79); Hepatitis B Surface Antigen Negative (Negative); ~HepC Num1 0.07 S/CO (0.00-0.79); ~Hepatitis A Antibody IgM Nonreactive (Nonreactive); ~Hepatitis B Surface Antibody NONREACTIVE (Nonreactive); ~Hepatitis C Antibody Nonreactive (Nonreactive)
[2025-03-03 20:00] VITALS: BP 139/90; PULSE 90; RESP 16; TEMP 36.5; O2SAT 98
[2025-03-04 08:00] VITALS: BP 138/96; PULSE 81; RESP 18; TEMP 36.3; O2SAT 97
[2025-03-04] MEDS: guanFACINE HCl ER 1 MG TAB.ER.24H PO ×2 (08:11→22:52)
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
[2025-03-04 14:43] VITALS: BP 130/87
[2025-03-04 19:55] VITALS: BP 156/100; PULSE 79; RESP 16; TEMP 36.5; O2SAT 97
[2025-03-05 04:13] VITALS: BP 138/83
[2025-03-05 07:43] VITALS: BP 132/84; PULSE 72; RESP 18; TEMP 36.1; O2SAT 97
[2025-03-05] MEDS: guanFACINE HCl ER 1 MG TAB.ER.24H PO (08:35)
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
== END 2025-03-05 11:40 | disposition home or self-care (01) | DRG 885 ==
LOC: HO.ED 02-25 07:21 → HO.PM5 02-25 13:19
PROVIDERS: Physician Assistant Medical; Admitting Provider Nurse Practitioner Family; Emergency Provider Emergency Medicine; PCP Nurse Practitioner; Visit Provider Psychiatry & Neurology Psychiatry
DX: F33.2 Major depressive disorder, recurrent severe without psychotic features (principal); R45.851 Suicidal ideations; F42.9 Obsessive-compulsive disorder, unspecified; F10.229 Alcohol dependence with intoxication, unspecified; Y90.8 Blood alcohol level of 240 mg/100 ml or more; Z91.148 Patient's other noncompliance with medication regimen for other reason; Z87.891 Personal history of nicotine dependence; Z79.899 Other long term (current) drug therapy
CPT/HCPCS: 36415; 76705; 80053; 80076; 80143; 80179; 80307; 81001; 82248; 83735; 83880; 85025; 86704; 86706; 86709; 86803; 87340; 93005; 99285; J3360; S9485

== ENCOUNTER → 2025-02-24 15:26 | Outpatient (BNV) | payer OTHER, SELFPAY | PROVIDERS: Emergency Provider Emergency Medicine; PCP Nurse Practitioner; Visit Provider Radiology Diagnostic Radiology | DX: K76.0 Fatty (change of) liver, not elsewhere classified (principal); R16.0 Hepatomegaly, not elsewhere classified | CPT/HCPCS: 76705 ==

== ENCOUNTER → 2025-02-24 22:12 | Outpatient (BNV) | payer OTHER, SELFPAY | PROVIDERS: Admitting Provider Nurse Practitioner Family; Emergency Provider Emergency Medicine; PCP Nurse Practitioner; Visit Provider Internal Medicine | DX: R00.0 Tachycardia, unspecified (principal) | CPT/HCPCS: 93010 ==

== ENCOUNTER → 2025-02-25 13:18 | Outpatient (BNV) | payer OTHER, SELFPAY | PROVIDERS: Admitting Provider Nurse Practitioner Family; Emergency Provider Emergency Medicine; PCP Nurse Practitioner; Visit Provider Psychiatry & Neurology Psychiatry | DX: F33.2 Major depressive disorder, recurrent severe without psychotic features (principal); R45.851 Suicidal ideations; F10.90 Alcohol use, unspecified, uncomplicated; F42.9 Obsessive-compulsive disorder, unspecified | CPT/HCPCS: 90792; 99231; 99232 ==

== ENCOUNTER 2025-03-30 20:55 | Inpatient (IN) | payer MEDICAID, SELFPAY ==
[2025-03-30 21:12] VITALS: BP 152/100; PULSE 106; O2SAT 95
[2025-03-30 21:25] LABS: Appearance Urine Clear; Glucose Urine UA Negative (Negative); PH 5.5 (5.0-9.0); Specific Gravity - Urine 1.020 (1.005-1.025); UMIC TRIGGER UACC YES
[2025-03-30 21:35] LABS: Cannabinoid Screen Urine Not Detected (Not Detect)
[2025-03-30 21:48] VITALS: BP 140/90; PULSE 108; TEMP 37.1; O2SAT 98; BMI 27.4
--- NOTE | 2025-03-30 21:52 | ED.PSYCH ---
HPI - Psych General Chief Complaint: Psychiatric Symptoms Stated Complaint: crisis Time Seen by Provider: 03/30/25 21:32 Source: patient and EMS Mode of arrival: EMS Limitations: no limitations History of Present Illness ED Provider: Dr. Jovanna Browning HPI Narrative: 49-year-old male with history of depression, suicidality, OCD, alcohol use disorder presenting with alcohol intoxication and vague suicidality. Patient was found by the police on the side of the road in his car intoxicated. Patient was recently admitted for similar complaints about a month ago where he was found to be depressed but not at risk for self-harm after about an 8 day stay in the hospital. Patient admits that since he was discharged, he lost his job and has continued to drink daily. Drinks about ?asleep of nips per day . No reported drug use. Denies specific plan for suicide but states to me ?I know that I am going to eventually of suicide I just do not know when it will be?. Denies current self-harm. States he is very depressed about losing his job and benefits. No visual or auditory hallucinations. Does have a history of alcohol withdrawal where he feels tremulous but has never had an alcohol withdrawal seizure. Otherwise feeling physically well. No recent illness. Related Data Home Medications ?Medication ?Instructions ?Recorded ?Confirmed acyclovir 400 mg tablet 400 mg PO BID 05/26/24 02/24/25 Previous Rx's ?Medication ?Instructions ?Recorded clonidine HCl 0.1 mg tablet 0.1 mg PO Q4H PRN moderate anxiety 03/05/25 30 days #60 tabs fluvoxamine 100 mg tablet 100 mg PO BID 30 days #60 tabs 03/05/25 guanfacine 1 mg tablet,extended 1 mg PO BID 30 days #60 tabs 03/05/25 release 24 hr hydroxyzine HCl 25 mg tablet 25 mg PO Q6H PRN mild anxiety 30 03/05/25 days #60 tabs naltrexone 50 mg tablet 50 mg PO DAILY 30 days #30 tabs 03/05/25 oxcarbazepine 300 mg tablet 300 mg PO BID 30 days #60 tabs 03/05/25 quetiapine 200 mg tablet 200 mg PO BEDTIME 30 days #30 tabs 03/05/25 thiamine HCl (vitamin B1) 100 mg 100 mg PO DAILY 30 days #30 tabs 08/15/25 tablet trazodone 50 mg tablet 50 mg PO BEDTIME PRN Insomnia 30 03/05/25 days #30 tabs Allergies Allergy/AdvReac Type Severity Reaction Status Date / Time Sulfa (Sulfonamide Allergy Rash Verified 03/30/25 21:49 Antibiotics) Review of Systems Review of Systems: as per HPI, full review of systems performed and negative but for the above mentioned pertinent positives and negatives. [facility] Past Medical History Medical History Suicidal ideation Alcohol dependence Social History Social History Household Members: None Household Members Other:: Parents Housing: Condominium Do you presently have visiting nurse or other home services: No Alcohol intake: current Alcohol intake frequency: 3 or more drinks per day Alcohol type: hard liquor Patient Tobacco Use Status: Former Tobacco user Smoked in Last 30 Days: No e-Cigarette/Vaping Use: Never Used Second Hand Smoke Exposure: No Use of substances other than those prescribed or required for medical reasons: No Substance Use Type: Marijuana Advance Directives: No Do you have a plan to hurt others: No Plan service: No Sexual orientation: Straight/Heterosexual Physical Exam Exam: Exam: GENERAL: Appears intoxicated, GCS 13, eyes open to voice, slurred speech, no acute distress. SKIN: Normal skin color for ethnicity, warm, dry, no rashes noted. HEENT: Normocephalic, atraumatic, no stridor, posterior oropharynx nonerythematous, dentition intact, EOMI, pupils are pinpoint bilaterally, reactive to light. NECK: Soft, supple, no step-offs, no deformities, no lymphadenopathy. CHEST: Heart regular tachycardia, no murmurs, symmetric chest rise and fall. PULMONARY: Clear to auscultation bilaterally, diminished at the bases, no labored breathing, no wheezes/rhales/rhonchi. ABDOMINAL: Soft, nondistended, positive bowel sounds in all quadrants. : Deferred. MUSCULOSKELETAL: Normal tone, full range of motion, no deformities, no peripheral edema. NEURO: GCS 13, eyes open to voice, slightly slurred speech, CN II through XII intact, equal strength and sensation bilateral upper and lower extremities, no focal neurologic deficits. PSYCHIATRIC: Flat affect, poor eye contact, suicidal. Vital Signs: Vital Signs: Last Vital Signs Temp 97.9 F 03/31/25 02:50 Pulse 114 H 03/31/25 06:22 Resp 22 H 03/31/25 06:22 BP 158/103 H 03/31/25 06:22 Pulse Ox 97 03/31/25 06:22 O2 Del Method Room Air 03/31/25 06:22 BMI result Body Mass Index 27.4 Medications Administered Generic Name Dose Route Start Last Admin Trade Name Freq PRN Reason Stop Dose Admin Enoxaparin Sodium 40 mg 03/31/25 06:00 03/31/25 06:23 Enoxaparin Sodium 40 Mg/0.4 Ml Syringe SUBCUT 40 mg Q24H JESSIKA Administration Discontinued Medications Generic Name Dose Route Start Last Admin Trade Name Freq PRN Reason Stop Dose Admin Lorazepam 2 mg 03/31/25 03:01 03/31/25 03:06 Lorazepam 1 Mg Tablet PO 03/31/25 03:02 2 mg ONCE ONE Administration Phenobarbital 200 mg/ 275 mg 03/31/25 06:30 03/31/25 06:27 Phenobarbital 60 mg/ PO 03/31/25 06:31 275 mg Phenobarbital 15 mg ONCE ONE Administration Medical Decision Making Medical Decision Making [facility] Narrative: Patient presents with psychologic complaints. Differential diagnosis includes suicidal ideations, alcohol use disorder, alcohol intoxication, alcohol withdrawal, depression, anxiety, mood disorder, decompensated mental illnesses such as schizophrenia or bipolar disorder, medication noncompliance, among many others. Medical clearance protocol was initiated. 5:12 AM 03/31/2025 (Dr. Jovanna Browning, D.O.) the patient is starting to have symptoms of alcohol withdrawal. Initial CIWA score was approximately 6 at 3:00 a.m.. At that time, he received oral lorazepam 2 mg however, at 4:46 a.m., he is becoming more tremulous, sweaty and nauseous with a CIWA score of 9. We will initiate intramuscular phenobarbital and admit to the hospitalist for further care and evaluation of alcohol withdrawal, alcohol use disorder and suicidality. Differential Diagnosis Differential Diagnoses: The differential diagnosis associated with the presentation includes (as above) Admission/Observation Consideration of admission/observation: Escalation of care including admission/observation considered Consult Healthcare Provider Management of the patient was discussed with: Behavioral Health Provider Lab Data [facility] Lab Attestation statement: I reviewed the patient's lab results. 03/30/25 21:58 03/30/25 21:58 Labs: Lab Results 03/30/25 03/30/25 Range/Units 21:15 21:58 WBC 7.0 (4.8-10.8) X10*3/uL RBC 5.15 (4.60-5.80) X10*6/uL Hgb 16.2 (14.0-18.0) g/dl Hct 46.3 (42.0-52.0) % MCV 89.9 (80.0-98.0) fL MCH 31.5 (27.0-33.0) pg MCHC 35.0 (31.0-36.0) g/dl RDW 13.3 (11.0-16.0) % Plt Count 280 (160-400) X10*3/uL MPV 9.0 L (9.4-12.4) fL Immature Gran % (Auto) 0.7 H (0.0-0.4) % Neut % (Auto) 45.7 (45-73) % Lymph % (Auto) 41.2 H (20-40) % [place] % (Auto) 8.8 (2-11) % Eos % (Auto) 2.6 (0-4) % Baso % (Auto) 1.0 (0-2) % Lymph # (Auto) 2.9 (1.2-4.9) X10*3/uL [place] # (Auto) 0.6 (0.1-1.2) X10*3/uL Eos # (Auto) 0.2 (0.0-0.4) X10*3/uL Baso # (Auto) 0.1 (0.0-0.2) X10*3/uL Abs Immat Gran (auto) 0.05 H (0.00-0.03) X10*3/uL Absolute Neuts (auto) 3.2 (2.0-8.3) x10*3/uL Absolute Nucleated RBC 0.000 (0.0-0.012) X10*3/uL Nucleated RBC % (auto) 0.0 (0.0-0.2) /100WBC Sodium 145 (135-145) mmol/L Potassium 3.4 (3.3-5.1) mmol/L Chloride 108 (96-108) mmol/L Carbon Dioxide 20 L (22-29) mmol/L Anion Gap 20 (12-20) BUN 11 (9-16) mg/dL Creatinine 0.96 (0.5-1.4) mg/dL Estim Creat Clear Calc 88.0 Estimated GFR > 60 Random Glucose 121 H (60-115) mg/dL Calcium 8.3 L (8.4-10.2) mg/dL Total Bilirubin 0.4 (0.0-1.0) mg/dL AST 194 H (5-37) U/L ALT 144 H (0-40) U/L Alkaline Phosphatase 130 H (39-117) U/L Total Protein 7.1 (6.5-8.0) g/dL Albumin 4.4 (3.5-5.0) g/dL Urine Color Yellow Urine Appearance Clear Urine pH 5.5 (5.0-9.0) Ur Specific [place] 1.020 (1.005-1.025) Urine Protein 30 (1+) H (Neg-Trace) mg/dL Urine Glucose (UA) Negative (Negative) mg/dL Urine Ketones 15 (Negative) mg/dL Urine Blood Negative (Negative) Urine Nitrite Negative (Negative) Ur Leukocyte Esterase Negative (Negative) Urine RBC 0-2 (0-2) /HPF Urine WBC 0-5 (0-5) /HPF Ur Squamous Epith Cells 0-2 (0-2) /HPF Urine Bacteria None Seen (None Seen) Hyaline Casts 3-5 (0-2) /LPF Urine Opiates Screen Not Detected (Not Detect) Ur Buprenorphine Scrn Not Detected (Not Detect) ng/mL Ur Oxycodone Screen Not Detected (Not Detect) ng/mL Urine Methadone Screen Not Detected (Not Detect) ng/mL Urine Fentanyl Screen Not Detected (Not Detect) Ur Barbiturates Screen Not Detected (Not Detect) Ur Phencyclidine Scrn Not Detected (Not Detect) Ur Amphetamines Screen Not Detected (Not Detect) U Benzodiazepines Scrn Not Detected (Not Detect) Urine Cocaine Screen Not Detected (Not Detect) U Marijuana (THC) Screen Not Detected (Not Detect) Ethyl Alcohol 277 mg/dL Independent Historian Clinical information obtained from an independent historian. History obtained from or confirmed by: EMS External Record Review External record reviewed: Inpatient record Chronic Conditions Patient?s care impacted by: Other (depression, OCD, EtOH use disorder) Social Determinants Patient?s care significantly limited by Social Determinants of Health including: Alcoholism and drug addiction in family and Problems related to primary support group Critical Care Time Critical Care Time Total Critical Care Time: 40 Attestation: CRITICAL CARE TIME: 40 minutes of critical care time was spent in direct patient care at the bedside or in the immediate area with this patient. Critical care was necessary to treat or prevent imminent or life-threatening deterioration of the following conditions alcohol withdrawal, suicidality due to alcohol use disorder, major depressive episode. This patient is high risk for decompensation and/or . This time was spent assessing and managing the patient, interpreting labs and imaging, coordinating care with other medical providers, gathering history from either the patient, their representatives, EMS or chart review, and discussing management with admitting team. Discharge Plan Discharge Clinical Impression: Alcohol intoxication in active alcoholic, Passive suicidal ideations, Alcohol withdrawal Patient Disposition: Admitted As Inpatient Interventions: [place]-Suicide Risk Severity Scale Last Done: 03/30/25 21:51
[2025-03-30 22:03] LABS: MANUAL DIFF FLAG NO
[2025-03-30 22:04] LABS: Hematocrit 46.3 % (42.0-52.0); Hemoglobin 16.2 g/dl (14.0-18.0); Imm Gran Abs Auto 0.05 X10*3/uL (0.00-0.03); Imm Gran Pct Auto 0.7 % (0.0-0.4); Lymphocytes Absolute Auto 2.9 X10*3/uL (1.2-4.9); Mean Corpuscular HGB Conc 35.0 g/dl (31.0-36.0); Mean Corpuscular Hemoglobin 31.5 pg (27.0-33.0); Mean Corpuscular Volume 89.9 fL (80.0-98.0); NRBC Abs Auto 0.000 X10*3/uL (0.0-0.012); NRBC Pct Auto 0.0 /100WBC (0.0-0.2); Platelet Count 280 X10*3/uL (160-400); Red Blood Count 5.15 X10*6/uL (4.60-5.80); White Blood Count 7.0 X10*3/uL (4.8-10.8)
--- NOTE | 2025-03-30 22:06 | MHC.CARE ---
Sarah from co-response reports that Pt was assessed by crisis earlier this morning and was referred to ACCS, however was declined from this LOC due to concern of ETOH withdrawal. Apparently Pt presented as intoxicated as well. Pt is sent to [facility] ED to monitor withdrawal symptoms and to be assessed by the CARE Team once medically clear. Per Sarah, Pt did not reports SI however prsents with low mood, hopelessness and helplessness.
--- NOTE | 2025-03-30 22:15 | PC.NURSE ---
Patient SHERIE Baca FD for crisis evaluation d/t increasing depression and alcohol intoxication. Patient denies SI/HI. Patient reports drinking a sleeve of vodka nips daily. Patient was changed into a behavioral/pod attire at the main ED. Labs drawn, urine sample collected and sent to lab for processing. Patient alert and oriented x4, calm and cooperative. CIWA assessment completed, patient scored 1. Dr. Browning made aware. Patient offers no complaints at present, currently resting in bed, no s/s of distress noted.
[2025-03-30 22:19] LABS: Alanine Aminotransferase 144 U/L (0-40); Albumin Level 4.4 g/dL (3.5-5.0); Alkaline Phosphatase 130 U/L (39-117); Anion Gap 20 (12-20); Aspartate Amino Transferase 194 U/L (5-37); Blood Urea Nitrogen 11 mg/dL (9-16); Calcium 8.3 mg/dL (8.4-10.2); Carbon Dioxide 20 mmol/L (22-29); Chloride 108 mmol/L (96-108); Creatinine Clr Calc Pharmacy 88.0; Estimated Glomerular Filt Rate > 60; Potassium 3.4 mmol/L (3.3-5.1); Sodium 145 mmol/L (135-145); Total Protein 7.1 g/dL (6.5-8.0)
--- OUTSIDE RECORDS SUMMARY | 2025-03-31 00:39 | XMS_ITS | Clinical Summary ---
Author Organization [facility] [address] [place] [address] Care Team Providers Care Recreation Specialist Name Role Phone Yessenia Rose SPEECH AND LANGUAGE CLINICIAN Primary Care Provider [phone] Allergies Active Allergy Reactions Criticality Noted Date [...] Zoster Vaccines (2 of 2) 12/07/2023 10/12/2023 Depression Screening 07/22/2024 01/07/2024 COVID-19 Vaccine ( - season) 2025 08/23/2021, 01/11/2021, 12/21/2020 Influenza Vaccine (#1) 2025 , 04/12/2017, 06/24/2016, [...] l Result * Depression Screening (01/07/2024) Pathologist [facility] Depression Screening abstracted Historical Provider HEALTH MAINTENANCE Final Result from Last 3 Months or Most Recently Relevant to Health Maintenance Insurance [facility] Care Teams Recreation Specialist Relationship Specialty Start Date End Date Yessenia Rose NP [address] [place] [address] PCP - General Pediatrics 08/05/19
--- OUTSIDE RECORDS SUMMARY | 2025-03-31 00:40 | XMS_ITS | Clinical Summary ---
Author Organization [facility] Address [address] [place] [address] Care Team Providers Care Tool Smith Name Role Phone Yessenia Rose APRN Primary Care Provider [phone] Allergies Active Allergy Reactions Criticality Noted Date [...] Comment: 07/13/21:detected 07/04/21:detected 07/05/2021 07/05/2021 Care Teams Tool Smith Relationship Specialty Start Date End Date Yessenia Rose APRN PCP - General Pediatrics 08/05/19
--- OUTSIDE RECORDS SUMMARY | 2025-03-31 00:40 | XMS_ITS | Clinical Summary ---
Author Organization [facility] Address [address] [place] [id number] Care Team Providers Care Break Off Worker Name Role Phone Pcp, No Primary Care [...] , 04/30/2013 Insurance [facility]HAVIORAL [facility] Care Teams Break Off Worker Relationship Specialty Start Date End Date Pcp, No [address] [place] [address] PCP - General 06/27/22
--- NOTE | 2025-03-31 02:47 | PC.NURSE ---
CIWA assessment completed. CIWA score 6. Patient reports feeling tremulous with mild restlessness and headache. Dr. Browning informed.
[2025-03-31 02:50] VITALS: BP 147/85; PULSE 115; RESP 18; TEMP 36.6; O2SAT 96
--- NOTE | 2025-03-31 03:08 | PC.NURSE ---
Patient mediated per MAR.
--- NOTE | 2025-03-31 05:33 | PC.NURSE ---
Patient transferred from POD 4 to ED 19. Nurse to nurse report given to DREW Deleon.
[2025-03-31 06:22] VITALS: BP 158/103; PULSE 114; RESP 22; O2SAT 97
[2025-03-31] MEDS: PHENobarbitaL 200 MG, PHENobarbitaL 60 MG, PHENobarbitaL 15 MG 275 MG PO (06:27)
--- NOTE | 2025-03-31 08:37 | PC.NURSE ---
Care of Pt assumed at change of shift. Pt noted to rest quietly without distress. AM med pass completed without issue. Pt offers no complaints at this time aside from reporting he feels shameful. Pt continues to rest quietly with eyes closed and NAD. 1:[address] Pt is awaiting Care Team and Psych eval.
--- NOTE | 2025-03-31 08:59 | PC.NURSE ---
Care Team at bedside for eval.
--- NOTE | 2025-03-31 09:19 | PC.NURSE ---
[place] Darby at bedside to meet with Pt.
[2025-03-31 09:37] VITALS: BP 143/97; PULSE 101; RESP 16; TEMP 36.7; O2SAT 98
--- NOTE | 2025-03-31 09:50 | MHC.CARE ---
Requested that the ED attending physician place a [facility] consult for pt to discuss medication options and outpatient treatment options with him for his alcohol use. Also requested that he be restarted on his psych meds as well, he stated he hasn't had them in about a month because he lost his job and insurance and couldn't afford them. Financial counseling is working to get him started on a EQAL Product. Pt could benefit from an ACCS admission but it appears he will be going to a nursing floor for a medical reason.
--- NOTE | 2025-03-31 10:20 | MHC.CM.PN ---
Patient may benefit from both a Recovery Team Consult (ETOH) & Care Team Consult (SI) to assist with disposition; CM has initiated and will follow for dc planning.PCP is Dr. Yessenia Rsoe and an email referral has been sent to Financial regarding self pay status.
--- NOTE | 2025-03-31 10:47 | PHA.MEDREC ---
Pharmacy Consult ? Medication Reconciliation Pharmacy has completed the medication reconciliation. Spoke to patient and he said he has NOT TAKEN ANY MEDS FOR ABOUT A MONTH. He was discharged from us on 03/05/25 and rx's were sent to [facility] in [place], [place]. [facility] confirmed patient did NOT order picker any medications and rx's are on hold. Dr. Darby was made aware of situation and still wanted those meds to be added in home med list with unknown last dose.
--- NOTE | 2025-03-31 12:02 | PM.PSYCN ---
History of Present Illness Date of Service: 03/31/2025 Chief Complaint: ETOH abuse HPI Narrative: 49-year-old male with history of depression, suicidality, OCD, alcohol use disorder presenting with alcohol intoxication and vague suicidality. Patient was found by the police on the side of the road in his car intoxicated. Patient was recently admitted for similar complaints about a month ago where he was found to be depressed but not at risk for self-harm after about an 8 day stay in the hospital. Patient admits that since he was discharged, he lost his job and has continued to drink daily. Drinks about ?asleep of nips per day . No reported drug use. Denies specific plan for suicide but states to me ?I know that I am going to eventually of suicide I just do not know when it will be?. Denies current self-harm. States he is very depressed about losing his job and benefits. No visual or auditory hallucinations. Does have a history of alcohol withdrawal where he feels tremulous but has never had an alcohol withdrawal seizure. Otherwise feeling physically well. No recent illness. 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 Neftaly Laguerre. On 02/25: Reported he has no psychiatrist or therapist but has been seeing by the PCP. Last Visit was 3 months ago. h[place] of [facility] [place] [facility] [place] No history of PHP or detox -Past meds: Xanax, Lexapro (?horrible?), fluoxetine (felt suicidal and exacerbated his depression), Zoloft (wt gain), Depakote (non-adherent, did not want to do lab work, looked up SE and does not want to take), lamictal (non-adherent after he titrated up to 50 mg, had red macular/popular rash on his abdomen), Seroquel 200 mg (benefit for sleep), rexulti (helpful initially but said he ?freaked out? at work and felt ?uncomfortable,? denies restlessness but attributes this feeling to the medication), trintellix (took with lamictal), Wellbutrin (had SE of tinnitus), luvox (brief trial), gabapentin (constipation). [facility] Medical History Suicidal ideation Alcohol dependence Family History: He is not sure if any one in the family has mental health. Dad in 1999. Mom living in [place]. She is very supporting to him stay with her a lot . Has 2 sisters 1 of them he is very close to. One of them has alcohol issues. Dad was alcoholic Social History: -Lives alone, not , no children -Graduated from [employer] Currently. 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 Trauma History: Denies Diagnostics Vital Signs (24Hr): Vital Signs - 24 hr 03/30/25 21:48 03/31/25 02:50 03/31/25 06:22 Temperature 98.7 F 97.9 F Pulse Rate 108 H 115 H 114 H Respiratory Rate 18 22 H Blood Pressure 140/90 H 147/85 H 158/103 H Pulse Oximetry 98 96 97 Oxygen Delivery Method Room Air Room Air Room Air 03/31/25 09:37 Temperature 98.1 F Pulse Rate 101 H Respiratory Rate 16 Blood Pressure 143/97 H Pulse Oximetry 98 Oxygen Delivery Method Room Air BMI result Body Mass Index 27.4 Labs 03/30/25 21:58 03/30/25 21:58 Labs: Laboratory Results - last 48 hr 03/30/25 03/30/25 21:15 21:58 WBC 7.0 RBC 5.15 Hgb 16.2 Hct 46.3 MCV 89.9 MCH 31.5 MCHC 35.0 RDW 13.3 Plt Count 280 MPV 9.0 L Immature Gran % (Auto) 0.7 H Neut % (Auto) 45.7 Lymph % (Auto) 41.2 H Evangeline % (Auto) 8.8 Eos % (Auto) 2.6 Baso % (Auto) 1.0 Lymph # (Auto) 2.9 Evangeline # (Auto) 0.6 Eos # (Auto) 0.2 Baso # (Auto) 0.1 Abs Immat Gran (auto) 0.05 H Absolute Neuts (auto) 3.2 Absolute Nucleated RBC 0.000 Nucleated RBC % (auto) 0.0 Sodium 145 Potassium 3.4 Chloride 108 Carbon Dioxide 20 L Anion Gap 20 BUN 11 Creatinine 0.96 Estim Creat Clear Calc 88.0 Estimated GFR > 60 Random Glucose 121 H Calcium 8.3 L Total Bilirubin 0.4 AST 194 H ALT 144 H Alkaline Phosphatase 130 H Total Protein 7.1 Albumin 4.4 Urine Color Yellow Urine Appearance Clear Urine pH 5.5 Ur Specific [place] 1.020 Urine Protein 30 (1+) H Urine Glucose (UA) Negative Urine Ketones 15 Urine Blood Negative Urine Nitrite Negative Ur Leukocyte Esterase Negative Urine RBC 0-2 Urine WBC 0-5 Ur Squamous Epith Cells 0-2 Urine Bacteria None Seen Hyaline Casts 3-5 Urine Opiates Screen Not Detected Ur Buprenorphine Scrn Not Detected Ur Oxycodone Screen Not Detected Urine Methadone Screen Not Detected Urine Fentanyl Screen Not Detected Ur Barbiturates Screen Not Detected Ur Phencyclidine Scrn Not Detected Ur Amphetamines Screen Not Detected U Benzodiazepines Scrn Not Detected Urine Cocaine Screen Not Detected U Marijuana (THC) Screen Not Detected Ethyl Alcohol 277 Medications Medications Current Medications Acetaminophen (Acetaminophen 325 Mg Tablet) 650 mg PO Q6H PRN PRN Reason: Pain, Mild 1-3,fever,headache Calcium Carbonate (Calcium Carbonate 750 Mg Tab.Chew) 750 mg PO Q4H PRN PRN Reason: Heartburn Clonidine HCl (Clonidine Hcl 0.1 Mg Tablet) 0.1 mg PO Q4H PRN; Protocol PRN Reason: moderate anxiety Enoxaparin Sodium (Enoxaparin Sodium 40 Mg/0.4 Ml Syringe) 40 mg SUBCUT Q24H [facility] Last Admin: 03/31/25 06:23 Dose: 40 mg Famotidine (Famotidine 20 Mg Tablet) 20 mg PO BID [facility] Last Admin: 03/31/25 08:32 Dose: 20 mg Fluvoxamine Maleate (Fluvoxamine Maleate 50 Mg Tablet) 100 mg PO BID [facility] Folic Acid (Folic Acid 1 Mg Tablet) 1 mg PO DAILY [facility] Stop: 04/03/25 08:59 Last Admin: 03/31/25 08:32 Dose: 1 mg Guanfacine HCl (Guanfacine Hcl Er 1 Mg Tab.Er.24h) 1 mg PO BID [facility] Hydroxyzine HCl (Hydroxyzine Hcl 25 Mg Tablet) 25 mg PO Q6H PRN PRN Reason: mild anxiety Magnesium Hydroxide (Milk Of Magnesia 30 Ml Oral.Susp) 30 ml PO DAILY PRN PRN Reason: Constipation Melatonin (Melatonin 3 Mg Tablet) 6 mg PO BEDTIME PRN PRN Reason: Insomnia Multivitamins/Vitamin C (Multivitamin Tablet) 1 tab PO DAILY [facility] Stop: 04/03/25 08:59 Last Admin: 03/31/25 08:32 Dose: 1 tab Naltrexone HCl (Naltrexone Hcl 50 Mg Tablet) 50 mg PO DAILY [facility] Oxcarbazepine (Oxcarbazepine 300 Mg Tablet) 300 mg PO BID [facility] Pharmacy Consult (Consult Rx Etoh Phenob Po Only) 1 each MISCELLANE ONCE PRN; Protocol PRN Reason: Consult order Phenobarbital (Phenobarbital 30 Mg Tablet) 30 mg PO Q4H PRN PRN Reason: Breakthrough alcohol withdrawa Phenobarbital (Phenobarbital 15 Mg Tablet) 45 mg PO BID [facility] Stop: 04/02/25 09:01 Phenobarbital (Phenobarbital 15 Mg Tablet) 15 mg PO BID [facility] Stop: 04/04/25 09:01 Phenobarbital (Phenobarbital 15 Mg Tablet) 15 mg PO DAILY [facility] Stop: 04/06/25 09:01 Phenobarbital (Phenobarbital 100 Mg Tablet) 200 mg PO Q3H [facility] Stop: 03/31/25 12:31 Last Admin: 03/31/25 08:33 Dose: 200 mg Quetiapine Fumarate (Quetiapine Fumarate 200 Mg Tablet) 200 mg PO BEDTIME [facility] Sodium Chloride (0.9 % Sodium Chloride Flush 3 Ml Syringe) [facility] Last Admin: 03/31/25 07:58 Dose: Not Given Thiamine HCl (Thiamine Hcl 100 Mg Tablet) 100 mg PO DAILY [facility] Stop: 04/03/25 08:59 Last Admin: 03/31/25 08:32 Dose: 100 mg Thiamine HCl (Thiamine Hcl 100 Mg Tablet) 100 mg PO DAILY [facility] Trazodone HCl (Trazodone Hcl 50 Mg Tablet) 50 mg PO BEDTIME PRN PRN Reason: Insomnia Allergies Allergies Allergy/AdvReac Type Severity Reaction Status Date / Time Sulfa (Sulfonamide Allergy Rash Verified 03/30/25 21:49 Antibiotics) Assessment & Plan Total time managing care of this patient today ____ minutes.
--- NOTE | 2025-03-31 12:04 | P.HPHOSP_ITS ---
History of Present Illness Date of Service: 03/31/25 Chief Complaint: withdrawal 49M PMH etoh dependence, mood disorder, OCD, brought in by police after being found intoxicated in his car. Patient states he drinks about 10 nips daily. Also initially reporting vague suicidality. Due to profound intoxication police brought him to the ED, then proceeded to have withdrawal symptoms and was started on phenobarbital protocol. Patient currently denying suicidality, labs with stable transaminitis. Review of Systems 2 Review of Systems: Yes all other systems are reviewed and are negative [facility] Medical History Suicidal ideation Alcohol dependence Social History Household Members: None Household Members Other:: Parents Housing: Condominium Do you presently have visiting nurse or other home services: No Alcohol intake: current Alcohol intake frequency: 3 or more drinks per day Alcohol type: hard liquor Patient Tobacco Use Status: Former Tobacco user Smoked in Last 30 Days: No e-Cigarette/Vaping Use: Never Used Second Hand Smoke Exposure: No Use of substances other than those prescribed or required for medical reasons: No Substance Use Type: Marijuana Advance Directives: No Do you have a plan to hurt others: No Plan service: No Sexual orientation: Straight/Heterosexual Meds Allergies Allergy/AdvReac Type Severity Reaction Status Date / Time Sulfa (Sulfonamide Allergy Rash Verified 03/30/25 21:49 Antibiotics) Active Medications: Current Medications Acetaminophen (Acetaminophen 325 Mg Tablet) 650 mg PO Q6H PRN PRN Reason: Pain, Mild 1-3,fever,headache Calcium Carbonate (Calcium Carbonate 750 Mg Tab.Chew) 750 mg PO Q4H PRN PRN Reason: Heartburn Clonidine HCl (Clonidine Hcl 0.1 Mg Tablet) 0.1 mg PO Q4H PRN; Protocol PRN Reason: moderate anxiety Enoxaparin Sodium (Enoxaparin Sodium 40 Mg/0.4 Ml Syringe) 40 mg SUBCUT Q24H [facility] Last Admin: 03/31/25 06:23 Dose: 40 mg Famotidine (Famotidine 20 Mg Tablet) 20 mg PO BID [facility] Last Admin: 03/31/25 08:32 Dose: 20 mg Fluvoxamine Maleate (Fluvoxamine Maleate 50 Mg Tablet) 100 mg PO BID [facility] Folic Acid (Folic Acid 1 Mg Tablet) 1 mg PO DAILY [facility] Stop: 04/03/25 08:59 Last Admin: 03/31/25 08:32 Dose: 1 mg Guanfacine HCl (Guanfacine Hcl Er 1 Mg Tab.Er.24h) 1 mg PO BID [facility] Hydroxyzine HCl (Hydroxyzine Hcl 25 Mg Tablet) 25 mg PO Q6H PRN PRN Reason: mild anxiety Magnesium Hydroxide (Milk Of Magnesia 30 Ml Oral.Susp) 30 ml PO DAILY PRN PRN Reason: Constipation Melatonin (Melatonin 3 Mg Tablet) 6 mg PO BEDTIME PRN PRN Reason: Insomnia Multivitamins/Vitamin C (Multivitamin Tablet) 1 tab PO DAILY [facility] Stop: 04/03/25 08:59 Last Admin: 03/31/25 08:32 Dose: 1 tab Naltrexone HCl (Naltrexone Hcl 50 Mg Tablet) 50 mg PO DAILY [facility] Oxcarbazepine (Oxcarbazepine 300 Mg Tablet) 300 mg PO BID [facility] Pharmacy Consult (Consult Rx Etoh Phenob Po Only) 1 each MISCELLANE ONCE PRN; Protocol PRN Reason: Consult order Phenobarbital (Phenobarbital 30 Mg Tablet) 30 mg PO Q4H PRN PRN Reason: Breakthrough alcohol withdrawa Phenobarbital (Phenobarbital 15 Mg Tablet) 45 mg PO BID [facility] Stop: 04/02/25 09:01 Phenobarbital (Phenobarbital 15 Mg Tablet) 15 mg PO BID [facility] Stop: 04/04/25 09:01 Phenobarbital (Phenobarbital 15 Mg Tablet) 15 mg PO DAILY [facility] Stop: 04/06/25 09:01 Phenobarbital (Phenobarbital 100 Mg Tablet) 200 mg PO Q3H [facility] Stop: 03/31/25 12:31 Last Admin: 03/31/25 08:33 Dose: 200 mg Quetiapine Fumarate (Quetiapine Fumarate 200 Mg Tablet) 200 mg PO BEDTIME [facility] Sodium Chloride (0.9 % Sodium Chloride Flush 3 Ml Syringe) 3 ml IVFLUSH QSHIFT [facility] Last Admin: 03/31/25 07:58 Dose: Not Given Thiamine HCl (Thiamine Hcl 100 Mg Tablet) 100 mg PO DAILY [facility] Stop: 04/03/25 08:59 Last Admin: 03/31/25 08:32 Dose: 100 mg Thiamine HCl (Thiamine Hcl 100 Mg Tablet) 100 mg PO DAILY [facility] Trazodone HCl (Trazodone Hcl 50 Mg Tablet) 50 mg PO BEDTIME PRN PRN Reason: Insomnia Home Medications ?Medication ?Instructions ?Recorded ?Confirmed ?Last Taken ?Type acyclovir 400 mg tablet 400 mg PO BID 05/26/2403/3102/23/25 History Physical Exam 2 Vital Signs and Narrative: Vital Signs: Last Vital Signs Temp 98.1 F 03/31/25 09:37 Pulse 101 H 03/31/25 09:37 Resp 16 03/31/25 09:37 BP 143/97 H 03/31/25 09:37 Pulse Ox 98 03/31/25 09:37 O2 Del Method Room Air 03/31/25 09:37 BMI result Body Mass Index 27.4 General: AO X 3, no acute distress Resp: CTA bilateral, no accessory muscles used CVS: S1,S2,RRR GI: soft, non tender, non distended Neuro: motor grossly intact, alert, tremor Psych: appropriate affect, appropriate insight Results Labs 03/30/25 21:58 03/30/25 21:58 Labs: Laboratory Results - last 24 hr 03/30/25 03/30/25 21:15 21:58 MCV 89.9 MCH 31.5 MCHC 35.0 RDW 13.3 Plt Count 280 MPV 9.0 L Immature Gran % (Auto) 0.7 H Neut % (Auto) 45.7 Lymph % (Auto) 41.2 H [place] % (Auto) 8.8 Eos % (Auto) 2.6 Baso % (Auto) 1.0 Lymph # (Auto) 2.9 Tate # (Auto) 0.6 Eos # (Auto) 0.2 Baso # (Auto) 0.1 Abs Immat Gran (auto) 0.05 H Absolute Neuts (auto) 3.2 Absolute Nucleated RBC 0.000 Nucleated RBC % (auto) 0.0 Anion Gap 20 Estim Creat Clear Calc 88.0 Estimated GFR > 60 Random Glucose 121 H Calcium 8.3 L Total Bilirubin 0.4 AST 194 H ALT 144 H Alkaline Phosphatase 130 H Total Protein 7.1 Albumin 4.4 Urine Color Yellow Urine Appearance Clear Urine pH 5.5 Ur Specific [place] 1.020 Urine Protein 30 (1+) H Urine Glucose (UA) Negative Urine Ketones 15 Urine Blood Negative Urine Nitrite Negative Ur Leukocyte Esterase Negative Urine RBC 0-2 Urine WBC 0-5 Ur Squamous Epith Cells 0-2 Urine Bacteria None Seen Hyaline Casts 3-5 Urine Opiates Screen Not Detected Ur Buprenorphine Scrn Not Detected Ur Oxycodone Screen Not Detected Urine Methadone Screen Not Detected Urine Fentanyl Screen Not Detected Ur Barbiturates Screen Not Detected Ur Phencyclidine Scrn Not Detected Ur Amphetamines Screen Not Detected U Benzodiazepines Scrn Not Detected Urine Cocaine Screen Not Detected U Marijuana (THC) Screen Not Detected Ethyl Alcohol 277 Assessment and Plan (1) Suicidal ideation: Status: Acute Plan 49M PMH etoh dependence, mood disorder, OCD, brought in by police after being found intoxicated in his car now in alcohol withdrawal also reporting SI Alcohol dependence with acute withdrawal Phenobarbital protocol Monitor CIWA Mood disorder with SI Care team prior to discharge DVT prophylaxis with Lovenox Full Code Quality Stroke Does the patient have a stroke diagnosis?: No VTE Prior VTE?: No VTE Risk Level:: Medical - moderate - high VTE Device Contraindication: Treatment Not Indicated VTE Drug Contraindication: N/A - Med Ordered
--- NOTE | 2025-03-31 12:18 | MHC.CM.PN ---
Patient has [facility].
[2025-03-31 14:48] VITALS: BP 131/88; PULSE 93; RESP 16; TEMP 36.6; O2SAT 98
--- NOTE | 2025-03-31 17:44 | PC.NURSE ---
[facility] CONSULT NOTE - Met with Tomy in the ED after receiving a consult from his provider to discuss outpatient recovery options. Tomy was cooperative and expressed interest in engaging in MAT treatment for AUD, he has been to AA in the past and he shared that he has a current RX for naltrexone but had not consistently taken the medication however, now wishes to engage in recovery though was concerned over cost of medications due to insurance status. TW spoke with CARE velvet steamer Candelario who had spoken to Tomy earlier and shared that financial dept. was going to help sign him up for [facility] and that he was being admitted medically. Will follow up with Tomy again tomorrow and further discuss an intake appointment with [facility] for an intake appointment and re-initiation of MAT treatment and other support options. Left AA meeting book and other recovery related literature with Tomy.
--- NOTE | 2025-03-31 18:00 | PC.NURSE ---
Pt c/o anxiety. PRN Atarax given per SEP.
[2025-03-31 20:33] VITALS: BMI 27.1
[2025-03-31 20:34] VITALS: BP 138/99; PULSE 100; RESP 18; TEMP 36.7; O2SAT 100
[2025-03-31 23:27] VITALS: BP 134/79; PULSE 104; RESP 18; TEMP 36; O2SAT 96
[2025-04-01 03:11] VITALS: BP 139/86; PULSE 89; RESP 18; TEMP 36.2; O2SAT 95
[2025-04-01 07:48] VITALS: BP 151/94; PULSE 92; RESP 20; TEMP 36.9; O2SAT 94
[2025-04-01 09:13] LABS: MANUAL DIFF FLAG NO
[2025-04-01 09:17] LABS: Hematocrit 41.3 % (42.0-52.0); Hemoglobin 14.7 g/dl (14.0-18.0); Imm Gran Abs Auto 0.01 X10*3/uL (0.00-0.03); Imm Gran Pct Auto 0.3 % (0.0-0.4); Lymphocytes Absolute Auto 1.4 X10*3/uL (1.2-4.9); Mean Corpuscular HGB Conc 35.6 g/dl (31.0-36.0); Mean Corpuscular Hemoglobin 32.0 pg (27.0-33.0); Mean Corpuscular Volume 89.8 fL (80.0-98.0); NRBC Abs Auto 0.000 X10*3/uL (0.0-0.012); NRBC Pct Auto 0.0 /100WBC (0.0-0.2); Platelet Count 155 X10*3/uL (160-400); Red Blood Count 4.60 X10*6/uL (4.60-5.80); White Blood Count 3.7 X10*3/uL (4.8-10.8)
[2025-04-01 09:36] LABS: Albumin Level 4.0 g/dL (3.5-5.0); Alkaline Phosphatase 103 U/L (39-117); Anion Gap 15 (12-20); Aspartate Amino Transferase 107 U/L (5-37); Blood Urea Nitrogen 12 mg/dL (9-16); Calcium 8.5 mg/dL (8.4-10.2); Calcium 8.8 mg/dL (8.4-10.2); Carbon Dioxide 24 mmol/L (22-29); Carbon Dioxide 26 mmol/L (22-29); Chloride 103 mmol/L (96-108); Chloride 104 mmol/L (96-108); Creatinine Clr Calc Pharmacy 107.0; Creatinine Clr Calc Pharmacy 112.7; Estimated Glomerular Filt Rate > 60; Magnesium 2.0 mg/dL (1.6-2.6); Potassium 3.6 mmol/L (3.3-5.1); Sodium 139 mmol/L (135-145); Sodium 140 mmol/L (135-145); Total Protein 6.0 g/dL (6.5-8.0)
[2025-04-01 09:48] LABS: Alanine Aminotransferase 102 U/L (0-40)
[2025-04-01] MEDS: guanFACINE HCl ER 1 MG TAB.ER.24H PO ×2 (09:49→21:16)
--- NOTE | 2025-04-01 11:07 | HO.PM.IMPN ---
Subjective Subjective Date of Service: 04/01/25 Interval History: improving Physical Exam Exam: Exam: General: AO X 3, no acute distress, still with anxiety, some jitterinesss Resp: CTA bilateral, no accessory muscles used CVS: S1,S2,RRR GI: soft, non tender, non distended Neuro: motor grossly intact, alert Psych: appropriate affect, appropriate insight Vital Signs: Vital Signs: Last Vital Signs Temp 98.5 F 04/01/25 07:48 Pulse 92 04/01/25 07:48 Resp 20 04/01/25 07:48 BP 151/94 H 04/01/25 07:48 Pulse Ox 94 04/01/25 07:48 O2 Del Method Room Air 04/01/25 07:48 BMI result Body Mass Index 27.1 Objective Data Active Medications Acetaminophen (Acetaminophen 325 Mg Tablet) 650 mg PO Q6H PRN PRN Reason: Pain, Mild 1-3,fever,headache Calcium Carbonate (Calcium Carbonate 750 Mg Tab.Chew) 750 mg PO Q4H PRN PRN Reason: Heartburn Clonidine HCl (Clonidine Hcl 0.1 Mg Tablet) 0.1 mg PO Q4H PRN; Protocol PRN Reason: moderate anxiety Enoxaparin Sodium (Enoxaparin Sodium 40 Mg/0.4 Ml Syringe) 40 mg SUBCUT Q24H [facility] Last Admin: 04/01/25 05:41 Dose: 40 mg Documented By: MILAD Famotidine (Famotidine 20 Mg Tablet) 20 mg PO BID [facility] Last Admin: 04/01/25 09:49 Dose: 20 mg Documented By: CHERRI Fluvoxamine Maleate (Fluvoxamine Maleate 50 Mg Tablet) 100 mg PO BID [facility] Last Admin: 04/01/25 09:49 Dose: 100 mg Documented By: CHERRI Folic Acid (Folic Acid 1 Mg Tablet) 1 mg PO DAILY [facility] Stop: 04/03/25 08:59 Last Admin: 04/01/25 09:50 Dose: 1 mg Documented By: CHERRI Guanfacine HCl (Guanfacine Hcl Er 1 Mg Tab.Er.24h) 1 mg PO BID [facility] Last Admin: 04/01/25 09:49 Dose: 1 mg Documented By: CHERRI Hydroxyzine HCl (Hydroxyzine Hcl 25 Mg Tablet) 25 mg PO Q6H PRN PRN Reason: mild anxiety Last Admin: 03/31/25 17:59 Dose: 25 mg Documented By: SERENA Magnesium Hydroxide (Milk Of Magnesia 30 Ml Oral.Susp) 30 ml PO DAILY PRN PRN Reason: Constipation Melatonin (Melatonin 3 Mg Tablet) 6 mg PO BEDTIME PRN PRN Reason: Insomnia Multivitamins/Vitamin C (Multivitamin Tablet) 1 tab PO DAILY [facility] Stop: 04/03/25 08:59 Last Admin: 04/01/25 09:49 Dose: 1 tab Documented By: CHERRI Naltrexone HCl (Naltrexone Hcl 50 Mg Tablet) 50 mg PO DAILY [facility] Last Admin: 04/01/25 09:50 Dose: 50 mg Documented By: CHERRI Oxcarbazepine (Oxcarbazepine 300 Mg Tablet) 300 mg PO BID [facility] Last Admin: 04/01/25 09:50 Dose: 300 mg Documented By: CHERRI Pharmacy Consult (Consult Rx Etoh Phenob Po Only) 1 each MISCELLANE ONCE PRN; Protocol PRN Reason: Consult order Phenobarbital (Phenobarbital 30 Mg Tablet) 30 mg PO Q4H PRN PRN Reason: Breakthrough alcohol withdrawa Phenobarbital (Phenobarbital 15 Mg Tablet) 45 mg PO BID [facility] Stop: 04/02/25 09:01 Last Admin: 04/01/25 09:50 Dose: 45 mg Documented By: CHERRI Phenobarbital (Phenobarbital 15 Mg Tablet) 15 mg PO BID [facility] Stop: 04/04/25 09:01 Phenobarbital (Phenobarbital 15 Mg Tablet) 15 mg PO DAILY [facility] Stop: 04/06/25 09:01 Quetiapine Fumarate (Quetiapine Fumarate 200 Mg Tablet) 200 mg PO BEDTIME [facility] Last Admin: 03/31/25 21:02 Dose: 200 mg Documented By: MILAD Sodium Chloride (0.9 % Sodium Chloride Flush 3 Ml Syringe) 3 ml IVFLUSH QSHIFT [facility] Last Admin: 03/31/25 23:20 Dose: Not Given Documented By: MILAD Non-Admin Reason: no IV access Thiamine HCl (Thiamine Hcl 100 Mg Tablet) 100 mg PO DAILY [facility] Trazodone HCl (Trazodone Hcl 50 Mg Tablet) 50 mg PO BEDTIME PRN PRN Reason: Insomnia Labs 04/01/25 08:33 04/01/25 08:33 Labs: Laboratory Results - last 24 hr 04/01/25 04/01/25 04/01/25 08:33 08:33 08:33 MCV 89.8 MCH 32.0 MCHC 35.6 RDW 13.1 Plt Count 155 L D MPV 9.9 Immature Gran % (Auto) 0.3 Neut % (Auto) 50.3 Lymph % (Auto) 36.8 Gem % (Auto) 9.3 Eos % (Auto) 2.5 Baso % (Auto) 0.8 Lymph # (Auto) 1.4 Gem # (Auto) 0.3 Eos # (Auto) 0.1 Baso # (Auto) 0.0 Abs Immat Gran (auto) 0.01 Absolute Neuts (auto) 1.9 L Absolute Nucleated RBC 0.000 Nucleated RBC % (auto) 0.0 Anion Gap 15 15 Estim Creat Clear Calc 107.0 112.7 Estimated GFR > 60 Random Glucose Calcium Magnesium Total Bilirubin AST ALT Alkaline Phosphatase Total Protein Albumin 04/01/25 04/01/25 04/01/25 08:33 08:33 08:33 MCV MCH MCHC RDW Plt Count MPV Immature Gran % (Auto) Neut % (Auto) Lymph % (Auto) Gem % (Auto) Eos % (Auto) Baso % (Auto) Lymph # (Auto) Gem # (Auto) Eos # (Auto) Baso # (Auto) Abs Immat Gran (auto) Absolute Neuts (auto) Absolute Nucleated RBC Nucleated RBC % (auto) Anion Gap Estim Creat Clear Calc Estimated GFR > 60 Random Glucose 118 H 118 H Calcium 8.8 D 8.5 Magnesium 2.0 Total Bilirubin 0.8 AST 107 H ALT 102 H Alkaline Phosphatase 103 Total Protein 6.0 L Albumin 4.0 Assessment and Plan (1) Suicidal ideation: Status: Acute Plan 49M PMH etoh dependence, mood disorder, OCD, brought in by police after being found intoxicated in his car now in alcohol withdrawal also reporting SI Alcohol dependence with acute withdrawal continue Phenobarbital protocol Monitor CIWA Mood disorder with SI Care team prior to discharge DVT prophylaxis with Lovenox Full Code reason for continued hospitalization:still with active withdrawal symptoms Quality Stroke Does the patient have a stroke diagnosis?: No VTE Prior VTE?: No VTE Risk Level:: Medical - moderate - high VTE Device Contraindication: Treatment Not Indicated VTE Drug Contraindication: N/A - Med Ordered
[2025-04-01 11:42] VITALS: BP 134/94; PULSE 99; RESP 20; TEMP 36.2; O2SAT 98
[2025-04-01 15:29] VITALS: BP 139/99; PULSE 94; RESP 20; TEMP 36.4; O2SAT 96
[2025-04-01 19:51] VITALS: BP 146/104; PULSE 101; RESP 18; TEMP 36.2; O2SAT 96
[2025-04-01 23:14] VITALS: BP 127/74; PULSE 93; RESP 18; TEMP 36.1; O2SAT 95
[2025-04-02 04:00] VITALS: BP 122/84; PULSE 91; RESP 16; TEMP 36.3; O2SAT 95
[2025-04-02 08:00] VITALS: BP 133/79; PULSE 85; RESP 18; TEMP 36.3; O2SAT 97
[2025-04-02] MEDS: guanFACINE HCl ER 1 MG TAB.ER.24H PO (09:16)
--- NOTE | 2025-04-02 10:23 | P.DS_ITS ---
DS: Providers Provider Date of Service: 04/02/25 Date of admission: 03/31/25 05:41 Date of discharge: 04/02/25 Primary care physician: Unknown Physician Consults: 03/30/25 23:51 ED CARE Team Crisis Consult Stat Comment: Reason for consultation: SI, EtOH abuse 03/31/25 09:47 Consult to Comprehensive Care Stat Consulting Provider: [facility] 04/02/25 09:59 Inpt CARE Team Crisis Consult Routine Comment: Reason for consultation: medically cleared, ?SI DS: Diagnosis Discharge Diagnosis (1) Suicidal ideation: Status: Acute DS: Summary Hospital Course Hospital Course: from initial hpi: 49M PMH etoh dependence, mood disorder, OCD, brought in by police after being found intoxicated in his car. Patient states he drinks about 10 nips daily. Also initially reporting vague suicidality. Due to profound intoxication police brought him to the ED, then proceeded to have withdrawal symptoms and was started on phenobarbital protocol. Patient currently denying suicidality, labs with stable transaminitis. hospital course: Patient was admitted for alcohol dependence with acute withdrawal. Was treated with phenobarbital protocol and symptoms resolved. For mood disorder with suicide ideation was seen by care team who felt patient no longer suicidal and recommended follow up in the community. Time Attestation Discharge Coordination Time (in mins): 34 Quality: Safe Use of Opioids Does Pt have an Active Cancer Diagnosis on the Problem List?: No Quality: Stroke Does the patient have a stroke diagnosis?: No Physical Exam Exam: Exam: General: AO X 3, no acute distress Resp: CTA bilateral, no accessory muscles used CVS: S1,S2,RRR GI: soft, non tender, non distended Neuro: motor grossly intact, alert Psych: appropriate affect, appropriate insight Vital Signs: Vital Signs: Last Vital Signs Temp 97.4 F 04/02/25 08:00 Pulse 85 04/02/25 08:00 Resp 18 04/02/25 08:00 BP 133/79 04/02/25 08:00 Pulse Ox 97 04/02/25 08:00 O2 Del Method Room Air 04/02/25 08:00 BMI result Body Mass Index 27.1 DS: Data Data Completed and Pending Completed studies during hospitalization [Text1]: Procedures Detoxification Services for Substance Abuse Treatment (02/25/25) Discharge Plan Discharge Anticipated Discharge Date/Time: 04/02/25 10:22 Patient Disposition: Home, Self-Care Discharge Diagnosis: etoh withdrawal Referrals: Physician,Unknown J [Primary Care Provider, Medical] - 1 Week Discharge Medications: Continued clonidine HCl 0.1 mg Tablet 0.1 mg PO Q4H PRN (Reason: moderate anxiety) 30 Days Qty: 60 0RF Protocol: Hold for SBP< HOLD for SBP < : 90 hydroxyzine HCl 25 mg Tablet 25 mg PO Q6H PRN (Reason: mild anxiety) 30 Days Qty: 60 0RF naltrexone 50 mg Tablet 50 mg PO DAILY 30 Days Qty: 30 0RF trazodone 50 mg Tablet 50 mg PO BEDTIME PRN (Reason: Insomnia) 30 Days Qty: 30 0RF quetiapine 200 mg Tablet 200 mg PO BEDTIME 30 Days Qty: 30 0RF thiamine HCl (vitamin B1) 100 mg tablet 100 mg PO DAILY 30 Days Qty: 30 0RF oxcarbazepine 300 mg Tablet 300 mg PO BID 30 Days Qty: 60 0RF guanfacine 1 mg tablet extended release 24 hr 1 mg PO BID 30 Days Qty: 60 0RF fluvoxamine 100 mg tablet 100 mg PO BID 30 Days Qty: 60 0RF acyclovir 400 mg tablet 400 mg PO BID Discharge Orders: Discharge Order (Routine); Ordered 04/02/25 Ordered By: Diomedes Darby Diet: Advance to usual diet Activity on Discharge: As tolerated Stand Alone Forms: Patient Portal Discharge page Print Language: Albanian Care Plan Goals: recovery Health Concerns: etoh Plan of Treatment: avoid etoh Assessment: see above
--- NOTE | 2025-04-02 11:26 | MHC.CARE ---
Pt does not meet the criteria for a higher level of care and will D/C. Provider in agreement.
[2025-04-02 12:00] VITALS: BP 115/83; PULSE 90; RESP 18; TEMP 36.1; O2SAT 96
== END 2025-04-02 13:14 | disposition home or self-care (01) | DRG 775 ==
LOC: HO.ED 03-31 05:11 → HO.EDOVER 03-31 05:48 → HO.IMC 03-31 19:17
PROVIDERS: Admitting Provider Hospitalist; Emergency Provider Emergency Medicine; Visit Provider Internal Medicine
DX: F10.239 Alcohol dependence with withdrawal, unspecified (principal); F10.229 Alcohol dependence with intoxication, unspecified; R45.851 Suicidal ideations; Y90.8 Blood alcohol level of 240 mg/100 ml or more; F39 Unspecified mood [affective] disorder; Z71.41 Alcohol abuse counseling and surveillance of alcoholic; Z87.891 Personal history of nicotine dependence; Z79.899 Other long term (current) drug therapy
CPT/HCPCS: 36415; 80048; 80053; 80307; 81001; 83735; 85025; 99285; J1650; S9485

== ENCOUNTER → 2025-03-31 05:41 | Outpatient (BNV) | payer MEDICAID, SELFPAY | PROVIDERS: Admitting Provider Hospitalist; Emergency Provider Emergency Medicine; Visit Provider Internal Medicine | DX: R45.851 Suicidal ideations (principal) | CPT/HCPCS: 99223; 99232 ==